=== PATIENT | male | born 2005 | race African-American/Black ===

== ENCOUNTER 2023-07-25 19:50 | Emergency (ER) | payer SELFPAY ==
--- NOTE | ~2023-07-25 | US_ITS ---
EXAMINATION: US scrotum doppler DATE: 07/25/2023 21:04 INDICATION: Left testicular pain TECHNIQUE: Testicular sonogram utilizing grayscale and Doppler COMPARISON: None. FINDINGS: The right testis measures 4.3 x 2.2 x 2.8 cm. The left testis measures 4.2 x 2.2 x 3.0 cm. Symmetric normal grayscale appearance to both testes. There is normal vascular flow to both testes. The right e pididymis is normal with normal vascular flow. The left epididymis appears swollen with heterogeneous decreased echodensity and with asymmetric increased vascular flow on color Doppler suggestive of pro statitis. 4 mm very hypoechoic likely left epididymal cyst.. There is no varicocele or hydrocele. IMPRESSION: 1. Some edematous-appearing left epididymis with increased vascular flow on color Doppler consistent with epididymitis. Reviewed, dictated and finalized at location A. IMPRESSION: 1. Some edematous-appearing left epididymis with increased vascular flow on co yajaira Doppler consistent with epididymitis.
[2023-07-25 19:57] VITALS: BP 139/100; PULSE 79; RESP 15; TEMP 36.6; O2SAT 100
--- NOTE | 2023-07-25 20:37 | ED.GENADULT ---
HPI - General Adult General Chief complaint: Unspecified Stated complaint: L testical swollen/painful Time Seen by Provider: 07/25/23 20:05 Source: patient Mode of arrival: ambulatory Limitations: no limitations History of Present Illness HPI narrative: This is a 18-year-old male who presents to the ED with chief complaint of left testicular swelling and pain for the past 2 days. Patient reports that he has concern for possible STD. No known exposures. Denies dysuria, hematuria, penile discharge or penile pain. Denies any lesions to the area. Denies any right-sided pain or swelling. Denies fevers, chills, nausea, vomiting, abdominal pain. Review of Systems Review of Systems: All systems as dictated in HPI Exam Narrative: GENERAL: Well-appearing, well-nourished, and in no acute distress. HEAD: Normocephalic, atraumatic. EYES: PERRLA and EOMI. ENT: Nares clear, no rhinorrhea or epistaxis. Mucous membranes moist. Oropharynx without tonsillar hypertrophy exudate or other lesions. NECK: Supple. No adenopathy or masses. CHEST: No respiratory distress. Clear to auscultation. No wheezes rales or rhonchi HEART: Regular rate and rhythm. No murmur heard. Normal peripheral pulses. ABDOMEN: Soft, nontender, nondistended, normal active bowel sounds. MSK: Normal range of motion. No edema. SKIN: Warm, dry, no rash. NEURO: Alert and oriented x3. No focal deficits. PSYCH: Normal mood and affect. : Testicular exam performed with RN leguillon debeader present: Mild left testicular swelling and tenderness. No skin changes. No penile swelling or discharge. No skin lesions noted Course Vital Signs Vital signs: Vital Signs Temperature 97.9 F 07/25/23 19:57 Pulse Rate 79 07/25/23 19:57 Respiratory Rate 15 07/25/23 19:57 Blood Pressure 139/100 H 07/25/23 19:57 Pulse Oximetry 100 07/25/23 19:57 Temperature 97.9 F 07/25/23 19:57 Pulse Rate 79 07/25/23 19:57 Respiratory Rate 15 07/25/23 19:57 Blood Pressure 139/100 H 07/25/23 19:57 Pulse Oximetry 100 07/25/23 19:57 Medical Decision Making [facility] Narrative Medical decision making narrative: This is a 18-year-old male who presents to the ED with chief complaint of left testicular pain and swelling for the past couple of days. Vitals are normal. Exam remarkable for the above. No skin lesions to the uro genital area. Ultrasound remarkable for signs of epididymitis but no torsion. Lab work positive for chlamydia. Patient was given Rocephin IM here. First dose of doxycycline given. Rx for doxycycline given for home. Symptoms and presentation consistent with chlamydia causing this epididymitis. Pt will be discharged in stable condition. Return precautions given and supportive measures discussed. Pt is understanding and agreeable with plan for discharge and follow-up with PCP. Vital Signs Vital Signs: Vital Signs Temperature 97.9 F 07/25/23 19:57 Pulse Rate 79 07/25/23 19:57 Respiratory Rate 15 07/25/23 19:57 Blood Pressure 139/100 H 07/25/23 19:57 Pulse Oximetry 100 07/25/23 19:57 Temperature 97.9 F 07/25/23 19:57 Pulse Rate 79 07/25/23 19:57 Respiratory Rate 15 07/25/23 19:57 Blood Pressure 139/100 H 07/25/23 19:57 Pulse Oximetry 100 07/25/23 19:57 Lab Data Labs: Lab Results 07/25/23 Range/Units 21:04 Urine Color Yellow (Yellow) Urine Appearance Clear (Clear) Urine pH 6.0 (5.0-9.0) Ur Specific [place] 1.014 (1.001-1.035) Urine Protein Negative (Negative) mg/dL Urine Glucose (UA) Negative (Negative) mg/dL Urine Ketones Negative (Negative) mg/dL Ur Blood (Man) Negative (Negative) Urine Nitrate Negative (Negative) Urine Bilirubin Negative (Negative) Urine Urobilinogen 0.2 (<2.0) mg/dL Leukocyte Esterase Rfl Negative (Negative) BETSEY/UL C. trachomatis (PCR) Pending N. gonorrhoeae (PCR) Pending T. vaginalis (PCR) Not detected (NOT DETECTE)
[2023-07-25 22:15] LABS: Appearance Urine Clear (Clear); Bilirubin Urine Negative (Negative); Blood Urine Negative (Negative); Color Urine Yellow (Yellow); Glucose Urine UA Negative (Negative); Ketones Urine Negative (Negative); Leukocyte Esterase Ur Negative LEU/UL (Negative); Nitrate Urine Negative (Negative); Protein Urine Negative (Negative); Specific Grav Ur 1.014 (1.001-1.035); Urobilinogen Urine 0.2 mg/dL (<2.0)
[2023-07-25 22:27] LABS: Add Urine Microscopic? NO
--- NOTE | 2023-07-25 23:13 | PC.NURSE ---
report given to ISAAC Zhang. all questions answered.
[2023-07-25 23:56] LABS: Trichomonas Vag PCR NOT DETECTED (NOT DETECTE)
[2023-07-26] MEDS: DOXYCYCLINE HYCLATE 100 MG TABLET PO (00:25)
[2023-07-26] MEDS: cefTRIAXone 1 GM VIAL 0.5 GM IM (00:26)
[2023-07-26 01:00] LABS: Neisseria gonorrhoeae PCR NOT DETECTED (NOT DETECTE)
[2023-07-26 01:05] LABS: Chlamydia trachomatis DETECTED (NOT DETECTE)
== END 2023-07-26 00:35 | disposition home or self-care (01) ==
PROVIDERS: Emergency Provider Physician Assistant
DX: N45.1 Epididymitis (principal)
CPT/HCPCS: 76870; 81003; 87491; 87591; 87661; 93976; 96372; 99284; A9270; J0696

== ENCOUNTER 2023-08-05 08:46 | Emergency (ER) | payer SELFPAY ==
[2023-08-05 08:57] VITALS: BP 149/82; PULSE 68; RESP 16; TEMP 36.7; O2SAT 98
[2023-08-05 11:10] VITALS: BP 113/91; PULSE 62; RESP 16; TEMP 36.8; O2SAT 100
[2023-08-05 11:23] LABS: Chlamydia trachomatis NOT DETECTED (NOT DETECTE); Neisseria gonorrhoeae PCR NOT DETECTED (NOT DETECTE)
--- NOTE | 2023-08-05 11:34 | ED_ITS ---
HPI - Male Genitourinary General Chief complaint: Urogenital-Male Stated complaint: STD TESTING Time Seen by Provider: 08/05/23 08:55 Source: patient Mode of arrival: ambulatory Limitations: no limitations History of Present Illness HPI Narrative: 18-year-old here for STI check. Patient states that he was diagnosed with chlamydia finished a course of antibiotics. He presently denies any he penile pain or discharge. Review of Systems Review of Systems: All systems reviewed & are unremarkable except as noted in HPI and below Constitutional: Constitutional: Reports no additional constitutional complaints Eyes: Eyes: Reports no additional eye complaints ENT: Reports system reviewed and no additional complaints, except as documented Cardiovascular: Cardiovascular: Reports no additional cardiovascular complaints Respiratory: Respiratory: Reports no additional respiratory complaints Gastrointestinal: Gastrointestinal: Reports no additional gastrointestinal complaints Genitourinary: Genitourinary: Reports as per HPI Musculoskeletal: Musculoskeletal: Reports no additional musculoskeletal complaints Exam Narrative: GENERAL: Well-appearing, well-nourished, and in no acute distress. HEAD: Normocephalic, atraumatic. EYES: PERRLA and EOMI. ENT: Nares clear, no rhinorrhea or epistaxis. Mucous membranes moist. NECK: Supple. CHEST: Clear to auscultation. No respiratory distress. HEART: Regular rate and rhythm. No murmur heard. Normal peripheral pulses. ABDOMEN: Soft, nontender, nondistended, normal active bowel sounds. EXTREMITIES: Normal range of motion. No edema. SKIN: Warm, dry, no rash. NEURO: No focal deficits. Alert and oriented x3. PSYCH: Normal mood and affect. Course Course Emergency Course: Informed patient about his lab work advised him safe sex, follow-up with his primary doctor as needed Vital Signs Vital signs: Vital Signs Temperature 36.7 C 08/05/23 08:57 Pulse Rate 68 08/05/23 08:57 Respiratory Rate 16 08/05/23 08:57 Blood Pressure 149/82 H 08/05/23 08:57 Pulse Oximetry 98 08/05/23 08:57 Temperature 36.8 C 08/05/23 11:10 Pulse Rate 62 08/05/23 11:10 Respiratory Rate 16 08/05/23 11:10 Blood Pressure 113/91 H 08/05/23 11:10 Pulse Oximetry 100 08/05/23 11:10 MDM - Male Genitourinary Lab Data Labs: Lab Results 08/05/23 Range/Units 09:46 C. trachomatis (PCR) Not detected (NOT DETECTE) N. gonorrhoeae (PCR) Not detected (NOT DETECTE) Discharge Plan Discharge Clinical Impression: Well adult exam Patient Disposition: Home, Self-Care Condition: Stable Instructions: Antibiotic Form, Safe Sex Practices (ED) Prescriptions: No Action doxycycline hyclate 100 mg capsule 100 mg PO BID 7 Days Qty: 14 0RF Follow-up/Referrals: Conrado Soares MD [Physician] - PHYSICIAN,HVAC SALES ENGINEER [Primary Care Provider] - Time of Disposition: 11:37
[2023-08-05 11:51] VITALS: BP 137/62; PULSE 72; RESP 18; TEMP 36.4; O2SAT 100
== END 2023-08-05 11:53 | disposition home or self-care (01) ==
PROVIDERS: Emergency Provider Family Medicine
DX: Z03.89 Encounter for observation for other suspected diseases and conditions ruled out (principal)
CPT/HCPCS: 87491; 87591; 99283

== ENCOUNTER 2023-10-17 11:04 | Emergency (ER) | payer BC, SELFPAY ==
--- NOTE | ~2023-10-17 | US_ITS ---
EXAMINATION: US scrotum doppler DATE: 10/17/2023 12:15 INDICATION: Left testicular pain. TECHNIQUE: Grayscale and Doppler ultrasound images of the testes were obtained. COMPARISON: Ultrasound 07/25/2023 FINDINGS: The right testis measures 4.2 x 1.8 x 3.0 cm. The left testis measures 4.3 x 2.0 x 2.5 cm. There is a scrotolith on the left. There is normal vascular flow to both testes. The right epididymis is normal with normal vascular flow. The left epididymis is normal with normal vascular flow. There is no varicocele or hydrocele. IMPRESSION: 1. No etiology for the patient's symptoms. Reviewed, dictated and finalized at location A.
--- NOTE | 2023-10-17 11:22 | ED.GENADULT ---
HPI - General Adult General Chief complaint: Urogenital-Male Stated complaint: STD check Time Seen by Provider: 10/17/23 11:19 Source: patient Mode of arrival: ambulatory Limitations: no limitations History of Present Illness HPI narrative: This is a 18-year-old male who presents to the ED for left testicular pain. States that he has noticed a lump over the past couple of weeks. States he had negative STD screening last week. He has no specific concern or symptoms for STDs today. He is just concerned over the lump. Denies fevers, chills, nausea, vomiting or over lying skin changes. Review of Systems Review of Systems: All systems as dictated in HPI Exam Narrative: GENERAL: Well-appearing, well-nourished, and in no acute distress. HEAD: Normocephalic, atraumatic. EYES: PERRLA and EOMI. ENT: Nares clear, no rhinorrhea or epistaxis. Mucous membranes moist. Oropharynx without tonsillar hypertrophy exudate or other lesions. NECK: Supple. No adenopathy or masses. CHEST: No respiratory distress. Clear to auscultation. No wheezes rales or rhonchi HEART: Regular rate and rhythm. No murmur heard. Normal peripheral pulses. ABDOMEN: Soft, nontender, nondistended, normal active bowel sounds. MSK: Normal range of motion. No edema. SKIN: Warm, dry, no rash. NEURO: Alert and oriented x4. No focal deficits. PSYCH: Normal mood and affect. : Normal penis Normal testes and scrotum. No swelling. No lesions and no discharge. scrotal exam appears to have normal anatomy Course Vital Signs Vital signs: Vital Signs Temperature 97.9 F 10/17/23 11:32 Pulse Rate 68 10/17/23 11:32 Respiratory Rate 18 10/17/23 11:32 Blood Pressure 126/61 10/17/23 11:32 Pulse Oximetry 98 10/17/23 11:32 Temperature 98.7 F 10/17/23 13:04 Pulse Rate 72 10/17/23 13:04 Respiratory Rate 18 10/17/23 13:04 Blood Pressure 130/65 10/17/23 13:04 Pulse Oximetry 98 10/17/23 13:04 Medical Decision Making [facility] Narrative Medical decision making narrative: This is a 18-year-old male who presents to the ED for concern over possible lump to his left testicle. Vitals are normal. Exam is benign overall. Appears to have normal testicular anatomy on my exam. Ultrasound was ordered and shows no acute findings. There is no mass or hernia. STD screening was run and is negative. Pt will be discharged in stable condition. Return precautions given and supportive measures discussed. Pt is understanding and agreeable with plan for discharge and follow-up with PCP. Vital Signs Vital Signs: Vital Signs Temperature 97.9 F 10/17/23 11:32 Pulse Rate 68 10/17/23 11:32 Respiratory Rate 18 10/17/23 11:32 Blood Pressure 126/61 10/17/23 11:32 Pulse Oximetry 98 10/17/23 11:32 Temperature 98.7 F 10/17/23 13:04 Pulse Rate 72 10/17/23 13:04 Respiratory Rate 18 10/17/23 13:04 Blood Pressure 130/65 10/17/23 13:04 Pulse Oximetry 98 10/17/23 13:04 Lab Data Labs: Lab Results 10/17/23 Range/Units 11:27 Urine Color Yellow (Yellow) Urine Appearance Clear (Clear) Urine pH 5.5 (5.0-9.0) Ur Specific [place] 1.013 (1.001-1.035) Urine Protein Negative (Negative) mg/dL Urine Glucose (UA) Negative (Negative) mg/dL Urine Ketones Negative (Negative) mg/dL Ur Blood (Man) Negative (Negative) Urine Nitrate Negative (Negative) Urine Bilirubin Negative (Negative) Urine Urobilinogen 0.2 (<2.0) mg/dL Leukocyte Esterase Rfl Negative (Negative) BETSEY/UL C. trachomatis (PCR) Not detected (NOT DETECTE) N. gonorrhoeae (PCR) Not detected (NOT DETECTE) T. vaginalis (PCR) Not detected (NOT DETECTE) Discharge Plan Discharge Clinical Impression: Encounter for medical screening examination Patient Disposition: Home, Self-Care Condition: Stable Instructions: Antibiotic Form Additional Instructions: your exam and imagin
[2023-10-17 11:32] VITALS: BP 126/61; PULSE 68; RESP 18; TEMP 36.6; O2SAT 98
[2023-10-17 11:39] LABS: Add Urine Microscopic? NO; Appearance Urine Clear (Clear); Bilirubin Urine Negative (Negative); Blood Urine Negative (Negative); Color Urine Yellow (Yellow); Glucose Urine UA Negative (Negative); Ketones Urine Negative (Negative); Leukocyte Esterase Ur Negative LEU/UL (Negative); Nitrate Urine Negative (Negative); Protein Urine Negative (Negative); Specific Grav Ur 1.013 (1.001-1.035); Urobilinogen Urine 0.2 mg/dL (<2.0); pH Urine 5.5 (5.0-9.0)
[2023-10-17 12:45] LABS: Trichomonas Vag PCR NOT DETECTED (NOT DETECTE)
[2023-10-17 13:04] VITALS: BP 130/65; PULSE 72; RESP 18; TEMP 37.1; O2SAT 98
[2023-10-17 13:10] LABS: Chlamydia trachomatis NOT DETECTED (NOT DETECTE); Neisseria gonorrhoeae PCR NOT DETECTED (NOT DETECTE)
== END 2023-10-17 13:07 | disposition home or self-care (01) ==
PROVIDERS: Emergency Provider Physician Assistant
DX: N50.812 Left testicular pain (principal); Z01.89 Encounter for other specified special examinations
CPT/HCPCS: 76870; 81003; 87491; 87591; 87661; 93976; 99284

== ENCOUNTER 2024-03-03 02:03 | Emergency (ER) | payer BC, SELFPAY ==
--- NOTE | ~2024-03-03 | XR_ITS ---
Left Knee Technique: AP, lateral, and oblique views were obtained. Clinical History: Pain Findings: No fracture or dislocation is seen. Osseous alignment is anatomic. Joint spaces are preserv ed without degenerative or erosive change. Soft tissues are unremarkable. No joint effusion is seen. Impression: Unremarkable left knee radiographs. Reviewed, dictated and finalized at [facility]. [employer] Impression: Unremarkable left knee radiographs.
[2024-03-03 02:14] VITALS: BP 143/76; PULSE 75; RESP 16; TEMP 36.6; O2SAT 95
--- NOTE | 2024-03-03 02:49 | ED.GENADULT ---
HPI - General Adult General Chief complaint: Extremity Injury, Lower Stated complaint: Left leg injury after fall Time Seen by Provider: 03/03/24 02:41 History of Present Illness HPI narrative: Patient is a 19-year-old gentleman presents emergency department chief complaint of left knee pain. Patient reports he has had a prior injury from a basketball injury and reports that he was walking and slipped on dog urine the patient reports that he had a twisting sensation in his knee and reports since then whenever he attempts to walk on the knee it hurts. The patient reports he has been using crutches without improvement and decided to come the emergency department. Related Data Allergies Allergy/AdvReac Type Severity Reaction Status Date / Time No Known Allergies Allergy Verified 03/03/24 02:04 Review of Systems Review of Systems: A 10 system review of systems was completed on the patient and is negative except for what is stated in the HPI. Nursing and ancillary documentation was reviewed. Exam Narrative: GENERAL: Well-appearing, well-nourished, and in no acute distress. HEAD: Normocephalic, atraumatic. EYES: PERRLA and EOMI. ENT: Nares clear, no rhinorrhea or epistaxis. Mucous membranes moist. NECK: Supple. CHEST: Clear to auscultation. No respiratory distress. HEART: Regular rate and rhythm. No murmur heard. Normal peripheral pulses. ABDOMEN: Soft, nontender, nondistended, normal active bowel sounds. EXTREMITIES: Normal range of motion tenderness to palpation of the left knee. No edema. SKIN: Warm, dry, no rash. NEURO: No focal deficits. Alert and oriented x3. PSYCH: Normal mood and affect. Course Vital Signs Vital signs: Vital Signs Temperature 36.6 C 03/03/24 02:14 Pulse Rate 75 03/03/24 02:14 Respiratory Rate 16 03/03/24 02:14 Blood Pressure 143/76 H 03/03/24 02:14 Pulse Oximetry 95 03/03/24 02:14 Oxygen Delivery Room Air 03/03/24 02:14 Temperature 36.6 C 03/03/24 02:14 Pulse Rate 75 03/03/24 02:14 Respiratory Rate 16 03/03/24 02:14 Blood Pressure 143/76 H 03/03/24 02:14 Pulse Oximetry 95 03/03/24 02:14 Oxygen Delivery Room Air 03/03/24 02:14 Medical Decision Making [facility] Narrative Medical decision making narrative: Differential diagnosis includes fracture, internal derangement of the knee Plain film x-ray showed no evidence of fracture The patient was placed in knee immobilizer and referred to Orthopedics Vital Signs Vital Signs: Vital Signs Temperature 36.6 C 03/03/24 02:14 Pulse Rate 75 03/03/24 02:14 Respiratory Rate 16 03/03/24 02:14 Blood Pressure 143/76 H 03/03/24 02:14 Pulse Oximetry 95 03/03/24 02:14 Oxygen Delivery Room Air 03/03/24 02:14 Temperature 36.6 C 03/03/24 02:14 Pulse Rate 75 03/03/24 02:14 Respiratory Rate 16 03/03/24 02:14 Blood Pressure 143/76 H 03/03/24 02:14 Pulse Oximetry 95 03/03/24 02:14 Oxygen Delivery Room Air 03/03/24 02:14 Discharge Plan Discharge Clinical Impression: Acute internal derangement of knee Patient Disposition: Home, Self-Care Condition: Stable Instructions: Antibiotic Form, Knee Sprain (ED), Knee Pain (ED), Knee Immobilizer (ED) Patient Language: Hungarian Prescriptions: New diclofenac potassium 50 mg tablet 50 mg PO TID PRN (Reason: pain) Qty: 30 0RF No Action doxycycline hyclate 100 mg capsule 100 mg PO BID 7 Days Qty: 14 0RF Follow-up/Referrals: Hill Her MD [Physician] - Rajesh Kelly MD [Physician] - UNKNOWN,DOCTOR [Primary Care Provider] - Time of Disposition: 02:52
[2024-03-03 03:05] VITALS: BP 120/55; PULSE 73; RESP 19; O2SAT 98
[2024-03-03 03:14] VITALS: BP 120/55; PULSE 66; RESP 17; O2SAT 97
--- OUTSIDE RECORDS SUMMARY | 2024-03-10 03:40 | XMS_ITS | Clinical Summary ---
Author Organization [facility] Address [address] [place] [address] Care Team Providers Care Logistics Program Manager Name Role Phone Ruthann Le Fabiano GAS OR PETROLEUM OPERATOR-DIRECTOR COLLEGE Primary Care Provider + Source Comments [facility],non-owned Affiliates and Associated Physician Practices is amultiple site organization consisting of ambulatory clinics and hospital sitesin [place], [place], [place] and [place]. This disclosure is being madepursuant to the Care Everywhere program and may not contain all information available regarding this patient. Last updated 17.[facility] Allergies No known active allergies Medications * Be aware that medications may not be up to date on this document. Alwaysverify current medications with the patient. Medication Sig Dispensed Refills Start Date End Date Status albuterol HFA (PROVENTIL;VENTOLI N;PROAIR) 108 (90 BASE) MCG/ACT inhaler Inhale 2 Puffs by mouth every 4 hours as needed for Shortness of Breath, Wheezing or Cough 1 Inhaler 0 08/14/2014 Active dexmethylphenidate ER 24hr (FOCALIN XR) 15 MG capsule 01/05/2015 Active ondansetron (ZOFRAN) 4 MG tablet Take 4 mg by mouth every 6 hours as needed for Nausea/Vomiting Active dicyclomine (BENTYL) 10 MG capsule Take 10 mg by mouth as needed Active acetaminophen (TYLENOL) 325 MG tablet Take 2 Tabs by mouth every 4 hours as needed Maximum allowable Acetaminophen amount = 4 Grams (4000 mg) / 24 hours. 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 ADHD (attention deficit hyperactivity disorder) 06/13/2013 Resolved Problems Problem Noted Date Diagnosed Date Resolved Date Diarrhea 04/12/2017 11/08/2017 Social History Tobacco Use Types Packs/Day Years Used Date Smoking Tobacco: Never Smokeless Tobacco: Never Alcohol Use Standard Drinks/Week Comments No 0 (1 standard drink = 0.6 oz pur e alcohol) Sex and Gender Information Value Date Recorded Sex Assigned at Not on file Gender Identity Not on file Sexual Orientation Not on file Last Filed Vital Signs Vital Sign Reading Time Taken Comments Blood Pressure 100/60 08/30/2017 10:28 PM CDT pe r pcp Pulse 84 06/17/2017 4:00 PM CDT Temperature 36.2 ??C (97.2 ??F) 06/17/2017 4:00 PM CD T Respiratory Rate 16 06/17/2017 4:00 PM CDT Oxygen Saturation 98% 03/12/2017 10:[address] per pcp Inhaled Oxygen Concentration - - Weight 69.5 kg (153 lb 4.8 oz) 08/30/2017 10:28 PM CDT per pcp Height 170.2 cm (5' 7 ) 08/30/2017 10:28 PM CDT per pcp Body Mass Index 24.01 08/30/2017 10:28 PM CDT Plan of Treatment Health Maintenance Due Date Last Done Comments HIV SCREENING 2018 HPV VACCINE (1 - Male 3-dose series) 2018 HEPATITIS C SCREENING 01/03/2021 DTAP/TDAP/TD VACCINES (1 - Tdap) 2022 HEPATITIS B VACCINE (1 of 3 - 19+ 3-dose series) 2022 DEPRESSION SCREENING 03/05/2023 COVID-19 VACCINE (1 - 2023-2 5 season) 2023 INFLUENZA VACCINE (#1) 2023 ZOSTER VACCINE (1 of 2) 2053 HIB VACCINE Aged Out No longer eligi ble based on patient's age to complete this topic MENINGOCOCCAL VACCINE Aged Out No elida elsy eligible based on patient's age to complete this topic PNEUMOCOCCAL VACCINE Aged Out No long er eligible based on patient's age to complete this topic Medical Devices Implanted Type Area Hand Assembler For Puller Over Device Identifier Shelf Expiration Date Model / Serial / Lot Scrw Daniel 4.5mm X 48mm Implanted:Qty: 1 on 03/11/2015 by Ruben Jorge MD at [facility] Right: [employer] 48 / / Scrw Daniel 4.5mm X 28mm Implanted:Qty: 1 on 03/11/2015 by Ruben Jorge MD at [facility] Right: [employer] 28 / / Nail R 10mm X 36cm Implanted:Qty: 1 on 03/11/2015 by Ruben Jorge MD at [facility] Right: [employer] 4 / / Explanted Type Area Hand Assembler For Puller Over Device Identifier Shelf Expiration Date Model / Serial / Lot Wire Gde Thrd Tip 3.2mm Explanted:Qty: 2 on 03/11/2015 by Ruben Jorge MD at [facility] Right: [employer] 1 / / Pin Tin Half Sh 5mm X 35mm Implanted:Qty: 1 Explanted:Qty: 1 on 03/11/2015 by Ruben Jorge MD at [facility] Right: [employer]ur [employer] [id number] / / Pin Tin Half Sh 5mm X 30mm Implanted:Qty: 1 Explanted:Qty: 1 on 03/11/2015 by Ruben Jorge MD at [facility] Right: Femur [employer] [id number] / / Advance Directives * Full Code (Latest Code Status on File) Date Activated Date Inactivated Comments 10/26/2016 5:40 PM 10/27/2016 11:51 AM * Full Code Date Activated Date Inactivated Comments 03/11/2015 3:50 PM 03/13/2015 11:44 AM Care Teams Logistics Program Manager Relationship Specialty Start Date End Date Ruthann Le APRN-CHAMP [address] [place] [id number] PCP - General Nurse Practitioner 08/14/14
--- OUTSIDE RECORDS SUMMARY | 2024-03-10 03:41 | XMS_ITS | Encounter Summary ---
Author Organization [facility] Address [address] [place] [address] Care Team Providers Care Tire Fabricator Name Role Phone Cody Merlos MD Primary Care Provider [phone] Reason for Visit * Reason Comments Drainage Eye pt has been sick sin ce [place]- cough and congestion. This morning at 0530 pt started with green drainage to eyes and nose. Pt with lungs clear, aeration good. No drainage noted at this time. Pt with hacky cough noted in triage. Sore Throat pt also c/o sore thr oat since this morning. No hx of fever. Encounter Details Date Type Department Care Team (Late st Contact Info) Description 03/13/2011 7:03 AM ASSISTANT AUTO CENTER MANAGER - 03/13/2011 8:39 AM ASSISTANT AUTO CENTER MANAGER Emergency ER at [address] [address] Damaso Cruz MD [address] [place] [phone] Cough; URI (upper respiratory infection) Discharge Disposition: Home or Self Care Social History Tobacco Use Types Packs/Day Years Used Date Smoking Tobacco: Never Assessed Sex and Gender Information Value Date Recorded Sex Assigned at Not on file Gender Identity Not on file Sexual Orientation Not on file documented as of this encounter Last Filed Vital Signs Vital Sign Reading Time Taken Comments Blood Pressure 117/82 03/13/2011 7:05 AM ASSISTANT AUTO CENTER MANAGER Pulse 98 03/13/2011 7:55 AM ASSISTANT AUTO CENTER MANAGER Temperature 36.9 ??C (98.5 ??F) 03/13/2011 7:05 AM CS T Respiratory Rate 20 03/13/2011 7:55 AM ASSISTANT AUTO CENTER MANAGER Oxygen Saturation 98% 03/13/2011 7:07 AM ASSISTANT AUTO CENTER MANAGER room air Inhaled Oxygen Concentration - - Weight 36.1 kg (79 lb 9.4 oz) 03/13/2011 7:05 AM ASSISTANT AUTO CENTER MANAGER Height - - Body Mass Index - - documented in this encounter Discharge Instructions * Discharge Instructions* Spencer Huynh MD - 03/13/2011 8:01 AM ASSISTANT AUTO CENTER MANAGER 1. Avoid tobacco exposure---as this is an irritant and can make your coughing worse. Cough A cough helps the body clear mucus or other material from the respiratory tract. It is also a sign of an illness or medical problem. The most common causes for a cough is: ?? Respiratory infections. ?? Mucus dripping back from the nose (post-nasal drip). ?? Allergies. ?? Asthma. ?? Smoke or fumes. ?? Exercise. ?? Acid backing up from the stomach into the esophagus (acid reflux). ?? Habit. ?? Reaction to medications. HOME CARE ?? Take medicine as directed by your doctor. ?? Stay away from anything that causes coughing at school, work or home. ?? Stay away from cigarette smoke. ?? Use a humidifier to moisten the air in your room. GET HELP RIGHT AWAY IF: ?? You have trouble breathing. ?? You have a fever. ?? You have severe chest pain. ?? You start to wheeze (high pitch whistling song when breathing out or in). ?? Your cough has not improved after 3 weeks. ?? You have new problems. ?? You throw up from coughing. ?? Your cough wakes you. MAKE SURE YOU: ?? Understand these instructions. ?? Will watch your condition. ?? Will get help right away if you are not doing well or get worse. Document Released: 08/07/2008 Document Re-Released: 02/01/2009 ExitCare?? Patient Information ??2010 [employer]. Upper Respiratory Infection (URI), Child Your child has an upper respiratory infection (URI). An upper respiratory tract infection or cold is a viral infection of the air passages leading to the lungs. A cold can be spread to others, especially during the first 3 or 4 days. It can not be cured by medications that kill germs (antibiotics) or other medicines. A cold usually clears up in a few days. However, some children may be sick for se veral days or have a cough lasting several weeks. HOME CARE INSTRUCTIONS ?? Use saline nose drops frequently to keep the nose open from secretions. It works better than suctioning with the bulb syringe, which can cause minor bruising inside the child???s nose. Occasionally you may have to use bulb suctioning, but it is strongly believed that saline rinsing of the nostrils is more effective in keeping the nose open. This is especially important for the who needsan open nose to be able to suck with a closed mouth. ?? Only give your child [id number] or prescription medicines for pain, discomfort, or fever as directed by their caregiver. Do not give aspirin to children under 18 years of age because of aspirin's association with Barbara's Syndrome. ?? Use a cool mist humidifier if available to increase air moisture. This will make it easier for your child to breathe. Do not use hot steam. ?? Give your child plenty of clear liquids. If your child is an infant, continue to give normal formula or breast milk feedings. ?? Have your child rest as much as possible. ?? Keep your child home from day care or school until the fever is gone. SEEK MEDICAL CARE IF: ?? Your child develops an oral temperature above 102?? F (38.9?? C), or if the fever lasts more than 2 days. ?? Mucous coming from your child's nose turns yellow or green. ?? The eyes are red and matted with a yellow discharge. ?? Your child's skin under the nose becomes crusted or scabbed over. ?? Your child complains of an earache or sore throat, develops a rash, or is repeatedly pulling on his or her ear. SEEK IMMEDIATE MEDICAL CARE IF: ?? Your child has signs of water loss such as: l Unusually sleepiness l Dry mouth l Very thirsty l Little or no urination l Wrinkled skin l Dizziness l No tears l A sunken soft spot on the top of the head ?? Your child has trouble breathing or the skin or nails turn bluish. ?? Your child's skin or nails look sharp or blue. ?? Your child looks and acts sicker. ?? Your child has chest pain. Document Released: 11/29/2005 Document Re-Released: 08/07/2008 ExitCare?? Patient Information ??2009 [employer]. STANT AUTO CENTER MANAGER * Discharge Instructions* Document, Scanned - 03/14/2011 9:39 AM ASSISTANT AUTO CENTER MANAGER STANT AUTO CENTER MANAGER documented in this encounter Medications at Time of Discharge Medication Sig Dispensed Refills Start Date End Date acetaminophen (TYLENOL) 325 MG tablet Take 1 Tab by mouth every 4 hours as needed for Fever or Pain. Maximum allowable Acetaminophen amount = 4 Grams (4000 mg) / 24 hours. 30 Tab 1 03/13/2011 10/21/2011 albuterol HFA (PROVENTIL;VENTOLIN; PROAIR) 108 (90 BASE) MCG/ACT inhaler Inhale 2 Puffs by mouth every 4 hours as needed for Wheezing or Cough (use with MDI as instructed.). 1 Inhaler 3 03/13/2011 08/14/2014 amoxicillin (AMOXIL) 250 MG/5ML SUSR suspension Take 10 mL by mouth 2 times daily for 10 days. 1 Bottle 0 03/17/2011 03/27/2011 Dexmethylphenidate HCl (FOCALIN PO) Take by mouth. Takes once daily, unsure of dose 03/10/2015 documented as of this encounter ED Notes * Damaso Cruz MD - 03/13/2011 7:26 AM CST Images from the original note were not included. EMERGENCY DEPARTMENT 03/13/2011 Dear Provider Unknown We had the pleasure of caring for your patient, Liam Bal in our emergency department on 03/13/2011. A note from the provider(s) who cared for your patient is attached. Should you wish to access any laboratory results, please call . Should you wish to access any radiology results, please call , option 3. In addition, you can access patient information 24 hours a day, from any computer, through PAN[employer], the online version of our electronic medical record. If you would like to use this service, please call Virgie Armendariz, Connectivity Coordinator, at . We appreciate the opportunity to care for your patients. If you would like additional information, please call the emergency department directly at . Sincerely, Damaso Cruz MD Division of Emergency Medicine [place], [place] [facility] [place] DESIGN[facility] EMERGENCY DEPARTMENT 03/13/2011 7:26 AM Liam Bal [id number] [facility] History Chief Complaint Patient presents with ??? Drainage Eye pt has been sick since [place]- cough and congestion. This morning at 0530 pt started with green drainage to eyes and nose. Pt with lungs clear, aeration good. No drainage noted at this time. Pt with hacky cough noted in triage. ??? Sore Throat pt also c/o sore throat since this morning. No hx of fever. HPI Comments: 6 yo male with URI'sx and cough was seen last week at [facility] and told to start honey for cough Here for evaluation. No fever ?st in triage PMH +asthma PE wn wd in no distress ears- +nasal congestion lungs clear RRR Abd soft fsc -neg Home on suportive care, tylenol for fever F/u PMD .I have personally seen and examined this patient. I have fully participated in the care of this patient. I have reviewed all pertinent clinical information, including history, physical exam and plan. I have reviewed the nurses notes. I have reviewed available labs and radiographic studies. URI Viral syndrone Past Medical History Diagnosis Date ??? ADHD (attention deficit hyperactivity disorder) No past surgical history on file. History Social History ??? Marital Status: Single Spouse Name: N/A Number of Children: N/A ??? Years of Education: N/A Occupational History ??? Not on file. Social History Main Topics ??? Smoking status: Not on file ??? Smokeless tobacco: Not on file ??? Alcohol Use: Not on file ??? Drug Use: Not on file ??? Sexually Active: Not on file Other Topics Concern ??? Not on file Social History Narrative ??? No narrative on file Medications Current Outpatient Prescriptions Medication Sig Dispense Refill ??? Dexmethylphenidate HCl (FOCALIN PO) Take by mouth. Takes once daily, unsure of dose Review of Systems Review of Systems BP 117/82 Pulse 102 Temp 98.5 ??F Resp 22 Wt 36.1 kg (79 lb 9.4 oz) SpO2 98% Physical Exam Physical Exam Procedures Procedures EKG Interpretation Lab/SPO2 Interpretation Progress Notes ED Course Medical Decision Making I have reviewed the: Nursing Notes and Vitals. fsc -neg, +URI'sx no signs of serious illness Home on suportive care, tylenol for fever F/u PMD Clinical Impression Viral syndrone URI STANT AUTO CENTER MANAGER * Spencer Huynh MD - 03/13/2011 7:21 AM CST Provider contact with the patient: 03/13/2011 7:21 AM Liam Bal [id number] [facility] EM[facility]GENCY [facility]PT History Chief Complaint Patient presents with ??? Drainage Eye pt has been sick since [place]- cough and congestion. This morning at 0530 pt started with green drainage to eyes and nose. Pt with lungs clear, aeration good. No drainage noted at this time. Pt with hacky cough noted in triage. ??? Sore Throat pt also c/o sore throat since this morning. No hx of fever. HPI Comments: 6 year old male with history of asthma presents with mother for c/o 2.5 week persistent, now worsening cough. Non-productive, hacking cough begin around [place] and has worsen over last evening. Also has hadrhinorrhea, watery eyes. No fever or decrease oral intake. She gave him albuterol treatment yesterday evening without improvement in symptoms. However, motherdoes not feel child knows how to correctly use inhaler. Over last two weeks he has not used albuterol inhaler often. He was seen at [facility] about 6 days ago for the same symptoms and discharged home with instructions to use honey, however, mother did not give. No sick contacts. +Exposure to smoke--visits maternal grandmother who is a chain smoker . PMHX: Asthma--albuterol prn. No controller. ADHD No surgeries Past Medical History Diagnosis Date ??? ADHD (attention deficit hyperactivity disorder) No past surgical history on file. History Social History ??? Marital Status: Single Spouse Name: N/A Number of Children: N/A ??? Years of Education: N/A Occupational History ??? Not on file. Social History Main Topics ??? Smoking status: Not on file ??? Smokeless tobacco: Not on file ??? Alcohol Use: Not on file ??? Drug Use: Not on file ??? Sexually Active: Not on file Other Topics Concern ??? Not on file Social History Narrative ??? No narrative on file Medications Current Outpatient Prescriptions Medication Sig Dispense Refill ??? acetaminophen (TYLENOL) 325 MG tablet Take 1 Tab by mouth every 4 hours as needed for Fever or Pain. Maximum allowable Acetaminophen amount = 4 Grams (4000 mg) / 24 hours. 30 Tab 1 ??? albuterol HFA (PROVENTIL;VENTOLIN;PROAIR) 108 (90 BASE) MCG/ACT inhaler Inhale 2 Puffs by mouthevery 4 hours as needed for Wheezing or Cough (use with MDI as instructed.). 1 Inhaler 3 ??? Dexmethylphenidate HCl (FOCALIN PO) Take by mouth. Takes once daily, unsure of dose Review of Systems Review of Systems BP 117/82 Pulse 102 Temp 98.5 ??F Resp 22 Wt 36.1 kg (79 lb 9.4 oz) SpO2 98% Physical Exam Physical Exam Nursing note and vitals reviewed. Constitutional: He appears well-developed and well-nourished. Frequent coughing. HENT: Head: Atraumatic. Nose: Nasal discharge present. Mouth/Throat: Mucous membranes are moist. No tonsillar exudate. Oropharynx is clear. Pharynx is normal. TM slightly red, but no otitis Eyes: Conjunctivae and EOM are normal. Pupils are equal, round, and reactive to light. Right eye exhibits no discharge. Left eye exhibits no discharge. Eyes watery Neck: Normal range of motion. Neck supple. Adenopathy (small cervical LAD) present. No rigidity. Cardiovascular: Normal rate, regular rhythm, S1 normal and S2 normal. Pulses are palpable. No murmur heard. Pulmonary/Chest: Breath sounds normal. No respiratory distress. Air movement is not decreased. He has no wheezes. He exhibits no retraction. Hacking non-productive cough Abdominal: Soft. Bowel sounds are normal. He exhibits no distension. There is no hepatosplenomegaly. No tenderness. He has no guarding. Musculoskeletal: Normal range of motion. Neurological: He is alert. He exhibits normal muscle tone. Skin: Skin is warm. Capillary refill takes less than 3 seconds. No rash noted. He is not diaphoretic. Procedures Procedures EKG Interpretation Lab/SPO2 Interpretation Progress Notes Negative rapid strep. No drainage from eyes. MDI teaching with 4 puffs albuterol. No need for steroid as no wheezing. ED Course Medical Decision Making Clinical Impression Encounter Diagnoses Name Primary? Cough ??? URI (upper respiratory infection) Albuterol inhaler w/ MDI. Tylenol prn fever Keep well hydrated. May also try honey to help soothe throat. Return to emergency department for signs of respiratory distress. STANT AUTO CENTER MANAGER documented in this encounter Miscellaneous Notes * Miscellaneous Scans - Document, Scanned - 03/30/2011 6:52 AM CST STANT AUTO CENTER MANAGER * Miscellaneous Scans - Document, Scanned - 03/29/2011 8:20 AM CST STANT AUTO CENTER MANAGER documented in this encounter Plan of Treatment Scheduled Orders Name Type Priority Associated Diagnoses Order Schedule PATIENT EDUCATION RESPIRATORY THERAPY Respiratory Care STAT ONCE for 1 Occurrences starting 03/13/2011 until 03/13/2011 documented as of this encounter Procedures Procedure Name Priority Date/Time Associated Diagnosis Comments STREP A SCREEN DIRECT STAT 03/13/2011 7:15 AM ASSISTANT AUTO CENTER MANAGER CULTURE STREP GROUP A STAT 03/13/2011 7:15 AM ASSISTANT AUTO CENTER MANAGER documented in this encounter Results * CULTURE STREP GROUP A (03/13/2011 7:15 AM ASSISTANT AUTO CENTER MANAGER) Result [facility] Comment: Final Growth of BETA HEMOLYTIC STREP GP A ??Susceptibility testing of ? penicillin, and other ? beta-lactam antibiotics, ??and vancomycin is not ? necessary for ? beta-hemolytic streptococci ? Group A ??(S.pyogenes) and Group B ? (S.agalactiae) because ? resistant strains have ??not been recognized. ??If patient is penicillin ? allergic, contact the ? microbiology ??laboratory for susceptibility ? testing. ENTIRE THROAT (SURFACE REGION OF NECK) / Unknown 03/13/2011 7:15 AM ASSISTANT AUTO CENTER MANAGER 03/13/2011 7:34 AM ASSISTANT AUTO CENTER MANAGER Narrative Resulting Agency Comment Performed By [facility];[address] [place] [address];[place] [address] Abhishek Juárez MD LAB - MICROBIOLOGY O FUENTES Performing Organization Address [facility] de Phone Number [facility] [address] [place] [address] * STREP A SCREEN DIRECT (03/13/2011 7:15 AM ASSISTANT AUTO CENTER MANAGER) Strep A Rapid Negative Neg Grp A Beta Strep [facility] Miscellaneous samples (specimen) ENTIRE THROAT (SURFACE REGION OF NECK) / Unknown 03/13/2011 7:15 AM ASSISTANT AUTO CENTER MANAGER 03/13/2011 7:20 AM ASSISTANT AUTO CENTER MANAGER Abhishek Juárez MD LAB - MICROBIOLOGY O iTracsJONNIE Performing Organization Address [facility] Co de Phone Number [facility] [address] [place] [address] documented in this encounter Visit Diagnoses Diagnosis Cough URI (upper respiratory infection) Acute upper respiratory infections of unspecified site documented in this encounter Administered Medications Inactive Administered Medications - up to 3 most recent administrations Medication Order MAR Action Action Date Dose Rate Site albuterol HFA (PROVENTIL;VENTOLIN;PROAIR) 108 (90 BASE) MCG/ACT inhaler 4 Puff 4 puff (0.111 Puff/kg), Inhalation, ONCE, 1 dose, On Sun03/13/11 at 0800, With MDI teaching. Shake well before using. WASTE DISPOSAL INSTRUCTION: Send to Pharmacy for Disposal. $ Given 03/13/2011 7:55 AM ASSISTANT AUTO CENTER MANAGER 4 puffs ibuprofen (ADVIL; MOTRIN) suspension 360 mg 360 mg (9.97 mg/kg), Oral, ONCE, 1 dose, On Sun03/13/11 at 0800, Shake well before using $ Given 03/13/2011 7:15 AM ASSISTANT AUTO CENTER MANAGER 360 mg ibuprofen (ADVIL; MOTRIN) suspension ADS Med 1 dose, Starting on Sun03/13/11 at 0718, Until Sun03/13/11 at 0715, JACQUELYN WILKINSON: cabinet override documented in this encounter Active and Recently Administered Medications Times are shown in ASSISTANT AUTO CENTER MANAGER. Scheduled Medication Order 03/11/2011 03/12/2011 03/13/2011 albuterol HFA (PROVENTIL;VENTOLIN;PROAIR) 108 (90 BASE) MCG/ACT inhaler 4 Puff (COMPLETED) 4 puff (0.111 Puff/kg), Inhalation, ONCE, 1 dose, On Sun03/13/11 at 0800, With MDI teaching. Shake well before using. WASTE DISPOSAL INSTRUCTION: Send to Pharmacy for Disposal. 0755 ($ Given - Prov ider: Rafa Nino RCP) ibuprofen (ADVIL; MOTRIN) suspension 360 mg (COMPLETED) 360 mg (9.97 mg/kg), Oral, ONCE, 1 dose, On Sun03/13/11 at 0800, Shake well before using 0715 ($ Given - Prov ider: Jacquelyn Wilkinson RN) documented in this encounter Care Teams Tire Fabricator Relationship Specialty Start Date End Date Cody Merlos MD NOT SEEING PATIENTS PCP - General 03/13/11 03/13/11 documented as of this encounter
--- OUTSIDE RECORDS SUMMARY | 2024-03-10 03:41 | XMS_ITS | Encounter Summary ---
Author Organization [facility] Address [address] [place] [address] Care Team Providers Care Photographic Technician Name Role Phone Ruthann Le DOOR CAPTAIN-AUTO LOCATOR Primary Care Provider + Reason for Visit * Auth/Cert Specialty Diagnoses / Procedures Referred By Zohra aguila Referred To Contact Diagnoses Acute calculous cholecystitis Acute calculous cholecystitis Procedures LAPAROSCOPIC CHOLECYSTECTOMY Referral ID Status Reason Start Date Expiration Date Visits Re quested Visits Authorized [id number] 1 1 Encounter Details Date Type Department Care Team (Late st Contact Info) Description 10/26/2016 1:50 PM CDT - 10/26/2016 3:40 PM CDT Surgery [facility] - Periop [address] [place] [address]. [place] [address] Rosana Castro MD [address] [place] [address] [place] [address] LAPAROSCOPIC CHOLECYSTECTOMY Surgery Details Date/Time Status Location OR Service Patient Class Case Class Case Type Trauma Case? 10/26/2016 1:50 PM Posted MAIN OR 08 General Surgery Day Care Over Night Elective > 5 days Panel 1 Procedure LRB Anes Op Region Wound Class Comments LAPAROSCOPIC CHOLECYSTECTOMY N/A General Abdomen C lean Surgeon Surgeon Role Service Panel Rosana Castro MD Primary General 1 Magen Ceja MD Fellow General 1 Sara Weir DO Resident - Assisting General 1 Special Needs LDM documented in this encounter Social History Tobacco Use Types Packs/Day Years [...] Sign Reading Time Taken Comments Blood Pressure 112/66 10/27/2016 8:05 AM CDT Pulse 64 10/27/2016 8:05 AM CDT Temperature 35.8 ??C (96.4 ??F) 10/27/2016 8:05 AM CD T Respiratory Rate 18 10/27/2016 8:05 AM CDT Oxygen Saturation 98% 10/26/2016 8:30 PM CDT Inhaled Oxygen Concentration - - Weight 69.2 kg (152 lb 8.9 oz) 10/27/19 17 12:52 PM CDT Height 168.9 cm (5' 6.5 ) 10/26/2016 12 :52 PM CDT Body Mass Index 24.26 10/26/2016 12:52 PM CDT Body Mass Index Percentile 91.83% 10/26 12:52 PM CDT Growth Chart: [facility] [place] (Boys, 2-2 0 Years) documented in this encounter Functional Status Functional Status Response Date of Assess ment Is person deaf or have serious hearing difficult y? No 10/27/2016 Is person blind or have serious difficulty seein g? Yes-glasses 10/27/2016 Does person have serious dif ficulty walking/climbing stairs? No 10/27/2016 Does person have difficulty dressing/bathing? No 10/27/2016 Does person have difficulty doing errands alone? No 10/27/2016 Cognitive Status Response Date of Assessm ent Does person have difficulty concentrating/remembering/making decisions? No 10/27/2016 documented as of this encounter Discharge Summaries * Kaci Mobley MD - 10/27/2016 10:44 AM CDT Images from the original note were not included. Attending Physician: Rosana Castro MD Office 10/27/2016 12:20 PM Pediatric Surgery Discharge Summary This is a clinical resume for patient Liam Bal for attending Rosana Castro, * Admission Date: 10/26/2016 Discharge Date: 10/27/2016 Hospitalization duration: Hospital Day: 1 HPI: Liam Bal is a 11 y.o. male with intermittent RUQ pain found to be associated with ingestion of greasy foods. Workup revealed gallstones. Patient was last seen in Dr. Castro's clinic on 10/02/2016. Plan was made at that time for surgical intervention. Patient returns today for surgery. He has been NPO since midnight. He is ready for surgery today. Past Medical History: Diagnosis Date ??? ADHD (attention deficit hyperactivity disorder) 11/22/2009 ??? Asthma 05/21/2012 ??? 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 Gallstones 10/02/2016 intermittent RUQ pain that has recently worsened in severity. His last two episodes have been preceded by fatty foods and CT from [facility] was positive for gallstones ??? Head injury 11/22/2009 ??? Left tibial torsion 06/13/2013 ??? 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 Cholecystectomy, Laparoscopic N/A 10/26/2016 N/A; LAPAROSCOPIC CHOLECYSTECTOMY ??? NEGATIVE SURGICAL HISTORY 01/01/2015 ??? Osteotomy Right 03/11/2015 Right; RIGHT FEMORAL DEROTATIONAL OSTEOTOMY AND INTRAMEDULLARY NAIL No family history on file. Clinical course: improved Procedures: Laparoscopic cholecystectomy Clinical Course: The patient presented to [facility] with the above H&P. The patient was taken to the operating room for the above procedure. For full details please see the dictated operative report. The patient tolerated the procedure well. Post operatively they were taken to the PACU and once criteria were met was transferred to floor. Diet was advanced to Regular and was well tolerated. By the day of discharge, the patient was eating, drinking, taking oral medications, walking and urinating spontaneously. The patient was examined by the attending physician and deemed appropriate for discharge. Follow up in [address] Castro. Pertinent labs: There are no new lab results to review at this time. Consultations: None No orders to display Discharge Physical Exam: Relevent findings include: General: healthy, alert and no distress Neuro: alert, oriented, normal speech, no focal findings or movement disorder noted Eyes: no conjunctival injection, crusting or discharge Ears: canals clear, tympanic membranes normal, hearing intact to voice Nose: no significant discharge Lungs: breath sounds symmetrical without rales or wheezes Heart: regular rate and rhythm, normal S1 and S2, no murmurs Abdomen: soft, non-distended, no hepatosplenomegaly or masses and appropriately tender to palpation Skin: no rashes Extremities: No clubbing, cyanosis or edema Liam Bal Home Medication Instructions KELVIN:[id number] Printed on:10/27/16 1220 Medication Information acetaminophen (TYLENOL) 325 MG tablet Take 2 Tabs by mouth every 4 hours as needed Maximum allowable Acetaminophen amount = 4 Grams (4000mg) / 24 hours. albuterol HFA (PROVENTIL;VENTOLIN;PROAIR) 108 (90 BASE) MCG/ACT inhaler Inhale 2 Puffs by mouth every 4 hours as needed for Shortness of Breath, Wheezing or Cough dexmethylphenidate ER 24hr (FOCALIN XR) 15 MG capsule dicyclomine (BENTYL) 10 MG capsule Take 10 mg by mouth as needed ondansetron (ZOFRAN) 4 MG tablet Take 4 mg by mouth every 6 hours as needed for Nausea/Vomiting oxyCODONE, immediate release, (ROXICODONE) 5 MG tablet Take 1 Tab by mouth every 4 hours as needed Discharge Diagnosis(es): Symptomatic cholelithiasis Follow up in [address] Castro during the [facility] clinic. Call [phone] for appointment time. Return to ER or call [phone] and page pediatric surgery resident if develop severe pain, nausea, vomiting, or fever > 101.0 F. Kaci Mobely MD CC: Ruthann Le, MITCH-AUTO LOCATOR Associated attestation - Arcenio Major MD - 10/27/2016 4:16 PM CDT I reviewed this patient chart, seen and examined this patient and agree with the provider note. documented in this encounter Medications at Time of Discharge Medication Sig Dispensed Refills Start Date End Date acetaminophen (TYLENOL) 325 MG tablet Take 2 Tabs by mouth every 4 hours as needed Maximum allowable Acetaminophen amount = 4 Grams (4000 mg) / 24 hours. 10/27/2016 albuterol HFA (PROVENTIL;VENTOLIN;P ROAIR) 108 (90 BASE) MCG/ACT inhaler Inhale 2 Puffs by mouth every 4 hours as needed for Shortness of Breath, Wheezing or Cough 1 Inhaler 0 08/14/2014 dexmethylphenidate ER 24hr (FOCALIN XR) 15 MG capsule 01/05/2015 dicyclomine (BENTYL) 10 MG capsule Take 10 mg by mouth as needed ondansetron (ZOFRAN) 4 MG tablet Take 4 mg by mouth every 6 hours as needed for Nausea/Vomiting oxyCODONE, immediate release, (ROXICODONE) 5 MG tablet Take 1 Tab by mouth every 4 hours as needed 12 Tab 10/27/2016 documented as of this encounter Progress Notes * Neetu Caraballo RN - 10/27/2016 4:22 AM CDT Problem: Pain/Discomfort Liam is s/p LAPAROSCOPIC CHOLECYSTECTOMY Goal: Patient exhibits reduced pain/discomfort as evidenced by pain scores Liam will have pain scores at or below his functional goal at discharge Outcome: Ongoing Liam's pain has been controlled with the scheduled Toradol and has not required any PRN medications overnight. Problem: Incision Care Liam is s/p LAPAROSCOPIC CHOLECYSTECTOMY Goal: Incision remains intact with edges well approximated Liam???s incision will remain clean, dry and intact. Outcome: Ongoing Liam's incisions remain clean, dry and intact with dressings in place with minimal drainage noted. * Delma Sorto MD - 10/27/2016 12:15 AM CDT Pediatric Surgery Post op check POD 0 for laparoscopic cholecystectomy Subjective: Patient returns from the OR after undergoing laparoscopic cholecystectomy for symptomatic cholelithiasis. He remains afebrile, hemodynamically stable since returning from the OR. He has tolerated some PO intake of CLD with mild nausea but without emesis. He has voided spontaneously and has been able to get up to walk to the bathroom without much issue. Pain is well controlled. Objective: Patient Vitals for the past 6 hrs: Temp Pulse Resp BP BP Method 10/26/16 2355 97.6 ??F 76 16 103/56 Automatic 10/26/16 2030 96.8 ??F 73 16 100/55 Automatic 10/26/162014 16 103/62 - 10/26/161944 - (!) 11 97/54 - 10/26/16 193 - (!) 9 106/57 - 10/26/161914 - (!) 11 112/63 - 10/26/161829 - 14 103/63 - Urine output post op: ~1.6cc/kg/hr Physical Exam: General appearance: alert, cooperative, no distress Lungs: breath sounds normal and symmetric, non-labored breathing Abdomen: soft, non-distended, appropriately tender Wound: incision: dressed with gauze and tegaderm, dressings are clean, dry, and intact Extremities: no clubbing, cyanosis or edema Assessment/Plan: POD 0 for laparoscopic cholecystectomy -HD stable, afebrile -adequate UOP post op -pain controlled -dressings intact -overall recovering well, continue post op care Delma Sorto MD 10/27/2016 12:15 AM * Oralia Hinds, RN - 10/26/2016 6:45 PM CDT Problem: Pain/Discomfort Liam is s/p LAPAROSCOPIC CHOLECYSTECTOMY Goal: Patient exhibits reduced pain/discomfort as evidenced by pain scores Liam will have pain scores at or below his functional goal at discharge Outcome: Ongoing Liam rates his pain upon onset and verbalizes understanding of numeric pain rating scale and PRN pain meds available. Problem: Incision Care Liam is s/p LAPAROSCOPIC CHOLECYSTECTOMY Goal: Incision is free of infection. Liam???s incision will remain free from infection this admission Outcome: Ongoing Emmett incision remains free of signs of infection (redness, swelling, afebrile). * Noris Restrepo PharmD - 10/26/2016 5:43 PM CDT Dear Physician, In accordance with the Automatic Therapeutic Substitution Policy approved by the [facility] and [employer] and Medical Executive Committees, Your Order for: Albuterol MDI 90 mcg/spray 2 puffs every 4 hours PRN has been changed to albuterol 2.5 mg nebs every 4 hours PRN. If you have any questions please call the pharmacy. Thank you Noris Restrepo PharmD documented in this encounter H&P Notes * Rosana Castro MD - 10/26/2016 2:11 PM CDT Preoperative History and Physical 10/26/2016 Planned Procedure: laparoscopic, possible open, cholecystectomy, possible intraoperative cholangiogram Indications: symptomatic cholelithiasis HPI: Liam Bal is a 11 y.o. male with intermittent RUQ pain found to be associated with ingestion of greasy foods. Workup revealed gallstones. Patient was last seen in Dr. Castro's clinic on 10/02/2016. Plan was made at that time for surgical intervention. Patient returns today for surgery. He has been NPO since midnight. He is ready for surgery today. Pt prefers pills ROS: Const: no fevers or chills Eyes: no recent visual changes Ears: No recent hearing changes or ear pain Nose: no recent rhinorrhea or epistaxis Mouth: no sores CV: no chest pain or palpitations Resp: no shortness of breath, wheezing, or recent cough GI: intermittent RUQ pain, no recent nausea, vomiting, or diarrhea : no voiding complaints MS: No new myalgias/arthralgias Skin: no rashes Heme: no history of bleeding irregularities Lymph: denies cervical, axillary, or inguinal lymphadenopathy PMH: Past Medical History: Diagnosis Date ??? ADHD (attention deficit hyperactivity disorder) 11/22/2009 ??? Asthma 05/21/2012 ??? 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 Gallstones 10/02/2016 intermittent RUQ pain that has recently worsened in severity. His last two episodes have been preceded by fatty foods and CT from [facility] was positive for gallstones ??? Head injury 11/22/2009 ??? Left tibial torsion 06/13/2013 ??? Payson-Schlatter's disease of right knee 01/01/2015 PSH: Past Surgical History: Procedure Laterality Date ??? NEGATIVE SURGICAL HISTORY 01/01/2015 ??? Osteotomy Right 03/11/2015 Right; RIGHT FEMORAL DEROTATIONAL OSTEOTOMY AND INTRAMEDULLARY NAIL SH: Social History Social History ??? Marital status: Single Spouse name: N/A ??? Number of children: N/A ??? Years of education: N/A Occupational History ??? Not on file. Social History Main Topics ??? Smoking status: Never Smoker ??? Smokeless tobacco: Never Used ??? Alcohol use No ??? Drug use: No ??? Sexual activity: Not on file Other Topics Concern ??? Not on file Social History Narrative Lives with mother. No pets at home. Smoke exposure. Hard wood deborah. Unfinished basement. No known mold. Likes to play outside. FH: No family history on file. Allergy: No Known Allergies Medications: No current facility-administered medications on file prior to encounter. Current Outpatient Prescriptions on File Prior to Encounter Medication Sig Dispense Refill ??? ondansetron (ZOFRAN) 4 MG tablet Take 4 mg by mouth every 6 hours as needed for Nausea/Vomiting ??? dicyclomine (BENTYL) 10 MG capsule Take 10 mg by mouth as needed ??? dexmethylphenidate ER 24hr (FOCALIN XR) 15 MG capsule ??? albuterol HFA (PROVENTIL;VENTOLIN;PROAIR) 108 (90 BASE) MCG/ACT inhaler Inhale 2 Puffs by mouthevery 4 hours as needed for Shortness of Breath, Wheezing or Cough 1 Inhaler 0 Exam: BP 106/94 Pulse 68 Temp 97.2 ??F Resp 16 Wt 69.2 kg (152 lb 8.9 oz) SpO2 98% BMI 24.26 kg/m2 FiO2: GEN: no acute distress, alert and oriented x 3 HEENT: normocephalic/atraumatic, no ocular discharge, non-erythematous posterior pharynx Neck: Supple, no thyromegally Resp: unlabored on room air CV: regular rate and rhythm Abd: Soft, non-tender, non-distended, + bowel sounds in all quadrants : deferred Ext: no cyanosis, clubbing, or edema Psych: appropriate mood and affect Labs: No new labs Imaging: No new imaging Assessment: Liam Bal is a 11 y.o. male with symptomatic cholelithiasis here for surgical intervention Plan: 1) Admit to pre-op holding 2) Proceed with laparoscopic possible open cholecystectomy, possible intraoperative cholangiogram 3) Risks and benefits of procedure, complications and expected course discussed with patient. Consent in chart. 4) Consent for photographs and audiovisual recordings obtained. Sara Weir DO [facility] General Surgery Senior Resident [facility] [phone] 10/26/20162:11 PM I reviewed the chart of this child, have seen and examined this patient and agree with above note as amended by me. No significant interval changes have occurred since the initial outpatient office consult. The nature of surgery, risks, and expected post-operative course were reviewed. All questions were answered and appropriate understanding was demonstrated. Consent was signed. Rosana Castro MD 10/26/2016 2:50 PM documented in this encounter OR Notes * Operative - Rosana Castro MD - 10/26/2016 4:35 PM CDT PEDIATRIC SURGERY OPERATIVE REPORT Date of Procedure: 10/26/2016 Patient name: Liam Bal Preoperative diagnosis: symptomatic Cholelithiasis Postoperative diagnosis: same Procedure performed: Laparoscopic cholecystectomy Surgeon: Rosana Castro MD Demolition Worker: Magen Michaud MD and Sara Weir DO Anesthesia: General endotracheal anesthesia with local Indications: This is a 11 y.o. male with a history of right upp quadrant pain and CT scan documentation of cholelithiasis. There was no evidence of biliary dilatation. Therefore, we will proceed witha laparoscopic cholecystectomy. We have discussed the potential benefits versus risks of the operation and the parents wish to proceed. Findings: Contracted gallbladder with cholelithiasis Procedure: The patient was brought to the operating room and underwent general anesthesia. The abdomen was prepped and draped in the standard fashion. IV antibiotics were given. We made a 12 mm incision below the umbilicus and extended this down to the fascia. The fascia was opened and the trocar placed with open Hall technique. A 5 mm trocar was placed in the epigastrium,and one more 5 mm trocar and one stab incision was made to the right lateral sites under direct visualization. Marcaine was infiltrated into the wounds. The gallbladder was located and grasped at thefundus and retracted up toward the patient's shoulder. The infundibulum was grasped and retracted laterally. A window was made between the cystic artery and the cystic duct, clearly delineating the two structures. These were clipped with a 5 mm clip foreign banknote teller and divided. The peritoneum was incised wi th hook cautery, and the gallbladder was taken from the liver bed, ensuring hemostatis. The gallbladder was directed toward the umbilical trocar in an Endocatch bag and under direct visualization, the trocar removed and the gallbladder removed. The trocar was replaced, the liver bed was examined and the trocars removed under direct visualization. The insufflation was then terminated. The 12 mm wounds were closed using 0 Vicryl and the 5 mm port and stab incision sites were closed with 5-0 vicryl sutures. The wounds were dressed steristrips, gauze, and tegaderm. The patient tolerated the procedure well, was extubated and taken to the recovery room in satisfactory condition. Dr Castro was present for the entirety of the case. Complications: none EBL: 5 mL Specimens: gallbladder Sara Weir DO [facility] General Surgery Senior Resident [facility] [phone] 10/26/20164:35 PM I was present for the entire procedure and agree with the operative note as amended by me. Rosana Castro MD 10/30/2016 1:51 PM * Brief Op Note - Rosana Castro MD - 10/26/2016 4:33 PM CDT Brief Op Note Procedure: LAPAROSCOPIC CHOLECYSTECTOMY Patient Name: Liam Bal Date of Service: 10/26/2016 Pre-Op Diagnosis: symptomatic cholelithiasis Post-Op Diagnosis: same Surgeon(s) and Role: * Rosana Castro MD - Primary * Magen Ceja MD - Fellow * Sara Weir DO - Resident - Assisting Anesthesia Type: general Complications: none Findings: large gallstones EBL: blood loss of 5 ml Urine Output : 0 mL IV Fluid Intake: 600 mL crystalloid Drains: none Specimen(s): Order Name Source Comment Collection Info Order Time GROSS + MICRO EXAM (STL) Gallbladder Collected By: Rosana Castro MD 10/26/2016 3:20 PM Sara Weir DO [facility] General Surgery Senior Resident [facility] [phone] 10/26/20164:34 PM Rosana Castro MD 10/27/2016 5:27 PM documented in this encounter Plan of Treatment Not on file documented as of this encounter Procedures Procedure Name Priority Date/Time Associated Diagnosis Comments PATHOLOGY TISSUE EXAM (STL) STAT 10/26/2016 3:06 PM CDT Acute calculous cholecystitis LAPAROSCOPIC CHOLECYSTECTOMY 10/26/2016 2:19 PM CDT Acute calculous cholecystitis Special Needs LDM documented in this encounter Results * GROSS + MICRO EXAM (STL) (10/26/2016 3:06 PM CDT) Case Report Surgical Pathology Report ? Case: [id number] ? Authorizing Provider: ??Rosana Castro MD Collected: ? 10/26/2016 03:06 PM ? Ordering Location: ? [facility] ? Received: ?10/27/2016 07:05 AM ? Pathologist: ? Mary Ibarra MD ? Specimen: ?Gallbladder ? 10/30/2016 7:14 PM T [facility] Final Diagnosis GALLBLADDER, LAPAROSCOPIC CHOLECYSTECTOMY: - CHRONIC CHOLECYSTITIS. - CHOLELITHIASIS 10/30/2016 7:14 PM [facility] Clinical History The patient is a 11-year-old boy with intermittent right upper quadrant pain and clinical diagnosis of symptomatic cholelithiasis. 10/30/2016 7:14 PM T [facility] Gross Description Submitted fixed in formalin in one container for gross and microscopic examination, labeled with the patient's name, Liam Bal, and gallbladder is a 7.8 cm long with a circumference of 3.4 cm intact gallbladder with stapled cystic duct. The serosal surface is purple-buck and glistening. The hepatic surface is roughened. The gallbladder liberates red viscous contents. There are three hard, yellow-green, ovoid choleliths measuring 1 cm, 1.4 cm, and 3.0 cm in greatest dimension. The wall is 0.4 cm. thick. The mucosal surface is velvety pink. The cystic duct and containers sales representative sections of the gallbladder are submitted in cassette A1. (KONSTANTIN/ns) 10/30/2016 7:14 PM [facility] Microscopic Description 1 H&E. Sections of the gallbladder show gallbladder wall with mild chronic inflammatory infiltrate and with Rokitansky-Aschoff sinuses. The luminal surface has amorphous eosinophilic material. (CV/NK/eva) 10/30/2016 7:14 PM T [facility] Disclaimer The performance characteristics of all immunohistochemical and indirect immunofluorescence stains (if any) cited in this report were determined by the Histopathology Laboratory of [facility]. Some of these tests were developed by our own laboratory and have not been cleared or approved by the US Food and Drug Administration (FDA). The FDA does not require this test to go through premarket FDA review. These tests are used for clinical purposes. They should not be regarded as investigational or for research. This laboratory is certified under the Clinical Laboratory Improvement Amendments (CLIA) as qualified to perform high complexity clinical laboratory testing. This case has been personally reviewed and interpreted by the attending (teaching) pathologist. 10/30/2016 7:14 PM [facility] Embedded Images 10/30/2016 7:14 PM [facility] Pathology/Cytolo gy ENTIRE GALLBLADDER / Unknown 10/26/2016 3:06 PM CDT 10/27/2016 7:05 AM CDT Rosana Castro MD LAB - PATHOLOGY/C YTOLOGY ORDERABLES Performing Organization Address City/State/RUST Co de Phone Number [facility] [address] [place] [address] documented in this encounter Visit Diagnoses Diagnosis Acute calculous cholecystitis Calculus of gallbladder with acute cholecystitis, without mention of obstruction Calculus of gallbladder without cholecystitis without obstruction Calculus of gallbladder without mention of cholecystitis or obstruction Encounter for surgical aftercare following surgery of digestive system Aftercare following surgery of the teeth, oral cavity and digestive system, NEC Biliary colic Calculus of gallbladder without mention of cholecystitis or obstruction Acute calculous cholecystitis Calculus of gallbladder with acute cholecystitis, without mention of obstruction documented in this encounter Administered Medications Inactive Administered Medications - up to 3 most recent administrations Medication Order MAR Action Action Date Dose Rate Site 0.9% nacl irrigation solution PRN, Starting on Sun10/26/16 at 1445, Until Sun10/26/16 at 1647, Intra-op $ Given 10/26/2016 2:45 PM CDT 1,000 mL Operative Site albuterol (PROVENTIL;VENTOLIN) (5 MG/ML) 0.5% nebulizer solution 2.5 mg 2.5 mg, Inhalation, EVERY 4 HOURS PRN, Shortness of Breath, Wheezing, Starting on Sun10/26/16 at 1744, Until Sun10/27/16 at 1146, Dilute prior to administration via nebulization. bupivacaine PF (MARCAINE PF) 0.25 % injection PRN, Starting on Sun10/26/16 at 1625, Until Sun10/26/16 at 1647, Intra-op $ Given 10/26/2016 4:25 PM CDT 10 mL Operative Site dextrose 5% and 0.45% NaCl with KCl 20 mEq infusion at 110 mL/hr, Intravenous, CONTINUOUS, Starting on Sun10/26/16 at 1745, Until Sun10/27/16 at 0643, Post-op $ New Bag/Syringe 10/27/2016 3:49 AM CDT 110 mL/hr Current Rate 10/26/2016 7:10 PM CDT 110 mL/hr $ New Bag/Syringe 10/26/2016 5:54 PM CDT 110 mL /hr HYDROmorphone (DILAUDID) injection 0.2 mg 0.2 mg, Intravenous, POST-OP MULTIPLE, Starting on Sun10/26/16 at 1639, Until Sun10/26/16 at 1737, High Risk. High Alert Medication. May repeat dose every 5 min. Max dose: 0.8mg Do not exceed 0.15 mg/kg/hr, PACU $ Given 10/26/2016 5:01 PM CDT 0.2 mg isolyte-S pH 7.4 infusion 100 mL/hr, Intravenous, POST-OP CONTINUOUS, Starting on Sun10/26/16 at 1645, Until Sun10/26/16 at 1737, PACU Current Rate 10/26/2016 4:54 PM CDT 100 mL/hr 100 mL/hr ketorolac (TORADOL) injection 30 mg 30 mg, Intravenous, EVERY 6 HOURS, 12 doses, First dose on Britany 10/26/16 at 2030, Last dose on 10/29/16 at 1430, Post-op $ Given 10/27/2016 8:14 AM CDT 30 mg $ Given 10/27/2016 2:42 AM CDT 30 mg $ Given 10/26/2016 8:51 PM CDT 30 mg documented in this encounter Active and Recently Administered Medications Times are shown in CDT. Scheduled Medication Order 10/25/2016 10/26/2016 10/27/2016 HYDROmorphone (DILAUDID) injection 0.2 mg (CANCELED) 0.2 mg, Intravenous, POST-OP MULTIPLE, Starting on Britany 10/26/16 at 1639, Until Sun10/26/16 at 1737, High Risk. High Alert Medication. May repeat dose every 5 min. Max dose: 0.8mg Do not exceed 0.15 mg/kg/hr, PACU 1701 ($ Given - Provider: Cristy Callahan RN) ketorolac (TORADOL) injection 30 mg 30 mg, Intravenous, EVERY 6 HOURS, 12 doses, First dose on Britany 10/26/16 at 2030, Last dose on Sun10/29/16 at 1430, Post-op 2051 ($ Given - Provider: Shannon Velazquez RN) 0242 ($ Given - Provider: Neetu Caraballo, ISAAC)0814 ($ Given - Provider: Oralia Hinds, ISAAC) Continuous Medication Order 10/25/2016 10/26/2016 10/27/2016 dextrose 5% and 0.45% NaCl with KCl 20 mEq infusion (CANCELED) at 110 mL/hr, Intravenous, CONTINUOUS, Starting on Britany 10/26/16 at 1745, Until Sun10/27/16 at 0643, Post-op 1754 ($ New Bag/Syringe - Provider: Oralia Hinds RN)1910 (Current Rate - Provider: Shannon Velazquez RN) 0349 ($ New Bag/Syringe - Provider: Neetu Caraballo, RN)0721 (Stopped - Provider: Neetu Caraballo, RN) isolyte-S pH 7.4 infusion (CANCELED) 100 mL/hr, Intravenous, POST-OP CONTINUOUS, Starting on Britany 10/26/16 at 1645, Until Britany 10/26/16 at 1737, PACU 1654 (Current Rate - Provider: Cristy Callahan RN) PRN Medication Order 10/25/2016 10/26/2016 10/27/2016 0.9% nacl irrigation solution (CANCELED) PRN, Starting on Britany 10/26/16 at 1445, Until Britany 10/26/16 at 1647, Intra-op 1445 ($ Given - Provider: Magen Ceja MD - Comment: available on field, used PRN) acetaminophen (TYLENOL) tablet 650 mg 650 mg, Oral, EVERY 4 HOURS PRN, Mild Pain, Starting on Britany 10/26/16 at 1740, Until Sun10/27/16 at 1146, Post-op albuterol (PROVENTIL;VENTOLIN) (5 MG/ML) 0.5% nebulizer solution 2.5 mg 2.5 mg, Inhalation, EVERY 4 HOURS PRN, Shortness of Breath, Wheezing, Starting on Britany 10/26/16 at 1744, Until Sun10/27/16 at 1146, Dilute prior to administration via nebulization. bupivacaine PF (MARCAINE PF) 0.25 % injection (CANCELED) PRN, Starting on Britany 10/26/16 at 1625, Until Britany 10/26/16 at 1647, Intra-op 1625 ($ Given - Provider: Sara Weir DO) ondansetron (ZOFRAN) injection 4 mg 4 mg, Intravenous, EVERY 6 HOURS PRN, Nausea/Vomiting, Starting on Britany 10/26/16 at 1740, Until Sun10/27/16 at 1146, Post-op oxyCODONE (immediate release) (ROXICODONE) tablet 5 mg 5 mg, Oral, EVERY 4 HOURS PRN, Moderate Pain, Severe Pain, Starting on Britany 10/26/16 at 1740, Until Sun10/27/16 at 1146, Post-op documented in this encounter Care Teams Photographic Technician Relationship Specialty Start Date End Date Ruthann Le, DOOR CAPTAIN-AUTO LOCATOR [address] [place] [address] PCP - General Nurse Practitioner 08/14/14 documented as of this encounter
--- OUTSIDE RECORDS SUMMARY | 2024-03-10 03:41 | XMS_ITS | Encounter Summary ---
Author Organization [facility] Address [address] [place] [address] Care Team Providers Care Principal Account Clerk Name Role Phone Ruthann Le Fabiano [employer]-ELECTRICAL WORKER Primary Care Provider + Reason for Visit * Reason Onset Date Comments Surgery Scheduling 10/04/2016 Called and sp reinaldo w/ mom and surgery date set for 10/26/2016 w/ Dr. Castro for laparoscopic cholecsytectomy (CPT 09672). Insurance Issue/question 10/04/2016 Prior a uthorization request faxed to [facility] and request approved - valid 10/26/16 thru 01/24/17 - auth # [id number]. Encounter Details Date Type Department Care Team (Late st Contact Info) Description 10/04/2016 Telephone [facility] - Surgery [address] [place] [address] Rosana Castro MD [address] [facility] DE[facility] [place] [address] Surgery Scheduling (Called and spoke w/ mom and surgery date set for 10/26/2016 w/ Dr. Castro for laparoscopic cholecsytectomy (CPT 89289).); Insurance Issue/question (Prior authorization request faxed to [facility] and request approved - valid 10/26/16 thru 01/24/17 - auth # [id number].) Social History Tobacco Use Types Packs/Day Years Used Date Smoking Tobacco: Never Alcohol Use Standard Drinks/Week Comments No 0 (1 standard drink = 0.6 oz pur e alcohol) Sex and Gender Information Value Date Recorded Sex Assigned at Not on file Gender Identity Not on file Sexual Orientation Not on file documented as of this encounter Functional Status Functional Status Response Date of Assess ment Is person deaf or have serious hearing difficult y? No 03/11/2015 Is person blind or have serious difficulty seein g? No 03/11/2015 Does person have serious dif ficulty walking/climbing stairs? No 03/11/2015 Does person have difficulty dressing/bathing? No 03/11/2015 Does person have difficulty doing errands alone? No 03/11/2015 Cognitive Status Response Date of Assessm ent Does person have difficulty concentrating/remembering/making decisions? No 03/11/2015 documented as of this encounter Miscellaneous Notes * Telephone Encounter - Maral Solitario - 10/04/2016 7:30 AM CDT Called and spoke w/ mom and surgery date set for 10/26/2016 w/ Dr. Castro for laparoscopic cholecsytectomy (CPT 29273). Prior authorization request faxed to [facility] and request approved - valid 10/26/16 thru 01/24/17 - auth # [id number]. Surgery confirmation # [id number] Emilee Solitario documented in this encounter Plan of Treatment Not on file documented as of this encounter Visit Diagnoses Not on filedocumented in this encounter Care Teams Principal Account Clerk Relationship Specialty Start Date End Date Ruthann Le APRN-ELECTRICAL WORKER [address] [place] [address] PCP - General Nurse Practitioner 08/14/14 documented as of this encounter
--- OUTSIDE RECORDS SUMMARY | 2024-03-10 03:41 | XMS_ITS | Encounter Summary ---
Author Organization [facility] Address [address] [place] [address] Care Team Providers Care Glass Bender Name Role Phone Ruthann Le VENEREAL DISEASE INVESTIGATOR-COILED TUBING SUPERVISOR Primary Care Provider + Reason for Visit * Reason Comments Respiratory Distress difficulty sleeping at night for last few nights d/t increased wob. mom reports no issues during the day. tried last night to use saline nasal drops, no relief. hx asthma. uses neb at home prn, hasnt had to use in over a year. ls cta. good aeration. spo2 100% on ra. Encounter Details Date Type Department Care Team (Late st Contact Info) Description 08/14/2014 10:08 AM CDT - 08/14/2014 11:24 AM CDT Emergency ER at [address] [address] Allergic rhinitis, unspecified allergic rhinitis type; History of asthma Discharge Disposition: Home or Self Care Social [...] Sign Reading Time Taken Comments Blood Pressure 122/60 08/14/2014 10:10 AM CDT Pulse 80 08/14/2014 10:10 AM CDT Temperature 35.9 ??C (96.6 ??F) 08/14/2014 10:10 AM C DT Respiratory Rate 24 08/14/2014 10:10 AM CDT Oxygen Saturation 100% 08/14/2014 10:10 AM CDT Inhaled Oxygen Concentration - - Weight 64.2 kg (141 lb 8.6 oz) 08/14/2014 10:10 AM CDT Height - - Body Mass Index - - documented in this encounter Discharge Instructions * Discharge Instructions* Treasure French APRN-COILED TUBING SUPERVISOR - 08/14/2014 11:14 AM CDT Images from the original note were not included. Asthma in Children GENERAL INFORMATION: What is asthma in children? Asthma is a disease of the lungs that makes breathing difficult for your child. Chronic inflammation and intense reactions to triggers make the lung airways become smaller. Allergies, lung infections as a baby, or a family history of asthma can increase your child's riskof asthma. If your child's asthma is not managed, his symptoms may become chronic or life-threatening. What are the signs and symptoms of asthma in children? ?? Coughing ?? Wheezing ?? Shortness of breath ?? Chest tightness What may trigger an asthma attack? ?? Sinus infection, a cold, or the flu ?? Exercise ?? Intense crying, laughing, or yelling ?? Cold air, or a change in weather temperature ?? Indoor air pollutants that come from deborah, furniture, or paint ?? Tobacco smoke ?? Pets, dust mites, cockroaches, mold, or pollen How is asthma diagnosed in children? Your healthcare provider may ask if your child has a family history of asthma, or if he has known triggers. Tell him if your child has any health conditions or takes medicine. Tell him about your child's symptoms. For example, your child may wake up often at night. He may not be able to do his normal activities because of shortness of breath. Your child may need to be tested for other allergies that could trigger his asthma attacks. He may also need the following tests: ?? Lung function tests measure airflow in your child's lungs and show how well he can breathe. ?? A chest x-ray checks for other lung problems. How is asthma in children treated? ?? Medicines decrease inflammation, open airways, and make breathing easier. Your child may need medicine that works quickly during an attack, or that works over time to prevent attacks. Asthma medicine may be inhaled, taken as a pill, or injected. Make sure your child knows how to use an inhaler. Follow up with your child's healthcare provider to make sure your child continues to use the inhalercorrectly. ?? Allergy testing may reveal allergies that trigger an asthma attack. Your child may need allergy shots or medicine to control allergies that make his asthma worse. How do I manage my child's asthma? ?? Follow the Asthma Action Plan (AAP) that your child received from his healthcare provider. The AAP explains which medicines your child needs and when to change doses if necessary. It also explainshow you and your child can monitor symptoms and use a peak flow meter. The meter measures how well air moves in and out of your child's lungs. ?? Give the AAP to your child's care providers. The AAP gives directions for what to do in case of an asthma attack. ?? Identify and avoid known triggers. Keep your home free of pets, dust mites, and mold. ?? Explain the dangers of smoking to your child. Tobacco smoke increases your child's risk for asthma attacks. Keep him away from secondhand smoke. ?? Manage your child's other health conditions , such as allergies, obesity, and acid reflux. ?? Ask about vaccines. Your child may need a yearly flu shot. The flu can make your child's asthma worse. When should I contact my child's healthcare provider? ?? Your child runs out of medicine before his next scheduled refill. ?? Your child needs more medicine than usual to control his symptoms. ?? Your child struggles to do his usual activities because of his symptoms. ?? Your child's symptoms get worse, or he wakes up at night more often than usual. ?? You have questions or concerns about your child's condition or care. When should I seek immediate care or call 911? ?? Your child's peak flow numbers are lower than he was told they should be (in his AAP Red Zone). ?? Your child has trouble talking or walking because of shortness of breath. ?? Your child's shortness of breath is so severe that he cannot sleep or do his usual activities. ?? Your child's shortness of breath is the same or worse even after he takes medicine. ?? Your child's lips or nails are blue or sharp. ?? The skin of your child's neck and ribcage pull in with each breath. CARE AGREEMENT: You have the right to help plan your child's care. Learn about your child's health condition and how it may be treated. Discuss treatment options with your child's caregivers to decide what care you want for your child. The above information is an optometric aide only. It is not intended as medicaladvice for individual conditions or treatments. Talk to your doctor, nurse or pharmacist before following any medical regimen to see if it is safe and effective for you. ?? 2015 [employer]. Information is for End User's use only and may not be sold, redistributed or otherwise used for commercial purposes. All illustrations and images included in CareNotes?? are the copyrighted property of [employer]. or [employer]. Allergies GENERAL INFORMATION: What are allergies? Allergies are an immune system reaction to a substance called an allergen. Yourimmune system sees the allergen as harmful and attacks it. What causes allergies? You may have allergies at certain times of the year or all year. The following are common allergies: ?? Seasonal airborne allergies happen during certain times of the year. This is also called hay fever. Tree, weed, or grass pollen are examples of allergens that you breathe in. ?? Environmental airborne allergy triggers you may breathe in year-round include dust, mold, and pet hair. ?? Contact allergies include latex, found in items such as condoms and medical gloves. Latex allergies can be very serious. ?? Insect sting allergies may be caused by bees, hornets, fire ants, or other insects that sting orbite you. Insect allergies can be very serious. What increases my risk for allergies? Allergic reactions can happen at any time, even if you have not had allergies before. You may develop an allergy after you have been exposed to an allergen more than once. Allergies are most common in children and elderly people, but anyone can have an allergicreaction. Your risk is also increased if you have a family history of allergies or a medical conditi on such as asthma. What are the signs and symptoms of allergies? ?? Mild symptoms include sneezing and a runny, itchy, or stuffy nose. You may also have swollen, watery, or itchy eyes, or skin itching. You may have swelling or pain where an insect bit or stung you. ?? Anaphylaxis symptoms include trouble breathing or swallowing, a rash or hives, or severe swelling. You may also have a cough, wheezing, or feel lightheaded or dizzy. Anaphylaxis is a sudden, life-threatening reaction that needs immediate treatment. How are allergies diagnosed? Your healthcare provider will ask about your signs and symptoms. He will ask what allergens you have been exposed to and if you have ever had other allergic reactions. Hemay look in your nose, ears, or throat. You may also have the following tests: ?? Blood tests are used to check for signs of a reaction to allergens. ?? Nasal tests are used to see how your nasal passages react to allergens. A sample of your nasal fluid may also be tested. ?? Skin tests can help your healthcare provider find what you are allergic to. He will place a small amount of allergen on your arm or back and then prick your skin with a needle. He will watch how your skin reacts to the allergen. How are allergies treated? ?? Antihistamines help decrease itching, sneezing, and swelling. You may take them as a pill or usedrops in your nose or eyes. ?? Decongestants help your nose feel less stuffy. ?? Steroids decrease swelling and redness. ?? Topical treatments help decrease itching or swelling. You also may be given nasal sprays or eyedrops. ?? Epinephrine is medicine used to treat severe allergic reactions such as anaphylaxis. ?? Desensitization gets your body used to allergens you cannot avoid. Your healthcare provider willgive you a shot that contains a small amount of an allergen. He will treat any allergic reaction you have. He will give you more of the allergen a little at a time until your body gets used to it. Your reaction to the allergen may be less serious after this treatment. Your healthcare provider will tell you how long to get the shots. What steps do I need to take for signs or symptoms of anaphylaxis? ?? Immediately give 1 shot of epinephrine only into the outer thigh muscle. ?? Leave the shot in place as directed. Your healthcare provider may recommend you leave it in place for up to 10 seconds before you remove it. This helps make sure all of the epinephrine is delivered. ?? Call 911 and go to the emergency department, even if the shot improved symptoms. Do not drive yourself. Bring the used epinephrine shot with you. What safety precautions do I need to take if I am at risk for anaphylaxis? ?? Keep 2 shots of epinephrine with you at all times. You may need a second shot, because epinephrine only works for about 20 minutes and symptoms may return. Your healthcare provider can show you and family members how to give the shot. Check the expiration date every month and replace it before it expires. ?? Create an action plan. Your healthcare provider can help you create a written plan that explainsthe allergy and an emergency plan to treat a reaction. The plan explains when to give a second epinephrine shot if symptoms return or do not improve after the first. Give copies of the action plan and emergency instructions to family members, work and school staff, and daycare providers. Show them how to give a shot of epinephrine. ?? Carry medical alert identification. Wear medical alert jewelry or carry a card that explains theallergy. Ask your healthcare provider where to get these items. ?? Inform all healthcare providers of the allergy. This includes dentists, nurses, doctors, and surgeons. How can I manage allergies? ?? Use nasal rinses as directed. Rinse with a saline solution daily to help clear your nose of allergens. ?? Do not smoke. Allergy symptoms may decrease if you are not around smoke. If you smoke, it is never too late to quit. Ask your healthcare provider for information about how to stop if you need helpquitting. How can I prevent an allergic reaction? ?? Do not go outside when pollen counts are high if you have seasonal allergies. Your symptoms may be better if you go outside only in the morning or evening. Use your air conditioner, and change airfilters often. ?? Avoid dust, fur, and mold. Dust and vacuum your home often. You may want to wear a mask when youvacuum. Keep pets in certain rooms, and bathe them often. Use a dehumidifier (machine that decreases moisture) to help prevent mold. ?? Do not use products that contain latex if you have a latex allergy. Use nonlatex gloves if you work in healthcare or in food preparation. Always tell healthcare providers about a latex allergy. ?? Avoid areas that attract insects if you have an insect bite or sting allergy. Areas include trash cans, gardens, and picnics. Do not wear bright clothing or strong scents when you will be outside. Call 911 for signs or symptoms of anaphylaxis, such as trouble breathing, swelling in your mouth orthroat, or wheezing. You may also have itching, a rash, hives, or feel like you are going to faint. When should I seek immediate care? ?? You have tingling in your hands or feet. ?? Your skin is red or flushed. When should I contact my healthcare provider? ?? You have questions or concerns about your condition or care. CARE AGREEMENT: You have the right to help plan your care. Learn about your health condition and how it may be treated. Discuss treatment options with your caregivers to decide what care you want to receive. You always have the right to refuse treatment. The above information is an optometric aide only. It is not intended as medical advice for individual conditions or treatments. Talk to your doctor, nurse or pharmacist before following any medical regimen to see if it is safe and effective for you. ?? 2015 [employer]. Information is for End User's use only and may not be sold, redistributed or otherwise used for commercial purposes. All illustrations and images included in CareNotes?? are the copyrighted property of [employer] or [employer]. Allergic Rhinitis GENERAL INFORMATION: What is allergic rhinitis? Allergic rhinitis (hay fever) is swelling of the inside of your nose. The swelling is a reaction to allergens in the air. An allergen can be anything that causes an allergic reaction. Allergies to weeds, grass, trees, or mold often cause seasonal allergic rhinitis. This only happens during certain seasons of the year. Some people have allergic rhinitis almost all year. This is usually caused by allergies to indoor dust mites (tiny bugs that live in house dust) or cockroaches. It may be caused by pet dander (tiny skin flakes) or mold. What are the signs and symptoms of allergic rhinitis? ?? Sneezing and runny, itchy, or stuffy nose ?? Itchy eyes, ears, and throat ?? Red, watery eyes, or dark circles under your eyes ?? Coughing, wheezing, or loud breathing ?? Low energy and tiredness ?? Facial pain and headaches ?? Decreased sense of taste or smell, or a feeling that your ears are plugged How is allergic rhinitis diagnosed? Your healthcare provider will ask about your signs and symptomsand when they began. He will ask if you have symptoms all year or only during certain seasons. He may ask if you know what makes your symptoms worse. He will look at your eyes and inside your nose and ears. Tell him if you have pets. Tell him if you have any other medical conditions or diseases. Tell him if anyone in your family has allergic rhinitis, atopic dermatitis, asthma, or food allergies.You may need the following tests: ?? Blood tests: Your blood may be tested to check for antibodies that are caused by exposure to allergens. The blood may be taken from your hand, arm, or the bend in your elbow. ?? Skin prick tests: Your healthcare provider will lightly prick or scratch your skin with tiny amounts of a possible allergen. He watches to see how your skin reacts. If a bump appears within a few minutes, you are likely allergic to the allergen. ?? Nasal swab: Fluid from your nose may be tested for infection. ?? Rhinoscopy: Your healthcare provider will use a thin tube to look inside your nose. This may be done to check for another cause of your symptoms, such as a mass or object. How is allergic rhinitis treated? The goals of treatment are to relieve your symptoms and help you feel better. Mild or seasonal symptoms may be treated differently than severe or year-round symptoms. You may need one or more of the following: ?? Medicines: ?? Antihistamines: These medicines help reduce itching, sneezing, and a runny nose. Some antihistamines can make you sleepy. Ask your healthcare provider which one is best for you. ?? Decongestants: These medicines help clear your stuffy nose. Do not use them for more than 3 daysin a row, because they can make your symptoms worse. ?? Nasal steroids: This is a mist you spray in your nose. It is used to decrease swelling. ?? Mast cell stabilizers: These are medicines you spray in your nose to help decrease swelling in your nose. ?? Leukotriene antagonists: These medicines help decrease swelling and the amount of mucus in your nose. They are taken as pills and require a prescription. ?? Immunotherapy: This treatment may be given if your symptoms are very bad or other medicines do not work. Immunotherapy is given as a series of injections (shots), as a pill you swallow, or as medicine that goes under your tongue. At first, the therapy contains tiny amounts of the allergen. Your healthcare provider will slowly increase the amount of allergen. This may help your body learn to accept the allergen and stop reacting to it. You may need immunotherapy for weeks or longer. What are the risks of allergic rhinitis? Allergic rhinitis can cause ear infections and sinusitis. It may increase your risk for asthma. Medicines used to treat allergies may keep you awake or make you nervous. They may also make it hard to think clearly or make you sleepy. If you are very sleepy, do not drive. Medicines may cause bloody noses, headaches, or dry mouth. If you receive immunotherapy, you could have a rash or hives. Your chest could feel tight, and you could cough or wheeze. Thereis a small chance you could have a life- threatening allergic reaction. Without treatment, you may not be able to sleep well because of your symptoms. You may be tired and lack energy. This can affect work and other daily activities. Your child may be so tired that he does poorly in school. How can I manage allergic rhinitis? Use a sinus rinse device to rinse your nasal passages with saline (salt water) solution. This will help thin the mucus in your nose and rinse away pollen and dirt.It will also help reduce swelling so you can breathe normally. Ask your healthcare provider how often to rinse your sinuses. Do the following to help reduce the amount of allergens around you: ?? Reduce dust mites: Wash sheets and towels in hot water every week. If your child has allergic rhinitis, try to limit the number of stuffed animals and soft toys your child has. Wash your child's toys in hot water regularly. Cover your pillows and mattresses with allergen-free covers. Use a vacuum harness cleaner with an air filter. If possible, get rid of carpet and curtains. These collect dust and dust mites. Call an pr intern if you think you have cockroaches in your home. ?? Reduce pollen: Keep windows and doors closed in your house and car. Stay inside when the pollen count is high. Run your air conditioner on recycle, and change air filters often. Shower and wash your hair before bed every night to rinse away pollen. Avoid raking leaves or mowing your lawn. ?? Reduce pet dander: If possible, do not keep cats, dogs, birds, or other pets. If you do keep pets in your home, keep them out of bedrooms and carpeted rooms, and bathe them often. ?? Reduce mold: Do not spend time in basements. Choose artificial plants instead of live plants. Keep your home's humidity at 35% to 40%. Do not have ponds or standing water in your home or yard. ?? Avoid anything that worsens your symptoms: Many other things may trigger allergic rhinitis or make it worse. These include paint, tobacco smoke, perfume, and hairspray. Keep a diary of your symptoms to help you learn what makes them worse. When should I contact my healthcare provider? Contact your healthcare provider if: ?? You have a fever. ?? You have a headache that is severe or will not go away. ?? Your symptoms get worse, even after treatment. ?? You have yellow, green, brown, or bloody mucus coming from your nose. ?? Your nose is bleeding or you have pain inside your nose. ?? You have questions or concerns about your treatment or condition. When should I seek immediate care? Seek care immediately or call 911 if: ?? You cough up blood. ?? You have chest pain or shortness of breath. CARE AGREEMENT: You have the right to help plan your care. Learn about your health condition and how it may be treated. Discuss treatment options with your caregivers to decide what care you want to receive. You always have the right to refuse treatment. The above information is an optometric aide only. It is not intended as medical advice for individual conditions or treatments. Talk to your doctor, nurse or pharmacist before following any medical regimen to see if it is safe and effective for you. ?? 2015 [employer]. Information is for End User's use only and may not be sold, redistributed or otherwise used for commercial purposes. All illustrations and images included in CareNotes?? are the copyrighted property of [employer]. or [employer]. documented in this encounter Medications at Time of Discharge Medication Sig Dispensed Refills Start Date End Date albuterol HFA (PROVENTIL;VENTOLIN;ME OAIR) 108 (90 BASE) MCG/ACT inhaler Inhale 2 Puffs by mouth every 4 hours as needed for Shortness of Breath, Wheezing or Cough 1 Inhaler 0 08/14/2014 cetirizine (ZYRTEC) 5 MG/5ML syrup Take 5 mL by mouth once daily 150 mL 0 08/14/2014 03/10/2015 Dexmethylphenidate HCl (FOCALIN PO) Take by mouth. Takes once daily, unsure of dose 03/10/2015 fluticasone propionate (FLONASE) 50 MCG/ACT nasal spray [place] 2 Sprays into each nostril once daily 1 Bottle 0 08/14/2014 03/10/2015 documented as of this encounter ED Notes * Chana Patel RN - 08/14/2014 11:23 AM CDT Pt in NAD, active and alert upon discharge. Mother verbalized understanding regarding discharge, follow up and prescription instructions. * Treasure French APRN-CNP - 08/14/2014 10:52 AM CDT EMERGENCY DEPARTMENT 08/14/2014 Dear Doctor, We had the pleasure of caring for your patient, Liam Bal in our emergency department on 08/14/2014. A note from the provider(s) who cared for your patient is attached. Should you wish to access any laboratory results, please call . Should you wish to access any radiology results, please call , option 3. In addition, you can access patient information 24 hours a day, from any computer, through [employer], the online version of our electronic medical record. If you would like to use this service, please call Virgie Armendariz, Connectivity Coordinator, at . We appreciate the opportunity to care for your patients. If you would like additional information, please call the emergency department directly at . Sincerely, Treasure French APRN-COILED TUBING SUPERVISOR Division of Emergency Medicine [facility], [place] [facility] [place] Provider contact with the patient: 08/14/2014 10:52 Liam Melissa Bal [id number] [facility] EMERGENCY DEPARTMENT History Chief Complaint Patient presents with ??? Respiratory Distress difficulty sleeping at night for last few nights d/t increased wob. mom reports no issues during the day. tried last night to use saline nasal drops, no relief. hx asthma. uses neb at home prn, hasnthad to use in over a year. ls cta. good aeration. spo2 100% on ra. HPI Comments: 9 year old with hx of asthma. Complains of difficulty breathing through nose with sleep. Denies fever. Denies cough/chest pain or discomfort. + sneezing and nasal congestion this AM. Patient reports sometimes has difficulty breathing when running outside at baseline. Denies wheezing. Past Medical History Diagnosis Date ??? ADHD (attention deficit hyperactivity disorder) ??? Asthma Past Surgical History Procedure Laterality Date ??? Negative surgical history History Social History ??? Marital Status: Single Spouse Name: N/A Number of Children: N/A ??? Years of Education: N/A Occupational History ??? Not on file. Social History Main Topics ??? Smoking status: Never Smoker ??? Smokeless tobacco: Not on file ??? Alcohol Use: No ??? Drug Use: No ??? Sexual Activity: Not on file Other Topics Concern ??? Not on file Social History Narrative Lives with mother. No pets at home. Smoke exposure. Hard wood deborah. Unfinished basement. No known mold. Likes to play outside. Medications Current Outpatient Prescriptions Medication Sig Dispense Refill ??? albuterol HFA (PROVENTIL;VENTOLIN;PROAIR) 108 (90 BASE) MCG/ACT inhaler Inhale 2 Puffs by mouthevery 4 hours as needed for Shortness of Breath, Wheezing or Cough 1 Inhaler 0 ??? fluticasone propionate (FLONASE) 50 MCG/ACT nasal spray [place] 2 Sprays into each nostril once daily 1 Bottle 0 ??? cetirizine (ZYRTEC) 5 MG/5ML syrup Take 5 mL by mouth once daily 150 mL 0 ??? Dexmethylphenidate HCl (FOCALIN PO) Take by mouth. Takes once daily, unsure of dose Review of Systems Review of Systems Constitutional: Negative for fever, activity change and appetite change. HENT: Positive for congestion. Negative for ear discharge, ear pain, rhinorrhea, sneezing, sore throat and trouble swallowing. Eyes: Negative. Respiratory: Positive for shortness of breath. Negative for cough, chest tightness and wheezing. Cardiovascular: Negative. Gastrointestinal: Negative. Endocrine: Negative. Genitourinary: Negative. Musculoskeletal: Negative. Skin: Negative. Allergic/Immunologic: Negative. Neurological: Negative. Psychiatric/Behavioral: Negative. BP 122/60 mmHg Pulse 80 Temp(Src) 96.6 ??F Resp 24 Wt 64.2 kg (141 lb 8.6 oz) SpO2 100% Physical Exam Physical Exam Constitutional: He appears well-developed and well-nourished. He is active. No distress. HENT: Head: Atraumatic. Right Ear: Tympanic membrane normal. Left Ear: Tympanic membrane normal. Nose: No nasal discharge. Mouth/Throat: Mucous membranes are moist. No tonsillar exudate. Pharynx is normal. Bilateral turbinate swelling Eyes: Conjunctivae and EOM are normal. Pupils are equal, round, and reactive to light. Right eye exhibits no discharge. Left eye exhibits no discharge. Neck: Normal range of motion. Neck supple. Cardiovascular: Normal rate, regular rhythm, S1 normal and S2 normal. Pulses are palpable. Pulmonary/Chest: Effort normal and breath sounds normal. There is normal air entry. Abdominal: Soft. Bowel sounds are normal. Musculoskeletal: Normal range of motion. Neurological: He is alert. Skin: Skin is warm and dry. Capillary refill takes less than 3 seconds. No rash noted. He is not diaphoretic. No cyanosis. Vitals reviewed. Procedures Procedures ECG Interpretation ECG Interpretation Lab/SPO2 Interpretation Progress Notes ED Course Orders Placed This Encounter ??? PATIENT EDUCATION RESPIRATORY THERAPY Standing Status: Standing Number of Occurrences: 1 Standing Expiration Date: Order Specific Question: Specify type of education Answer: please provide spacer ??? albuterol HFA (PROVENTIL;VENTOLIN;PROAIR) 108 (90 BASE) MCG/ACT inhaler Sig: Inhale 2 Puffs by mouth every 4 hours as needed for Shortness of Breath, Wheezing or Cough Dispense: 1 Inhaler Refill: 0 ??? fluticasone propionate (FLONASE) 50 MCG/ACT nasal spray Sig: [place] 2 Sprays into each nostril once daily Dispense: 1 Bottle Refill: 0 ??? cetirizine (ZYRTEC) 5 MG/5ML syrup Sig: Take 5 mL by mouth once daily Dispense: 150 mL Refill: 0 Medical Decision Making Allergic rhinitis with hx of asthma. Out of albuterol inhaler at home. Breathing comfortably in NADin ER Albuterol 2 puffs with spacer every 4-6 hours as needed for shortness of breath, wheezing, cough flonase nasal spray Zyrtec daily Follow up with filter plant supervisor in 2-3 weeks to discuss symptoms and ongoing need for allergy medications Return to ER for breathing difficulties, shortness of breath not relieved by albuterol, fever, change in appetite or activity, worsening symptoms Clinical Impression Final diagnoses: Allergic rhinitis, unspecified allergic rhinitis type History of asthma documented in this encounter Plan of Treatment Scheduled Orders Name Type Priority Associated Diagnoses Order Schedule PATIENT EDUCATION RESPIRATORY THERAPY Respiratory Care Routine ONCE for 1 Occurrences starting 08/14/2014 until 08/14/2014 documented as of this encounter Visit Diagnoses Diagnosis Allergic rhinitis, unspecified allergic rhinitis type History of asthma Personal history of other diseases of respiratory system documented in this encounter Care Teams Glass Bender Relationship Specialty Start Date End Date Ruthann Le APRN-CNP [address] [place] [address] PCP - General Nurse Practitioner 08/14/14 documented as of this encounter
--- OUTSIDE RECORDS SUMMARY | 2024-03-10 03:41 | XMS_ITS | Encounter Summary ---
Author Organization [facility] Address [address] [place] [address] Care Team Providers Care Financial Investment Manager Name Role Phone Ruthann Le Fabiano PROFILER HAND-INDUSTRIAL ENGINEERING TECHNOLOGIST Primary Care Provider + Unknown, Provider Primary Care Provider UnavailCody Chun MD Primary Care Provider Pcp, Dejah Primary Care Provider UnavailYonas Michael MD Primary Care Provider Unavailab le Encounter Details Date Type Department Care Team (Late st Contact Info) Description 04/23/[address] [facility] - Laboratory [address] [place] [address] Provider, MD Rom Social History Tobacco Use Types Packs/Day Years Used Date Smoking Tobacco: Never Assessed Sex and Gender Information Value Date Recorded Sex Assigned at Not on file Gender Identity Not on file Sexual Orientation Not on file documented as of this encounter Plan of Treatment Not on file documented as of this encounter Procedures Procedure Name Priority Date/Time Associated Diagnosis Comments GROSS EXAM PATHOLOGY GINA 04/23/2008 10:48 AM INSULATION BOARD CALENDER OPERATOR documented in this encounter Results * GROSS EXAM PATHOLOGY (04/23/2008 10:48 AM INSULATION BOARD CALENDER OPERATOR) Result CASE NUMBER [id number] [facility] PATH REPORT Comment: ORDERING PHYSICIAN ??ABRAHAM FELIX SPECIMEN TYPE ?Foreskin CLINICAL HISTORY ? The patient is a 3-year-old ??boy with phimosis who underwent circumcision. GROSS DESCRIPTION ? The specimen labeled with the patient's name, Liam Bal, and foreskin is received fresh for gross examination only and consists of two, roughly rectangular portions of wrinkled dark brown skin and subcutaneous tissue measuring 1.5 x 3.0 x 0.3 cm. ??No sections are taken. ??(SG/nab) GROSS DIAGNOSIS ? DIAGNOSIS ?? FORESKIN. This case has been personally reviewed and interpreted by the attending (teaching) pathologist. Rn Med Surg ? MIGUEL MENDEZ RESIDENT IN PATHOLOG Yehuda Ulloa PATHOLOGIST ?Ashlie Narayanan M.D. ELECTRONICALLY MIMI ASHLIE NARAYANAN MISCELLANEOUS SAMPLES / Unknown 04/23/2008 10:48 AM INSULATION BOARD CALENDER OPERATOR 04/23/2008 12:39 PM INSULATION BOARD CALENDER OPERATOR Historical Provider LAB - PATHOLOGY/C YTOLOGY ORDERABLES Performing Organization Address [facility]/State/ZIP Co de Phone Number [facility] PATH REPORT documented in this encounter Visit Diagnoses Not on filedocumented in this encounter Care Teams Financial Investment Manager Relationship Specialty Start Date End Date Ruthann Le, PROFILER HAND-INDUSTRIAL ENGINEERING TECHNOLOGIST [address] [place] [address] PCP - General 05/14/09 11/21/09 Unknown, Provider PCP - General 11/22/09 03/12/11 Cody Merlos MD NOT SEEING PATIENTS PCP - General 03/13/11 03/13/11 PcpDejah PCP - General 10/20/11 05/20/12 Yonas Troy MD PCP - General Pediatrics 05/21/12 08/13/14 documented as of this encounter
--- OUTSIDE RECORDS SUMMARY | 2024-03-10 03:41 | XMS_ITS | Encounter Summary ---
Author Organization [facility] Address [address] [facility] [place] [address] Care Team Providers Care Shovel Oiler Name Role Phone Ruthann Le FINANCIAL SALES ADVISOR-TRAY WORKER Primary Care Provider + Encounter Details Date Type Department Care Team (Latest Contact Info) Description 04/09/2015 9:45 AM POLE TESTER - 04/09/2015 10:04 AM [facility] Hospital Encounter [facility] Pediatrics - Radiology [address] [place] [address] Ruben Jorge MD [address] [place] [address] [address] [place] [address] Discharge Disposition: Home or Self Care Social [...] No 03/11/2015 documented as of this encounter Medications at Time of Discharge Medication Sig Dispensed Refills Start Date End Date albuterol HFA (PROVENTIL;VENTOLIN;VA OAIR) 108 (90 BASE) MCG/ACT inhaler Inhale 2 Puffs by mouth every 4 hours as needed for Shortness of Breath, Wheezing or Cough 1 Inhaler 0 08/14/2014 dexmethylphenidate ER 24hr (FOCALIN XR) 15 MG capsule 01/05/2015 diazepam (VALIUM) 1 MG/ML oral solution Take 5 mL by mouth 3 times daily as needed for Anxiety 210 mL 0 03/13/2015 10/02/2016 hydrocodone-acetaminop hen (NORCO) 5-325 MG tablet 1-2 Tabs q 4-6 Hours As Needed for pain 60 Tab 0 03/13/2015 10/02/2016 documented as of this encounter Plan of Treatment Not on file documented as of this encounter Procedures Procedure Name Priority Date/Time Associated Diagnosis Comments XR FEMUR RIGHT 2VW Routine 04/09/2015 9: 57 AM POLE TESTER Femoral anteversion (HCC) documented in this encounter Results * XR FEMUR 2 VW RIGHT (04/09/2015 9:57 AM POLE TESTER) Anatomical Region Laterality Modality Lower Extremity Radiographic Shirin ging 04/09/2015 10:0 3 AM POLE TESTER Impressions 04/09/2015 10:04 AM POLE TESTER Healing internally stabilized mid femoral diaphyseal osteotomy. 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 The proximal and distal interlocking screws are also unchanged in position. Callus and periosteal reaction is seen along the margins of the mid femoral diaphyseal osteotomy consistent with healing. The osteotomies in near anatomic alignment. 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 The proximal and distal interlocking screws are also unchanged in position. Callus and periosteal reaction is seen along the margins of the mid femoral diaphyseal osteotomy consistent with healing. The osteotomies in near anatomic alignment. IMPRESSION Healing internally stabilized mid femoral diaphyseal osteotomy. 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
--- OUTSIDE RECORDS SUMMARY | 2024-03-10 03:41 | XMS_ITS | Encounter Summary ---
Author Organization [facility] Address [address] [place] [address] Care Team Providers Care Eyeglass Assembler Name Role Phone Ruthann Le RESEARCH CHIEF ENGINEER-OPERATORS TEACHER Primary Care Provider + Reason for Visit * Reason Comments Pain Abdominal gall stones Encounter Details Date Type Department Care Team (Late st Contact Info) Description 10/02/2016 9:10 AM CDT - 10/02/2016 11:59 PM CDT Hospital Encounter [facility] Pediatrics - Surgery [address] [place] [address] Rosana Castro MD [address] [place] [address] [place] [address] Discharge Disposition: Home or Self Care Social [...] Sign Reading Time Taken Comments Blood Pressure - - Pulse - - Temperature - - Respiratory Rate - - Oxygen Saturation - - Inhaled Oxygen Concentration - - Weight 69 kg (152 lb 1.9 oz) 10/02/2016 9:21 AM CDT Height 165.4 cm (5' 5.12 ) 10/02/2016 9:21 AM CD T Body Mass Index 25.22 10/02/2016 9:21 AM CDT Body Mass Index Percentile 94.07% 10/02/2016 9:2 1 AM CDT Growth Chart: [facility] (Boys, 2-2 0 Years) documented in this [...] No 03/11/2015 documented as of this encounter Discharge Instructions * Patient Instructions* Adele Heredia RN - 10/02/2016 10:01 AM CDT Images from the original note were not included. PEDIATRIC SURGERY INSTRUCTIONS Department of Pediatric Surgery [address] [place] [id number] office [phone] fax [phone] Rosnaa Mckenna MSN RN PCNS-BC Viola Nicole MSN RN PCNS-BC Stephen Silvestre MSN RN CPNP Ashlyn Desai -Platform Stapler Abigail Navarro-[place] Emilee Solitario-[place] ?? The pediatric surgery secretaries will call within 3 days of being seen to schedule your child'ssurgery date. If your child is being seen by Dr. Arcenio Major or Dr. Rosana Castro please contact Emilee at [phone] if you have questions or concerns. If your child is being seen by Dr. Jerzy Khan or Dr. Lloyd Brumfield please contact Abigail at [phone] if you have questionsor concerns. Pre-Operative Instructions for Liam Bal on Arrival Time: Eating/Drinking Instructions: Normal meals on until midnight. After midnight NO - FOOD/MILK OR DAIRY PRODUCTS/ORANGE JUICE/GUM/CANDY/ or TOOTHPASTE. No ibuprofen or aspirin prior to surgery. Tylenol is ok as well as any other prescribed medicationsif taken before . No vitamins/iron on day of surgery, please. Those patients havingear, nose or throat surgery NO Ibuprofen beginning 5 days before surgery and NO Aspirin products within 2 weeks of surgery. (check active ingredients on all medications.) May ONLY have WATER/APPLE JUICE/WHITE GRAPE JUICE/SPRITE OR 7-UP/PEDIALYTE from midnight until . Infants under 1 year old will have other instructions. NOTHING AT ALL AFTER! Have child take SHOWER or BATH/WASH HAIR/DRESS IN SOMETHING CLEAN AND COMFORTABLE/LOOSE FITTING/ and EASY TO GET IN AND OUT OF! Remove EARRINGS and ALL JEWELRY/FINGERNAIL CHINESE/METAL HAIR CLIPS/BODY PIERCINGS/CONTACT LENSES before coming to the hospital. Girls who have started their menstrual cycle will need to provide a urine sample at the hospital onthe day of surgery. Bring ?? Comfort item (blanket/stuffed animal/etc.) and/or something to do before surgery starts. Nothingvaluable that can't be carried. ?? Sunglasses if you are having eye surgery. ?? Inhaler(s) if prescribed by child's doctor. Arrive on Time ?? TIME: ?? A Parent/Legal Guardian/Nude Model must accompany patient and obtain VISITOR PASS at the Information Desk. ?? Proceed to 2nd floor SURGERY REGISTRATION - must have parent/guardian PHOTO ID and patient INSURANCE CARD. ?? Only 2 adults may be with the child before and after surgery. No one under the age of 18 is allowed in the pre/post op areas. If you have not heard from anyone regarding time to arrive for surgery by 3 days before surgery - please call Vilma at [phone] or Rivka at [phone]. Sunday - Sunday 8:30am-7pm. If you need toarrange for medical transportation to and/or from the hospital please call the number on the back of your medical card 1 week before surgery. For arrival time at [facility], contact Vilma/Rivka at the above numbers. Please check out our video [facility] on [email or web address] or scan QR code. Thank you! 03/18/13 documented in this encounter Medications at Time of Discharge Medication Sig Dispensed Refills Start Date End Date albuterol HFA (PROVENTIL;VENTOLIN;PRO AIR) 108 (90 BASE) MCG/ACT inhaler Inhale 2 [...] every 6 hours as needed for Nausea/Vomiting documented as of this encounter H&P Notes * Rosana Castro MD - 10/02/2016 9:39 AM CDT Images from the original note were not included. Pediatric Medical Student Admission Note Admit Date: 10/02/2016 9:10 AM Chief Complaint Evaluation for Gallstones History of Present Illness Liam is a 11 y/o male that presents c/o of intermittent, sharp RUQ pain over the past 6 months. Pt reports that the pain lasts around 2 hours and generally went away on its own until 4 days ago, during which time the pt went the ED at [facility] for sharp pain rated 8/[address] at that time showed gallstones present. Pt's pain was controlled at that time with pain medications and anti-emetic medication. Pt notes that the last two episodes were preceded by potato chips and the most recent time a meal of spaghetti. Per mother, pt eats fruits and vegetables regularly. Pt denies any jaundice, constipation, diarrhea, changes in bowel consistency, fever, chills. Medical History Medical History: Past Medical History: Diagnosis Date ??? ADHD (attention deficit hyperactivity disorder) ??? Asthma ??? 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 [place]-Schlatter's disease of right knee 01/01/2015 Surgical History: Past Surgical History: Procedure Laterality Date ??? NEGATIVE SURGICAL HISTORY ??? Osteotomy Right 03/11/2015 Right; RIGHT FEMORAL DEROTATIONAL OSTEOTOMY AND INTRAMEDULLARY NAIL Immunizations Immunization status: stated as current, but no records available. Allergies No Known Allergies Review of Systems Review of Systems - General ROS: negative for - chills or fever Psychological ROS: negative Respiratory ROS: no cough, shortness of breath, or wheezing Cardiovascular ROS: negative Gastrointestinal ROS: intermittent RUQ abdominal pain with nausea, vomit x1; Denies change in bowelhabits, or black or bloody stools Genito-Urinary ROS: no dysuria, trouble voiding, or hematuria Musculoskeletal ROS: negative Neurological ROS: negative Dermatological ROS: negative Physical ExamWt 69 kg (152 lb 1.9 oz) General: well appearing, non-toxic, alert Head: normocephalic, atraumatic Eyes: sclera and conjunctiva clear, EOMI and PERRL, lids normal Neck: supple, non-tender, with full ROM, and no lymphadenopathy Cardiovascular: regular rate and rhythm, normal S1 and S2, no murmurs Chest: breath sounds symmetrical without rales or wheezes Abdomen: soft, non-distended and no hepatosplenomegaly or masses. Mild tenderness to deep palpationin RLQ Musculoskeletal: No clubbing, cyanosis or edema Neuro: alert, oriented, normal speech, no focal findings or movement disorder noted, motor and sensory grossly normal bilaterally Assessment & Plan Liam is a 11 y/o that presents with intermittent RUQ pain that has recently worsened in severity.His last two episodes have been preceded by fatty [facility]. Pt reports that he generally has one stool a day and pain does not appear to be related to constipation. Symptomatic Cholelithiasis is most likely considering the consiste ncy in location of pain and intermittent nature not relieved by passage of stool. Plan is for elective cholecystectomy as at this time the pt is asymptomatic and no other signs of active infection present. Will schedule for surgery. Bart Mejia Medical Student I reviewed the chart of this child, have seen and examined this patient and agree with above note as amended by me. Liam Bal is a 11 y.o. male with a 6 month history of intermittent right upper quadrant pain which has recently be related to eating greasy food. He was recently evaluated at an outlying Emergency Department where a CT scan of the abdomen was performed demonstrating cholelithiasis without acute inflammation. There is no history of jaundice. We will therefore plan for laparoscopic cholecystectomy for symptomatic cholelithiasis. The nature of surgery and the expected post-operative coursewere discussed with Liam and his mother. Additionally, risks, benefits and alternatives to surgery were discussed. Risks discussed included pain, bleeding, infection, damage to surrounding structures, including the common bile duct and altered bowel function. All questions were answered and appropriate understanding was demonstrated. A date for surgery will be scheduled at the family's earliestconvenience. Exam: Gen: No acute distress, appears well Head: Head: normocephalic, atraumatic Eyes: sclera and conjunctiva clear, EOMI Neck: supple, no masses Cardiovascular: regular rate and rhythm Chest: breath sounds symmetrical without rales or wheezes Abdomen: soft, non-distended and no hepatosplenomegaly or masses. Negative Curry's sign Musculoskeletal: No clubbing, cyanosis or edema Skin: No rashes Rosana Castro MD 10/04/2016 4:30 PM documented in this encounter Plan of Treatment Not on file documented as of this encounter Visit Diagnoses Diagnosis Calculus of gallbladder without cholecystitis without obstruction Calculus of gallbladder without mention of cholecystitis or obstruction documented in this encounter Care Teams Eyeglass Assembler Relationship Specialty Start Date End Date Ruthann Le, RESEARCH CHIEF ENGINEER-OPERATORS TEACHER [address] [place] [address] PCP - General Nurse Practitioner 08/14/14 documented as of this encounter
--- OUTSIDE RECORDS SUMMARY | 2024-03-10 03:41 | XMS_ITS | Encounter Summary ---
Author Organization [facility] Address [address] [place] [address] Care Team Providers Care Decorating Equipment Setter Name Role Phone Ruthann Le SUBCONTRACT ADMINISTRATOR-DOOR CAPTAIN Primary Care Provider + Reason for Visit * Reason Comments Follow-up pre-op Encounter Details Date Type Department Care Team (Latest Contact Info) Description 03/08/2015 2:15 PM MICROELECTRONICS ASSEMBLER - 03/08/2015 3:21 PM [facility] Hospital Encounter [facility] Pediatrics - Orthopedics [address] [place] [id number] Ruben Jorge MD [address] [place] [address] [address] [facility] [place] [address] Discharge Disposition: Home or Self [...] - Inhaled Oxygen Concentration - - Weight 65.2 kg (143 lb 11.8 oz) 03/08/2015 2:58 PM MICROELECTRONICS ASSEMBLER Height 152 cm (4' 11.84 ) 03/08/2015 2:58 PM MICROELECTRONICS ASSEMBLER Body Mass Index 28.22 03/08/2015 2:58 PM MICROELECTRONICS ASSEMBLER Body Mass Index Percentile 97.66% 03/08/2015 2:5 8 PM MICROELECTRONICS ASSEMBLER Growth Chart: [facility] (Boys, 2-2 0 Years) documented in this encounter Discharge Instructions * Patient Instructions* Do Salinas MD - 03/08/2015 3:55 PM MICROELECTRONICS ASSEMBLER ORTHOPAEDIC CLINIC DISCHARGE INSTRUCTIONS SHEET DIAGNOSIS: 1. Femoral anteversion Follow Up: Will schedule surgery. If you have a question for the orthopaedic nurse, call [phone], ext. [phone]. X-Rays next visit: Yes - right Femur, Knee Medications prescribed: none Physicians orders: ?? Further diagnostic studies discussed and ordered: none ?? Therapy services - None School Excuse: Excused from School on 03/08/2015 Activity Restrictions: none . To make an appointment, please call . To schedule the surgery discussed with the doctor during your child's office visit, call Pam at , ext. 1. If you have a question for the orthopaedic nurse, Yasmani Natarajan, call [phone], ext. [phone]. If you have a question for Dr. Jorge, you may leave a voicemail for him at or through Sm[employer]Shade. You can Like him on Moncai at [email or web address]. After visit summary completed by Do Salinas MD. OELECTRONICS ASSEMBLER documented in this encounter Medications at Time of Discharge Medication Sig Dispensed Refills Start Date End Date albuterol HFA (PROVENTIL;VENTOLIN;DC OAIR) 108 (90 BASE) MCG/ACT inhaler Inhale 2 Puffs by mouth every 4 hours as needed for Shortness of Breath, Wheezing or Cough 1 Inhaler 0 08/14/2014 dexmethylphenidate ER 24hr (FOCALIN XR) 15 MG capsule 01/05/2015 cetirizine (ZYRTEC) 5 MG/5ML syrup Take 5 mL by mouth once daily 150 mL 0 08/14/2014 03/10/2015 Dexmethylphenidate HCl (FOCALIN PO) Take by mouth. Takes once daily, unsure of dose 03/10/2015 diazepam (VALIUM) 1 MG/ML oral solution Take 5 mL by mouth 3 times daily as needed for Anxiety 210 mL 0 03/13/2015 10/02/2016 docusate sodium (COLACE) 100 MG capsule Take 1 Cap by mouth once daily 14 Cap 0 03/13/2015 04/09/2015 fluticasone propionate (FLONASE) 50 MCG/ACT nasal spray [place] 2 Sprays into each nostril once daily 1 Bottle 0 08/14/2014 03/10/2015 hydrocodone-acetaminop hen (NORCO) 5-325 MG tablet 1-2 Tabs q 4-6 Hours As Needed for pain 60 Tab 0 03/13/2015 10/02/2016 senna (SENOKOT) 8.6 MG tablet Take 1 Tab by mouth once daily 14 Tab 0 03/13/2015 04/09/2015 documented as of this encounter Progress Notes * Ruben Jorge MD - 03/08/2015 4:35 PM CST PEDIATRIC ORTHOPAEDIC CLINIC NOTE NAME: Liam Bal DATE OF SERVICE: 03/08/2015 DATE: 2005 PCP: Ruthann Le NP Chief Complaint Patient presents with ??? Follow-up pre-op SUBJECTIVE: Liam presents for a Follow-Up Evaluation. Liam Bal is a 10 y.o. male who presents with complaint of right foot and right knee pain. This began several years ago. Liam trips and complains of knee pain several times a week, worse with activity and better with rest. Denies night pain, reports pain with activity Pain: stable, zyin-[id number] joint symptoms intermittently, reasonably well controlled by PRN meds Neurological complaints: no Vascular complaints: none Associated symptoms: none Previous workup: XR knee, upright MEDICATIONS: Current outpatient prescriptions: dexmethylphenidate ER 24hr (FOCALIN XR) 15 MG capsule, , Disp: , Rfl: ; albuterol HFA (PROVENTIL;VENTOLIN;PROAIR) 108 (90 BASE) MCG/ACT inhaler, Inhale 2 Puffs by mouth every 4 hours as needed for Shortness of Breath, Wheezing or Cough, Disp: 1 Inhaler, Rfl: 0; fluticasone propionate (FLONASE) 50 MCG/ACT nasal spray, [place] 2 Sprays into each nostril once daily, Disp: 1 Bottle, Rfl: 0 cetirizine (ZYRTEC) 5 MG/5ML syrup, Take 5 mL by mouth once daily, Disp: 150 mL, Rfl: 0; Dexmethylphenidate HCl (FOCALIN PO), Take by mouth. Takes once daily, unsure of dose , Disp: , Rfl: ALLERGIES: Review of patient's allergies indicates no known allergies. IMMUNIZATIONS: stated as current, but no records available REVIEW OF SYSTEMS: History obtained from mother and grandmother and the patient. A 10 point ROS wasobtained and all others were negative except what is listed in the HPI. PHYSICAL EXAMINATION:Wt 143 lb 11.8 oz (56942 g) BMI 28.22 kg/m2 General appearance: He has good head control, Orientation: alert, cooperative, no distress, Mood&affect: both mood and affect are normal Spine: exam not performed Extremities: Bilateral upper extremity Skin - No rashes or abnormal dyspigmentation Inspection - No swelling, erythema, deformity, atrophy or hypertrophy noted Tenderness - absent Joint effusion - absent Range of motion - full range of motion Stability - stable Right lower extremity Skin - No rashes or abnormal dyspigmentation Inspection - No swelling, erythema, deformity, atrophy or hypertrophy noted Tenderness - minimal at knee Joint effusion - absent Range of motion - Hip with 80 IR, 20 degrees ER. Normal at knee, ankle Stability - stable at knee and hip Left lower extremity Skin - No rashes or abnormal dyspigmentation Inspection - No swelling, erythema, deformity, atrophy or hypertrophy noted Tenderness - absent Joint effusion - absent Range of motion - Hip with 80 IR, 20 degrees ER. Normal at knee, ankle Stability - stable at knee and hip Neuro: Strength - normal throughout upper and lower extremities Sensation - normal all four extremities Tone - normal throughout axial and appendicular musculature Reflexes - normal Gait: walks with right foot eversion RADIOLOGY: taken and reviewed Right Femur - patient with no acute osseous injury, previous upright films of bilateral standing better demonstrate bilateral femoral anteversion ASSESSMENT: 1. Femoral anteversion PLAN: 1. Questions solicited and answered. 2. Patient/family voiced understanding to info/instructions given. 3. Plan to proceed with operative invention with right femoral derotational osteotomy over a nail. Patient family discussed options for treatment and expressed understanding of procedure and desire to proceed with operative intervention. 4. Medications Prescribed: none 5. Activity Restrictions: none 6. Weightbearing status: No Restrictions 7. Follow up: for surgery 03/11/2014. Patient seen and examined with Dr. Jorge. Radiology reviewed and plan discussed with attending and patient family. ATTENDING ATTESTATION STATEMENT I have personally seen and evaluated Liam with the resident. I confirm the wilson elements of the history to include: Chief Complaint Patient presents with ??? Follow-up pre-op I have discussed the results of the physical exam and all studies with Liam and his family. I confirm the wilson elements of the physical exam to include increase internal rotation of the right hip. Ihave reviewed all radiographic studies with the resident and confirm the assessment. I developed the above assessment and discussed it with Liam's family. The encounter diagnosis was Femoral anteversion. I confirm the wilson elements of the plan of care to include: Surgical options discussed femoralosteotomy.. Liam will follow-up after surgery. OELECTRONICS ASSEMBLER documented in this encounter Plan of Treatment Not on file documented as of this encounter Results * XR FEMUR 2 VW RIGHT (03/08/2015 3:32 PM MICROELECTRONICS ASSEMBLER) Anatomical Region Laterality Modality Lower Extremity Radiographic Shirin ging 03/08/2015 3:34 PM MICROELECTRONICS ASSEMBLER Impressions 03/08/2015 3:35 PM MICROELECTRONICS ASSEMBLER Somewhat limited examination of the right femur. No gross abnormality is seen. Narrative 03/08/2015 3:35 PM MICROELECTRONICS ASSEMBLER 2 views of the right femur performed March 08, 2015. History: None given. Frontal and lateral views of the right femur were obtained and are compared to standing radiographs of both lower extremities performed January 01, 2015. The lateral femoral condyle is not included on the frontal view. There is no evidence of fracture or subluxation. There is no evidence of knee effusion. Grossly the femoral head appears intact. Procedure Note Mae Greer MD - 03/08/2015 2 views of the right femur performed March 08, 2015. History: None given. Frontal and lateral views of the right femur were obtained and are compared to standing radiographs of both lower extremities performed January 01, 2015. The lateral femoral condyle is not included on the frontal view. There is no evidence of fracture or subluxation. There is no evidence of knee effusion. Grossly the femoral head appears intact. IMPRESSION Somewhat limited examination of the right femur. No gross abnormality is seen. 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
--- OUTSIDE RECORDS SUMMARY | 2024-03-10 03:41 | XMS_ITS | Encounter Summary ---
Author Organization [facility] Address [address] [place] [address] Care Team Providers Care Beader Name Role Phone Pcp, Dejah Primary Care Provider Unavailabl e Reason for Visit * Reason Comments Eye Problem Mother states yester day pt had what appeared to be a sty--today R eye is red and draining. Pt c/o itching to eye. Encounter Details Date Type Department Care Team (Late st Contact Info) Description 10/21/2011 1:19 PM CDT - 10/21/2011 2:13 PM CDT Emergency ER at [address] [address] Maria Dolores Pacheco, [address] [address] MAGISTRATE-BUILDING RIGGER [address] [address] Conjunctivitis unspecified; Attention deficit disorder with hyperactivity; Encounter for long-term (current) use of other medications Discharge Disposition: Home or Self Care Social History Tobacco Use Types Packs/Day Years Used Date Smoking Tobacco: Never Assessed Sex and Gender Information Value Date Recorded Sex Assigned at Not on file Gender Identity Not on file Sexual Orientation Not on file documented as of this encounter Last Filed Vital Signs Vital Sign Reading Time Taken Comments Blood Pressure 90/62 10/21/2011 1:24 PM CDT Pulse 76 10/21/2011 1:24 PM CDT Temperature 36 ??C (96.8 ??F) 10/21/2011 1:24 PM CDT Respiratory Rate 18 10/21/2011 1:24 PM CDT Oxygen Saturation - - Inhaled Oxygen Concentration - - Weight 41.9 kg (92 lb 6 oz) 10/21/2011 1:24 PM C DT Height - - Body Mass Index - - documented in this encounter Discharge Instructions * Discharge Instructions* Maria Dolores Perez NP - 10/21/2011 2:03 PM CDT Use 1 drop in each eye 3 times per day for 1 week. Follow up with primary care doctor for worseningsymptoms or worried. Use good hand washing before and after placing drops in eyes. Conjunctivitis You have conjunctivitis. This is commonly called pink eye . Conjunctivitis can be caused by bacterial or viral infection, allergies, or injuries. There is usually redness of the lining of the eye, itching, discomfort, and sometimes discharge. There may be deposits of matter along the eyelids. A viral infection usually causes a watery discharge, while a bacterial infection causes a yellowish, thick discharge. [place] eye is very contagious and spreads by direct contact. You may be given antibiotic eye drops as part of your treatment. Before using your eye medicine, remove all drainage from the eye by washing gently with warm water and cotton balls. Continue to use the medication until you have awakened 2 mornings in a row without a discharge from the eye. Do not rub your eye. This increases the irritation and helps spread infection. Use separate towels from other household members. Wash your hands with soap and water before and after touching your eyes. Use cold compresses to reduce pain and sunglasses to relieve irritation from light. Do not wear contact lenses or wear eye make-up until the infection is gone. SEEK MEDICAL CARE IF: ?? Your symptoms are not better after 3 days of treatment. ?? You have increased pain or trouble seeing. ?? The outer eyelids become very red or swollen. Document Released: 03/29/2005 Document Re-Released: 05/18/2009 ExitCare?? Patient Information ??2009 [employer]. * Discharge Instructions* Document, Scanned - 10/25/2011 7:04 PM CDT documented in this encounter Medications at Time of Discharge Medication Sig Dispensed Refills Start Date End Date albuterol HFA (PROVENTIL;VENTOLIN;PRO AIR) 108 (90 BASE) MCG/ACT inhaler Inhale 2 Puffs by mouth every 4 hours as needed for Wheezing or Cough (use with MDI as instructed.). 1 Inhaler 3 03/13/2011 08/14/2014 Dexmethylphenidate HCl (FOCALIN PO) Take by mouth. Takes once daily, unsure of dose 03/10/2015 moxifloxacin 0.5% (VIGAMOX) 0.5 % ophthalmic solution Instill 1 Drop into both eyes 3 times daily for 7 days. 3 mL 0 10/21/2011 10/28/2011 documented as of this encounter ED Notes * Silke Friedman RN - 10/21/2011 2:12 PM CDT NAd noted at time of discharge. * Maria Dolores Perez NP - 10/21/2011 1:41 PM CDT Images from the original note were not included. EMERGENCY DEPARTMENT 10/21/[address] Cody Merlos We had the pleasure of caring for your patient, Liam Bal in our emergency department on 10/21/2011. A note from the provider(s) who cared for your patient is attached. Should you wish to access any laboratory results, please call . Should you wish to access any radiology results, please call , option 3. In addition, you can access patient information 24 hours a day, from any computer, through [employer]Locker, the online version of our electronic medical record. If you would like to use this service, please call Virgie Kala, Connectivity Coordinator, at . We appreciate the opportunity to care for your patients. If you would like additional information, please call the emergency department directly at . Sincerely, Maria Dolores Perez NP Division of Emergency Medicine [facility], [place] [facility] [place] DES[facility] EMERGENCY DEPARTMENT Provider contact with the patient: 10/21/2011 13:41 Liam Bal [id number] [facility] EMERGENCY DEPT History Chief Complaint Patient presents with ??? Eye Problem Mother states yesterday pt had what appeared to be a sty--today R eye is red and draining. Pt c/o itching to eye. HPI Comments: Previously healthy 6 y/o M presents to the ER with right eye redness, yellow/green d/c from eye, and eye discomfort x 2 days. Mother denies fever, recent illnesses, significant PMH, or any other acute concerns. No known sick contacts. Past Medical History Diagnosis Date ??? ADHD [...] Outpatient Prescriptions Medication Sig Dispense Refill ??? moxifloxacin 0.5% (VIGAMOX) 0.5 % ophthalmic solution Instill 1 Drop into both eyes 3 times daily for 7 days. 3 mL 0 ??? albuterol HFA (PROVENTIL;VENTOLIN;PROAIR) 108 (90 BASE) MCG/ACT inhaler Inhale 2 Puffs by mouthevery 4 hours as needed for Wheezing or Cough (use with MDI as instructed.). 1 Inhaler 3 ??? Dexmethylphenidate HCl (FOCALIN PO) Take by mouth. Takes once daily, unsure of dose Review of Systems Review of Systems Constitutional: Negative. Negative for fever. HENT: Negative. Eyes: Positive for pain, discharge and redness. Respiratory: Negative. Cardiovascular: Negative. Gastrointestinal: Negative. Genitourinary: Negative. Musculoskeletal: Negative. Skin: Negative. Neurological: Negative. Hematological: Negative. Psychiatric/Behavioral: Negative. All relevant systems reviewed. BP 90/62 Pulse 76 Temp 96.8 ??F Resp 18 Wt 41.9 kg (92 lb 6 oz) Physical Exam Physical Exam Nursing note and vitals reviewed. Constitutional: He appears well-developed and well-nourished. He is active. HENT: Right Ear: Tympanic membrane normal. Left Ear: Tympanic membrane normal. Nose: No nasal discharge. Mouth/Throat: Mucous membranes are moist. Oropharynx is clear. Eyes: Pupils are equal, round, and reactive to light. Right eye exhibits discharge (yellow). Left eye exhibits no discharge. Right conjunctivae is erythematous with mild discomfort on palpation. Left is normal Neck: Normal range of motion. Neck supple. Cardiovascular: Normal rate and regular rhythm. Pulses are palpable. Pulmonary/Chest: Effort normal and breath sounds normal. There is normal air entry. No respiratory distress. Air movement is not decreased. He exhibits no retraction. Abdominal: Soft. Bowel sounds are normal. He exhibits no distension. There is no tenderness. There is no guarding. Musculoskeletal: Normal range of motion. Neurological: He is alert. Skin: Skin is warm and dry. Capillary refill takes less than 3 seconds. No rash noted. Procedures Procedures Lab/SPO2 Interpretation Progress Notes ED Course Patient d/c alert, active, and in no acute distress. Medical Decision Making I have reviewed the: Nursing Notes and Vitals. I have discussed the case with Family/Caregiver. Use 1 drop in each eye 3 times per day for 1 week. Follow up with primary care doctor for worseningsymptoms or worried. Use good hand washing before and after placing drops in eyes. Clinical Impression Encounter Diagnosis Name Primary? Conjunctivitis unspecified documented in this encounter Miscellaneous Notes * Miscellaneous Scans - Document, Scanned - 10/26/2011 7:51 AM CDT documented in this encounter Plan of Treatment Not on file documented as of this encounter Visit Diagnoses Diagnosis Conjunctivitis unspecified Conjunctivitis, unspecified Attention deficit disorder with hyperactivity(314.01) Attention deficit disorder with hyperactivity Encounter for long-term (current) use of other medications documented in this encounter Care Teams Beader Relationship Specialty Start Date End Date Dejah Epps PCP - General 10/20/11 05/20/12 documented as of this encounter
--- OUTSIDE RECORDS SUMMARY | 2024-03-10 03:41 | XMS_ITS | Encounter Summary ---
Author Organization [facility] Address [address] [place] [address] Care Team Providers Care Bdr Name Role Phone Ruthann Le COLD HEADER OPERATOR-METAL WINDOW SCREEN ASSEMBLER Primary Care Provider + Reason for Visit * Reason Onset Date Comments Question 03/01/2015 Encounter Details Date Type Department Care Team (Late st Contact Info) Description 03/01/2015 Telephone [facility] Pediatrics - Orthopedics [facility] [place] [address] Ruben Jorge MD [address] [place] [address] [address] [place] [address] Question Social History Tobacco Use Types Packs/Day Years Used Date Smoking Tobacco: Never Alcohol Use Standard Drinks/Week Comments No 0 (1 standard drink = 0.6 oz pur e alcohol) Sex and Gender Information Value Date Recorded Sex Assigned at Not on file Gender Identity Not on file Sexual Orientation Not on file documented as of this encounter Miscellaneous Notes * Telephone Encounter - Ruben Jorge MD - 03/01/2015 5:15 PM CST Call Liam's mother in regards to Liam's upcoming surgery. The risks and benefits were discussedand expected outcomes. The mother would like to come in for a preoperative appointment to better understand the surgery. We discussed 03/08/15 as a good date for a preoperative appointment. EY RESEARCH MANAGER documented in this encounter Plan of Treatment Not on file documented as of this encounter Visit Diagnoses Not on filedocumented in this encounter Care Teams Bdr Relationship Specialty Start Date End Date Ruthann Le, COLD HEADER OPERATOR-METAL WINDOW SCREEN ASSEMBLER [address] [place] [address] PCP - General Nurse Practitioner 08/14/14 documented as of this encounter
--- OUTSIDE RECORDS SUMMARY | 2024-03-10 03:41 | XMS_ITS | Encounter Summary ---
Author Organization [facility] Address [address] [facility] [place] [address] Care Team Providers Care Hat Block Maker Name Role Phone Ruthann Le PUBLIC RELATIONS PROFESSIONAL-SPLUNK CONSULTANT Primary Care Provider + Reason for Visit * Auth/Cert Specialty Diagnoses / Procedures Referred By Zohra aguila Referred To Contact Diagnoses Acute calculous cholecystitis Acute calculous cholecystitis Procedures LAPAROSCOPIC CHOLECYSTECTOMY Referral ID Status Reason Start Date Expiration Date Visits Re quested Visits Authorized [id number] 1 1 Encounter Details Date Type Department Care Team (Late st Contact Info) Description 10/26/2016 12:43 PM CDT - 10/27/2016 10:44 AM CDT Hospital Encounter [facility] [address] [place] [address] Rosana Castro MD [address] [place] [address] DEPT [place] [address] Surgery General Discharge Disposition: Home or Self Care Social [...] AM CD T Respiratory Rate 18 10/27/2016 8:0 5 AM CDT Oxygen Saturation 98% 10/26/2016 8:30 PM CDT Inhaled Oxygen Concentration - - Weight 69.2 kg (152 lb 8.9 oz) 10/27/19 17 12:52 PM CDT Height 168.9 cm (5' 6.5 ) 10/26/2016 12 :52 PM CDT Body Mass Index 24.26 10/26/2016 12:52 PM CDT Body Mass Index Percentile 91.83% 10/26 12:52 PM CDT Growth Chart: [facility] (Boys, 2-2 0 Years) documented in this [...] Hospitalization duration: Hospital Day: 1 HPI: Liam J McDannel is a 11 y.o. male with intermittent [...] preceded by fatty foods and CT from [facility] was positive for gallstones ??? Head injury 11/22/2009 ??? Left tibial torsion 06/13/2013 ??? [place]-Schlatter's disease of right knee 01/01/2015 Past Surgical History: Procedure Laterality Date ??? Cholecystectomy, Laparoscopic N/A 10/26/2016 N/A; LAPAROSCOPIC CHOLECYSTECTOMY ??? NEGATIVE SURGICAL HISTORY 01/01/2015 ??? Osteotomy Right 03/11/2015 Right; RIGHT FEMORAL DEROTATIONAL OSTEOTOMY AND INTRAMEDULLARY NAIL No family history on file. Clinical course: improved Procedures: Laparoscopic cholecystectomy Clinical Course: The patient presented to [facility] with the above H&P. The patient [...] rashes Extremities: No clubbing, cyanosis or edema Laim Bal Home Medication Instructions KELVIN:[id number] Printed on:10/27/16 1220 Medication Information acetaminophen (TYLENOL) [...] Dr. Castro during the [facility] clinic. Call [phone] for appointment time. Return to ER or call [phone] and page pediatric surgery resident if develop severe pain, nausea, vomiting, or fever > 101.0 F. Kaci Mobley MD CC: Ruthann Le APRN-CHAMP Associated attestation - Arcenio Major MD - [...] his functional goal at discharge Outcome: Ongoing Monicas pain has been controlled with the scheduled Toradol and has not required any PRN medications overnight. Problem: Incision Care Laim is s/p LAPAROSCOPIC CHOLECYSTECTOMY Goal: Incision remains intact with edges well approximated Liam???s incision will remain clean, dry and intact. Outcome: Ongoing Monicas incisions remain clean, dry and intact with [...] 2355 97.6 ??F 76 16 103/56 Automatic 10/26/162029 96.8 ??F 73 16 100/55 Automatic 10/26/162014 16 103/62 - 10/26/161944 - (!) 11 97/54 - 10/26/16 193 - (!) 9 106/57 - 10/26/16 191 - (!) 11 112/63 - 10/26/161829 - [...] Sorto MD 10/27/2016 12:15 AM * Oralia Hinds RN - 10/26/2016 6:45 PM CDT Problem: [...] free from infection this admission Outcome: Ongoing Liam's incision remains free of signs of infection (redness, swelling, afebrile). * Noris Restrepo PharmD - 10/26/2016 5:43 PM CDT Dear Physician, In accordance with the Automatic Therapeutic Substitution Policy approved by the [facility] and [employer] and Medical [employer] Committees, [...] preceded by fatty foods and CT from [facility] was positive for gallstones ??? Head injury 11/22/2009 ??? Left tibial torsion 06/13/2013 ??? [place]-Schlatter's disease of right knee 01/01/2015 PSH: Past [...] and audiovisual recordings obtained. Sara Weir DO [facility] General Surgery Senior Res[facility] [phone] 10/26/20162:11 PM I reviewed the chart of [...] performed: Laparoscopic cholecystectomy Surgeon: Rosana Castro MD Manager Of Creative Services: Magen Michaud MD and Sara Weir DO [...] were clipped with a 5 mm clip coater brake linings and divided. The peritoneum was incised wi [...] 5 mL Specimens: gallbladder Sara Weir DO [facility] General Surgery Senior [facility] [phone] 10/26/20164:35 PM I was present for the [...] MD 10/26/2016 3:20 PM Sara Weir DO [facility] General Surgery Senior Res[facility] [phone] 10/26/20164:34 PM Rosana Castro MD 10/27/2016 5:27 [...] Case Report Surgical Pathology Report ? Case: [id number] ? Authorizing Provider: ??Rosana Castro MD Collected: ? 10/26/2016 03:06 PM ? Ordering Location: ? [facility] ? Received: ?10/27/2016 07:05 AM ? Pathologist: ? Mary Ibarra MD ? Specimen: ?Gallbladder ? 10/30/2016 7:14 PM [facility] Final Diagnosis GALLBLADDER, LAPAROSCOPIC CHOLECYSTECTOMY: - CHRONIC CHOLECYSTITIS. - CHOLELITHIASIS 10/30/2016 7:14 PM [facility] Clinical History The patient is a 11-year-old boy with intermittent right upper quadrant pain and clinical diagnosis of symptomatic cholelithiasis. 10/30/2016 7:14 PM [facility] Gross Description Submitted fixed in formalin [...] is velvety pink. The cystic duct and food service representative sections of the gallbladder are submitted in cassette A1. (KONSTANTIN/julia) 10/30/2016 7:14 PM [facility] Microscopic Description 1 H&E. Sections of the gallbladder show gallbladder wall with mild chronic inflammatory infiltrate and with Rokitansky-Aschoff sinuses. The luminal surface has amorphous eosinophilic material. (CV/NK/eva) 10/30/2016 7:14 PM [facility] Disclaimer The performance characteristics of all immunohistochemical and indirect immunofluorescence stains (if any) cited in this report were determined by the Histopathology Laboratory of [facility]. Some of these tests were developed by [...] the attending (teaching) pathologist. 10/30/2016 7:14 PM CDT [facility] Embedded Images 10/30/2016 7:14 PM CDT [facility] Pathology/Cytolo gy ENTIRE GALLBLADDER / Unknown 10/26/2016 3:06 PM CDT 10/27/2016 7:05 AM CDT Roasna Castro MD LAB - PATHOLOGY/C YTOLOGY ORDERABLES Performing Organization Address City/State/[facility] Co de Phone Number [facility] [address] [place] [address] documented in this encounter Visit Diagnoses Diagnosis [...] cholecystitis or obstruction documented in this encounter Administered Medications Inactive Administered Medications - up to 3 most recent administrations Medication Order MAR Action Action Date Dose Rate Site albuterol (PROVENTIL;VENTOLIN) (5 MG/ML) 0.5% nebulizer solution 2.5 mg 2.5 mg, Inhalation, EVERY 4 HOURS PRN, Shortness of Breath, Wheezing, Starting on Britany 10/26/16 at 1744, Until Sun10/27/16 at 1146, Dilute prior to administration via nebulization. dextrose 5% and 0.45% NaCl with KCl [...] Starting on Britany 10/26/16 at 1639, Until Britany 10/26/16 at 1737, High Risk. High Alert Medication. May repeat dose every 5 min. Max dose: 0.8mg Do not exceed 0.15 mg/kg/hr, PACU $ Given 10/26/2016 5:01 PM CDT 0.2 mg isolyte-S pH 7.4 infusion 100 mL/hr, Intravenous, POST-OP CONTINUOUS, Starting on Britany 10/26/16 at 1645, Until Britany 10/26/16 at 1737, PACU Current Rate 10/26/2016 4:54 PM CDT 100 mL/hr 100 mL/hr ketorolac (TORADOL) injection 30 mg 30 mg, Intravenous, EVERY 6 HOURS, 12 doses, First dose on Britany 10/26/16 at 2030, Last dose on Sun10/29/16 at 1430, Post-op $ Given 10/27/2016 8:14 [...] Starting on Britany 10/26/16 at 1639, Until Britany 10/26/16 at 1737, High Risk. High Alert Medication. May repeat dose every 5 min. Max dose: 0.8mg Do not exceed 0.15 mg/kg/hr, PACU 1701 ($ Given - Provider: Cristy Callahan RN) ketorolac (TORADOL) injection 30 mg 30 mg, Intravenous, EVERY 6 HOURS, 12 doses, First dose on Britany 8/24/17 at 2030, Last dose on Sun10/29/16 at 1430, Post-op 2051 ($ Given - Provider: Shannon Velazquez RN) 0242 ($ Given - Provider: Neetu Caraballo, RN)0814 ($ Given - Provider: Oralia Hinds, RN) Continuous Medication Order 10/25/2016 10/26/2016 10/27/2016 dextrose 5% and 0.45% NaCl with KCl 20 mEq infusion (CANCELED) at 110 mL/hr, Intravenous, CONTINUOUS, Starting on Britany 10/26/16 at 1745, Until Sun10/27/16 at 0643, Post-op 1754 ($ New Bag/Syringe - Provider: Oralia Hinds, RN)1910 (Current Rate - Provider: Shannon Velazquez [...] Post-op documented in this encounter Care Teams Hat Block Maker Relationship Specialty Start Date End Date Ruthann Le, PUBLIC RELATIONS PROFESSIONAL-SPLUNK CONSULTANT [address] [place] [address] PCP - General Nurse Practitioner 08/14/14 documented as of this encounter
--- OUTSIDE RECORDS SUMMARY | 2024-03-10 03:41 | XMS_ITS | Encounter Summary ---
Author Organization [facility] Address [address] [facility] [place] [address] Care Team Providers Care Mottler Operator Name Role Phone Ruthann Le FAMILY SUPPORT WORKER-COUNSELOR MARRIAGE [employer] FAMILY Primary Care Provider + Reason for Visit * Reason Comments Surgical Follow-up right femoral derota tional osteotomy with intramedullary device Encounter Details Date Type Department Care Team (Latest Contact Info) Description 04/09/2015 10:05 AM INFRASTRUCTURE PROJECT MANAGER - 04/09/2015 11:59 PM [facility] Hospital Encounter [facility] - Orthopedics [address] [place] [id number] Ruben Jorge MD [address] [place] [address] [address] [place] [phone] Discharge Disposition: Home or Self [...] - Inhaled Oxygen Concentration - - Weight 65.8 kg (145 lb 1 oz) 04/09/2015 10:55 AM INFRASTRUCTURE PROJECT MANAGER Height 156 cm (5' 1.42 ) 04/09/2015 10:55 AM INFRASTRUCTURE PROJECT MANAGER Body Mass Index 27.04 04/09/2015 10:55 AM INFRASTRUCTURE PROJECT MANAGER Body Mass Index Percentile 96.86% 04/09/2015 10: 55 AM INFRASTRUCTURE PROJECT MANAGER Growth Chart: [facility] (Boys, 2-2 0 Years) documented in this [...] this encounter Discharge Instructions * Patient Instructions* Ruben Jorge MD - 04/09/2015 11:13 AM INFRASTRUCTURE PROJECT MANAGER ORTHOPAEDIC CLINIC DISCHARGE INSTRUCTIONS SHEET DIAGNOSIS: 1. Right femoral anteversion 2. status post right femoral derotational osteotomy Follow Up: Please make a return appointment for 1 month(s) with or ROSALES. If you cannot keep an appointment, please call and notify . If you have a question for the orthopaedic nurse, call [phone], ext. [phone]. X-Rays next visit: Yes - Femur Medications prescribed: OTC analgesics Physicians orders: ?? Further diagnostic studies discussed and ordered: none ?? Therapy services - None School Excuse: Excused from School on 04/09/2015 Activity Restrictions: no PE, no team sports and no collision sports . To make an appointment, please call . To schedule the surgery discussed with the doctor during your child's office visit, call Pam at , ext. 1. If you have a question for the orthopaedic nurse, Yasmani Natarajan, call , ext. 5. If you have a question for Dr. Jorge, you may leave a voicemail for him at or through [employer]. You can Like him on [employer] at [email or web address]. After visit summary completed by Ruben Jorge MD. ASTRUCTURE PROJECT MANAGER documented in this encounter Medications at Time of Discharge Medication Sig Dispensed Refills Start Date End Date albuterol HFA (PROVENTIL;VENTOLIN;CT OAIR) 108 (90 BASE) MCG/ACT inhaler Inhale [...] 03/13/2015 10/02/2016 documented as of this encounter Progress Notes * Ruben Jorge MD - 04/09/2015 11:10 AM [facility]ST PEDIATRIC ORTHOPAEDIC CLINIC NOTE NAME: Liam Bla DATE OF SERVICE: 04/09/2015 DATE: 2005 PCP: Ruthann Le NP Chief Complaint Patient presents with ??? Surgical Follow-up right femoral derotational osteotomy with intramedullary device DOS: 03/11/2015 PROCEDURE: Right Femoral derotational osteotomy over a nail DATE OF OPERATION:?? PCP: Ruthann Le NP SUBJECTIVE: Liam Bal is a 10 y.o. 3 m.o. male who presents 1 month(s) status post right femoral derotation osteotomy. He has had no problems with eating, bowel movements, voiding, or their wound. He is doing well without problems. He is weight bearing without problems. He has no other complaints. MEDICATIONS: Current outpatient prescriptions: dexmethylphenidate ER 24hr (FOCALIN XR) 15 MG capsule, , Disp: , Rfl: ; diazepam (VALIUM) 1 MG/ML oral solution, Take 5 mL by mouth 3 times daily as needed for Anxiety, Disp: 210 mL, Rfl: 0; hydrocodone-acetaminophen (NORCO) 5-325 MG tablet, 1-2 Tabs q4-6 Hours As Needed for pain, Disp: 60 Tab, Rfl: 0 albuterol HFA (PROVENTIL;VENTOLIN;PROAIR) 108 (90 BASE) MCG/ACT inhaler, Inhale 2 Puffs by mouth every 4 hours as needed for Shortness of Breath, Wheezing or Cough, Disp: 1 Inhaler, Rfl: 0 ALLERGIES: Review of patient's allergies indicates no known allergies. REVIEW OF SYSTEMS: History obtained from mother and the patient. A 10 point ROS was obtained and all others were negative except what is listed in the HPI. PHYSICAL EXAMINATION:Wt 65.8 kg (145 lb 1 oz) BMI 27.04 kg/m2 General appearance: He has good head control. Orientation: alert, cooperative, no distress. Mood&affect: both mood and affect are normal Spine: not examined. Extremities: The non-op left lower extremity was examined and demonstrated normal skin, normal range of motion and alignment of all joint, normal motor, sensory and vascular examination, and was without pain. It was used for comparison when examining the operative right lower extremity. The examination was performed with dressing removed Incision: healing well, no significant drainage, no dehiscence and no significant erythema. Swelling: minimal Tenderness: none, located thigh. Deformity: No, located thigh ROM: normal Strength: limited by pain Gait: antalgic Neurological Exam: normal Vascular Exam: normal RADIOLOGY: taken and reviewed. Right Femur - implant in good position. Healing seen around osteotomy site. ASSESSMENT: 1. Right femoral anteversion 2. status post right femoral derotational osteotomy PLAN: 1. Questions solicited and answered. 2. Patient voiced understanding to info/instructions given. 3. Begin local wound cares. Wound care discussed. 4. Dressing: as needed 5. Medications Prescribed: none 6. Activity Restrictions: no PE, no team sports and no collision sports 7. Weightbearing status: No Restrictions 8. Follow up: in 4 week(s). X-rays - Yes Right Femur. With the Physician's Science And Operations Officer - Yes ASTRUCTURE PROJECT MANAGER documented in this encounter Plan of Treatment Not on file documented as of this encounter Results * XR FEMUR 2 VW RIGHT (04/09/2015 9:57 AM INFRASTRUCTURE PROJECT MANAGER) Anatomical Region Laterality Modality Lower Extremity Radiographic Shirin ging 04/09/2015 10:0 3 AM INFRASTRUCTURE PROJECT MANAGER Impressions 04/09/2015 10:04 AM INFRASTRUCTURE PROJECT MANAGER Healing internally stabilized mid femoral diaphyseal osteotomy. 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
--- OUTSIDE RECORDS SUMMARY | 2024-03-10 03:41 | XMS_ITS | Encounter Summary ---
Author Organization [facility] Address [address] [place] [address] Care Team Providers Care Gastroenterology Teacher Name Role Phone Ruthann Le [employer] Primary Care Provider + Reason for Visit * Auth/Cert Specialty Diagnoses / Procedures Referred By Zohra aguila Referred To Contact Diagnoses Acute calculous cholecystitis Acute calculous cholecystitis Procedures LAPAROSCOPIC CHOLECYSTECTOMY Referral ID Status Reason Start Date Expiration Date Visits Re quested Visits Authorized [id number] 1 1 Encounter Details Date Type Department Care Team (Late st Contact Info) Description 10/26/2016 2:29 PM CDT Anesthesia Event [facility] - Periop [address] [place] [address]. [place] [address] Erasmo Bhakta MD [address] [place] [address] Tong Tripp MD [address] [place] [address] Anesthesia Record Procedure Summary Procedure Name Responsible Anesthesiologist Anesthesia Start Time Anesthesia Stop Time LAPAROSCOPIC CHOLECYSTECTOMY (Abdomen) Erasmo Bhakta MD 10/26/16 1429 10/26/16 1647 Events Date Time Event Comment 10/26/2016 1319 1429 An Start 1429 An Start Data 1433 PT Reassessment 1433 An Induction 1437 An Intubation 1454 Time Out Anesthesia part icipated in timeout at the time documented in the record by nursing 1456 Incision 1631 An Emergence 1636 Extubation 1638 an stop data 1638 Electnc Sig 1647 An Stop Meds Name Total dexamethasone 4 mg/mL injection 4 mg ondansetron 4 mg/2mL injection 4 mg fentaNYL 100 mcg/2mL injection 100 mcg rocuronium 50 mg/5mL injection 50 mg propofol 200mg/20mL injection 150 mg HYDROmorphone 2 mg/mL injection 0.4 mg sugammadex 200 mg/2mL injection 138 mg ceFAZolin 1 g injection 2 g isolyte-S pH 7.4 infusion 650 mL * Agents Name Insp. N2O Exp. Sevoflurane Insp. Sevoflurane * Blood No blood administrations on file. Lines, Drains, and Airways Type Details Placement Removal Peripheral IV Date: 10/26/16; Time : 1335; Orientation: Right; Placed By: ISAAC Bailey; Tolerance: Well 10/26/16 1335 by Cristy Bailey RN 10/27/16 1030 by Oralia Hinds RN ETT Date: 10/26/16; Time : 1437; Vent: easy mask; Induction: Standard IV; Blade Type: Joan; Blade Size: 3; Laryngoscopy View: Grade 1 (full cords); Tube: Endotracheal Tube-Hi/Lo; Placement: Oral; Tube Type: Cuffed-inflated; Tube Size(mm): 6.5 MM; Depth of Insertion: 19 CM; Measured From: lips; Attempts: 1; Cuff Infated: Air; Cuff Pressure(cm H2O): 20 cm H2O; Cuff Vol(mL): 3 mL; Verified By: Direct visualization, Bilateral breath sounds, Chest Auscultation, CO2 Monitor 10/26/16 1437 by Tong Tripp MD 10/26/16 1636 by Tong Tripp MD Procedural Site (Incision) 10/26/16; 1455; Abdomen (umbilicus); Laparoscopic; 10/27/16; 1646 10/26/16 1455 by Tracey Velazquez RN 10/27/16 1646 by Generic, Auto Release Procedural Site (Incision) 10/26/16; 1505; Upper; Abdomen; Laparoscopic; 10/27/16; 1646 10/26/16 1505 by Tracey Velazquez RN 10/27/16 1646 by Generic, Auto Release Procedural Site (Incision) 10/26/16; 1505; Right, Upper; Abdomen; Laparoscopic; 10/27/16; 1646 10/26/16 1505 by Tracey Velazquez RN 10/27/16 1646 by Generic, Auto Release Procedural Site (Incision) 10/26/16; 1510; Right, Lateral; Abdomen; Laparoscopic; 10/27/16; 1646 10/26/16 1510 by Tracey Velazquez RN 10/27/16 1646 by Generic, Auto Release documented in this encounter Social History Tobacco [...] No 03/11/2015 documented as of this encounter Progress Notes * Angélica Rey MD - 10/26/2016 5:19 PM CDT ANESTHESIA POSTPROCEDURE EVALUATION Liam Bal is a 11 y.o. male Temp: 97.2 ??F Pulse: 79 Resp: 18 BP: 118/61 SpO2: 99 % Pain Rating Score #1: 5 Anesthesia Type: general Mental status: sufficiently recovered from acute administration of anesthesia to participate in theevaluation and neurologic status has returned to preoperative level. Level of consciousness: awake General appearance: well-appearing Respiratory function: natural airway. Cardiac: stable Pain: comfortable/acceptable PONV: None Postop hydration: adequate. Patient may be released from anesthesia care. Perioperative Complications: No value filed. ASA/AQI Tracking Events: No value filed. documented in this encounter Consult Notes * Erasmo Bhakta MD - 10/26/2016 1:18 PM CDT ANESTHESIA PREOPERATIVE EVALUATION NOTE Procedure: LAPAROSCOPIC CHOLECYSTECTOMY (N/A Abdomen) Vitals: Patient Vitals for the past 24 hrs (Last 5 readings): Temp Height Weight 10/26/16 1252 97.2 ??F 1.689 m (5' 6.5 ) 69.2 kg (152 lb 8.9 oz) ANESTHESIA PRE-EVALUATION NOTE Physical Exam: Orientation: Orientation X3 Airway/Mallampati Score: I Mouth Opening Distance: 3 fingerwidths Neck ROM: full TM Distance: > 3 FB Teeth: normal Heart: regular rate rhythm Lungs: normal Abdomen Exam: normal ANESTHESIA PLAN SECTION ASA Score: 2 NPO Status: No solids since midnight and No liquids within 2 hours Anesthesia Plan: general ETT Planned Induction: intravenous Planned Postop Destination: PACU Intended Admin of Opioids: Yes Anesthetic plan was discussed with: family and mother The patient's procedural Anesthetic Plan with discussed with the resident. BMI, Height, Weight Tobacco History Estimated body mass index is 24.26 kg/(m^2) as calculated from the following: Height as of this encounter: 1.689 m (5' 6.5 ). Weight as of this encounter: 69.2 kg (152 lb 8.9 oz). History Smoking Status ??? Never Smoker Smokeless Tobacco ??? Never Used Alcohol History Drug History History Alcohol Use No History Drug Use No Outpatient Medications: Inpatient Medications: No current outpatient prescriptions on file. @ANCMEDINPATIENT@ Allergies: No Known Allergies Problem List: Patient Active Problem List Diagnosis Date Noted ??? 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 ADHD (attention deficit hyperactivity disorder) 06/13/2013 Medical History: Past Medical History: Diagnosis Date ??? ADHD (attention deficit hyperactivity disorder) 11/22/2009 ??? Asthma 05/21/2012 ??? 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 Gallstones 10/02/2016 intermittent RUQ pain that has recently worsened in severity. His last two episodes have been preceded by fatty foods and CT from [facility] was positive for gallstones ??? Head injury 11/22/2009 ??? Left tibial torsion 06/13/2013 ??? 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 NEGATIVE SURGICAL HISTORY 01/01/2015 ??? Osteotomy Right 03/11/2015 Right; RIGHT FEMORAL DEROTATIONAL OSTEOTOMY AND INTRAMEDULLARY NAIL Lab Tests: None None None None documented in this encounter Miscellaneous Notes * Anesthesia Transfer of Care - Tong Tripp MD - 10/26/2016 4:48 PM CDT ANESTHESIA TRANSFER OF CARE NOTE Today's Date: 10/26/2016 Date of : 2005 Patient: Liam Bal Pre-op Diagnosis: Acute calculous cholecystitis [K80.00] Allergies: No Known Allergies Procedure(s): LAPAROSCOPIC CHOLECYSTECTOMY Postop Diagnosis: same as pre-operative diagnosis Postop Pain: Adequate Analgesia Post Assessment: no apparent anesthetic complications, no evidence of recall and patient tolerated procedure well Level of Consciousness: alert and awake Transport Airway: supplemental O2 and spontaneous respirations Transport Monitoring: continuous pulse oximetry Complications: None Handoff Given? Yes Checklist or Protocol - The iwlson handoff elements that must be included in the transfer of care checklist include: 1. Identification of patient. 2. Identification of responsible practitioner (PACU nurse or advanced practitioner). 3. Discussion of pertinent medical history. 4. Discussion of the surgical/procedure course (procedure, reason for surgery, procedure performed). 5. Intraoperative anesthetic management and issue/concerns. 6. Expectations/Plans for the early post-procedure period. 7. Opportunity for questions and acknowledgement of understanding of report from the receiving PACUteam. Anesthesiologist: Tong Tripp MD documented in this encounter Plan of Treatment Not on file documented as of this encounter Visit Diagnoses Not on filedocumented in this encounter Administered Medications Inactive Administered Medications - up to 3 most recent administrations Medication Order MAR Action Action Date Dose Rate Site ceFAZolin (ANCEF) injection PRN, Starting on Britany 10/26/16 at 1450, Until Britany 10/26/16 at 1648, Anesthesia Intra-op $ Given 10/26/2016 2:50 PM CDT 2 g dexamethasone (DECADRON) injection PRN, Nausea/Vomiting, Starting on Britany 10/26/16 at 1440, Until Britany 10/26/16 at 1647, Anesthesia Intra-op $ Given 10/26/2016 2:40 PM CDT 4 mg fentaNYL (PF) (SUBLIMAZE) injection PRN, Starting on Britany 10/26/16 at 1433, Until Britany 10/26/16 at 1647, Anesthesia Intra-op $ Given 10/26/2016 2:33 PM CDT 100 mcg HYDROmorphone (DILAUDID) injection PRN, Starting on Britany 10/26/16 at 1523, Until Britany 10/26/16 at 1647, Anesthesia Intra-op $ Given 10/26/2016 3:23 PM CDT 0.4 mg isolyte-S pH 7.4 infusion CONTINUOUS PRN, Starting on Britany 10/26/16 at 1429, Until Britany 10/26/16 at 1647, Anesthesia Intra-op $ New Bag/Syringe 10/26/2016 3:25 PM CDT $ New Bag/Syringe 10/26/2016 2:29 PM CDT Ondansetron HCl (ZOFRAN) injection PRN, Nausea/Vomiting, Starting on Britany 10/26/16 at 1613, Until Britany 10/26/16 at 1647, Anesthesia Intra-op $ Given 10/26/2016 4:13 PM CDT 4 mg propofol (DIPRIVAN) injection PRN, Starting on Britany 10/26/16 at 1434, Until Britany 10/26/16 at 1647, Anesthesia Intra-op $ Given 10/26/2016 2:34 PM CDT 150 mg rocuronium (ZEMURON) injection PRN, Starting on Britany 10/26/16 at 1434, Until Britany 10/26/16 at 1647, Anesthesia Intra-op $ Given 10/26/2016 2:34 PM CDT 50 mg sugammadex (BRIDION) injection PRN, Starting on Britany 10/26/16 at 1624, Until Britany 10/26/16 at 1647, Anesthesia Intra-op $ Given 10/26/2016 4:24 PM CDT 138 mg documented in this encounter Care Teams Gastroenterology Teacher Relationship Specialty Start Date End Date Ruthann Le, [employer]ER [address] [place] [id number] PCP - General Nurse Practitioner 08/14/14 documented as of this encounter
--- OUTSIDE RECORDS SUMMARY | 2024-03-10 03:41 | XMS_ITS | Encounter Summary ---
Author Organization [facility] Address [address] [place] [address] Care Team Providers Care Wood Lather Name Role Phone Unknown, Provider Primary Care Provider Unavaila ble Reason for Visit * Reason Comments Injury Head pt here for head inj ury from yesterday, small tv fell off closet shelf and hit pt on r side of face. no loc, no emesis, mom put ice on and gave tylenol. today called and referred to ed. Encounter Details Date Type Department Care Team (Late st Contact Info) Description 11/22/2009 11:03 AM CDT - 11/22/2009 2:09 PM CDT Emergency ER at [address] [address] Nely Carmona MD [address] [place] [id number] Head Injury, Unspecified Discharge Disposition: Home or Self Care Social History Tobacco Use Types Packs/Day Years Used Date Smoking Tobacco: Never Assessed Sex and Gender Information Value Date Recorded Sex Assigned at Not on file Gender Identity Not on file Sexual Orientation Not on file documented as of this encounter Last Filed Vital Signs Vital Sign Reading Time Taken Comments Blood Pressure 99/48 11/22/2009 11:16 AM CDT Pulse 72 11/22/2009 1:56 PM CDT Temperature 36 ??C (96.8 ??F) 11/22/2009 1:56 PM CDT Respiratory Rate 18 11/22/2009 1:56 PM CDT Oxygen Saturation - - Inhaled Oxygen Concentration - - Weight 27.4 kg (60 lb 6.5 oz) 11/22/2009 11:31 A M CDT Height - - Body Mass Index - - documented in this encounter Discharge Instructions * Discharge Instructions* Sara Newman MD - 11/22/2009 2:02 PM CDT Head Injuries, Child Your or child has received a head injury. It does not appear serious at this time. Drowsiness, headache and vomiting are common following head injury. It should be easy to awaken your child orinfant from a sleep. Sometimes it is necessary to keep your infant or child in the emergency department for a while for observation. Sometimes admission to the hospital may be needed. DEPENDING ON THE AGE OF THE CHILD, THESE MINOR problems MAY BE seen AFTER a head injury: ?? Memory difficulties ?? Dizziness ?? Headaches ?? Double vision ?? Hearing difficulties ?? Depression ?? Tiredness ?? Weakness ?? Difficulty with concentration If you notice any of these symptoms (problems) you should not be alarmed. A bruise on the brain (concussion) requires a few days to heal. This is the same as a bruise elsewhere on the body. Usually, these problems disappear without medical care. If symptoms continue for more than one day, tell yourcaregiver. See your caregiver sooner if symptoms are becoming worse rather than better. HOME CARE INSTRUCTIONS ?? During the next 24 hours you must observe your child for the above warning signs. ?? The child should be awakened to check on their condition periodically. Note any of the above signs or symptoms. ?? If problems are getting worse, you should call or return immediately to the facility where you were just seen. In case of emergency or unconsciousness, dial 911. Although it is unlikely that serious side effects will occur, you should be aware of signs and symptoms which may necessitate that you bring your child back to this location. Side effects may occur up to 7 - 10 days following the injury. It is important for you to carefully monitor your child???s condition and contact your caregiver or seek immediate medical attention if there is a change in condition. Return to athletics ?? Your child may exhibit late signs of a concussion. If you child has any of the symptoms below they should not return to playing contact sports until one week after the symptoms have resolved. Yourchild should be reevaluated by your caregiver prior to return to playing contact sports. ?? A child/adolescent who returns to contact sports too early is at risk for reinjuring their head before the brain is completely healed. This is called Second Impact Syndrome. A second head injury may be minor but can cause a concussion and worsen the symptoms listed below. This has been associated with sudden . l Persistent headache l Dizziness / vertigo l Poor attention and concentration l Feeling fuzzy l Memory problems l Nausea or vomiting l Fatigue or tire easily l Irritability l Intolerant of bright lights and / or loud noises l Anxiety and / or depression l Disturbed sleep seek immediate medical attention if: ?? There is confusion or drowsiness. Children frequently become drowsy following trauma (damage caused by an accident) or injury. ?? You can not awaken the your or child. ?? There is nausea (feeling sick to their stomach) or continued, forceful vomiting. ?? You notice dizziness or unsteadiness which is getting worse. ?? Your child has convulsions or unconsciousness. ?? Your child has severe, continued headaches not relieved by Tylenol??. Do not give your child aspirin as this lessens blood clotting abilities and is associated with risks for Barbara's syndrome. Giveother pain medications only as directed. ?? Your child can not use arms or legs normally or is unable to walk. ?? There are changes in pupil sizes. The pupils are the black spots in the center of the colored part of the eye. ?? There is clear or bloody discharge from nose or ears. ?? There is a loss of vision. See your caregiver about concerns or problems. If x-rays or other testing was done, make sure you know how you are to get those results. It is your responsibility to call back for results when your caregiver suggests. Do not assume everything is fine if your caregiver has not been able to reach you. Document Released: 02/19/2006 Document Re-Released: 04/02/2007 ExitCare?? Patient Information ??2008 [employer] * Discharge Instructions* Document, Scanned - 11/23/2009 2:41 PM CDT documented in this encounter Medications at Time of Discharge Medication Sig Dispensed Refills Start Date End Date Dexmethylphenidate HCl (FOCALIN PO) Take by mouth. Takes once daily, unsure of dose 03/10/2015 documented as of this encounter ED Notes * Sara Newman MD - 11/22/2009 1:45 PM CDT 11/22/2009 1:45 PM Liam Bal [id number] History Chief Complaint Patient presents with ??? Injury Head pt here for head injury from yesterday, small tv fell off closet shelf and hit pt on r side of face. no loc, no emesis, mom put ice on and gave tylenol. today called and referred to ed. HPI Comments: Liam Bal is a previously healthy 4 y.o. male who presents after a small tv fell off of a shelf onto his head yesterday. Unwitnessed. Mom and patient deny LOC. No vomiting, no mental status change. Patient c/o pain in the occipital region and next to his right eye where the tvhit him. Denies visual changes or pain with eye movement. Able to eat breakfast without difficulty this AM. Past Medical History Diagnosis Date ??? ADHD (Attention Deficit Hyperactivity Disorder) No past surgical history on file. Medications Current outpatient prescriptions Medication Sig Dispense Refill ??? Dexmethylphenidate HCl (FOCALIN PO) Take by mouth. Takes once daily, unsure of dose Review of Systems Constitutional: Negative for fever and appetite change. HENT: Negative for congestion and rhinorrhea. Eyes: Negative for visual disturbance. Respiratory: Negative for cough. Gastrointestinal: Negative for vomiting and diarrhea. Genitourinary: Negative for difficulty urinating. Skin: Negative for rash. Neurological: Negative for dizziness and syncope. Psychiatric/Behavioral: Negative for confusion. BP 99/48 Pulse 76 Temp 98.6 ??F Resp 24 Wt 27.4 kg (60 lb 6.5 oz) Physical Exam Nursing note and vitals reviewed. Constitutional: Vital signs are normal. He appears well-developed and well- nourished. He is active and cooperative. HENT: Head: Normocephalic. No cranial deformity or skull depression. Swelling and tenderness present. Right Ear: External ear, pinna and canal normal. Left Ear: External ear, pinna and canal normal. Nose: Nose normal. Mouth/Throat: Mucous membranes are moist. Oropharynx is clear. Soft tissue swelling and tenderness to palpation of upper occipital region. Bruising, tenderness, and soft tissue swelling lateral to right eye. Small healing laceration lateral to right eye. BMTs in place and patent bilaterally. No drainage noted. Eyes: Conjunctivae, extraocular motions and lids are normal. Visual tracking is normal. Pupils are equal, round, and reactive to light. Neck: Normal range of motion. Neck supple. Cardiovascular: Normal rate, regular rhythm, S1 normal and S2 normal. No murmur heard. Pulmonary/Chest: Effort normal and breath sounds normal. There is normal air entry. Abdominal: Soft. Bowel sounds are normal. There is no organomegaly. No tenderness. Musculoskeletal: Normal range of motion. Neurological: He is alert. He has normal strength. No cranial nerve deficit or sensory deficit. He displays a negative Romberg sign. Reflex Scores: Patellar reflexes are 2+ on the right side and 2+ on the left side. Achilles reflexes are 2+ on the right side and 2+ on the left side. Skin: Skin is warm and dry. No rash noted. Psychiatric: He has a normal mood and affect. His speech is normal and behavior is normal. Thought content normal. Cognition and memory are normal. Procedures Procedures EKG Interpretation Lab/SPO2 Interpretation Medical Decision Making Progress Notes ED Plan/Course Patient appears well in ED. No focal neurologic deficits. Will discharge home. Instructed mom to return if patient develops mental status change, vomiting or other concerning symptoms. Clinical Impression Head injury Sara Newman MD 11/22/2009 2:30 PM * Nely Carmona MD - 11/22/2009 1:21 PM CDT 11/22/2009 1:21 PM Liam Bal [id number] History Chief Complaint Patient presents with ??? Injury Head pt here for head injury from yesterday, small tv fell off closet shelf and hit pt on r side of face. no loc, no emesis, mom put ice on and gave tylenol. today called and referred to ed. HPI yesterday had a medium size TV fall from an upper shelf in a closet where pt was trying to get a toy. Mom in next room, heard the fall, went in right away, no known LOC, no vomiting, was not confused. Pt says it hit back of head and near right eye. Mom planned to see PCP today, but they referred her to the ED. Pt ate breakfast this morning with no problem. Past Medical History Diagnosis Date ??? ADHD (Attention Deficit Hyperactivity Disorder) No past surgical history on file. History Social History ??? Marital Status: Single Spouse Name: N/A Number of Children: N/A ??? Years of Education: N/A Occupational History ??? Not on file. Social History Main Topics ??? Tobacco Use: Not on file ??? Alcohol Use: Not on file ??? Drug Use: Not on file ??? Sexually Active: Not on file Other Topics Concern ??? Not on file Social History Narrative ??? No narrative on file Medications Current outpatient prescriptions Medication Sig Dispense Refill ??? Dexmethylphenidate HCl (FOCALIN PO) Take by mouth. Takes once daily, unsure of dose Review of Systems Constitutional: Negative for fever, activity change and appetite change. Gastrointestinal: Negative for vomiting and diarrhea. Skin: Positive for wound. Neurological: Negative for syncope and weakness. All relevant systems reviewed with pertinent positives and negatives noted in Resident/Fellow HPI/ROS, as well as Attending HPI and ROS. BP 99/48 Pulse 76 Temp 98.6 ??F Resp 24 Wt 27.4 kg (60 lb 6.5 oz) Physical Exam WNWD child, alert, and active, NCAT except small bruising and superficial abrasion lateral to right eye, no bony TTP, orbital rims smooth, PERRL, EOMI, neck supple, grossly nonfocal, well appearing. Procedures Procedures EKG Interpretation Lab/SPO2 Interpretation Medical Decision Making I have discussed the case with Family/Caregiver. I have personally seen and examined this patient. I have fully participated in the care of this patient. I have reviewed all pertinent clinical information available to me during this encounter, including history, physical exam and plan. I have reviewed available labs and radiographic studies. I reviewd the nurses notes I reviewed the vital signs Progress Notes ED Plan/Course Clinical Impression No diagnosis found. Head injury with minor bruise and abrasion, nonfocal exam. D/w mom, do not feel imaging is warranted, agreeable with plan after discussion * Janna Brown RN - 11/22/2009 11:55 AM CDT Pt sitting up coloring with mother at side, awaiting to be seen by the physician. * Bela Adams RN - 11/22/2009 11:36 AM CDT Alert and perrl in triage, ambulatory and coloring, mom with pt documented in this encounter Miscellaneous Notes * Miscellaneous Scans - Document, Scanned - 01/05/2010 6:02 PM CDT * Miscellaneous Scans - Document, Scanned - 12/31/2009 8:38 PM CDT documented in this encounter Plan of Treatment Not on file documented as of this encounter Visit Diagnoses Diagnosis Head injury, unspecified documented in this encounter Care Teams Wood Lather Relationship Specialty Start Date End Date Unknown, Provider PCP - General 11/22/09 03/12/11 documented as of this encounter
--- OUTSIDE RECORDS SUMMARY | 2024-03-10 03:41 | XMS_ITS | Encounter Summary ---
Author Organization [facility] Address [address] [facility] [place] [address] Care Team Providers Care Heavy Media Operator Name Role Phone Ruthann Le APRN-ADVISORY APPLICATION DEVELOPER Primary Care Provider + Encounter Details Date Type Department Care Team (Late st Contact Info) Description 05/14/2009 1:44 PM ENGRAVER [employer] - 05/14/2009 11:06 PM [facility] Hospital Encounter ER at [address] [address] [address] Bill [address] [place] [id number] Zoe Littlejohn APRN-CNP [address] [place] [phone] Discharge Disposition: Home or Self Care Social [...] on filedocumented in this encounter Care Teams Heavy Media Operator Relationship Specialty Start Date End Date Ruthann Le, SURVEILLANCE SENSOR OFFICER-ADVISORY APPLICATION DEVELOPER [facility] [place] [address] PCP - General 05/14/09 11/21/09 documented as of this encounter
--- OUTSIDE RECORDS SUMMARY | 2024-03-10 03:41 | XMS_ITS | Encounter Summary ---
Author Organization [facility] Address [address] [facility] [place] [address] Care Team Providers Care Butcher Head Name Role Phone Yonas Troy MD Primary Care Provider Unavailab le Reason for Visit * Reason Comments Cough Pt with 3-4 day hx c ough that has worsened over the past few days. Worse at noc. Hx asthma, no wheezing, has not used albuterol inhaler. LSCTA bilat. Occasional harsh dry cough noted. Denies c/o fever at home. Encounter Details Date Type Department Care Team (Late st Contact Info) Description 05/21/2012 2:55 PM CDT - 05/21/2012 4:05 PM CDT Emergency ER at [address] [address] Veto Petersen MD [facility] [address] [place] [address] [place] [address] Cough; Asthma exacerbation (HCC) Discharge Disposition: Home or Self Care Social [...] Sign Reading Time Taken Comments Blood Pressure 108/60 05/21/2012 2:49 PM CDT Pulse 92 05/21/2012 3:37 PM CDT Temperature 37.6 ??C (99.6 ??F) 05/21/2012 2:49 PM CD T Respiratory Rate 22 05/21/2012 3:37 PM CDT Oxygen Saturation 99% 05/21/2012 3:48 PM CDT Inhaled Oxygen Concentration - - Weight 45.3 kg (99 lb 13.9 oz) 05/21/2012 2:49 P M CDT Height - - Body Mass Index - - documented in this encounter Discharge Instructions * Discharge Instructions* Delvin Aggarwal MD - 05/21/2012 3:32 PM CDT Please give Liam 2 puffs of albuterol, every 4-6 hours while awake, for the next 2-3 days. Asthma Attack Prevention HOW CAN ASTHMA BE PREVENTED? Currently, there is no way to prevent asthma from starting. However, you can take steps to control the disease and prevent its symptoms after you have been diagnosed. Learn about your asthma and how to control it. Take an active role to control your asthma by working with your caregiver to create and follow an asthma action plan. An asthma action plan guides you in taking your medicines properly,avoiding factors that make your asthma worse, tracking your level of asthma control, responding to worsening asthma, and seeking emergency care when needed. To track your asthma, keep records of yoursymptoms, check your peak flow number using a peak flow meter (handheld device that shows how well air moves out of your lungs), and get regular asthma checkups. Other ways to prevent asthma attacks include: ?? Use medicines as your caregiver directs. ?? Identify and avoid things that make your asthma worse (as much as you can). ?? Keep track of your asthma symptoms and level of control. ?? Get regular checkups for your asthma. ?? With your caregiver, write a detailed plan for taking medicines and managing an asthma attack. Then be sure to follow your action plan. Asthma is an ongoing condition that needs regular monitoringand treatment. ?? Identify and avoid asthma triggers. A number of outdoor allergens and irritants (pollen, mold, cold air, air pollution) can trigger asthma attacks. Find out what causes or makes your asthma worse,and take steps to avoid those triggers (see below). ?? Monitor your breathing. Learn to recognize warning signs of an attack, such as slight coughing, wheezing or shortness of breath. However, your lung function may already decrease before you notice any signs or symptoms, so regularly measure and record your peak airflow with a home peak flow meter. ?? Identify and treat attacks early. If you act quickly, you're less likely to have a severe attack. You will also need less medicine to control your symptoms. When your peak flow measurements decrease and alert you to an upcoming attack, take your medicine as instructed, and immediately stop any activity that may have triggered the attack. If your symptoms do not improve, get medical help. ?? Pay attention to increasing quick-relief inhaler use. If you find yourself relying on your quick-relief inhaler (such as albuterol), your asthma is not under control. See your caregiver about adjusting your treatment. IDENTIFY AND CONTROL FACTORS THAT MAKE YOUR ASTHMA WORSE A number of common things can set off or make your asthma symptoms worse (asthma triggers). Keep track of your asthma symptoms for several weeks, detailing all the environmental and emotional factorsthat are linked with your asthma. When you have an asthma attack, go back to your asthma diary to see which factor, or combination of factors, might have contributed to it. Once you know what these factors are, you can take steps to control many of them. Allergies: If you have allergies and asthma, it is important to take asthma prevention steps at home. Asthma attacks (worsening of asthma symptoms) can be triggered by allergies, which can cause temporary increased inflammation of your airways. Minimizing contact with the substance to which you areallergic will help prevent an asthma attack. Animal Dander: ?? Some people are allergic to the flakes of skin or dried saliva from animals with fur or feathers. Keep these pets out of your home. ?? If you can't keep a pet outdoors, keep the pet out of your bedroom and other sleeping areas at all times, and keep the door closed. ?? Remove carpets and furniture covered with cloth from your home. If that is not possible, keep the pet away from fabric-covered furniture and carpets. Dust Mites: ?? Many people with asthma are allergic to dust mites. Dust mites are tiny bugs that are found in every home, in mattresses, pillows, carpets, fabric-covered furniture, bedcovers, clothes, stuffed toys, fabric, and other fabric-covered items. ?? Cover your mattress in a special dust-proof cover. ?? Cover your pillow in a special dust-proof cover, or wash the pillow each week in hot water. Water must be hotter than 130?? F to kill dust mites. Cold or warm water used with detergent and bleach can also be effective. ?? Wash the sheets and blankets on your bed each week in hot water. ?? Try not to sleep or lie on cloth-covered cushions. ?? Call ahead when traveling and ask for a smoke-free hotel room. Bring your own bedding and pillows, in case the hotel only supplies feather pillows and down comforters, which may contain dust mitesand cause asthma symptoms. ?? Remove carpets from your bedroom and those laid on concrete, if you can. ?? Keep stuffed toys out of the bed, or wash the toys weekly in hot water or cooler water with detergent and bleach. Cockroaches: ?? Many people with asthma are allergic to the droppings and remains of cockroaches. ?? Keep food and garbage in closed containers. Never leave food out. ?? Use poison baits, traps, powders, gels, or paste (for example, boric acid). ?? If a spray is used to kill cockroaches, stay out of the room until the odor goes away. Indoor Mold: ?? Fix leaky faucets, pipes, or other sources of water that have mold around them. ?? Clean moldy surfaces with a dumper mold cleaner that has bleach in it. Pollen and Outdoor Mold: ?? When pollen or mold spore counts are high, try to keep your windows closed. ?? Stay indoors with windows closed from late morning to afternoon, if you can. Pollen and some mold spore counts are highest at that time. ?? Ask your caregiver whether you need to take or increase anti-inflammatory medicine before your allergy season starts. Irritants: ?? Tobacco smoke is an irritant. If you smoke, ask your caregiver how you can quit. Ask family members to quit smoking, too. Do not allow smoking in your home or car. ?? If possible, do not use a wood-burning stove, kerosene heater, or fireplace. Minimize exposure to all sources of smoke, including incense, candles, fires, and fireworks. ?? Try to stay away from strong odors and sprays, such as perfume, talcum powder, hair spray, and paints. ?? Decrease humidity in your home and use an indoor air cleaning device. Reduce indoor humidity to below 60 percent. Dehumidifiers or central air conditioners can do this. ?? Try to have someone else vacuum for you once or twice a week, if you can. Stay out of rooms while they are being vacuumed and for a short while afterward. ?? If you vacuum, use a dust mask from a [employer] store, a double-layered or microfilter vacuum dumper mold cleaner bag, or a vacuum dumper mold cleaner with a HEPA filter. ?? Sulfites in foods and beverages can be irritants. Do not drink beer or wine, or eat dried fruit,processed potatoes, or shrimp if they cause asthma symptoms. ?? Cold air can trigger an asthma attack. Cover your nose and mouth with a scarf on cold or windy days. ?? Several health conditions can make asthma more difficult to manage, including runny nose, sinus infections, reflux disease, psychological stress, and sleep apnea. Your caregiver will treat these conditions, as well. ?? Avoid close contact with people who have a cold or the flu, since your asthma symptoms may get worse if you catch the infection from them. Wash your hands thoroughly after touching items that may have been handled by people with a respiratory infection. ?? Get a flu shot every year to protect against the flu virus, which often makes asthma worse for days or weeks. Also get a pneumonia shot once every five to 10 years. Drugs: ?? Aspirin and other painkillers can cause asthma attacks. 10% to 20% of people with asthma have sensitivity to aspirin or a group of painkillers called non- steroidal anti-inflammatory drugs (NSAIDS), such as ibuprofen and naproxen. These drugs are used to treat pain and reduce fevers. Asthma attacks caused by any of these medicines can be severe and even fatal. These drugs must be avoided in people who have known aspirin sensitive asthma. Products with acetaminophen are considered safe for people who have asthma. It is important that people with aspirin sensitivity read labels of all qsmg-fab-bctovbb drugs used to treat pain, colds, coughs, and fever. ?? Beta blockers and NICHOLAS inhibitors are other drugs which you should discuss with your caregiver, in relation to your asthma. ALLERGY SKIN TESTING Ask your asthma caregiver about allergy skin testing or blood testing (RAST test) to identify the allergens to which you are sensitive. If you are found to have allergies, allergy shots (immunotherapy) for asthma may help prevent future allergies and asthma. With allergy shots, small doses of allergens (substances to which you are allergic) are injected under your skin on a regular schedule. Overa period of time, your body may become used to the allergen and less responsive with asthma symptoms. You can also take measures to minimize your exposure to those allergens. EXERCISE If you have exercise-induced asthma, or are planning vigorous exercise, or exercise in cold, humid,or dry environments, prevent exercise-induced asthma by following your caregiver's advice regardingasthma treatment before exercising. Document Released: 02/07/2010 Document Revised: 11/01/2011 Document Reviewed: 02/07/2010 ExitCare?? Patient Information ??2011 [employer]. * Discharge Instructions* Document, Scanned - 06/10/2012 2:03 PM CDT documented in this encounter Medications at Time of Discharge Medication Sig Dispensed Refills Start Date End Date albuterol HFA (PROVENTIL;VENTOLIN;IL OAIR) 108 (90 BASE) MCG/ACT inhaler Inhale 2 Puffs by mouth every 4 hours as needed for Wheezing or Cough (use with MDI as instructed.). 1 Inhaler 3 03/13/2011 08/14/2014 albuterol HFA (PROVENTIL;VENTOLIN;IL OAIR) 108 (90 BASE) MCG/ACT inhaler Inhale 2 Puffs by mouth every 6 hours as needed for Shortness of Breath or Wheezing. 2 Inhaler 0 05/21/2012 08/14/2014 Dexmethylphenidate HCl (FOCALIN PO) Take by mouth. Takes once daily, unsure of dose 03/10/2015 documented as of this encounter Progress Notes * Gerda Ruiz RCP - 05/21/2012 6:02 PM CDT MDI instruct done with Aerochamber. Teaching completed with mom who was able to correctly perform repeat demonstration as well as verbalize proper use and care. Mom states she has fully understood instructions given to her & feels completely comfortable administering this at home. RN notified of completion of instruct & prompted to call this RT if pt/family has any further questions upon discharge to home. documented in this encounter ED Notes * Veto Petersen MD - 05/21/2012 3:25 PM CDT Provider contact with the patient: 05/21/2012 15:25 Liam Bal [id number] [facility] EMERGENCY DEPT History Chief Complaint Patient presents with ??? Cough Pt with 3-4 day hx cough that has worsened over the past few days. Worse at noc. Hx asthma, no wheezing, has not used albuterol inhaler. LSCTA bilat. Occasional harsh dry cough noted. Denies c/o fever at home. HPI Comments: Liam Bal is a 7 y.o. male with two day cough. Mild rhinorrhea. No fever. PMhx asthma/. Review of Systems Review of Systems Respiratory: Positive for cough. Cardiovascular: Negative. Gastrointestinal: Negative. BP 108/60 Pulse 80 Temp 99.6 ??F Resp 20 Wt 45.3 kg (99 lb 13.9 oz) SpO2 98% Physical Exam Physical Exam HENT: Right Ear: Tympanic membrane normal. Left Ear: Tympanic membrane normal. Nose: No nasal discharge. Neck: Normal range of motion. No rigidity or adenopathy. Cardiovascular: Regular rhythm. Pulmonary/Chest: Effort normal. No respiratory distress. He has no wheezes. Abdominal: Soft. Bowel sounds are normal. Neurological: He is alert. Skin: Skin is warm. Capillary refill takes less than 3 seconds. No rash noted. Procedures Procedures Progress Notes ED Course Medical Decision Making Clinical Impression Final diagnoses: None Liam Bal is a 7 y.o. male with cough. Though no wheezes on examination my impression is that reactive airway disease is contributing to her cough. We taught spacer use with albuterol inhalerto use PRN. * Delvin Aggarwal MD - 05/21/2012 3:12 PM CDT Images from the original note were not included. EMERGENCY DEPARTMENT 05/21/2012 Dear Doctor, We had the pleasure of caring for your patient, Liam Bal in our emergency department on 05/21/2012. A note from the provider(s) who cared for your patient is attached. Should you wish to access any laboratory results, please call . Should you wish to access any radiology results, please call , option 3. In addition, you can access patient information 24 hours a day, from any computer, through avocarrot, the online version of our electronic medical record. If you would like to use this service, please call Virgie Armendariz, Connectivity Coordinator, at . We appreciate the opportunity to care for your patients. If you would like additional information, please call the emergency department directly at . Sincerely, Delvin Aggarwal MD Division of Emergency Medicine [facility], [place] [facility] [place] DESIGN[facility] EMERGENCY DEPARTMENT Provider contact with the patient: 05/21/2012 15:12 Liam Bal [id number] [facility] EMERGENCY DEPT History Chief Complaint Patient presents with ??? Cough Pt with 3-4 day hx cough that has worsened over the past few days. Worse at noc. Hx asthma, no wheezing, has not used albuterol inhaler. LSCTA bilat. Occasional harsh dry cough noted. Denies c/o fever at home. HPI Comments: Non-productive cough, worse at night, for the past 2 days. Has had rhinorrhea and nasal congestion for the past few days as well. Otherwise no changes in activity or appetite, and no other symptoms. Has PMHx asthma. Uses inhaler every 5-6 months. Triggers include URI. Mother has not tried giving inhaler for current episode. Does not have a spacer. Lots of sick contacts at school with URI symptoms. IUTD. Past Medical History Diagnosis Date ??? ADHD (attention deficit hyperactivity disorder) ??? Asthma Past Surgical History Procedure Date ??? Negative surgical history History Social History ??? Marital Status: Single Spouse Name: N/A Number of Children: N/A ??? Years of Education: N/A Occupational History ??? Not on file. Social History Main Topics ??? Smoking status: Never Smoker ??? Smokeless tobacco: Not on file ??? Alcohol Use: No ??? Drug Use: No ??? Sexually Active: Not on file Other Topics Concern ??? Not on file Social History Narrative Lives with mother. No pets at home. Smoke exposure. Hard wood deborah. Unfinished basement. No known mold. Likes to play outside. Medications Current Outpatient Prescriptions Medication Sig Dispense Refill ??? albuterol HFA (PROVENTIL;VENTOLIN;PROAIR) 108 (90 BASE) MCG/ACT inhaler Inhale 2 Puffs by mouthevery 6 hours as needed for Shortness of Breath or Wheezing. 2 Inhaler 0 ??? albuterol HFA (PROVENTIL;VENTOLIN;PROAIR) 108 (90 BASE) MCG/ACT inhaler Inhale 2 Puffs by mouthevery 4 hours as needed for Wheezing or Cough (use with MDI as instructed.). 1 Inhaler 3 ??? Dexmethylphenidate HCl (FOCALIN PO) Take by mouth. Takes once daily, unsure of dose Review of Systems Review of Systems Constitutional: Negative for fever, activity change and appetite change. HENT: Positive for congestion and rhinorrhea. Negative for sore throat. Eyes: Negative for redness. Respiratory: Positive for cough. Cardiovascular: Negative for chest pain. Gastrointestinal: Negative for vomiting, diarrhea, constipation and blood in stool. Genitourinary: Negative for hematuria and decreased urine volume. Skin: Positive for color change and pallor. Negative for rash. Neurological: Negative for dizziness and seizures. Psychiatric/Behavioral: Negative for confusion. BP 108/60 Pulse 80 Temp 99.6 ??F Resp 20 Wt 45.3 kg (99 lb 13.9 oz) SpO2 98% Physical Exam Physical Exam Constitutional: He appears well-developed and well-nourished. He is active. No distress. HENT: Right Ear: Tympanic membrane normal. Left Ear: Tympanic membrane normal. Nose: Nasal discharge (Clear) present. Mouth/Throat: Mucous membranes are moist. Pharynx is normal. Eyes: Pupils are equal, round, and reactive to light. Right eye exhibits no discharge. Left eye exhibits no discharge. Neck: Normal range of motion. Neck supple. No rigidity or adenopathy. Cardiovascular: Normal rate, regular rhythm, S1 normal and S2 normal. Pulses are palpable. No murmur heard. Pulmonary/Chest: Effort normal and breath sounds normal. There is normal air entry. No stridor. No respiratory distress. Air movement is not decreased. He has no wheezes. He has no rhonchi. He has anne-marie. He exhibits no retraction. Coughing with deep breaths Abdominal: Soft. Bowel sounds are normal. He exhibits no distension and no mass. There is no tenderness. There is no rebound and no guarding. Musculoskeletal: Normal range of motion. He exhibits no edema and no tenderness. Neurological: He is alert. Skin: Skin is warm and dry. Capillary refill takes less than 3 seconds. No rash noted. He is not diaphoretic. No cyanosis. Procedures Procedures Lab Interpretation Oxygen Saturation Interpretation The oxygen saturation level is: 98%. The patient was on Room Air for the saturation measurement. Measurement frequency: Spot Check. Oxygen saturation interpretation is Normal. Intervention(s) used: None. Progress Notes ED Course Will have Respiratory do MDI teaching with spacer, and patient will receive 2 puffs of albuterol. Medical Decision Making I have reviewed the: Previous Chart and Vitals. Clinical Impression Final diagnoses: Cough Asthma exacerbation Likely reactive airway component to current cough. Counseled mother to give albuterol every 4-6 hours for the next few days and to follow-up with PCP by the end of the week. documented in this encounter Miscellaneous Notes * Miscellaneous Scans - Document, Scanned - 06/07/2012 9:00 AM CDT documented in this encounter Plan of Treatment Scheduled Orders Name Type Priority Associated Diagnoses Order Schedule PATIENT EDUCATION RESPIRATORY THERAPY Respiratory Care STAT ONCE for 1 Occurrences starting 05/21/2012 until 05/21/2012 documented as of this encounter Visit Diagnoses Diagnosis Cough Asthma exacerbation (HCC) Unspecified asthma, with exacerbation documented in this encounter Administered Medications Inactive Administered Medications - up to 3 most recent administrations Medication Order MAR Action Action Date Dose Rate Site albuterol HFA (PROVENTIL;VENTOLIN;PROAIR) 108 (90 BASE) MCG/ACT inhaler 2 Puff 2 puff (0.0442 Puff/kg), Inhalation, ONCE, 1 dose, On e 05/21/12 at 1545, Shake well before using. WASTE DISPOSAL INSTRUCTION: Send to Pharmacy for Disposal. $ Given 05/21/2012 3:37 PM CDT 2 puffs ibuprofen (MOTRIN) tablet 400 mg 400 mg (8.83 mg/kg), Oral, ONCE, 1 dose, On Sun05/21/12 at 1515, Maximum allowable amount = 3200 mg / 24 hours. $ Given 05/21/2012 2:53 PM CDT 400 mg documented in this encounter Active and Recently Administered Medications Times are shown in CDT. Scheduled Medication Order 05/19/2012 05/20/2012 05/21/2012 albuterol HFA (PROVENTIL;VENTOLIN;PROAIR) 108 (90 BASE) MCG/ACT inhaler 2 Puff (COMPLETED) 2 puff (0.0442 Puff/kg), Inhalation, ONCE, 1 dose, On Sun05/21/12 at 1545, Shake well before using. WASTE DISPOSAL INSTRUCTION: Send to Pharmacy for Disposal. 1537 ($ Given - Prov ider: Gerda Ruiz RCP) ibuprofen (MOTRIN) tablet 400 mg (COMPLETED) 400 mg (8.83 mg/kg), Oral, ONCE, 1 dose, On Sun05/21/12 at 1515, Maximum allowable amount = 3200 mg / 24 hours. 1453 ($ Given - Prov ider: Chantelle Cohen RN) documented in this encounter Care Teams Butcher Head Relationship Specialty Start Date End Date Yonas Troy MD PCP - General Pediatrics 05/21/12 08/13/14 documented as of this encounter
--- OUTSIDE RECORDS SUMMARY | 2024-03-10 03:41 | XMS_ITS | Encounter Summary ---
Author Organization [facility] Address [address] [address] Care Team Providers Care Customer Engagement Analyst Name Role Phone Ruthann Le MORTGAGE LOAN COORDINATOR-ACCOUNT INSTALLER Primary Care Provider + Reason for Visit * Auth/Cert - Closed Specialty Diagnoses / Procedures Referred By Zohra t Referred To Contact Diagnoses Femoral anteversion (HCC) Femoral anteversion Procedures OSTEOTOMY FEMUR SHAFT WITH FIXATION Referral ID Status Reason Start Date Expiration Date Visits Re quested Visits Authorized [id number] Closed 1 1 Encounter Details Date Type Department Care Team (Late st Contact Info) Description 03/11/2015 10:00 AM DYNAMITE PACKING MACHINE FEEDER - 03/11/2015 1:30 PM DYNAMITE PACKING MACHINE FEEDER Surgery [facility] - [address] [address] Ruben Jorge MD [address] [place] [address] [address] [facility] [place] [phone] RIGHT FEMORAL DEROTATIONAL OSTEOTOMY AND INTRAMEDULLARY NAIL Surgery Details Date/Time Status Location OR Service Patient Class Case Class Case Type Trauma Case? 03/11/2015 10:00 AM Posted [facility] MAIN OR Orthopedics Professor Of Forest Planning Admit Surgical Elective > 5 days Panel 1 Procedure LRB Anes Op Region Wound Class Comments RIGHT FEMORAL DEROTATIONAL O STEOTOMY AND INTRAMEDULLARY NAIL Right General Leg Clean Surgeon Surgeon Role Service Panel Ruben Jorge MD Primary Orthopedics 1 Lee Castellano MD Resident - Assisting Orthopedics 1 Special Needs C-ARM, ALY TABLE documented in this encounter Social History Tobacco [...] Sign Reading Time Taken Comments Blood Pressure 121/49 03/13/2015 8:55 AM DYNAMITE PACKING MACHINE FEEDER Pulse 86 03/13/2015 8:55 AM DYNAMITE PACKING MACHINE FEEDER Temperature 36.1 ??C (97 ??F) 03/13/2015 8:55 AM DYNAMITE PACKING MACHINE FEEDER Respiratory Rate 20 03/13/2015 8:55 AM DYNAMITE PACKING MACHINE FEEDER Oxygen Saturation 99% 03/12/2015 8:45 AM DYNAMITE PACKING MACHINE FEEDER Inhaled Oxygen Concentration - - Weight 64.7 kg (142 lb 10.2 oz) 03/11/2015 9:00 AM DYNAMITE PACKING MACHINE FEEDER Height 152.6 cm (5' 0.08 ) 03/11/2015 9:00 AM CS T Body Mass Index 27.78 03/11/2015 9:00 AM DYNAMITE PACKING MACHINE FEEDER Body Mass Index Percentile 97.39% 03/11/2015 9:0 0 AM DYNAMITE PACKING MACHINE FEEDER Growth Chart: [facility] (Boys, 2-2 0 Years) documented in this [...] 03/11/2015 documented as of this encounter Discharge Summaries * Cameron Maxwell DO - 03/13/2015 8:31 AM CST PEDIATRIC ORTHOPAEDIC DISCHARGE SUMMARY NAME: Liam Bal DATE: 2005 ADMIT DATE: 03/11/2015 DISCHARGE DATE: 03/13/2015 ADMITTING PHYSICIAN: Ruben Jorge MD ATTENDING PHYSICIAN: Ruben Jorge MD PCP: Ruthann Le NP Admission Diagnosis: Principal Problem: Femoral anteversion Discharge Diagnoses: Principal Problem: Femoral anteversion Past Medical History: Past Medical History Diagnosis Date ??? ADHD (attention deficit hyperactivity disorder) ??? Asthma ??? Elizabeth-Schlatter's disease of right knee 01/01/2015 ??? Femoral anteversion 01/01/2015 Diagnostic Studies: Intra-operative fluoroscopy of the right femur demonstrates femoral diaphyseal osteotomy as well as intramedullary nail with proximal and distal screw placement Procedures: Right Femur derotational osteotomy with intramedullary nail placement. Consults: Pain Management Service Hospital Course: Liam was admitted on 03/11/2015 for The patient underwent the above mentioned procedure, which was without complication. Please see the details in the operative report for more information. Post-operatively, the patient was monitored in the PACU and transferred to the floor in stable condition. There were no acute events his first post-operative night. On POD #1 he was seen by Pain management service for management of CNB. He continued to progress well without any issues. On the afternoon of POD #1 he was seen by PT and passed gait training with a walker. His CNB Was then discontinued and transitioned to oral pain medication only. His 2nd post-operative night was eventful.On the morning of POD #2 Liam was tolerating a PO diet, achieving adequate pain control, ambulating well with the use of a walker the patient was discharged home in good condition. Condition at discharge: good Disposition: Home Discharge Medications: Discharge Medication List START taking these medications Instructions Authorizing Provider diazepam 1 MG/ML oral solution Commonly known as: VALIUM Take 5 mL by mouth 3 times daily as needed for Anxiety Hans Cameron docusate sodium 100 MG capsule Commonly known as: COLACE Take 1 Cap by mouth once daily Hans, Cameron hydrocodone-acetaminophen 5-325 MG tablet Commonly known as: NORCO 1-2 Tabs q 4-6 Hours As Needed for pain Hans, Cameron sennosides 8.6 MG tablet Commonly known as: SENOKOT Take 1 Tab by mouth once daily Hans Cameron CONTINUE taking these medications Instructions Authorizing Provider albuterol HFA 108 (90 BASE) MCG/ACT inhaler Commonly known as: PROVENTIL;VENTOLIN;PROAIR Inhale 2 Puffs by mouth every 4 hours as needed for Shortness of Breath, Wheezing or Cough Treasure French dexmethylphenidate ER 24hr 15 MG capsule Commonly known as: FOCALIN XR Patient Instructions: Discharge Procedure Orders Follow up with provider Order Specific Question Answer Comments Follow Up Instructions: Follow up with Dr. Jorge in 2 weeks. Call for appointment Why you were hospitalized Order Specific Question Answer Comments Your discharge diagnosis is Femoral anteversion [[id number]] Follow up with Primary Care Provider (PCP) Our records show your Primary Care Provider (PCP) is Ruthann Le NP. Order Specific Question Answer Comments Follow Up Instructions: Follow up as scheduled No special diet needed Resume normal home diet as tolerated. Activity as tolerated Rest today, and increase activity level tomorrow as tolerated. Remove dressing Liam may remove his surgery dressing 3 days from today. You may replace with dry gauze and tape. Shower with incision uncovered -- Liam may shower with his incision uncovered 3 days from today. No soaking or tub baths until cleared by Dr. Jorge Apply ice Apply ice to the incision site for 20 minutes , as needed several times daily. Weight bearing as tolerated Liam should slowly increase the amount of weight put on the right leg as tolerated. Use assistive devices Your child should use a walker and a wheelchair as needed. Continue instructions per physical therapy Follow up with provider Order Specific Question Answer Comments Follow Up Instructions: Follow up in 2 weeks. Call for appointment if not already scheduled. MITE PACKING MACHINE FEEDER documented in this encounter Discharge Instructions * Discharge Instructions* Claudia Holland RN - 03/13/2015 8:32 AM DYNAMITE PACKING MACHINE FEEDER If your child has any worsening of his or her condition, please call your primary care doctor (or their exchange if after hours) or return to the ED if your primary care doctor cannot be reached. MITE PACKING MACHINE FEEDER documented in this encounter Medications at Time of Discharge Medication Sig Dispensed Refills Start Date End Date albuterol HFA (PROVENTIL;VENTOLIN;IA OAIR) 108 (90 BASE) MCG/ACT inhaler Inhale [...] once daily 14 Cap 0 03/13/2015 04/09/2015 hydrocodone-acetaminop hen (NORCO) 5-325 MG tablet 1-2 Tabs q 4-6 Hours As Needed for pain 60 Tab 0 03/13/2015 10/02/2016 senna (SENOKOT) 8.6 MG tablet Take 1 Tab by mouth once daily 14 Tab 0 03/13/2015 04/09/2015 documented as of this encounter Progress Notes * Stefani Carias RN - 03/13/2015 11:17 AM CST 0930 Ready for discharge, eating well, voiding well, pain controlled. Instructions, wound care , meds, and follow up reviewed, prescriptions reviewed . Escorted to car ,assissted in , no problems. MITE PACKING MACHINE FEEDER * Cameron Maxwell DO - 03/13/2015 7:40 AM CST [facility] Orthopedic Surgery Progress Note Name: Liam Bal 10 y.o., male : 2005 Admit Date: 03/11/2015 8:56 AM March 13, 2015 Subjective Complaints: No complaints today Pain: Controlled with medication Activity: Activity as tolerated- WBAT RLE Data BP 112/55 mmHg Pulse 88 Temp(Src) 100 ??F Resp 16 Wt 64.7 kg (142 lb 10.2 oz) BMI 27.78 kg/m2Temp (24hrs), Av ??F, Min:96 ??F, Max:100.8 ??F Labs Recent Labs Component Name 03/11/15 0944 WBC 4.7 HGB 12.5 HCT 35.9 PLTCOUNT 269 Physical Exam General appearance: No apparent distress. Left lower extremity: TA, GSC, EHL, FHL grossly intact. SILT throughout. Distal pulses palpable brisk capillary refill Right lower extremity: DSGs C/D/I- TA/GSC/EHL/FHL grossly intact. SILT throughout. Distal pulses palpable brisk capillary refill Assessment/Plan Principal Problem: Femoral anteversion Post op day #2 status post Procedure(s) (LRB): RIGHT FEMORAL DEROTATIONAL OSTEOTOMY AND INTRAMEDULLARY NAIL (Right) 1. right lower extremity: WBAT 2. Pain Control- acetaminophen/roxicodone 3. PT- passes crutch training 4. Plan for DC home today. Follow up in office in 2 weeks 5. MITE PACKING MACHINE FEEDER * Yasmani Natarajan, RN - 03/12/2015 4:14 PM CST Rental wheelchair and wheeled walker ordered from [facility] Patient [phone], for delivery to hospital on 03/13/15. Failed to rent DME from [facility], [facility], and [employer], as they are not contracted with [employer] MITE PACKING MACHINE FEEDER * Berenice Perez, PT - 03/12/2015 2:27 PM CST Checked back with nurse and mom this afternoon. Liam tolerated up to chair and did well with walker. After nerve block wore off, he started having some pain issues. Ok from physical therapy standpoint as far as training with transfers and walker. No further physical therapy needed. Berenice Perez PNoriTNori [phone] MITE PACKING MACHINE FEEDER * Radha Medina APRN-CHAMP - 03/12/2015 11:42 AM CST Liam Bal 10 y.o. male : 2005 PAIN MANAGEMENT FOLLOWUP Department of Anesthesia Liam Bal is a 10 y.o. male with right femoral anteversion, ADHD and asthma. He is s/p right derotational osteotomy per Dr Jorge 03/11/2015. A?? right femoral continuous peripheral nerve block was place while in OR by anesthesia for post op pain management. POD 1 Pain service VITAL SIGNS Temp: 35.6 ??C Pulse: 84 Resp: 16 Weight: 64.7 kg (142 lb 10.2 oz) Height: 152.6 cm (5' 0.08 ) SpO2: 99 % Agent: Ropivacaine 0.2 % Dosing: Continuous: 7 ml/hr HAND SHAPER: Bolus: 1 ml Lockout: 30 min Hourly Limit: 9 ml HAND SHAPER Usage: 4 attempt; 4 deliveries; in past 4 hours [id number] Total used from bag since infusion initiation 163 ml Pain Scale: Pain Rating Score #1: 0, Pain Scale/Observation: Behaviors Nausea: No Pruritis: No Parasthesia: No Catheter Site: clean, dry and intact @ 1100- After breakfast Liam had Oxycodone 5 mg po and then got up to wheel chair with PT. Alert cooperative. didn't hurt that bad Pain score 1/10 at this time. Pain is right hip with movement CNB catheter and dressing removed, catheter tip intact, insertion site without any redness, tenderness or drainage. Bandaid applied. Tolerated well Assessment: @ 1100 Acute right leg pain related to right derotational osteotomy per Dr Jorge 03/11/2015. Good pain control Plan: Continue scheduled Tylenol and Oxycodone for 24 hrs; then q 4 hrs prn As pain is controlled Acute Inpatient Pain service will sign off at this time. Thank you for the consult MITE PACKING MACHINE FEEDER * Do Salinas MD - 03/12/2015 8:25 AM CST [facility] Orthopedic Surgery Progress Note Name: Liam Bal 10 y.o., male : 2005 Admit Date: 03/11/2015 8:56 AM March 12, 2015 Subjective Complaints: No complaints today Pain: Controlled with medication and CNB Activity: Activity as tolerated, WBAT RLE Data BP 120/53 mmHg Pulse 68 Temp(Src) 97.8 ??F Resp 16 Wt 64.7 kg (142 lb 10.2 oz) BMI 27.78 kg/m2Temp (24hrs), Av.6 ??F, Min:96.8 ??F, Max:98.1 ??F Labs Recent Labs Component Name 03/11/15 0944 WBC 4.7 HGB 12.5 HCT 35.9 PLTCOUNT 269 Cultures None Physical Exam General appearance: No apparent distress. Left lower extremity: 5/5 EHL/FHL/GS/AT, Sensation intact to light touch distally, 2+DP, Brisk capillary refill (<2 sec). Right lower extremity: Intact EHL/FHL/GS/AT, Sensation intact to light touch distally confounded byCNB in place at time of exam, 2+DP, Brisk capillary refill (<2 sec). Dressing is intact. Assessment/Plan Principal Problem: Femoral anteversion Post op day #1 status post Procedure(s) (LRB): RIGHT FEMORAL DEROTATIONAL OSTEOTOMY AND INTRAMEDULLARY NAIL (Right) 1. right lower extremity: WBAT 2. Pain Control- pain management to discontinue CNB today. Plan to transition to PO pain control today. 3. PT for crutch training 4. Continue to follow, planning for discharge with patient progression today. MITE PACKING MACHINE FEEDER * Radha Medina APRN-CHAMP - 03/11/2015 4:16 PM CST 1400-Pain service aware of consult. Chart reviewed, child seen and examined in PACU., orders placedinto JEFFREY Wheeler is a 10 yr old male with right femoral anteversion, ADHD and asthma. He is s/p right derotational osteotomy per Dr Jorge today. A right femoral continuous peripheral nerve block was place while in OR by anesthesia for post op pain management. Right femoral CNB catheter in place; Ropivacaine 0.2 % infusing at basal rate 7 ml/hr ; Demand 1 ml: LO 30 minutes; One hr limit 9 ml/hr started inPACU. CNB dressing D/I Child is arousable, cooperative. Resp even and non-labored on room air. Lungs clear to auscultation. Heart RRR. PIV infusing right hand. Right leg 2x2 dressings D/I . Toes mobile, pedal pulse strong. Pain score 2-3/10 on numeric scale. Mom aware of pain services. Full consultto follow. MITE PACKING MACHINE FEEDER * Lety Madrid RPH - 03/11/2015 4:04 PM CST Dear Physician, In accordance with the Automatic Therapeutic Substitution Policy approved by the [facility] and [employer] and Medical Executive Committees, Your Order for: Albuterol MDI 90 mcg/spray 2 puffs every 4 hours PRN has been changed to albuterol 2.5 mg nebs every 4 hours PRN. If you have any questions please call the pharmacy. Thank you Lety Madrid RPH MITE PACKING MACHINE FEEDER * Lee Castellano MD - 03/11/2015 2:23 PM CST Pediatric Orthopaedic Surgery Post-operative check Surgery Date: 03/11/2015 Diagnosis: 1. Femoral anteversion Procedure(s) (LRB): RIGHT FEMORAL DEROTATIONAL OSTEOTOMY AND INTRAMEDULLARY NAIL (Right) Subjective Pain is well controlled. No nausea/vomiting Postoperative vitals: Patient Vitals for the past 6 hrs: Temp Pulse Resp BP 03/11/15 0913 - 88 (!) 18 121/63 mmHg 03/11/15 0900 97.9 ??F - - - Physical Exam General appearance: No apparent distress. Cooperative Right lower extremity: intact EHL/FHL/GS/AT, Sensation intact to light touch distally, 2+DP, Brisk capillary refill (<2 sec). Dressing is intact - proximal 2 dressings with serosanguinous drainage, otherwise dressings are clean and dry. Femoral catheter in place fpr block. Assessment/Plan Status post: right femur derotational osteotomy and IMN right femur 1. right lower extremity: WBAT 2. Pain Control - pain management consulted. Will be managing pain 3. Drains? No 4. Admit to med/surg floor Lee Castellano MD 03/11/2015 1:10 PM MITE PACKING MACHINE FEEDER documented in this encounter H&P Notes * Lee Castellano MD - 03/11/2015 9:28 AM CST Orthopaedic Surgery H&P Liam Bal 2005 [id number] Ruthann Le NP Date of service: 03/11/2015 Subjective: Liam Bal is a 10 y.o. 2 m.o. male who presents for evaluation of his right femoral anteversion . he is accompanied by his mother. He is here today for right femoral derotational osteotomy with intramedullary nail IMMUNIZATIONS: Immunization status:stated as up to date Past Medical History Diagnosis Date ??? ADHD (attention deficit hyperactivity disorder) ??? Asthma ??? Elizabeth-Schlatter's disease of right knee 01/01/2015 ??? Femoral anteversion 01/01/2015 Past Surgical History Procedure Laterality Date ??? Negative surgical history No current facility-administered medications for this encounter. Allergies as of 02/08/2015 ??? (No Known Allergies) No family history on file. History Substance Use Topics ??? Smoking status: Never Smoker ??? Smokeless tobacco: Not on file ??? Alcohol Use: No Patient lives with he mother only. he is in [place]. Review of Systems: History obtained from the patient and his mother. A 12 point ROS was obtained and was negative except for that listed above. Physical Exam: Temp(Src) 97.9 ??F Wt 64.7 kg (142 lb 10.2 oz) BMI 27.78 kg/m2 General appearance: alert, cooperative, no distress; Lungs: breath sounds normal and symmetric; no rales or wheezes Heart: regular rate Abdomen: soft NTND Right lower extremity: hip ER to 20, IR to 80. Intact EHL/FHL/GS/AT, Sensation intact to light touch distally, , Brisk capillary refill (<2 sec). Radiology: Xray right femur obtained 03/08/15 demonstrates no acute bony abnormalities Labs: No results found for this or any previous visit (from the past 12 hour(s)). Assessment: Liam Bal is a 10 y.o. 2 m.o. male with right femoral anteversion Plan: 1. Plan for OR today for right femoral derotational osteotomy with intramedullary nail 2. Informed consent obtained 3. Site marked 4. NPO for OR MITE PACKING MACHINE FEEDER documented in this encounter Consult Notes * Berenice Perez, PT - 03/12/2015 12:42 PM CST PT GAIT TRAINING NOTE Name: Liam Bal Pertinent Information: 10 year old seen for eval/gait training per ortho. Hx of right femoral derotational osteotomt with nail. TREATMENT Treatment: Gait training with wheeled walker and WBAT on right. ASSESSMENT Uninvolved extremities: Strength WNL;Mobility WNL Involved extremity cast/dressing: Other (comment) (none) Involved extremity strength: Can wiggle toes Pain Pain Rating Score #: 6 GOALS Goals: Independent use of walker on level ground. (w/c for long distances) PLAN Fitted with:: Walker Weight bearing:: Weight as tolerated (on right) RESPONSE Level of independence: Standby on level Education: (mom participated in training) Pass/Fail Gait Training: Pass Will check with nurse regarding d/c plan. Contacted ortho nurse for equipment. Berenice Perez, PT 03/12/2015 12:43 PM [id number] MITE PACKING MACHINE FEEDER * Radha Medina, MITCH-ACCOUNT INSTALLER - 03/12/2015 7:35 AM CSTAssociated Order(s): IP CONSULT TO PAIN MANAGEMENT Initial Consult Note Date of Consult: 03/12/2015 Reason for Consultation: Pain management with continuous peripheral nerve block Liam Bal 2005 [id number] Liam Bal is a 10 y.o. male with right femoral anteversion, ADHD and asthma. He is s/p right derotational osteotomy per Dr Jorge 03/11/2015. A?? right femoral continuous peripheral nerve block was place while in OR by anesthesia for post op pain management. Mom reports that he slept intermittently through out the night. Liam has pain in the right hip are, the rest of his leg feels fine because it is numb . He does not want to move or get up to chair or bathroom .'Because it will probably hurt' Last documented staff pain score: @ 0400 Pain Rating Score #1: 0 Behaviors/Assumed Pain Present : Asleep Pain Location : Leg Pain Orientation: Right Pain Orientation: Right Relieved By: Ice Functional Goal #: 3 Pain Intervention(s): Continuous Analgesic Infusion Sedation Level: SA-Sleeping, easy to arouse Additional pain sites?: No No Known Allergies Past Medical History Diagnosis Date ??? ADHD (attention deficit hyperactivity disorder) ??? Asthma ??? Elizabeth-Schlatter's disease of right knee 01/01/2015 ??? Femoral anteversion 01/01/2015 Family medical history non-contributory Past Surgical History Procedure Laterality Date ??? Orthopedic surgery right leg 03/11 History Social History ??? Marital Status: Single [...] on file Social History Narrative Lives with mother and 2 siblings. No pets at home. Smoke exposure. Hard wood [place]. Unfinished basement. No known mold. Likes to play outside. Current Facility-Administered Medications Medication Dose Route Frequency Provider Last Rate Last Dose ??? ropivacaine (NAROPIN) 2 MG/ML peripheral nerve block Perineural Continuous Radha Medina APRN-CNP 7 mL/hr at 03/11/15 1345 ??? acetaminophen (TYLENOL) tablet 650 mg 10 mg/kg Oral q6h Radha Medina APRN-ACCOUNT INSTALLER 650 mg at 03/12/15 0239 ??? oxyCODONE (immediate release) (ROXICODONE) tablet 5 mg 5 mg Oral q4h PRN Radha Medina MORTGAGE LOAN COORDINATOR-ACCOUNT INSTALLER 5 mg at 03/11/152306 ??? morphine injection 2 mg 2 mg Intravenous q4h PRN Lee Castellano MD ??? dexmethylphenidate ER 24hr (FOCALIN XR) capsule 15 mg 15 mg Oral QAM Lee Castellano MD ??? diazepam (VALIUM) oral solution 5 mg 5 mg Oral TID PRN Lee Castellano MD ??? menthol (N'ICE SUGAR FREE SORE THROAT) lozenge 1 Lozenge 1 Lozenge Oral PRN Lee Castellano MD ??? docusate sodium (COLACE) solution 50 mg 50 mg Oral BID Lee Castellano MD 50 mg at 03/11/152013 ??? sennosides (SENOKOT) solution 8.8 mg 5 mL Oral AT BEDTIME Lee Castellano MD 8.8 mg at 03/11/152013 ??? albuterol (PROVENTIL;VENTOLIN) (5 MG/ML) 0.5% nebulizer solution 2.5 mg 2.5 mg Inhalation q4h PRN Lee Castellano MD ROS General: Denies fever, eating and drinking well. Skin: Denies itching, Eyes: No tearing or discharge reported. ENT: Denies runny nose or ear pain. Denies any OSAS Pulmonary: Denies any cough, Positive asthma hx Cardiac: Denies chest pain, palpitations GI: Denies nausea, vomiting, diarrhea or abdominal pain. : Reports normal urine output without pain or discomfort. Ortho: Positive anteversion right leg; Positive s/p derotational ostoetomy Hematolgic: Denies anemia, cancer Endocrine: Denies Diabetes, Neurological: Denies Seizures, Positive ADHD EXAM BP 120/53 mmHg Pulse 68 Temp(Src) 36.6 ??C Resp 16 Wt 64.7 kg (142 lb 10.2 oz) BMI 27.78 kg/m2 VITAL SIGNS Temp: 36.6 ??C Pulse: 68 Resp: 16 BP: 120/53 mmHg Weight: 64.7 kg (142 lb 10.2 oz) Height: 152.6 cm (5' 0.08 ) SpO2: 99 % Labs: Recent Labs Component Name 03/11/15 0944 WBC 4.7 HGB 12.5 HCT 35.9 PLTCOUNT 269 No results for input(s): SODIUM, POTASSIUM, CO2, BUN, CREATININE, GLUCOSE in the last 31877 hours. Invalid input(s): CLORIDE Recent Labs Component Name 03/11/15 0944 PT 11.2 INR 1.1 PTT 27.9 Subjective: @ 0800 Mom reports that he slept intermittently through out the night. Liam has pain in the right hip area, the rest of his leg feels fine because it is numb . He does not want to move or get up to chairor bathroom , because it will probably hurt' Physical Exam:@ 0800 General appearance: alert, cooperative, no distress. Responds appropriatley Skin: no rashes Eyes: sclera and conjunctiva clear, lids normal Ears: hearing intact to voice Oropharynx: no mucous membrane abnormalities Lungs: breath sounds normal and symmetric; no rales or wheezes Heart: regular rhythm and rate Abdomen: soft, non-tender, with normal bowel sounds Extremities: Right femoral CNB catheter in place; Ropivacaine 0.2 % infusing without difficulty dressing D/I. Right hip dressing reinforced with scant amount of serous drainage. Right lower leg 2x2 dressings D/I Right toes warm, mobile, immediate cap refill. Moves ankle and knee easily, wince with movement at hip PIV right hand. Pain medications: CNB-right femoral--Ropivacaine 0.2 % basal rate 7 ml/hr Demand 1 ml LO 30 minutes One hr limit 9 ml/hr Total in 19 hrs 137.3 ml ( cont 129.3 + HAND SHAPER 8 ml) Attempts in 19 hrs: 8 Deliveries in 19 hrs : 8 Pain Adjuncts: Tylenol 650 mg po q 6 hrs--Ld 0230 Oxycodone 5 mg po q 4 hrs prn moderate pain --LD 2307 Morphine 3 mg I Vq 4 hrs prn severe pain --not used Valium 5 mg po q 8 hrs prn --not used Side effects: Denies any nausea, vomiting or itching Diet: Tolerating regular diet Pain score: @ 0800 Liam has pain in the right hip area, the rest of his leg feels fine because it is numb 0/10 when lying in bed. Rates hip pain with movement 5-6/10 described as sharp Assessment: Acute right hip and lower leg pain related to derotational osteotomy on 03/11/2015 Good pain control of lower leg with CNB Recommendations/ Plan: Reviewed with Dr Brian Pain attending Discussed use of consistent oral pain medication for right hip pain (oxycodone and tylenol scheduled ) PT to help with crutch training and up to chair Will plan for discontinuation CNB after PT today Reviewed plan with orthopedics Acute Inpatient Pain service will follow. 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 Implants: 10 mm x 38 mm nail Specimens: No specimen Antibiotics Given: Yes - Ancef Counts: Sponge counts were correct at the end of procedure. Needle counts were correct at the end of procedure. Tourniquet: No BRIEF HISTORY: Liam Bal is a 10 y.o. male who presents with right femoral anteversion. We discussed derotational osteotomy to correct alignment with intramedullary nail placement. The family was made awareof the risks and benefits and the patient was prepared for the procedure. PROCEDURE: Pre-procedure prep - Liam Bal was taken to the operating room and placed on the table in the supine position. Atime out was performed to confirm surgical site and procedure. Preoperative antibiotics where given. After adequate general anesthesia was achieved, the splint was removed. The patient was placed in the supine position on the operating room table. The right lower extremity was prepped with Chloraprep and draped in the usual sterile manner. A time out was performed with all members of the team andeveryone agreed. Approach - Fluoroscopy was used to verify our position for a trochanteric entry. The guide pin was placed under fluoroscopic guidance. Our position was verified on the anterior and lateral images. This skin wasthen incised and blunt dissection was taken down to the greater trochanter. Main procedure - Once dissection was done, the entry reamer was used. The guide wire was placed into the femur and down to the fracture site. The fracture was manually reduced and the guide wire was placed passed thefracture to just above the distal femoral growth plate. A length measurement was the obtained. The femur was then reamed sequentially from 8 mm to 11.5 mm. A 10 mm x 38 cm femoral nail was placed. We identified a segment where our osteotomy would be performed, which was just at midshaft of the femur on the right. A 3 cm incision was made over the Lateral aspect of the mid femur on the right with sharp dissection through the skin and blunt dissection down to the bone. The periosteum was elevated. A 2.9 mm drill was used to perform a dial osteotomy. The drill broke while performing the osteotomy, and subsequently the fragment of the drill was removed. A 4.5 mm drill was then used to complete the dial osteotomy. The osteotomy was done under fluoroscopy and completed with the use of a large osteotome. Using the proximal femoral jig, 1 screw was placed. After perfect [place] X-rays were obtained on lateral fluoroscopy, the drill was placed across the distal screw locking site, 1 screw was measured and then placed. Final fluoroscopic views noted the femoral alignment to be adequate and the nail in good position. Closure - The incisions were then irrigated and closed using 3-0 vicryl for deep and subcutaneous layers and 4-0 Monocryl for skin. Sterile dressings were applied. A femoral nerve block was performed by anesthesia. The patient was awakened from anesthesia, extubated and taken to the recovery room in a stable condition, having suffered no apparent untoward event. ATTENDING ATTESTATION STATEMENT I was present for the wilson portions of the procedure. DISPOSITION: Floor. After discharge, Liam will follow up in 2 weeks with X-ray. 1. Dressing:keep in place until clinic visit 2. Medications Prescribed: Lortab 3. Activity Restrictions: no gym or sports 4. Weightbearing status: WBAT right lower extremity. Implant Name Type Inv. Item Serial No. Special Librarian Lot No. LRB No. Used NAIL R 10MM X 38CM NAIL R 10MM X 38CM [employer] Right 1 SCRW [place] 4.5MM X 48MM SCRW [place] 4.5MM X 48MM [employer] Right 1 [employer] [place] 4.5MM X 28MM SCRW [place] 4.5MM X 28MM [employer] Right 1 MITE PACKING MACHINE FEEDER documented in this encounter Plan of Treatment Not on file documented as of this encounter Procedures Procedure Name Priority Date/Time Associated Diagnosis Comments XR FEMUR RIGHT 2VW Routine 03/11/2015 12 :53 PM DYNAMITE PACKING MACHINE FEEDER Femoral anteversion (HCC) OSTEOTOMY FEMORAL WITH FIXATION 03/11/2015 9:46 AM DYNAMITE P[employer]ING MACHINE FEEDER Femoral anteversion (HCC) Special Needs C-ARM, ALY TABLE URINE MICROSCOPIC ONLY REFLEX TO CULTURE Pre-Op 03/11/2015 9:45 AM DYNAMITE P[employer]ING MACHINE FEEDER Femoral anteversion (HCC) URINALYSIS REFLEX MICROSCOPIC REFLEX CULTURE Pre-Op 03/11/2015 9:45 AM DYNAM[employer] P[employer]ING MACHINE FEEDER Femoral anteversion (HCC) PT PTT PANEL Pre-Op 03/11/2015 9:44 AM DYNAM[employer] P[employer]ING MACHINE FEEDER Femoral anteversion (HCC) CBC W AUTO DIFFERENTIAL Pre-Op 03/11/2015 9:44 AM DYNAMITE P[employer]ING MACHINE FEEDER Femoral anteversion (HCC) TYPE + SCREEN PANEL Pre-Op 03/11/2015 9 :43 AM DYNAM[employer] P[employer]ING MACHINE FEEDER Femoral anteversion (HCC) documented in this encounter Results * XR FEMUR 2 VW RIGHT (03/11/2015 12:53 PM DYNAMITE PACKING MACHINE FEEDER) Anatomical Region Laterality Modality Lower Extremity Radio Fluoroscop y 03/11/2015 1:14 PM DYNAMITE PACKING MACHINE FEEDER Impressions 03/11/2015 1:27 PM DYNAMITE PACKING MACHINE FEEDER Fluoroscopic guidance for femoral diaphyseal osteotomy and internal fixation. The study was dictated by Deonte Kahn MD (physician vice president). Maryanne Yepez, have personally reviewed the images and I agree with this report. Narrative 03/11/2015 1:27 PM DYNAMITE PACKING MACHINE FEEDER EXAMINATION: Fluoroscopic guidance right femur 2 views Comparison: Radiograph from 03/08/15 History: 10-year-old male with right femoral anteversion status post derotational osteotomy and intramedullary nail placement Findings: 6 collimated intraoperative fluoroscopic spot images of the femur are submitted for interpretation. There are has been interval placement of an intramedullary lorna with one proximal screw in the greater trochanteric region and osteotomy in the femoral diaphysis. An interlocking screw is also seen distally. The instrumentation is intact. Subcutaneous gas and edema are present. Procedure Note Maryanne Morales MD - 03/11/2015 EXAMINATION: Fluoroscopic guidance right femur 2 views Comparison: Radiograph from 03/08/15 History: 10-year-old male with right femoral anteversion status post derotational osteotomy and intramedullary nail placement Findings: 6 collimated intraoperative fluoroscopic spot images of the femur are submitted for interpretation. There are has been interval placement of an intramedullary lorna with one proximal screw in the greater trochanteric region and osteotomy in the femoral diaphysis. An interlocking screw is also seen distally. The instrumentation is intact. Subcutaneous gas and edema are present. IMPRESSION Fluoroscopic guidance for femoral diaphyseal osteotomy and internal fixation. The study was dictated by Deonte Kahn MD (physician vice president). Maryanne Yepez, have personally reviewed the images and I agree with this report. Ruben Jorge MD DIAGNOSTIC IMAGING O RDERABLES * (ABNORMAL) URINALYSIS MICROSCOPIC ONLY W/REFLEX CULTURE (03/11/2015 9:45 AM DYNAMITE PACKING MACHINE FEEDER) RBC UA 0-2 0-2, 2-5 # /hpf 03/11/2015 10:34 AM [facility] WBC UA 0-2 0-2, 2-5 # /hpf 03/11/2015 10:34 AM [facility] Bacteria UA 1+(A) None Seen, Trace 03/11/2015 10:34 AM [facility] Epithelial Cell UA 0-2 0-2, 2-5 # /hpf 03/11/2015 10:34 AM [facility] Mucus UA 3+ 03/11/2015 10:34 AM [facility] Urine URINE SPECIMEN OBTAINED BY CLEAN CATCH PROCEDURE / Unknown 03/11/2015 9:45 AM [facility] 03/11/2015 10:03 AM [facility] Ruben Jorge MD LAB - URINALYSIS ORD ERABLES [facility] [place] [address] * (ABNORMAL) URINALYSIS ROUTINE W/REFLEX TO CULTURE (03/11/2015 9:45 AM [facility]) Color UA Yellow Straw, Yellow, Dark Yellow 03/11/2015 10:23 AM [facility] Clarity UA Clear 03/11/2015 10:23 AM [facility] Specific [place] UA >=1.030 1.005 - 1.030 03/11/2015 10:23 AM [facility] pH UA 6.0 5.0 - 8.0 pH 03/11/2015 10:23 AM [facility] Protein UA Negative Negative 03/11/2015 10:23 AM [facility] Blood UA Trace(A) Negative 03/11/2015 10:23 AM [facility] Leukocyte UA Negative Negative 03/11/2015 10:23 AM [facility] Nitrite UA Negative Negative 03/11/2015 10:23 AM [facility] Glucose UA Negative Negative 03/11/2015 10:23 AM [facility] Ketone UA Negative Negative 03/11/2015 10:23 AM [facility] Bilirubin UA Negative Negative 03/11/2015 10:23 AM [facility] Urobilinogen UA 0.2 0.1 - 1.0 EU/dL 03/11/2015 10:23 AM [facility] Urine Microscopy Urine microscopy to follow 03/11/2015 10:23 AM [facility] Reflex Status Culture not indicated 03/11/2015 10:23 AM [facility] Urine URINE SPECIMEN OBTAINED BY CLEAN CATCH PROCEDURE / Unknown 03/11/2015 9:45 AM [facility] 03/11/2015 10:03 AM DYNAM[employer] P[employer]ING MACHINE FEEDER Ruben Jorge MD LAB - URINALYSIS ORD ERABLES Performing Organization Address [facility]/ZIP Co de Phone Number [facility] [address] [place] [id number] * PT PTT PANEL (03/11/2015 9:44 AM [facility]) PT 11.2 9.5 - 11.6 sec 03/11/2015 10:34 AM [facility] INR 1.1 0.9 - 1.1 03/11/2015 10:34 AM [facility] PTT 27.9 21.0 - 32.0 sec 03/11/2015 10:34 AM [facility] Blood BLOOD SPECIMEN / Unknown 03/11/2015 9:44 AM [facility] 03/11/2015 10:03 AM DYNAM[employer] P[employer]ING MACHINE FEEDER Narrative [facility] - 03/11/2015 10:34 AM [facility] Conventional Warfarin Anticoagulant Therapy: INR Reference Range: ??2.0-3.0 Intensive Warfarin Anticoagulant Therapy: INR Reference Range: ? 2.5-3.5 Heparin Therapeutic Range for PTT: 44.4 - 78.3 seconds. Ruben Jorge MD LAB - COAGULATION OR DERABLES Performing Organization Address [facility]/ZIP Co de Phone Number [facility] [address] [place] [phone] * CBC W AUTO DIFFERENTIAL (03/11/2015 9:44 AM [facility]) WBC 4.7 4.5 - 14.5 x10^9/L 03/11/2015 10:10 AM [facility] WBC Corrected x10^9/L 03/11/2015 10:10 AM [facility] RBC 4.53 4.00 - 5.20 x10^12/L 03/11/2015 10:10 AM [facility] Hemoglobin 12.5 11.5 - 15.5 gm/dL 03/11/2015 10:10 AM [facility] Hematocrit 35.9 35.0 - 45.0 % 03/11/2015 10:10 AM [facility] MCV 79.2 77.0 - 95.0 fl 03/11/2015 10:10 AM [facility] MCH 27.6 25.0 - 33.0 pg 03/11/2015 10:10 AM [facility] MCHC 34.8 31.0 - 37.0 gm/dL 03/11/2015 10:10 AM [facility] Platelet Count 269 100 - 400 x10^9/L 03/11/2015 10:10 AM [facility] RDW-CV 13.9 11.5 - 14.0 % 03/11/2015 10:10 AM [facility] MPV 8.9 6.0 - 9.5 fl 03/11/2015 10:10 AM [facility] Neutrophils % 43.2 24.0 - 66.0 % 03/11/2015 10:10 AM [facility] Lymphocytes % 43.6 22.0 - 61.0 % 03/11/2015 10:10 AM [facility] Monocytes % 12.4 3.0 - 15.0 % 03/11/2015 10:10 AM [facility] Eosinophils % 0.4 0.0 - 10.0 % 03/11/2015 10:10 AM [facility] Basophils % 0.4 % 03/11/2015 10:10 AM [facility] Immature Granulocytes 0.0 % 03/11/2015 10:10 AM [facility] Neutrophil Absolute 2.01 x10^9/L 03/11/2015 10:10 AM [facility] Lymphocytes Absolute 2.03 x10^9/L 03/11/2015 10:10 AM [facility] Monocytes Absolute 0.58 x10^9/L 03/11/2015 10:10 AM [facility] Eosinophils Absolute 0.02 x10^9/L 03/11/2015 10:10 AM [facility] Basophils Absolute 0.02 x10^9/L 03/11/2015 10:10 AM [facility] Immature Granulocytes Absolute 0.00 x10^9/L 03/11/2015 10:10 AM [facility] Blood BLOOD SPECIMEN / Unknown 03/11/2015 9:44 AM DY[employer]ING MACHINE FEEDER 03/11/2015 10:03 AM DYNAMITE PACKING MACHINE FEEDER Narrative Authorizing Provider Result Yohannes Jorge MD LAB - HEMATOLOGY ORD ERABLES Performing Organization Address City/[facility] Co de Phone Number [facility] [address] [place] [address] * TYPE + SCREEN PANEL (03/11/2015 9:43 AM DYNAMITE PACKING MACHINE FEEDER) ABO O 03/11/2015 10:45 AM DYNAMITE PACKING MACHINE FEEDER [facility] Rh Type Positive 03/11/2015 10:45 AM DYNAMITE PACKING MACHINE FEEDER [facility] Antibody Screen Negative 03/11/2015 10:45 AM DYNAMITE PACKING MACHINE FEEDER [facility] Miscellaneous samples (specimen) BLOOD SPECIMEN / Unknown 03/11/2015 9:43 AM DYNAM[employer] PACKING MACHINE FEEDER 03/11/2015 10:03 AM DYNAMITE PACKING MACHINE FEEDER Narrative Authorizing Provider Result Yohannes Jorge MD LAB - BLOOD BANK ORD SaveUp Performing Organization Address [facility] Co de Phone Number [facility] [address] [place] [address] documented in this encounter Visit Diagnoses Diagnosis Femoral 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 Scheduled Medication Order 03/11/2015 03/12/2015 03/13/2015 acetaminophen (TYLENOL) tablet 650 mg (COMPLETED) 650 mg (rounded from 647 mg = 10 mg/kg ? 64.7 kg), Oral, EVERY 6 HOURS, 8 doses, First dose on Britany 03/11/15 at 1400, Last dose on 03/13/15 at 0800, For mild pain 1428 ($ Given - Provider: Jenn Suggs RN)2013 ($ Given - Provider: Serena Foote RN) 0239 ($ Given - Provider: Serena Foote RN)0843 ($ Given - Provider: Rochelle Lyle RN)1407 ($ Given - Provider: Rochelle Lyle RN)2015 ($ Given - Provider: Edwin Barnard, RN) 0207 ($ Given - Provider: Edwin Barnard, RN)0852 ($ Given - Provider: Stefani Carias, ISAAC) ceFAZolin pediatric IV 1,000 mg (COMPLETED) 1,000 mg, Intravenous, EVERY 8 HOURS, 2 doses, First dose on Britany 03/11/15 at 1900, Last dose on Sun03/12/15 at 0400, Up to 1 gm maximum dose., Post-op 2013 ($ Given - Provider: Serena Foote RN) 043 ($ Given - Provider: Serena Foote RN) dexmethylphenidate ER 24hr (FOCALIN XR) capsule 15 mg (CANCELED) 15 mg, Oral, EVERY MORNING, First dose on Sun03/12/15 at 0830, Until Discontinued, Do not crush/chew, contents of capsule maybe gently sprinkled on one tablespoonful of cold applesauce and swallowed, Post-op 0842 ($ Given - Provider: Rochelle Lyle RN) 0854 ($ Given - Provider: Stefani Carias RN) docusate sodium (COLACE) capsule 100 mg 100 mg, Oral, DAILY, First dose on Sun03/12/15 at 1130, Until Discontinued 1226 ($ Given - Provider: Rochelle Lyle RN) 0853 ($ Given - Provider: Stefani Carias RN) docusate sodium (COLACE) solution 50 mg (CANCELED) 50 mg, Oral, 2 TIMES DAILY, First dose on Sun03/11/15 at 2030, Until Discontinued, Post-op 2013 ($ Given - Provider: Serena Foote RN) 0830 (Not Administered - Provider: Rochelle Lyle RN - Reason: Discontinued by physician) morphine injection 2 mg (CANCELED) 2 mg, Intravenous, POST-OP MULTIPLE, Starting on Britany 03/11/15 at 1343, Until Sun03/11/15 at 1454, May repeat every 5 minutes for pain scales > 3 to a Max dose of 0.2 mg/Kg. High Risk, High Alert Medication: Must doucment double check on IV MAR Flowsheet., PACU 1407 ($ Given - Provider: Jenn Suggs, ISAAC) oxyCODONE (immediate release) (ROXICODONE) tablet 5 mg (CANCELED) 5 mg, Oral, EVERY 4 HOURS, First dose (after last modification) on Sun03/12/15 at 1230, Until Discontinued, For moderate pain. 1226 ($ Given - Provider: Rocehlle Lyle RN)1604 ($ Given - Provider: Rochelle Lyle RN)2015 ($ Given - Provider: Edwin Barnard RN)2359 ($ Given - Provider: Edwin Barnard RN) 0402 ($ Given - Provider: Edwin Barnard RN)0853 ($ Given - Provider: Stefani Carias RN) senna (SENOKOT) tablet 8.6 mg 8.6 mg, Oral, DAILY, First dose on Sun03/12/15 at 1100, Until Discontinued 1226 ($ Given - Provider: Rochelle Lyle RN) 0853 ($ Given - Provider: Stefani Carias RN) sennosides (SENOKOT) solution 8.8 mg (CANCELED) 8.8 mg (5 mL), Oral, AT BEDTIME, First dose on Sun03/11/15 at 2030, Until Discontinued, May be mixed with milk to mask taste., Post-op 2013 ($ Given - Provider: Serena Foote, ISAAC) Continuous Medication Order 03/11/2015 03/12/2015 03/13/2015 isolyte-S pH 7.4 infusion (CANCELED) 105 mL/hr, Intravenous, POST-OP CONTINUOUS, Starting on Britany 03/11/15 at 1345, Until Britany 03/11/15 at 1454, Continue Fluids at current rates, until current bag is finished. Then Switch to fluids as ordered for floor., PACU 1340 (Current Rate - Provider: Jenn Suggs, ISAAC) 0245 (Stopped - Provider: Serena Foote, ISAAC) ropivacaine (NAROPIN) 2 MG/ML peripheral nerve block (CANCELED) Perineural, CONTINUOUS, Starting on Britany 03/11/15 at 1345, Until 03/12/15 at 1557, Continuous infusion setting rate: 7 ml/hr PCRA Bolus dose: 1 ml Bolus lockout: 30 minutes (suggested; every 60 minutes) On hour limit 9 ml/hr 1345 ($ New Bag/Syringe - Provider: Jenn Suggs, RN) PRN Medication Order 03/11/2015 03/12/2015 03/13/2015 0.9% nacl irrigation solution (CANCELED) PRN, Starting on Britany 03/11/15 at 1020, Until Britany 03/11/15 at 1350, Intra-op 1020 ($ Given - Provider: Ruben Jorge MD - Comment: given onto sterile field to use as needed) diazepam (VALIUM) oral solution 5 mg 5 mg, Oral, 3 TIMES DAILY PRN, Anxiety, Starting on Britany 03/11/15 at 1550, Until 03/13/15 at 1143, Post-op 2126 ($ Given - Provider: Edwin Barnard RN) morphine injection 2 mg (CANCELED) 2 mg, Intravenous, EVERY 4 HOURS PRN, Severe Pain, Starting on Britany 03/11/15 at 1550, Until 03/13/15 at 1143, For severe pain not controlled with scheduled oral analgesics., Post-op 190 ($ Given - Provider: Rochelle Lyle, RN) oxyCODONE (immediate release) (ROXICODONE) tablet 5 mg (CANCELED) 5 mg, Oral, EVERY 4 HOURS PRN, Moderate Pain, Starting on Britany 03/11/15 at 1255, Until 03/12/15 at 1023, For moderate pain. 1805 ($ Given - Provider: Alyssa Robbins, RN)2307 ($ Given - Provider: Serena Foote, ISAAC) 0843 ($ Given - Provider: Rochelle Lyle, RN) documented in this encounter Care Teams Customer Engagement Analyst Relationship Specialty Start Date End Date Ruthann Le APRN-ACCOUNT INSTALLER [address] [place] [id number] PCP - General Nurse Practitioner 08/14/14 documented as of this encounter
--- OUTSIDE RECORDS SUMMARY | 2024-03-10 03:41 | XMS_ITS | Encounter Summary ---
Author Organization [facility] Address [address] [facility] [place] [address] Care Team Providers Care House Principal Name Role Phone SharifvahidRuthann segura Fabiano OPTICAL INSTRUMENT SPECIALIST-BOBBIN SORTER Primary Care Provider + Reason for Visit * Auth/Cert - Closed Specialty Diagnoses / Procedures Referred By Zohra t Referred To Contact Diagnoses Femoral anteversion (HCC) Femoral anteversion Procedures OSTEOTOMY FEMUR SHAFT WITH FIXATION Referral ID Status Reason Start Date Expiration Date Visits Re quested Visits Authorized [id number] Closed 1 1 Encounter Details Date Type Department Care Team (Late st Contact Info) Description 03/11/2015 10:01 AM MILLER FIRST Anesthesia Event [facility] - Periop [address] [facility] [place] [address] Elida Valverde MD [address] [place] [address] Pam Fu APRN-INJECTION MOLDING TECHNICIAN [address] [facility] [place] [address] Anesthesia Record Procedure Summary Procedure Name Responsible Anesthesiologist Anesthesia Start Time Anesthesia Stop Time RIGHT FEMORAL DEROTATIONAL OSTEOTOMY AND INTRAMEDULLARY NAIL (Right: Leg) Elida Valverde MD 03/11/15 1001 03/11/15 1342 Events Date Time Event Comment 03/11/2015 0918 1001 An Start To OR monitors applied, Time Out performed. 1003 An Start Data 1004 PT Reassessment Patient and Vital Signs reassessed prior to induction. 1006 An Induction 1012 An Intubation 1332 Extubation 1334 an stop data 1336 Elect Sign The providers l isted as staff are the responsible providers for the case. 1341 Handoff Handoff include d discussion of Intraoperative anesthetic management, issues, concerns and expectations/plans for the early post-procedure period. There was an opportunity for questions and the receiving team acknowledged understanding of the handoff. 1342 An Stop Meds Name Total fentaNYL (SUBLIMAZE) 50 mcg/ml 200 mcg lidocaine (XYLOCAINE MPF) 2% injection 5 0 mg propofol (DIPRIVAN) 10 mg/mL 200 mg vecuronium (NORCURON) 10 mg injection 8 mg dexamethasone (DECADRON) 4 mg/mL injecti on 4 mg ondansetron (ZOFRAN) 2mg/mL injection 4 mg morphine 2 mg/ml PF injection 2 mg midazolam (VERSED) 1 mg/mL injection 2 m g ceFAZolin (ANCEF) 1 g injection 1,600 mg ropivacaine (NAROPIN) 2 mg/ml injection 12 mL isolyte-S pH 7.4 infusion 1,450 mL * Agents Name Insp. N2O Exp. Isoflurane Insp. Isoflurane * Blood No blood administrations on file. Lines, Drains, and Airways Type Details Placement Removal Peripheral IV Date: 03/11/15; Time : 0930; Orientation: Right; Placed By: ISAAC Muniz; Tolerance: Well 03/11/15 0930 by Elida Clayton RN 03/13/15 0000 by Stefani Carias RN ETT Date: 03/11/15; Time : 1012; Placed By: Major Fu CRNA; Vent: easy mask; Induction: Standard IV; Blade Type: Joan; Blade Size: 3; Laryngoscopy View: Grade 1 (full cords); Tube: Endotracheal Tube-Hi/Lo; Placement: Oral; Tube Type: Cuffed-inflated; Tube Size(mm): 6.5 MM; Depth of Insertion: 18 CM; Measured From: teeth; Cuff Infated: Air; Cuff Vol(mL): 2 mL; Verified By: Direct visualization, Bilateral breath sounds, Chest Auscultation, CO2 Monitor 03/11/15 1012 by Pam Fu APRN-INJECTION MOLDING TECHNICIAN 03/11/15 1332 by Pam Fu APRN-INJECTION MOLDING TECHNICIAN Urethral Catheter 03/11/15; 1020; Sarah Trinidad RN; 10 (3 ml in balloon); General Anesthesia; 03/11/15; 1246; Sarah Trinidad RN 03/11/15 1020 by Ludmila Beltre RN 03/11/15 1246 by Ludmila Beltre RN RETIRED Procedural Site 03/11/15; 1052; Right, Upper, Lateral; Hip; 03/13/15; 164203/11/15 1052 by Ludmila Beltre RN 03/13/15 1643 by Generic, Auto Release RETIRED Procedural Site 03/11/15; 1052; Right, Upper, Lateral; Thigh; 03/13/15; 164203/11/15 1052 by Ludmila Beltre RN 03/13/15 1643 by Generic, Auto Release RETIRED Procedural Site 03/11/15; 1052; Right, Lateral; Knee; 03/13/15; 164203/11/15 1052 by Ludmila Beltre RN 03/13/15 1643 by Generic, Auto Release RETIRED Procedural Site 03/11/15; 1052; Right, Anterior; Knee; 03/13/15; 164203/11/15 1052 by Ludmila Beltre RN 03/13/15 1643 by Generic, Auto Release RETIRED Procedural Site 03/11/15; 1052; Right, Lower, Lateral; Hip; 03/13/15; 164203/11/15 1052 by Ludmila Beltre RN 03/13/15 1643 by Generic, Auto Release RETIRED Procedural Site 03/11/15; 1052; Right, Mid, Lateral; Thigh; 03/13/15; 164203/11/15 1052 by Ludmila Beltre RN 03/13/15 1643 by Generic, Auto Release documented in this [...] as of this encounter Progress Notes * Elida Valverde MD - 03/11/2015 2:46 PM CST ANESTHESIA POSTPROCEDURE EVALUATION Liam Bal is a 10 y.o. male Temp: 36.7 ??C Pulse: 87 Resp: 13 BP: 119/62 mmHg SpO2: 100 % Pain Rating Score #1: 3 Anesthesia Type: general Mental status: neurologic status has returned to preoperative level. Level of consciousness: awake General appearance: well-appearing Respiratory function: natural airway. Cardiac: stable Pain: comfortable/acceptable PONV: None Postop hydration: adequate. Patient may be released from anesthesia care. Perioperative Complications: No value filed. ASA/AQI Tracking Events: No value filed. ER FIRST documented in this encounter Procedure Notes * Elida Valverde MD - 03/11/2015 2:13 PM CSTAssociated Order(s): PERIPHERAL BLOCK Peripheral Block Patient Location: OR Pre Procedure Indication: at surgeon's request, post-operative analgesia and at patient's request Preanesthetic Checklist: patient identified, IV checked, site marked, risks and benefits discussed,surgical consent verified, monitors and equipment checked, pre-op evaluation done, timeout performed, informed consent obtained and questions answered / anesthesia plan accepted Monitors: BP, Pulse Ox, EKG and ETCO2 Patient Condition: General Anesthetic Patient Position: supine Procedure Laterality: right Block Performed: femoral Catheter: threaded Catheter Length at Skin (cm): 7 Prep: Chloraprep Sterile Field: sterile field established and sterile gloves Needle Type: nerve stimulator, insulated and short-bevel Needle Gauge: 20 Needle Length: 100 mm Nerve Stimulator Rectus Femoris Loss of Stimulation at 0.4 mA Ultrasound guided Technique: in plane Visualization: poor visualization Block Agent: ropivacaine 0.2% 12 mL Epinephrine in Block Agent: none Injection was made incrementally with constant monitoring and aspirations every 5 mL's. Events blood not aspirated no injection resistance no other events Block Start Time: 03/11/2015 12:49 PM Block End Time: 03/11/2015 1:25 PM Block Performed by: Fernie Valverde MD Block with ultrasound and stimulation, poor visualization. Stimulation to 0.4 ma with catheter. Position felt to be adequate based on stimulation threshold. ER FIRST documented in this encounter Consult Notes * Elida Valverde MD - 03/11/2015 9:16 AM CST Pre-anesthesia Evaluation Procedure(s): RIGHT FEMORAL DEROTATIONAL OSTEOTOMY OVER A NAIL (Right Hip) Vital Signs: Temp: 36.6 ??C (03/11 0900) BMI: Estimated body mass index is 27.78 kg/(m^2) as calculated from the following: Height as of this encounter: 1.526 m (5' 0.08 ). Weight as of this encounter: 64.7 kg (142 lb 10.2 oz). History: Past Medical History Diagnosis Date ??? ADHD (attention deficit hyperactivity disorder) ??? Asthma ??? [place]-Schlatter's disease of right knee 01/01/2015 ??? Femoral anteversion 01/01/2015 Past Surgical History Procedure Laterality Date ??? Negative surgical history reports that he has never smoked. He does not have any smokeless tobacco history on file. He reports that he does not drink alcohol or use illicit drugs. Allergies: has No Known Allergies. Medications: Home Medications for Outpatients: No current outpatient prescriptions on file. Home Medications for Inpatients: Prescriptions prior to admission Medication Sig Dispense Refill ??? dexmethylphenidate ER 24hr (FOCALIN XR) 15 MG capsule ??? albuterol HFA (PROVENTIL;VENTOLIN;PROAIR) 108 (90 BASE) MCG/ACT inhaler Inhale 2 Puffs by mouthevery 4 hours as needed for Shortness of Breath, Wheezing or Cough 1 Inhaler 0 Inpatient Medications: No current facility-administered medications for this encounter. Physical Exam: NPO status: no solids since midnight, no liquids within 2 hours Oriented to person, place and time Airway: II Neck ROM: full Dental exam findings: normal/ok Pulmonary exam: breath sounds CTA Heart sounds: S1 S2 Spinal Alignment: no deformity noted Plan for Anesthesia: ASA Score: 2. Anesthesia plan: general / ETT Peripheral nerve block type: femoral and sciatic (Discussed Possible Femoral and/or Sciatic Block) block at surgeon's request for postop analgesia Planned method of induction: intravenous Planned postop destination: PACU Planned administration of opiods for postop analgesia Anesthesia plan, risks and benefits discussed with mother Anesthesia consent: obtained Plan accepted yes Discussed anesthesia plan with: INJECTION MOLDING TECHNICIAN. ER FIRST documented in this encounter Plan of Treatment Not on file documented as of this encounter Procedures Procedure Name Priority Date/Time Associated Diagnosis Comments PERIPHERAL BLOCK Routine 03/11/2015 2:46 PM MILLER FIRST documented in this encounter Results * PERIPHERAL BLOCK (03/11/2015 2:46 PM MILLER FIRST) Narrative Elida Valverde MD - 03/11/2015 2:46 PM MILLER FIRST Elida Valverde MD ? 03/11/2015 ??2:46 PM Peripheral Block Patient Location: ??OR Pre Procedure Indication: ??at surgeon's request, post-operative analgesia and at patient's request Preanesthetic Checklist: ??patient identified, IV checked, site marked, risks and benefits discussed, surgical consent verified, monitors and equipment checked, pre-op evaluation done, timeout performed, informed consent obtained and questions answered / anesthesia plan accepted Monitors: ??BP, Pulse Ox, EKG and ETCO2 Patient Condition: ??General Anesthetic Patient Position: ??supine Procedure Laterality: ??right Block Performed: ??femoral Catheter: ??threaded Catheter Length at Skin (cm): ??7 Prep: ??Chloraprep Sterile Field: ??sterile field established and sterile gloves Needle Type: ??nerve stimulator, insulated and short-bevel Needle Gauge: ??20 Needle Length: ??100 mm Nerve Stimulator Rectus Femoris ? Loss of Stimulation at 0.4 mA Ultrasound guided Technique: ??in plane Visualization: ??poor visualization Block Agent: ??ropivacaine 0.2% 12 mL Epinephrine in Block Agent: ??none Injection was made incrementally with constant monitoring and aspirations every 5 mL's. Events blood not aspirated no injection resistance no other events Block Start Time: ??03/11/2015 12:49 PM Block End Time: ??03/11/2015 1:25 PM Block Performed by: ??Fernie Valverde MD Block with ultrasound and stimulation, poor visualization. Stimulation to 0.4 ma with catheter. ??Position felt to be adequate based on stimulation threshold. Elida Valverde MD GENERAL ANESTHESIA ORDERABLES documented in this encounter Visit Diagnoses Not on filedocumented in this encounter Administered Medications Inactive Administered Medications - up to 3 most recent administrations Medication Order MAR Action Action Date Dose Rate Site ceFAZolin (ANCEF) injection PRN, Starting on Britany 03/11/15 at 1036, Until Britany 03/11/15 at 1342, Anesthesia Intra-op $ Given 03/11/2015 10:36 AM MILLER FIRST 1,600 mg dexamethasone (DECADRON) injection PRN, Nausea/Vomiting, Starting on Britany 03/11/15 at 1024, Until Britany 03/11/15 at 1342, Anesthesia Intra-op $ Given 03/11/2015 10:24 AM MILLER FIRST 4 mg fentaNYL (SUBLIMAZE) injection PRN, Starting on Britany 03/11/15 at 1006, Until Britany 03/11/15 at 1342, Anesthesia Intra-op $ Given 03/11/2015 11:32 AM MILLER FIRST 50 mcg $ Given 03/11/2015 10:47 AM MILLER FIRST 50 mcg $ Given 03/11/2015 10:06 AM MILLER FIRST 100 mcg isolyte-S pH 7.4 infusion CONTINUOUS PRN, Starting on Britany 03/11/15 at 1005, Until Britany 03/11/15 at 1342, Anesthesia Intra-op $ New Bag/Syringe 03/11/2015 11:15 AM MILLER FIRST $ New Bag/Syringe 03/11/2015 10:35 AM MILLER FIRST $ New Bag/Syringe 03/11/2015 10:05 AM MILLER FIRST lidocaine (XYLOCAINE MPF) 2 % injection PRN, Starting on Britany 03/11/15 at 1006, Until Britany 03/11/15 at 1342, Anesthesia Intra-op $ Given 03/11/2015 10:06 AM MILLER FIRST 50 mg midazolam (VERSED) injection PRN, Starting on Britany 03/11/15 at 1001, Until Britany 03/11/15 at 1342, Anesthesia Intra-op $ Given 03/11/2015 10:01 AM MILLER FIRST 2 m g morphine injection PRN, Starting on Britany 03/11/15 at 1210, Until Britany 03/11/15 at 1342, Anesthesia Intra-op $ Given 03/11/2015 12:10 PM MILLER FIRST 2 m g ondansetron (ZOFRAN) injection PRN, Nausea/Vomiting, Starting on Britany 03/11/15 at 1227, Until Britany 03/11/15 at 1342, Anesthesia Intra-op $ Given 03/11/2015 12:27 PM MILLER FIRST 4 mg propofol (DIPRIVAN) 10 mg/ml injection PRN, Sedation, Starting on Britany 03/11/15 at 1007, Until Britany 03/11/15 at 1342, Anesthesia Intra-op $ Given 03/11/2015 10:07 AM MILLER FIRST 200 mg ropivacaine (NAROPIN) 2 MG/ML (0.2%) injection PRN, Starting on Britany 03/11/15 at 1317, Until Britany 03/11/15 at 1612, Anesthesia Intra-op $ Given 03/11/2015 1:23 PM MILLER FIRST 10 m L $ Given 03/11/2015 1:17 PM MILLER FIRST 2 mL vecuronium (NORCURON) injection PRN, Starting on Britany 03/11/15 at 1009, Until Britany 03/11/15 at 1342, Anesthesia Intra-op $ Given 03/11/2015 10:42 AM MILLER FIRST 3 m g $ Given 03/11/2015 10:09 AM MILLER FIRST 5 mg documented in this encounter Care Teams House Principal Relationship Specialty Start Date End Date Ruthann Le, OPTICAL INSTRUMENT SPECIALIST-BOBBIN SORTER [address] [place] [address] PCP - General Nurse Practitioner 08/14/14 documented as of this encounter
--- OUTSIDE RECORDS SUMMARY | 2024-03-10 03:41 | XMS_ITS | Referral Summary ---
Author Organization [facility] Address [address] [place] [address] Care Team Providers Care Heat And Vent Aircraft Mechanic Name Role Phone SharifvahidRuthann segura Fabiano HOOP EXPANDER-GRADES 1 6 TUTOR Primary Care Provider + Source Comments [facility],non-owned Affiliates and Associated Physician Practices is amultiple site organization consisting of ambulatory clinics and hospital sitesin [place], [place], [place] and [place]. This disclosure is being madepursuant to the Care Everywhere program and may not contain all information available regarding this patient. Last updated 17.[facility] Allergies No known active allergies Medications * [...] 10/11/2017 Weight loss 04/12/2017 Biliary colic 10/27/2016 [place]-Schlatter's disease 01/01/2015 Femoral anteversion 01/01/2015 ADHD (attention [...] CDT Oxygen Saturation 98% 03/12/2017 10:58 AM TALENT ACQUISITION MANAGER per pcp Inhaled Oxygen Concentration - - Weight 69.5 kg (153 lb 4.8 oz) 08/30/2017 10:28 PM CDT per pcp Height 170.2 cm (5' 7 ) 08/30/2017 10:28 PM CDT per pcp Body Mass Index 24.01 08/30/2017 10:28 PM CDT Functional Status Functional Status Response Date of Assess ment Is person deaf or have serious hearing difficult y? No 10/27/2016 Is person blind or have serious difficulty seein g? Yes-glasses 10/27/2016 Does person have serious dif ficulty walking/climbing stairs? No 10/27/2016 Does person have difficulty dressing/bathing? No 10/27/2016 Does person have difficulty doing errands alone? No 10/27/2016 Cognitive Status Response Date of Assess ent Does person have difficulty concentrating/remembering/making decisions? No 10/27/2016 Plan of Treatment Not on file Medical Devices Implanted Type Area Biotechnologist Device Identifier Shelf Expiration Date Model / Serial / Lot Scrw Daniel 4.5mm X 48mm Implanted:Qty: 1 on 03/11/2015 by Ruben Jorge MD at [facility] Right: Femur [employer] 48 / / Scrw Daniel 4.5mm X 28mm Implanted:Qty: 1 on 03/11/2015 by Ruben Jorge MD at [facility] Right: Femur [employer] 28 / / Nail R 10mm X 36cm Implanted:Qty: 1 on 03/11/2015 by Ruben Jorge MD at [facility] Right: Femur [employer] 4 / / Explanted Type Area Biotechnologist Device Identifier Shelf Expiration Date Model / Serial / Lot Wire Gde Thrd Tip 3.2mm Explanted:Qty: 2 on 03/11/2015 by Ruben Jorge MD at [facility] Right: Femur [employer] 1 / / Pin Tin Half Sh 5mm X 35mm Implanted:Qty: 1 Explanted:Qty: 1 on 03/11/2015 by Ruben Jorge MD at [facility] Right: Femur [employer] [id number] / / Pin Tin Half Sh 5mm X 30mm Implanted:Qty: 1 Explanted:Qty: 1 on 03/11/2015 by Ruben Jorge MD at [facility] Right: Femur [employer] [id number] / / Advance Directives * Full Code (Latest Code Status on File) Date Activated Date Inactivated Comments 10/26/2016 5:40 PM 10/27/2016 11:51 AM * Full Code Date Activated Date Inactivated Comments 03/11/2015 3:50 PM 03/13/2015 11:44 AM Care Teams Heat And Vent Aircraft Mechanic Relationship Specialty Start Date End Date Ruthann Le, HOOP EXPANDER-GRADES [address] [place] [id number] PCP - General Nurse Practitioner 08/14/14
--- OUTSIDE RECORDS SUMMARY | 2024-03-10 03:41 | XMS_ITS | Encounter Summary ---
Author Organization [facility] Address [address] [facility] [place] [address] Care Team Providers Care Operational Intelligence Officer Name Role Phone Ruthann Le HARDWOOD FLOOR INSTALLATION HELPER-DOUBLE END PRODUCTION GRINDER Primary Care Provider + Encounter Details Date Type Department Care Team (Latest Contact Info) Description 01/01/2015 11:28 AM CDT - 01/01/2015 11:59 PM CDT Hospital Encounter [facility] Pediatrics - Radiology [address] [place] [address] Ruben Jorge MD [address] [place] [address] Discharge Disposition: Home or Self [...] on file documented as of this encounter Medications at Time of Discharge Medication Sig Dispensed Refills Start Date End Date albuterol HFA (PROVENTIL;VENTOLIN;ID OAIR) 108 (90 BASE) MCG/ACT inhaler Inhale [...] fluticasone propionate (FLONASE) 50 MCG/ACT nasal spray [place] 2 Sprays into each nostril once daily 1 Bottle 0 08/14/2014 03/10/2015 documented as of this encounter Plan of Treatment Not on file documented as of this encounter Procedures Procedure Name Priority Date/Time Associated Diagnosis Comments XR KNEE RIGHT 2VW OR LESS Routine 01/01/2015 11:39 AM CDT Elizabeth-Schlatter's disease, right XR LOWER EXTREMITY STANDING Routine 01/01/2015 11:39 AM CDT Elizabeth-Schlatter's disease, right documented in this encounter Results * XR KNEE 1 OR 2 VW RIGHT (01/01/2015 11:39 AM CDT) Anatomical Region Laterality Modality Lower Extremity Radiographic Shirin ging 01/01/2015 11:5 8 AM CDT Impressions 01/01/2015 11:59 AM CDT Probable [place]-Schlatter disease. Clinical correlation is needed for confirmation. Narrative 01/01/2015 11:59 AM CDT Single lateral view of the right knee performed January 01, 2015. History: Right knee pain. A lateral view of the right knee was obtained and is compared to standing frontal films of both lower extremities performed on same date. There is subtle fragmentation of the tibial tubercle with overlying soft tissue swelling. This suggests the presence of [place]-Schlatter disease. No other osseous, articular, or soft tissue abnormality is seen. Procedure Note aMe Greer MD - 01/01/2015 Single lateral view of the right knee performed January 01, 2015. History: Right knee pain. A lateral view of the right knee was obtained and is compared to standing frontal films of both lower extremities performed on same date. There is subtle fragmentation of the tibial tubercle with overlying soft tissue swelling. This suggests the presence of [place]-Schlatter disease. No other osseous, articular, or soft tissue abnormality is seen. IMPRESSION Probable Assaria-Schlatter disease. Clinical correlation is needed for confirmation. L[facility] O RDERABLES * XR LOWER EXTREM BILAT STANDING (01/01/2015 11:39 AM CDT) Anatomical Region Laterality Modality Radiographic Shirin ging 01/01/2015 11:5 6 AM CDT Impressions 01/01/2015 11:57 AM CDT Slight pelvic tilt. Narrative 01/01/2015 11:57 AM CDT Single frontal view both lower extremities standing performed January 01, 2015. History: Right leg pain. Standing frontal views of both lower extremity is were obtained. The right iliac crest is minimally higher than the left. No other osseous or articular abnormalities are appreciated. Procedure Note Mae Greer MD - 01/01/2015 Single frontal view both lower extremities standing performed January 01, 2015. History: Right leg pain. Standing frontal views of both lower extremity is were obtained. The right iliac crest is minimally higher than the left. No other osseous or articular abnormalities are appreciated. IMPRESSION Slight pelvic tilt. Lydia [facility] O RDERABLES documented in this encounter Visit Diagnoses Diagnosis Pelvis tilted- Primary Acquired deformity of pelvis Right knee pain Pain in joint, lower leg documented in this encounter Care Teams Operational Intelligence Officer Relationship Specialty Start Date End Date Ruthann Le, HARDWOOD FLOOR INSTALLATION HELPER-DOUBLE END PRODUCTION GRINDER [address] [place] [address] PCP - General Nurse Practitioner 08/14/14 documented as of this encounter
--- OUTSIDE RECORDS SUMMARY | 2024-03-10 03:41 | XMS_ITS | Encounter Summary ---
Author Organization [facility] Address [address] [facility] [place] [address] Care Team Providers Care Diversified Crops Farmer Name Role Phone Ruthann Le Primary Care Provider + Encounter Details Date Type Department Care Team (Late st Contact Info) Description 06/11/2009 9:27 PM CDT - 06/11/2009 11:30 PM CDT Emergency ER at [address] [address] Discharge Disposition: Psychiatric Hospital or Unit Social History Tobacco Use Types Packs/Day Years Used Date Smoking Tobacco: Never Assessed Sex and Gender Information Value Date Recorded Sex Assigned at Not on file Gender Identity Not on file Sexual Orientation Not on file documented as of this encounter Plan of Treatment Not on file documented as of this encounter Visit Diagnoses Not on filedocumented in this encounter Care Teams Diversified Crops Farmer Relationship Specialty Start Date End Date Ruthann Le APRN-CNP [address] [place] [address] PCP - General 05/14/09 11/21/09 documented as of this encounter
--- OUTSIDE RECORDS SUMMARY | 2024-03-10 03:41 | XMS_ITS | Patient Health Summary ---
Author Organization [facility] Address [address] [place] [address] Care Team Providers Care Food Assembler Kitchen Name Role Phone Ruthann Le Fabiano OIL LEASE BUYER-COMMUNICATIONS PROGRAMMER Primary Care Provider + Note from [facility],non-owned Affiliates and Associated Physician Practices is amultiple site organization consisting of ambulatory clinics and hospital sitesin [place], [place], [place] and [place]. This disclosure is being madepursuant to the Care Everywhere program and may not contain all information available regarding this patient. Last updated 17.[facility] Allergies No known active allergies Medications * Be aware that medications may not be up to date on this document. Alwaysverify current medications with the patient. * albuterol HFA (PROVENTIL;VENTOLIN;PROAIR) 108 (90 BASE) MCG/ACT inhaler (Started 08/14/2014) Inhale 2 Puffs by mouth every 4 hours as needed for Shortness of Breath, Wheezing or Cough * dexmethylphenidate ER 24hr (FOCALIN XR) 15 MG capsule(Started 01/05/2015) * ondansetron (ZOFRAN) 4 MG tablet Take 4 mg by mouth every 6 hours as needed for Nausea/Vomiting * dicyclomine (BENTYL) 10 MG capsule Take 10 mg by mouth as needed * acetaminophen (TYLENOL) 325 MG tablet(Started 10/27/2016) Take 2 Tabs by mouth every 4 hours as needed Maximum allowable Acetaminophen amount = 4 Grams (4000mg) / 24 hours. * oxyCODONE, immediate release, (ROXICODONE) 5 MG tablet(Started 10/27/2016) Take 1 Tab by mouth every 4 hours as needed Active Problems Problem Noted Date Diagnosed Date [...] CDT Oxygen Saturation 98% 03/12/2017 10:58 AM ACCESSIONER per pcp Inhaled Oxygen Concentration - - Weight 69.5 kg (153 lb 4.8 oz) 08/30/2017 10:28 PM CDT per pcp Height 170.2 cm (5' 7 ) 08/30/2017 10:28 PM CDT per pcp Body Mass Index 24.01 08/30/2017 10:28 PM CDT Medical Devices Implanted Type Area Timing Adjuster Device Identifier Shelf Expiration Date Model / Serial / Lot Scrw Daniel 4.5mm X 48mm Implanted:Qty: 1 on 03/11/2015 by Ruben Jorge MD at [facility] Right: [employer] 48 / / Scrw Daniel 4.5mm X 28mm Implanted:Qty: 1 on 03/11/2015 by Rbuen Jorge MD at [facility] Right: [employer] 28 / / Nail R 10mm X 36cm Implanted:Qty: 1 on 03/11/2015 by Ruben Jorge MD at [facility] Right: [employer] 4 / / Explanted Type Area Timing Adjuster Device Identifier Shelf Expiration Date Model / Serial / Lot Wire Gde Thrd Tip 3.2mm Explanted:Qty: 2 on 03/11/2015 by Ruben Jorge MD at [facility] Right: [employer] 1 / / Pin Tin Half Sh 5mm X 35mm Implanted:Qty: 1 Explanted:Qty: 1 on 03/11/2015 by Ruben Jorge MD at [facility] Right: Femur [employer] [id number] / / Pin Tin Half Sh 5mm X 30mm Implanted:Qty: 1 Explanted:Qty: 1 on 03/11/2015 by Ruben Jorge MD at [facility] Right: Femur [employer] [id number] / / Procedures * C DIFFICILE GDH AG + TOXIN A+B(Performed 06/17/2017) * CULTURE STOOL+ E COLI SHIGA-LIKE TOXIN(Performed 06/17/2017) * PATHOLOGY TISSUE EXAM (STL)(Performed 10/26/2016) Performed for Acute calculous cholecystitis * LAPAROSCOPIC CHOLECYSTECTOMY(Performed 10/26/2016) Performed for Acute calculous cholecystitis * XR FEMUR RIGHT 2VW(Performed 04/09/2015) Performed for Femoral anteversion (HCC) * PERIPHERAL BLOCK(Performed 03/11/2015) * XR FEMUR RIGHT 2VW(Performed 03/11/2015) Performed for Femoral anteversion (HCC) * OSTEOTOMY FEMORAL WITH FIXATION(Performed 03/11/2015) Performed for Femoral anteversion (HCC) * URINE MICROSCOPIC ONLY REFLEX TO CULTURE(Performed 03/11/2015) Performed for Femoral anteversion (HCC) * URINALYSIS REFLEX MICROSCOPIC REFLEX CULTURE(Performed 03/11/2015) Performed for Femoral anteversion (HCC) * PT PTT PANEL(Performed 03/11/2015) Performed for Femoral anteversion (HCC) * CBC W AUTO DIFFERENTIAL(Performed 03/11/2015) Performed for Femoral anteversion (HCC) * TYPE + SCREEN PANEL(Performed 03/11/2015) Performed for Femoral anteversion (HCC) * XR FEMUR RIGHT 2VW(Performed 03/08/2015) Performed for Femoral anteversion (HCC) * XR KNEE RIGHT 2VW OR LESS(Performed 01/01/2015) Performed for Elizabeth-Schlatter's disease, right * XR LOWER EXTREMITY STANDING(Performed 01/01/2015) Performed for Brady-Schlatter's disease, right * XR SCOLIOSIS 1VW(Performed 06/13/2013) Performed for Back pain * CULTURE STREP GROUP A(Performed 03/13/2011) * STREP A SCREEN DIRECT(Performed 03/13/2011) * GROSS EXAM PATHOLOGY(Performed 04/23/2008) Results * CULTURE STOOL+ E COLI SHIGA-LIKE TOXIN (06/17/2017 5:34 PM CDT) Culture No growth Salmonella, Shigella, Campylobacter, Escherichia coli 0157:h7 or Yersinia CAMMIE 06/19/2017 5:57 AM CDT [facility] Culture Negative Escherichia coli Shiga-like toxin (NM) CAMMIE 06/19/2017 5:57 AM CDT [facility] Stool STOOL SPECIMEN / Unknown Collection / Unknown 06/17/2017 5:34 PM CDT 06/17/2017 5:42 PM CDT Hans Stubbs MD LAB - MICROBIOLOGY O RDERABLES [facility]CRO[facility] [address] [place], [place] [address], [facility] [phone] * CLOSTRIDIUM DIFFICILE GDH AG + TOXIN A+B (06/17/2017 5:34 PM CDT) GDH Antigen Negative Negative, Invalid 06/18/2017 6:23 AM CDT [facility]CRO[facility] C difficile Toxin A + B Negative Negative, Invalid 06/18/2017 6:23 AM CDT [facility] Interpretation C difficile Negative for toxigenic C. difficile Negative for toxigenic C. difficile 06/18/2017 6:23 AM CDT [facility] Stool STOOL SPECIMEN / Unknown Collection / Unknown 06/17/2017 5:34 PM CDT 06/17/2017 5:42 PM CDT Hans Stubbs MD LAB - MICROBIOLOGY O RDERABLES [facility] [address] [place] [address], [facility] [phone] * GROSS + MICRO EXAM (STL) (10/26/2016 3:06 PM CDT) Case Report Surgical Pathology Report ? Case: [id number] ? Authorizing Provider: ??Rosana Castro MD Collected: ? 10/26/2016 03:06 PM ? Ordering Location: ? [facility] ? Received: ?10/27/2016 07:05 AM ? Pathologist: ? Mary Ibarra MD ? Specimen: ?Gallbladder ? 10/30/2016 7:14 PM [facility] Final Diagnosis GALLBLADDER, LAPAROSCOPIC CHOLECYSTECTOMY: - CHRONIC CHOLECYSTITIS. - CHOLELITHIASIS 10/30/2016 7:14 PM [facility] Clinical History The patient is a 11-year-old boy with intermittent right upper quadrant pain and clinical diagnosis of symptomatic cholelithiasis. 10/30/2016 7:14 PM [facility] Gross Description Submitted fixed in [...] is velvety pink. The cystic duct and healthcare sales representative sections of the gallbladder are submitted in cassette A1. (KONSTANTIN/ns) 10/30/2016 7:14 PM [facility] Microscopic Description 1 H&E. Sections of the gallbladder show gallbladder wall with mild chronic inflammatory infiltrate and with Rokitansky-Aschoff sinuses. The luminal surface has amorphous eosinophilic material. (CHAPINCITO/NK/eva) 10/30/2016 7:14 PM [facility] Disclaimer The performance characteristics of all immunohistochemical and indirect immunofluorescence stains (if any) cited in this report were determined by the Histopathology Laboratory of [facility]. Some of these tests were developed [...] the attending (teaching) pathologist. 10/30/2016 7:14 PM [facility] Embedded Images 10/30/2016 7:14 PM CDT [facility] Pathology/Cytolo gy ENTIRE GALLBLADDER / Unknown 10/26/2016 3:06 PM CDT 10/27/2016 7:05 AM CDT Rosana Castro MD LAB - PATHOLOGY/C YTOLOGY ORDERABLES [facility] [address] [place] [address] * XR FEMUR 2 VW RIGHT (04/09/2015 9:57 AM ACCESSIONER) Only the most recent of3 resultswithin the time period is included. Anatomical Region Laterality Modality Lower Extremity Radiographic Shirin ging 04/09/2015 10:0 3 AM ACCESSIONER Impressions 04/09/2015 10:04 AM ACCESSIONER Healing internally stabilized mid femoral diaphyseal osteotomy. Narrative 04/09/2015 10:04 AM ACCESSIONER Exam: Right femur, 2 views History: 10-year-old [...] osteotomy. Lydia [facility] DIAGNOST[facility] IMAGING O RDERABLES * PERIPHERAL BLOCK (03/11/2015 2:46 PM ACCESSIONER) Narrative Elida Valverde MD - 03/11/2015 2:46 PM Elida Sofia MD ? 03/11/2015 ??2:46 PM Peripheral Block [...] Time: ??03/11/2015 1:25 PM Block Performed by: ??eFrnie Valverde MD Block with ultrasound and stimulation, poor visualization. Stimulation to 0.4 ma with catheter. ??Position felt to be adequate based on stimulation threshold. Elida Valverde MD GENERAL ANESTHESIA ORDERABLES * (ABNORMAL) URINALYSIS MICROSCOPIC ONLY W/REFLEX CULTURE (03/11/2015 9:45 AM ACCESSIONER) RBC UA 0-2 0-2, 2-5 # /hpf 03/11/2015 10:34 AM [facility] WBC UA 0-2 0-2, 2-5 # /hpf 03/11/2015 10:34 AM [facility] Bacteria UA 1+(A) None Seen, Trace 03/11/2015 10:34 AM [facility] Epithelial Cell UA 0-2 0-2, 2-5 # /hpf 03/11/2015 10:34 AM [facility] Mucus UA 3+ 03/11/2015 10:34 AM [facility] Urine URINE SPECIMEN OBTAINED BY CLEAN CATCH PROCEDURE / Unknown 03/11/2015 9:45 AM [facility] 03/11/2015 10:03 AM [facility] Ruben Jorge MD LAB - URINALYSIS ORD ERABLES Performing Organization Address City/State/[facility] Co de Phone Number [facility] [address] [place] [address] * (ABNORMAL) URINALYSIS ROUTINE W/REFLEX TO CULTURE (03/11/2015 9:45 AM [facility]) Color UA Yellow Straw, Yellow, Dark Yellow 03/11/2015 10:23 AM [facility] Clarity UA Clear 03/11/2015 10:23 AM [facility] Specific [place] UA >=1.030 1.005 - 1.030 03/11/2015 10:23 AM [facility] pH UA 6.0 5.0 - 8.0 pH 03/11/2015 10:23 AM [facility] Protein UA Negative Negative 03/11/2015 10:23 AM [facility] Blood UA Trace(A) Negative 03/11/2015 10:23 AM [facility] Leukocyte UA Negative Negative 03/11/2015 10:23 AM [facility] Nitrite UA Negative Negative 03/11/2015 10:23 AM [facility] Glucose UA Negative Negative 03/11/2015 10:23 AM [facility] Ketone UA Negative Negative 03/11/2015 10:23 AM [facility] Bilirubin UA Negative Negative 03/11/2015 10:23 AM [facility] Urobilinogen UA 0.2 0.1 - 1.0 EU/dL 03/11/2015 10:23 AM [facility] Urine Microscopy Urine microscopy to follow 03/11/2015 10:23 AM [facility] Reflex Status Culture not indicated 03/11/2015 10:23 AM [facility] Urine URINE SPECIMEN OBTAINED BY CLEAN CATCH PROCEDURE / Unknown 03/11/2015 9:45 AM [facility] 03/11/2015 10:03 AM [facility] Ruben Jorge MD LAB - URINALYSIS ORD ERABLES Performing Organization Address [facility] Co de Phone Number [facility] [address] [place] [phone] * PT PTT PANEL (03/11/2015 9:44 AM [facility]) PT 11.2 9.5 - 11.6 sec 03/11/2015 10:34 AM [facility] INR 1.1 0.9 - 1.1 03/11/2015 10:34 AM [facility] PTT 27.9 21.0 - 32.0 sec 03/11/2015 10:34 AM [facility] Blood BLOOD SPECIMEN / Unknown 03/11/2015 9:44 AM [facility] 03/11/2015 10:03 AM [facility] Narrative [facility] - 03/11/2015 10:34 AM [facility] Conventional Warfarin Anticoagulant Therapy: INR Reference Range: ??2.0-3.0 Intensive Warfarin Anticoagulant Therapy: INR Reference Range: ? 2.5-3.5 Heparin Therapeutic Range for PTT: 44.4 - 78.3 seconds. Ruben Jorge MD LAB - COAGULATION OR DERABLES Performing Organization Address [facility] Co de Phone Number [facility] [address] [place] [phone] * CBC W AUTO DIFFERENTIAL (03/11/2015 9:44 AM [facility]) WBC 4.7 4.5 - 14.5 x10^9/L 03/11/2015 10:10 AM [facility] WBC Corrected x10^9/L 03/11/2015 10:10 AM [facility] RBC 4.53 4.00 - 5.20 x10^12/L 03/11/2015 10:10 AM [facility] Hemoglobin 12.5 11.5 - 15.5 gm/dL 03/11/2015 10:10 AM [facility] Hematocrit 35.9 35.0 - 45.0 % 03/11/2015 10:10 AM [facility] MCV 79.2 77.0 - 95.0 fl 03/11/2015 10:10 AM [facility] MCH 27.6 25.0 - 33.0 pg 03/11/2015 10:10 AM [facility] MCHC 34.8 31.0 - 37.0 gm/dL 03/11/2015 10:10 AM [facility] Platelet Count 269 100 - 400 x10^9/L 03/11/2015 10:10 AM [facility] RDW-CV 13.9 11.5 - 14.0 % 03/11/2015 10:10 AM [facility] MPV 8.9 6.0 - 9.5 fl 03/11/2015 10:10 AM [facility] Neutrophils % 43.2 24.0 - 66.0 % 03/11/2015 10:10 AM [facility] Lymphocytes % 43.6 22.0 - 61.0 % 03/11/2015 10:10 AM [facility] Monocytes % 12.4 3.0 - 15.0 % 03/11/2015 10:10 AM [facility] Eosinophils % 0.4 0.0 - 10.0 % 03/11/2015 10:10 AM [facility] Basophils % 0.4 % 03/11/2015 10:10 AM [facility] Immature Granulocytes 0.0 % 03/11/2015 10:10 AM [facility] Neutrophil Absolute 2.01 x10^9/L 03/11/2015 10:10 AM [facility] Lymphocytes Absolute 2.03 x10^9/L 03/11/2015 10:10 AM [facility] Monocytes Absolute 0.58 x10^9/L 03/11/2015 10:10 AM [facility] Eosinophils Absolute 0.02 x10^9/L 03/11/2015 10:10 AM [facility] Basophils Absolute 0.02 x10^9/L 03/11/2015 10:10 AM [facility] Immature Granulocytes Absolute 0.00 x10^9/L 03/11/2015 10:10 AM [facility] Blood BLOOD SPECIMEN / Unknown 03/11/2015 9:44 AM ACCESSIONER 03/11/2015 10:03 AM [facility] Narrative Authorizing Provider Result Yohannes Jorge MD LAB - HEMATOLOGY ORD ERABLES [facility] [address] [place] [address] * TYPE + SCREEN PANEL (03/11/2015 9:43 AM ACCESSIONER) ABO O 03/11/2015 10:45 AM ACCESSIONER [facility] Rh Type Positive 03/11/2015 10:45 AM ACCESSIONER [facility] Antibody Screen Negative 03/11/2015 10:45 AM ACCESSIONER [facility] Miscellaneous samples (specimen) BLOOD SPECIMEN / Unknown 03/11/2015 9:43 AM ACCESSIONER 03/11/2015 10:03 AM ACCESSIONER Ruben Jorge MD LAB - BLOOD BANK ORD ERABLES Performing Organization Address City/[facility] Co de Phone Number [facility] [address] [place] [address] * XR LOWER EXTREM BILAT STANDING (01/01/2015 [...] tilt. 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 Clinical correlation is needed for confirmation. [...] tissue swelling. This suggests the presence of Elizabeth-Schlatter disease. No other osseous, articular, or soft tissue abnormality is seen. Procedure Note Mae Greer MD - 01/01/2015 Single lateral view of the right knee performed January 01, 2015. History: Right knee pain. A lateral view of the right knee was obtained and is compared to standing frontal films of both lower extremities performed on same date. There is subtle fragmentation of the tibial tubercle with overlying soft tissue swelling. This suggests the presence of Elizabeth-Schlatter disease. No other osseous, articular, or soft tissue abnormality is seen. 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 Clinical correlation is needed for confirmation. Lydia [facility] O RDERABLES * XR SCOLIOSIS ERECT (06/13/2013 11:30 AM CDT) Anatomical Region Laterality Modality Spine Radiographic Sihrin ging 06/13/2013 2:30 PM CDT Impressions 06/13/2013 3:44 PM CDT Left T7-L2 scoliosis of 9 degrees. D: Reny Watts M.D. ( Abhi), MPH. I, Anibal Sandoval, have personally reviewed the images and I agree with this report. Narrative 06/13/2013 3:44 PM CDT Examination: Scoliosis series, erect, 2 views. Date: 06/13/2013 at 11:18 AM. History: Backache. Comparison: No prior examinations are available for comparison. Findings: A left curvature from T7-L2 is 9 degrees.. There is straightening of normal cervical lordosis. The normal lumbar lordosis is preserved. No pelvic tilt is present. No congenital vertebral body anomalies are present. Minimal amount of stool is present in the colon and rectum. Procedure Note Anibal Sandoval MD - 06/13/2013 Examination: Scoliosis series, erect, 2 views. Date: 06/13/2013 at 11:18 AM. History: Backache. Comparison: No prior examinations are available for comparison. Findings: A left curvature from T7-L2 is 9 degrees.. There is straightening of normal cervical lordosis. The normal lumbar lordosis is preserved. No pelvic tilt is present. No congenital vertebral body anomalies are present. Minimal amount of stool is present in the colon and rectum. IMPRESSION Left T7-L2 scoliosis of 9 degrees. D: Reny Watts M.D. ( Abhi), MPH. I, Anibal Sandoval, have personally reviewed the images and I agree with this report. Lydia [facility] O RDERABLES * STREP A SCREEN DIRECT (03/13/2011 7:15 AM ACCESSIONER) Strep A Rapid Negative Neg Grp A Beta Strep [facility] Miscellaneous samples (specimen) ENTIRE THROAT (SURFACE REGION OF NECK) / Unknown 03/13/2011 7:15 AM ACCESSIONER 03/13/2011 7:20 AM ACCESSIONER Abhishek Juárez MD LAB - MICROBIOLOGY O RDERABLES Performing Organization Address City/State/[facility] Co de Phone Number [facility] [address] [place] [address] * CULTURE STREP GROUP A (03/13/2011 7:15 AM ACCESSIONER) Result [facility] Comment: Final Growth of BETA HEMOLYTIC [...] OF NECK) / Unknown 03/13/2011 7:15 AM ACCESSIONER 03/13/2011 7:34 AM ACCESSIONER Narrative Resulting Agency Comment Performed By [facility];[address];[place] [address] Abhishek Juárez MD LAB - MICROBIOLOGY O RDERABLES Performing Organization Address [facility] Co de Phone Number [facility] [address] [place] [address] * GROSS EXAM PATHOLOGY (04/23/2008 10:48 AM ACCESSIONER) Result CASE NUMBER [id number] [facility] PATH REPORT Comment: ORDERING PHYSICIAN [...] and interpreted by the attending (teaching) pathologist. Stained Glass Glazier ? MIGUEL MENDEZ RESIDENT IN PATHOLOG Erica Ulloa. PATHOLOGIST ?Ashlie Narayanan M.D. ELECTRONICALLY MIMI ASHLIE NARAYANAN MISCELLANEOUS SAMPLES / Unknown 04/23/2008 10:48 AM ACCESSIONER 04/23/2008 12:39 PM ACCESSIONER Historical Provider LAB - PATHOLOGY/C YTOLOGY ORDERABLES [facility] PATH REPORT Care Teams Food Assembler Kitchen Relationship Specialty Start Date End Date Ruthann Le, OIL LEASE BUYER-COMMUNICATIONS PROGRAMMER [facility] [place] [address] PCP - General Nurse Practitioner 08/14/14
--- OUTSIDE RECORDS SUMMARY | 2024-03-10 03:41 | XMS_ITS | Encounter Summary ---
Author Organization [facility] Address [address] [place] [address] Care Team Providers Care Project Facilitator Name Role Phone Ruthann Le TELEVISION OPERATOR-PEDIATRIC NURSE PRACTITIONER Primary Care Provider + Reason for Visit * Reason Comments Gait problem left foot turns in/h aving pain during activity Encounter Details Date Type Department Care Team (Latest Contact Info) Description 01/01/2015 10:25 AM CDT - 01/01/2015 11:27 AM T Hospital Encounter [facility] - Orthopedics [address] [place] [id number] Ruben Jorge MD [address] [facility] [address] [place] [address] [facility] [place] [id number] Discharge Disposition: Home or [...] - Inhaled Oxygen Concentration - - Weight 63.9 kg (140 lb 14 oz) 11:05 AM CDT Height 152.4 cm (5') 01/01/2015 11:05 AM CDT Body Mass Index 27.51 01/01/2015 11:05 AM CDT Body Mass Index Percentile 97.36% 01/01 11:05 AM CDT Growth Chart: [facility] (Boys, 2-2 0 Years) documented in this encounter Discharge Instructions * Patient Instructions* Lydia Gee PA - 01/01/2015 11:59 AM CDT ORTHOPAEDIC CLINIC DISCHARGE INSTRUCTIONS SHEET DIAGNOSIS: 1. High Ridge-Schlatter's disease, right 2. Femoral anteversion Follow Up: Please make a return appointment for 1 year(s) with . If you cannot keep an appointment, please call and notify . If you have a question for the orthopaedic nurse, call [phone], ext. [phone]. X-Rays next visit: No Medications prescribed: OTC analgesics Physicians orders: ?? Further diagnostic studies discussed and ordered: none ?? Therapy services - None ?? OTC patellar tendon strap School Excuse: Excused from School on 01/01/2015 Activity Restrictions: none . To make an appointment, please call . To schedule the surgery discussed with the doctor during your child's office visit, call Pam at , ext. [phone]. If you have a question for the orthopaedic nurse, Yasmani Natarajan, call , ext. [phone]. If you have a question for Dr. Jorge, you may leave a voicemail for him at or through [employer]. You can Like him on [employer] at [email or web address]. After visit summary completed by ROSALES Humphreys. Here is some information regarding your child's diagnosis: *INTOEING Intoeing means that the feet turn inward instead of pointing straight ahead during walking or running. This is commonly found among children at various ages and for different reasons. Intoeing almostalways corrects without treatment as the child grows older. Causes The cause of intoeing depends on where the change in alignment is centered. There are three common conditions causing intoeing: curved foot (metatarsus adductus), twisted mendez (tibia torsion), and twisted thigh bone (increased femoral anteversion). Each of these conditions may run in families. Theyalso can simply occur on their own or in association with other orthopaedic problems. Prevention isnot usually possible because they occur from developmental or genetic problems that can't be controlled for. Metatarsus Adductus This is present when the child's feet bend inward from the middle part of the foot to the toes. Some cases may be mild and flexible, but others may be more obvious and rigid. In severe cases, metatarsus adductus may resemble a clubfoot deformity. Tibial Torsion This can occur if the child's lower leg (tibia) twists out of normal alignment. This can occur before , as the legs rotate to fit in the confined space of the womb. After , the legs should gradually rotate to align properly. Tibial torsion is present if the lower leg remains turned in. When the child begins walking, the feet turn inward because the tibia in the lower leg, just above thefoot, points the foot inward. As the tibia grows taller, it usually untwists. Femoral Torsion Femoral torsion occurs when the child's thigh (femur) turns inward. It is often most obvious at about 5 or 6 years of age. The upper end of the thighbone, near the hip, has an increased twist, which allows the hip to turn inward more than it turns outward. This causes both the knees and the feet topoint inward during walking. Children with this condition often sit in the W position, with their knees bent and their feet flared out behind them. Symptoms Occasionally, severe intoeing may cause young children to stumble or trip as they catch their toes on other heel. Intoeing usually does not cause pain, nor does facilities operations technician to arthritis. Treatment Intoeing will correct itself in a vast majority of children younger than 8 years of age without theuse of casts, braces, surgery, or any special treatment. A child whose intoeing is associated with pain, swelling or a limp should be evaluated by an orthopaedist. Metatarsus Adductus Metatarsus adductus improves by itself most of the time, usually over the first 4 to 6 months of life. Casts or special shoes used to treat a foot with a severe deformity or a foot that is very rigidhas a high rate of success in babies aged 6 to 9 months. Surgical correction is seldom required. Tibial Torsion Tibial torsion almost always improves without treatment, and usually middle school english teacher age. Splints, special shoes, and exercise programs do not help. Surgery to re-set the bone may be done in a child who is at least 8 to10 years old and has a severe twist that causes significant walking problems. Increased Femoral Anteversion This is expected to spontaneously correct in almost all children as they grow older. Studies have found that special shoes, braces, and exercises do not help. Surgery is usually not considered unlessthe child is older than 9 or 10 years and has a severe deformity that causes tripping and an unsightly gait. *This information is provided by [employer] (www.aaos.org). documented in this encounter Medications at Time of Discharge Medication Sig Dispensed Refills Start Date End Date albuterol HFA (PROVENTIL;VENTOLIN;RI OAIR) 108 (90 BASE) MCG/ACT inhaler Inhale [...] fluticasone propionate (FLONASE) 50 MCG/ACT nasal spray [place] 2 Sprays into each nostril once daily 1 Bottle 0 08/14/2014 03/10/2015 documented as of this encounter Progress Notes * Lydia Gee PA - 01/01/2015 11:23 AM CDT PEDIATRIC ORTHOPAEDIC SURGERY Office Visit NAME: Liam Bal DATE OF SERVICE: 01/01/2015 DATE: 2005 PCP: Ruthann Le NP Chief Complaint Patient presents with ??? Gait problem left foot turns in/having pain during activity SUBJECTIVE: Liam presents for a Follow-Up Evaluation. He was seen 1.5 years ago for low back pain, which has resolved. Liam Bal is a 9 y.o. male who presents with complaint of tripping over his right foot and right knee pain. These have been present for years. He denies any history of an injury to his knee. He complains of knee pain 2-3 times per week. Pain is worse with activities and improves with rest. He denies pain at night but does state his pain sometimes limits his activities. Pain: ongoing pain in right knee which is stable and controlled by PRN meds Neurological complaints: no Vascular complaints: none Associated symptoms: none Previous workup: none REVIEW OF SYSTEMS: History obtained from mother. A 12 point ROS was obtained and was negative except for that listed above. PHYSICAL EXAMINATION:Wt 140 lb 14 oz (63035 g) BMI 27.51 kg/m2 General appearance: He has good head control. Orientation: alert, cooperative, no distress. Mood&affect: both mood and affect are normal Extremities: Lower extremity exam Right lower extremity Skin - No rashes or abnormal dyspigmentation Inspection - Swelling: none, Warmth: no warmth, Deformity: knee - normal, ankle - normal Tenderness - Present at the tibial tubercle Joint effusion - knee: no effusion, ankle: no effusion Range of motion - Hip: 80 ?? IR, 20 ?? ER, full flexion/extension; knee: normal; ankle: normal Stability - Knee: stable to testing; ankle:stable to testing Vascular - pulses present Neuro - Motor: normal, Sensory/Reflex: normal Left lower extremity Skin - No rashes or abnormal dyspigmentation Inspection - Swelling: none, Warmth: no warmth, Deformity: knee - normal, ankle - normal Tenderness - absent Joint effusion - knee: no effusion, ankle: no effusion Range of motion - Hip: 60 ?? IR, 45 ?? ER, full flexion/extension; knee: normal; ankle: normal Stability - Knee: stable to testing; ankle:stable to testing Vascular - pulses present Neuro - Motor: normal, Sensory/Reflex: normal Limb lengths: negative Gait: Circumducted and right foot internal progression angle RADIOLOGY: taken and reviewed Standing alignment X-rays - no obvious osseous abnormalities; Lateral x-rays of the right knee showfindings consistent with elizabeth-schlatter disease. ASSESSMENT: 9 y.o. 11 m.o. male with : 1. Elizabeth-Schlatter's disease, right 2. Femoral anteversion PLAN: 1. Questions solicited and answered. Patient/family voiced understanding to info/instructions given. 2. I discussed the following treatment options: Surgical options discussed femoral derotational osteotomy with IM nailing - will try to wait until he is a little older. 3. OTC patellar tendon strap with activities. 4. Medications Prescribed: Over the counter medications: Ibuprofen and Acetaminophen as needed for knee pain 5. Activity Restrictions: none 6. Weightbearing status: No Restrictions 7. Follow up:in 1 year(s) without x-rays. documented in this encounter Plan of Treatment Not on file documented as of this encounter Procedures Procedure Name Priority Date/Time Associated Diagnosis Comments XR LOWER EXTREMITY STANDING Routine 01/01/2015 11:39 AM CDT High Ridge-Schlatter's disease, right XR KNEE RIGHT 2VW OR LESS Routine 01/01/2015 11:39 AM CDT High Ridge-Schlatter's disease, right documented in this encounter Results * XR KNEE 1 OR 2 VW RIGHT (01/01/2015 11:39 AM CDT) Anatomical Region Laterality Modality Lower Extremity Radiographic Shirin ging 01/01/2015 11:5 8 AM CDT Impressions 01/01/2015 11:59 AM CDT Probable Elizabeth-Schlatter disease. Clinical correlation is needed [...] tissue swelling. This suggests the presence of High Ridge-Schlatter disease. No other osseous, articular, or soft [...] documented in this encounter Visit Diagnoses Diagnosis High Ridge-Schlatter's disease, right- Primary Femoral anteversion (HCC) Other congenital deformity of hip (joint) Pelvis tilted- Primary Acquired deformity of pelvis Right knee pain Pain in joint, lower leg documented in this encounter Care Teams Project Facilitator Relationship Specialty Start Date End Date Ruthann Le, TELEVISION OPERATOR-PEDIATRIC NURSE PRACTITIONER [address] [id number] PCP - General Nurse Practitioner 08/14/14 documented as of this encounter
--- OUTSIDE RECORDS SUMMARY | 2024-03-10 03:41 | XMS_ITS | Encounter Summary ---
Author Organization [facility] Address [address] [place] [address] Care Team Providers Care Airfreight Loading Supervisor Name Role Phone Ruthann Le VOICE INSTRUCTOR-MACHINE OPERATOR FARMWORKER Primary Care Provider + Reason for Visit * Auth/Cert - Closed Specialty Diagnoses / Procedures Referred By Zohra t Referred To Contact Diagnoses Femoral anteversion (HCC) Femoral anteversion Procedures OSTEOTOMY FEMUR SHAFT WITH FIXATION Referral ID Status Reason Start Date Expiration Date Visits Re quested Visits Authorized [id number] Closed 1 1 Encounter Details Date Type Department Care Team (Latest Contact Info) Description 03/11/2015 8:56 AM TRENCH DIGGING MACHINE OPERATOR - 03/13/2015 9:43 AM [facility] Hospital Encounter CG 4 N HEM/ONC [address] [place] [address] Ruben Jorge MD [address] [place] [address] [address] [place] [id number] Surgery General Discharge Disposition: Home or Self [...] Comments Blood Pressure 121/49 03/13/2015 8:55 AM TRENCH DIGGING MACHINE OPERATOR Pulse 86 03/13/2015 8:55 AM TRENCH DIGGING MACHINE OPERATOR Temperature 36.1 ??C (97 ??F) 03/13/2015 8:55 AM TRENCH DIGGING MACHINE OPERATOR Respiratory Rate 20 03/13/2015 8:55 AM TRENCH DIGGING MACHINE OPERATOR Oxygen Saturation 99% 03/12/2015 8:45 AM TRENCH DIGGING MACHINE OPERATOR Inhaled Oxygen Concentration - - Weight 64.7 kg (142 lb 10.2 oz) 03/11/2015 9:00 AM TRENCH DIGGING MACHINE OPERATOR Height 152.6 cm (5' 0.08 ) 03/11/2015 9:00 AM CS T Body Mass Index 27.78 03/11/2015 9:00 AM TRENCH DIGGING MACHINE OPERATOR Body Mass Index Percentile 97.39% 03/11/2015 9:0 0 AM TRENCH DIGGING MACHINE OPERATOR Growth Chart: [facility]– [...] (attention deficit hyperactivity disorder) ??? Asthma ??? Ferguson-Schlatter's disease of right knee 01/01/2015 ??? Femoral [...] medication only. His 2nd post-operative night was eventful. On the morning of POD #2 Liam was [...] Take 1 Cap by mouth once daily Hans Cameron hydrocodone-acetaminophen 5-325 MG tablet Commonly known as: NORCO 1-2 Tabs q 4-6 Hours As Needed for pain Hans, Cameron sennosides 8.6 MG tablet Commonly known as: SENOKOT Take 1 Tab by mouth once daily Cameron Maxwell CONTINUE taking these medications Instructions Authorizing Provider [...] Comments Your discharge diagnosis is Femoral anteversion [[id number]] Follow up with Primary Care Provider (PCP) [...] Call for appointment if not already scheduled. CH DIGGING MACHINE OPERATOR documented in this encounter Discharge Instructions * Discharge Instructions* Claudia Holland RN - 03/13/2015 8:32 AM TRENCH DIGGING MACHINE OPERATOR If your child has any worsening of his or her condition, please call your primary care doctor (or their exchange if after hours) or return to the ED if your primary care doctor cannot be reached. CH DIGGING MACHINE OPERATOR documented in this encounter Medications at Time of Discharge Medication Sig Dispensed Refills Start Date End Date albuterol HFA (PROVENTIL;VENTOLIN;WA OAIR) 108 (90 BASE) MCG/ACT inhaler Inhale [...] to car ,[place] in , no problems. CH DIGGING MACHINE OPERATOR * Cameron Maxwell DO - 03/13/2015 7:40 AM CST [facility] Orthopedic Surgery Progress Note Name: [...] up in office in 2 weeks 5. CH DIGGING MACHINE OPERATOR * Yasmani Natarajan, RN - 03/12/2015 4:14 PM CST Rental wheelchair and wheeled walker ordered from [facility] Patient [phone], for delivery to hospital on 03/13/15. Failed to rent DME from [employer], and [employer], as they are not contracted with [employer]. CH DIGGING MACHINE OPERATOR * Berenice Perez, PT - 03/12/2015 2:27 PM CST Checked back with nurse and mom this afternoon. Liam tolerated up to chair and did well with walker. After nerve block wore off, he started having some pain issues. Ok from physical therapy standpoint as far as training with transfers and walker. No further physical therapy needed. Berenice Perez P.T. [phone] CH DIGGING MACHINE OPERATOR * Radha Medina APRN-MACHINE OPERATOR FARMWORKER - 03/12/2015 11:42 AM CST Liam Bal [...] Ropivacaine 0.2 % Dosing: Continuous: 7 ml/hr LIQUOR BRIDGE OPERATOR HELPER: Bolus: 1 ml Lockout: 30 min Hourly Limit: 9 ml LIQUOR BRIDGE OPERATOR HELPER Usage: 4 attempt; 4 deliveries; in past 4 hours [id number] Total used from bag since infusion initiation [...] this time. Thank you for the consult CH DIGGING MACHINE OPERATOR * Do Salinas MD - 03/12/2015 8:25 AM CST [facility] Orthopedic Surgery Progress Note Name: [...] planning for discharge with patient progression today. CH DIGGING MACHINE OPERATOR * Radha Medina APRN-CNP - 03/11/2015 4:16 PM CST 1400-Pain service [...] aware of pain services. Full consultto follow. CH DIGGING MACHINE OPERATOR * Lety Madrid Scarlett - 03/11/2015 4:04 PM CST Dear Physician, In accordance with the Automatic Therapeutic Substitution Policy approved by the [facility] and [employer] and Medical Executive Committees, Your Order for: Albuterol MDI 90 mcg/spray 2 puffs every 4 hours PRN has been changed to albuterol 2.5 mg nebs every 4 hours PRN. If you have any questions please call the pharmacy. Thank you Lety Madrid RPH CH DIGGING MACHINE OPERATOR * Lee Castellano MD - 03/11/2015 2:23 [...] floor Lee Castellano MD 03/11/2015 1:10 PM CH DIGGING MACHINE OPERATOR documented in this encounter H&P Notes * Lee Castellano MD - 03/11/2015 9:28 AM CST Orthopaedic Surgery H&P Liam Bal 2005 [id number] Ruthann Le NP Date of service: 03/11/2015 [...] (attention deficit hyperactivity disorder) ??? Asthma ??? Ferguson-Schlatter's disease of right knee 01/01/2015 ??? Femoral [...] 3. Site marked 4. NPO for OR CH DIGGING MACHINE OPERATOR documented in this encounter Consult Notes * [...] Berenice Perez, PT 03/12/2015 12:43 PM [id number] CH DIGGING MACHINE OPERATOR * Radha Medina, VOICE INSTRUCTOR-MACHINE OPERATOR FARMWORKER - 03/12/2015 7:35 AM CSTAssociated Order(s): IP CONSULT TO PAIN MANAGEMENT Initial Consult Note Date of Consult: 03/12/2015 Reason for Consultation: Pain management with continuous peripheral nerve block Liam Bal 2005 [id number] Liam Bal is a 10 y.o. male [...] (attention deficit hyperactivity disorder) ??? Asthma ??? Ferguson-Schlatter's disease of right knee 01/01/2015 ??? Femoral [...] peripheral nerve block Perineural Continuous Radha Medina APRN-MACHINE OPERATOR FARMWORKER 7 mL/hr at 03/11/15 1345 ??? acetaminophen (TYLENOL) tablet 650 mg 10 mg/kg Oral q6h Radha Medina APRN-MACHINE OPERATOR FARMWORKER 650 mg at 03/12/15 0239 ??? oxyCODONE (immediate release) (ROXICODONE) tablet 5 mg 5 mg Oral q4h PRN Radha Medina VOICE INSTRUCTOR-MACHINE OPERATOR FARMWORKER 5 mg at 03/11/15 2307 ??? morphine injection 2 mg 2 mg [...] CO2, BUN, CREATININE, GLUCOSE in the last 02673 hours. Invalid input(s): CLORIDE Recent Labs Component [...] hrs 137.3 ml ( cont 129.3 + LIQUOR BRIDGE OPERATOR HELPER 8 ml) Attempts in 19 hrs: 8 [...] Pain service will follow. 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 After perfect [facility] X-rays were obtained on lateral fluoroscopy, the [...] Implant Name Type Inv. Item Serial No. [employer] Therapist Lot No. LRB No. Used NAIL R 10MM X 38CM NAIL R 10MM X 38CM [employer] Right 1 SCRW [place]TON 4.5MM X 48MM SCRW [place]TON 4.5MM X 48MM [employer] Right 1 SCRW [place] 4.5MM X 28MM SCRW [place]TON 4.5MM X 28MM [employer] Right 1 CH DIGGING MACHINE OPERATOR documented in this encounter Plan of Treatment Not on file documented as of this encounter Procedures Procedure Name Priority Date/Time Associated Diagnosis Comments XR FEMUR RIGHT 2VW Routine 03/11/2015 12 :53 PM TRENCH DIGGING MACHINE OPERATOR Femoral anteversion (HCC) OSTEOTOMY FEMORAL WITH FIXATION 03/11/2015 9:46 AM TRENCH DIGGING MACHINE OPERATOR Femoral anteversion (HCC) Special Needs C-ARM, ALY TABLE URINE MICROSCOPIC ONLY REFLEX TO CULTURE Pre-Op 03/11/2015 9:45 AM TRENCH DIGGING MACHINE OPERATOR Femoral anteversion (HCC) URINALYSIS REFLEX MICROSCOPIC REFLEX CULTURE Pre-Op 03/11/2015 9:45 AM TRENCH DIGGING MACHINE OPERATOR Femoral anteversion (HCC) PT PTT PANEL Pre-Op 03/11/2015 9:44 AM TRENCH DIGGING MACHINE OPERATOR Femoral anteversion (HCC) CBC W AUTO DIFFERENTIAL Pre-Op 03/11/2015 9:44 AM TRENCH DIGGING MACHINE OPERATOR Femoral anteversion (HCC) TYPE + SCREEN PANEL Pre-Op 03/11/2015 9 :43 AM TRENCH DIGGING MACHINE OPERATOR Femoral anteversion (HCC) documented in this encounter Results * XR FEMUR 2 VW RIGHT (03/11/2015 12:53 PM TRENCH DIGGING MACHINE OPERATOR) Anatomical Region Laterality Modality Lower Extremity Radio Fluoroscop y 03/11/2015 1:14 PM TRENCH DIGGING MACHINE OPERATOR Impressions 03/11/2015 1:27 PM TRENCH DIGGING MACHINE OPERATOR Fluoroscopic guidance for femoral diaphyseal osteotomy and internal fixation. The study was dictated by Deonte Kahn MD (radiology supervisor). I, Maryanne Morales, have personally reviewed the images and I agree with this report. Narrative 03/11/2015 1:27 PM TRENCH DIGGING MACHINE OPERATOR EXAMINATION: Fluoroscopic guidance right femur 2 views [...] fixation. The study was dictated by Deonte Khan MD (radiology supervisor). I, Maryanne Morales, have personally reviewed the images and I agree with this report. Ruben Jorge MD DIAGNOSTIC IMAGING O RDERABLES * (ABNORMAL) URINALYSIS MICROSCOPIC ONLY W/REFLEX CULTURE (03/11/2015 9:45 AM TRENCH DIGGING MACHINE OPERATOR) RBC UA 0-2 0-2, 2-5 # /hpf 03/11/2015 10:34 AM [facility] WBC UA 0-2 0-2, 2-5 # /hpf 03/11/2015 10:34 AM [facility] Bacteria UA 1+(A) None Seen, Trace 03/11/2015 10:34 AM [facility] Epithelial Cell UA 0-2 0-2, 2-5 # /hpf 03/11/2015 10:34 AM [facility] Mucus UA 3+ 03/11/2015 10:34 AM [facility] Urine URINE SPECIMEN OBTAINED BY CLEAN CATCH PROCEDURE / Unknown 03/11/2015 9:45 AM TRENCH DIGGING MACHINE OPERATOR 03/11/2015 10:03 AM [facility] Ruben Jorge MD LAB - URINALYSIS ORD ERABLES [facility] [address] [place] [address] * (ABNORMAL) URINALYSIS ROUTINE W/REFLEX TO CULTURE (03/11/2015 9:45 AM [facility]) Color UA Yellow Straw, Yellow, Dark Yellow 03/11/2015 10:23 AM [facility] Clarity UA Clear 03/11/2015 10:23 AM [facility] Specific [place] UA >=1.030 1.005 - 1.030 03/11/2015 10:23 AM [facility] pH UA 6.0 5.0 - 8.0 pH 03/11/2015 10:23 AM [facility] Protein UA Negative Negative 03/11/2015 10:23 AM [facility] Blood UA Trace(A) Negative 03/11/2015 10:23 AM [facility] Leukocyte UA Negative Negative 03/11/2015 10:23 AM [facility] Nitrite UA Negative Negative 03/11/2015 10:23 AM [facility] Glucose UA Negative Negative 03/11/2015 10:23 AM [facility] Ketone UA Negative Negative 03/11/2015 10:23 AM [facility] Bilirubin UA Negative Negative 03/11/2015 10:23 AM [facility] Urobilinogen UA 0.2 0.1 - 1.0 EU/dL 03/11/2015 10:23 AM [facility] Urine Microscopy Urine microscopy to follow 03/11/2015 10:23 AM [facility] Reflex Status Culture not indicated 03/11/2015 10:23 AM [facility] Urine URINE SPECIMEN OBTAINED BY CLEAN CATCH PROCEDURE / Unknown 03/11/2015 9:45 AM [facility] 03/11/2015 10:03 AM [facility] Ruben Jorge MD LAB - URINALYSIS ORD ERABLES [facility] [address] [place] [address] * PT PTT PANEL (03/11/2015 9:44 AM [facility]) PT 11.2 9.5 - 11.6 sec 03/11/2015 10:34 AM [facility] INR 1.1 0.9 - 1.1 03/11/2015 10:34 AM [facility] PTT 27.9 21.0 - 32.0 sec 03/11/2015 10:34 AM [facility] Blood BLOOD SPECIMEN / Unknown 03/11/2015 9:44 AM [facility] 03/11/2015 10:03 AM [facility] - 03/11/2015 10:34 AM [facility] Conventional Warfarin Anticoagulant Therapy: INR Reference Range: ??2.0-3.0 Intensive Warfarin Anticoagulant Therapy: INR Reference Range: ? 2.5-3.5 Heparin Therapeutic Range for PTT: 44.4 - 78.3 seconds. Ruben Jorge MD LAB - COAGULATION OR DERABLES Performing Organization Address City/State/[facility] de Phone Number [facility] [address] [place] [id number] * CBC W AUTO DIFFERENTIAL (03/11/2015 9:44 AM [facility]) Pathologist [facility] WBC 4.7 4.5 - 14.5 x10^9/L 03/11/2015 10:10 AM [facility] WBC Corrected x10^9/L 03/11/2015 10:10 AM [facility] RBC 4.53 4.00 - 5.20 x10^12/L 03/11/2015 10:10 AM [facility] Hemoglobin 12.5 11.5 - 15.5 gm/dL 03/11/2015 10:10 AM [facility] Hematocrit 35.9 35.0 - 45.0 % 03/11/2015 10:10 AM [facility] MCV 79.2 77.0 - 95.0 fl 03/11/2015 10:10 AM [facility] MCH 27.6 25.0 - 33.0 pg 03/11/2015 10:10 AM [facility] MCHC 34.8 31.0 - 37.0 gm/dL 03/11/2015 10:10 AM [facility] Platelet Count 269 100 - 400 x10^9/L 03/11/2015 10:10 AM [facility] RDW-CV 13.9 11.5 - 14.0 % 03/11/2015 10:10 AM [facility] MPV 8.9 6.0 - 9.5 fl 03/11/2015 10:10 AM [facility] Neutrophils % 43.2 24.0 - 66.0 % 03/11/2015 10:10 AM [facility] Lymphocytes % 43.6 22.0 - 61.0 % 03/11/2015 10:10 AM [facility] Monocytes % 12.4 3.0 - 15.0 % 03/11/2015 10:10 AM [facility] Eosinophils % 0.4 0.0 - 10.0 % 03/11/2015 10:10 AM [facility] Basophils % 0.4 % 03/11/2015 10:10 AM [facility] Immature Granulocytes 0.0 % 03/11/2015 10:10 AM [facility] Neutrophil Absolute 2.01 x10^9/L 03/11/2015 10:10 AM [facility] Lymphocytes Absolute 2.03 x10^9/L 03/11/2015 10:10 AM [facility] Monocytes Absolute 0.58 x10^9/L 03/11/2015 10:10 AM [facility] Eosinophils Absolute 0.02 x10^9/L 03/11/2015 10:10 AM [facility] Basophils Absolute 0.02 x10^9/L 03/11/2015 10:10 AM [facility] Immature Granulocytes Absolute 0.00 x10^9/L 03/11/2015 10:10 AM [facility] Blood BLOOD SPECIMEN / Unknown 03/11/2015 9:44 AM [facility] 03/11/2015 10:03 AM [facility] Ruben Jorge MD LAB - HEMATOLOGY ORD ERABLES [facility] [address] [place] [address] * TYPE + SCREEN PANEL (03/11/2015 9:43 AM [facility]) ABO O 03/11/2015 10:45 AM [facility] Rh Type Positive 03/11/2015 10:45 AM [facility] Antibody Screen Negative 03/11/2015 10:45 AM TRENCH DIGGING MACHINE OPERATOR [facility] Miscellaneous samples (specimen) BLOOD SPECIMEN / Unknown 03/11/2015 9:43 AM TRENCH DIGGING MACHINE OPERATOR 03/11/2015 10:03 AM TRENCH DIGGING MACHINE OPERATOR Narrative Authorizing Provider Result Yohannes Jorge MD LAB - BLOOD BANK ORD ERABLES Performing Organization Address City/State/[facility] Co de Phone Number [facility] [address] [place] [address] documented in this encounter Visit Diagnoses Diagnosis 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 64.7 kg), Oral, EVERY 6 HOURS, 8 doses, First dose on Sun03/11/15 at 1400, Last dose on Sun03/13/15 at 0800, For mild pain $ Given 03/13/2015 8:52 AM TRENCH DIGGING MACHINE OPERATOR 650 mg $ Given 03/13/2015 2:07 AM TRENCH DIGGING MACHINE OPERATOR 650 mg $ Given 03/12/2015 8:16 PM TRENCH DIGGING MACHINE OPERATOR 650 mg ceFAZolin pediatric IV 1,000 mg 1,000 mg, Intravenous, EVERY 8 HOURS, 2 doses, First dose on Britany 03/11/15 at 1900, Last dose on Sun03/12/15 at 0400, Up to 1 gm maximum dose., Post-op $ Given 03/12/2015 4:39 AM TRENCH DIGGING MACHINE OPERATOR 1,000 mg $ Given 03/11/2015 8:14 PM TRENCH DIGGING MACHINE OPERATOR 1,000 mg dexmethylphenidate ER 24hr (FOCALIN XR) capsule 15 mg 15 mg, Oral, EVERY MORNING, First dose on Sun03/12/15 at 0830, Until Discontinued, Do not crush/chew, contents of capsule maybe gently sprinkled on one tablespoonful of cold applesauce and swallowed, Post-op $ Given 03/13/2015 8:54 AM TRENCH DIGGING MACHINE OPERATOR 15 mg $ Given 03/12/2015 8:42 AM TRENCH DIGGING MACHINE OPERATOR 15 mg diazepam (VALIUM) oral solution 5 mg 5 mg, Oral, 3 TIMES DAILY PRN, Anxiety, Starting on Britany 03/11/15 at 1550, Until 03/13/15 at 1143, Post-op $ Given 03/12/2015 9:27 PM TRENCH DIGGING MACHINE OPERATOR 5 mg docusate sodium (COLACE) capsule 100 mg 100 mg, Oral, DAILY, First dose on Sun03/12/15 at 1130, Until Discontinued $ Given 03/13/2015 8:53 AM TRENCH DIGGING MACHINE OPERATOR 100 mg $ Given 03/12/2015 12:26 PM TRENCH DIGGING MACHINE OPERATOR 100 mg docusate sodium (COLACE) solution 50 mg 50 mg, Oral, 2 TIMES DAILY, First dose on Britany 03/11/15 at 2030, Until Discontinued, Post-op $ Given 03/11/2015 8:14 PM TRENCH DIGGING MACHINE OPERATOR 50 mg isolyte-S pH 7.4 infusion 105 mL/hr, Intravenous, POST-OP CONTINUOUS, Starting on Britany 03/11/15 at 1345, Until Britany 03/11/15 at 1454, Continue Fluids at current rates, until current bag is finished. Then Switch to fluids as ordered for floor., PACU Current Rate 03/11/2015 1:40 PM TRENCH DIGGING MACHINE OPERATOR 105 mL/hr 105 mL/hr morphine injection 2 mg 2 mg, Intravenous, POST-OP MULTIPLE, Starting on Britany 03/11/15 at 1343, Until Britnay 03/11/15 at 1454, May repeat every 5 minutes for pain scales > 3 to a Max dose of 0.2 mg/Kg. High Risk, High Alert Medication: Must doucment double check on IV MAR Flowsheet., PACU $ Given 03/11/2015 2:07 PM TRENCH DIGGING MACHINE OPERATOR 2 mg morphine injection 2 mg 2 mg, Intravenous, EVERY 4 HOURS PRN, Severe Pain, Starting on Britany 03/11/15 at 1550, Until 03/13/15 at 1143, For severe pain not controlled with scheduled oral analgesics., Post-op $ Given 03/12/2015 7:01 PM TRENCH DIGGING MACHINE OPERATOR 2 mg oxyCODONE (immediate release) (ROXICODONE) tablet 5 mg 5 mg, Oral, EVERY 4 HOURS PRN, Moderate Pain, Starting on Britany 03/11/15 at 1255, Until Sun03/12/15 at 1023, For moderate pain. $ Given 03/12/2015 8:43 AM TRENCH DIGGING MACHINE OPERATOR 5 mg $ Given 03/11/2015 11:07 PM TRENCH DIGGING MACHINE OPERATOR 5 mg $ Given 03/11/2015 6:05 PM TRENCH DIGGING MACHINE OPERATOR 5 mg oxyCODONE (immediate release) (ROXICODONE) tablet 5 mg 5 mg, Oral, EVERY 4 HOURS, First dose (after last modification) on Sun03/12/15 at 1230, Until Discontinued, For moderate pain. $ Given 03/13/2015 8:53 AM TRENCH DIGGING MACHINE OPERATOR 5 mg $ Given 03/13/2015 4:02 AM TRENCH DIGGING MACHINE OPERATOR 5 mg $ Given 03/12/2015 11:59 PM TRENCH DIGGING MACHINE OPERATOR 5 mg ropivacaine (NAROPIN) 2 MG/ML peripheral nerve block Perineural, CONTINUOUS, Starting on Britany 03/11/15 at 1345, Until Sun03/12/15 at 1557, Continuous infusion setting rate: 7 ml/hr PCRA Bolus dose: 1 ml Bolus lockout: 30 minutes (suggested; every 60 minutes) On hour limit 9 ml/hr $ New Bag/Syringe 03/11/2015 1:45 PM TRENCH DIGGING MACHINE OPERATOR 7 mL/hr senna (SENOKOT) tablet 8.6 mg 8.6 mg, Oral, DAILY, First dose on Sun03/12/15 at 1100, Until Discontinued $ Given 03/13/2015 8:53 AM TRENCH DIGGING MACHINE OPERATOR 8.6 mg $ Given 03/12/2015 12:26 PM TRENCH DIGGING MACHINE OPERATOR 8.6 mg sennosides (SENOKOT) solution 8.8 mg 8.8 mg (5 mL), Oral, AT BEDTIME, First dose on Britany 03/11/15 at 2030, Until Discontinued, May be mixed with milk to mask taste., Post-op $ Given 03/11/2015 8:14 PM TRENCH DIGGING MACHINE OPERATOR 8.8 mg documented in this encounter Active and Recently Administered Medications Times are shown in TRENCH DIGGING MACHINE OPERATOR. Scheduled Medication Order 03/11/2015 03/12/2015 03/13/2015 acetaminophen (TYLENOL) tablet 650 mg (COMPLETED) 650 mg (rounded from 647 mg = 10 mg/kg ? 64.7 kg), Oral, EVERY 6 HOURS, 8 doses, First dose on Britany 03/11/15 at 1400, Last dose on Sun03/13/15 at 0800, For mild pain 1428 ($ Given - Provider: Jenn Suggs RN)2013 ($ Given - Provider: Serena Foote RN) 0239 ($ Given - Provider: Serena A Qamar, RN)0843 ($ Given - Provider: Rochelle Lyle RN)1407 ($ Given - Provider: Rochelle Lyle RN)2015 ($ Given - Provider: Edwin Barnard, RN) 0207 ($ Given - Provider: Edwin Barnard RN)0852 ($ Given - Provider: Stefani Carias, ISAAC) ceFAZolin pediatric IV 1,000 mg (COMPLETED) 1,000 mg, Intravenous, EVERY 8 HOURS, 2 doses, First dose on Sun03/11/15 at 1900, Last dose on Sun03/12/15 at 0400, Up to 1 gm maximum dose., Post-op 2013 ($ Given - Provider: Serena Foote, ISAAC) 043 ($ Given - Provider: Serena Foote RN) dexmethylphenidate ER 24hr (FOCALIN XR) capsule 15 mg (CANCELED) 15 mg, Oral, EVERY MORNING, First dose on Sun03/12/15 at 0830, Until Discontinued, Do not crush/chew, contents of capsule maybe gently sprinkled on one tablespoonful of cold applesauce and swallowed, Post-op 0842 ($ Given - Provider: Rochelle Lyle RN) 0854 ($ Given - Provider: Stefani Carias, ISAAC) docusate sodium (COLACE) capsule 100 mg 100 mg, Oral, DAILY, First dose on Sun03/12/15 at 1130, Until Discontinued 1226 ($ Given - Provider: Rochelle Lyle RN) 0853 ($ Given - Provider: Stefani Carias, ISAAC) docusate sodium (COLACE) solution 50 mg (CANCELED) 50 mg, Oral, 2 TIMES DAILY, First dose on Sun03/11/15 at 2030, Until Discontinued, Post-op 2013 ($ Given - Provider: Serena Foote RN) 0830 (Not Administered - Provider: Rochelle Lyle RN - Reason: Discontinued by physician) morphine injection 2 mg (CANCELED) 2 mg, Intravenous, POST-OP MULTIPLE, Starting on Britany 03/11/15 at 1343, Until Britany 03/11/15 at 1454, May repeat every 5 minutes [...] moderate pain. 1226 ($ Given - Provider: Rochelle Lyle RN)1604 ($ Given - Provider: Rochelle Lyle RN)2015 ($ Given - Provider: Edwin Barnard RN)2359 ($ Given - Provider: Edwin Barnard RN) 0402 ($ Given - Provider: Edwin Barnard RN)0853 ($ Given - Provider: Stefani Carias, ISAAC) senna (SENOKOT) tablet 8.6 mg 8.6 mg, Oral, DAILY, First dose on Sun03/12/15 at 1100, Until Discontinued 1226 ($ Given - Provider: Rochelle Lyle RN) 0853 ($ Given - Provider: Stefani Carias, ISAAC) sennosides (SENOKOT) solution 8.8 mg (CANCELED) 8.8 [...] PACU 1340 (Current Rate - Provider: Jenn Suggs RN) 0245 (Stopped - Provider: Serena Foote, ISAAC) ropivacaine (NAROPIN) 2 MG/ML peripheral nerve block (CANCELED) Perineural, CONTINUOUS, Starting on Britany 03/11/15 at 1345, Until Sun03/12/15 at 1557, Continuous infusion setting rate: 7 [...] Post-op 2126 ($ Given - Provider: Edwin Barnard, RN) morphine injection 2 mg (CANCELED) 2 [...] 1805 ($ Given - Provider: Alyssa Robbins, ISACA)2307 ($ Given - Provider: Serena Foote, ISAAC) 0843 ($ Given - Provider: Rochelle Lyle, RN) documented in this encounter Care Teams Airfreight Loading Supervisor Relationship Specialty Start Date End Date Ruthann Le, VOICE INSTRUCTOR-MACHINE OPERATOR FARMWORKER [address] [place] [address] PCP - General Nurse Practitioner 08/14/14 documented as of this encounter
--- OUTSIDE RECORDS SUMMARY | 2024-03-10 03:41 | XMS_ITS | Encounter Summary ---
Author Organization [facility] Address [address] [place] [address] Care Team Providers Care Candy Butcher Name Role Phone Unavailable Primary Care Provider Unavailabl e Reason for Visit * Reason Onset Date Comments Hospital Follow-up 03/17/2011 + strep Encounter Details Date Type Department Care Team (Late st Contact Info) Description 03/17/2011 Telephone ER at [address] [address] Bela Forrest, RN Hospital Follow-up (+ strep) Social History Tobacco Use Types Packs/Day Years Used Date Smoking Tobacco: Never Assessed Sex and Gender Information Value Date Recorded Sex Assigned at Not on file Gender Identity Not on file Sexual Orientation Not on file documented as of this encounter Miscellaneous Notes * Telephone Encounter - Bela Forrest RN - 03/17/2011 11:02 AM CST Spoke to mom on phone. Discussed + strep culture. Prescription called in to [facility]/GravoisAmoxicillin 500 mg elixir bid x [address] David Maldonado. Mom voiced understanding of dischargeinstructions NTIFIC PUBLICATIONS EDITOR documented in this encounter Plan of Treatment Not on file documented as of this encounter Visit Diagnoses Not on filedocumented in this encounter
--- OUTSIDE RECORDS SUMMARY | 2024-03-10 03:41 | XMS_ITS | Encounter Summary ---
Author Organization [facility] Address [address] [facility] [place] [address] Care Team Providers Care Ambulatory Service Representative Name Role Phone Yonas Troy MD Primary Care Provider Unavailab le Reason for Visit * Reason Comments Lower Extremity Problem C/O L foot turne d in since Encounter Details Date Type Department Care Team (Latest Contact Info) Description 06/13/2013 10:25 AM CDT - 06/13/2013 11:23 AM T Hospital Encounter [facility] Pediatrics - Orthopedics [facility] [place] [address] Ruben Jorge MD [address] [place] [address] [address] [facility] [place] [address] Discharge Disposition: Home or Self [...] on file documented as of this encounter Discharge Instructions * Patient Instructions* Lydia Gee PA - 06/13/2013 12:15 PM CDT ORTHOPAEDIC CLINIC DISCHARGE INSTRUCTIONS SHEET DIAGNOSIS: 1. Back pain XR SCOLIOSIS ERECT, XR SCOLIOSIS ERECT, AMB REFERRAL TO PHYSICAL THERAPY 2. Femoral anteversion Follow Up: Please make a return appointment for 6 week(s) X-ray to be obtained on return none If you cannot keep an appointment, please call and notify Physicians orders: Physical therapy with home program Medications prescribed: ibuprofen (over the counter medication) may be used per instructions. Activity Restrictions: No restrictions School Excuse: 06/13/2013 Here is some information regarding your child's [...] usually does not cause pain, nor does side stitching machine operator to arthritis. Treatment Intoeing will correct itself [...] almost always improves without treatment, and usually school patrol age. Splints, special shoes, and exercise programs [...] gait. *This information is provided by [employer] (www.aaos.org). documented in this encounter Medications at Time of Discharge Medication Sig Dispensed Refills Start Date End Date albuterol HFA (PROVENTIL;VENTOLIN;AL OAIR) 108 (90 BASE) MCG/ACT inhaler Inhale 2 Puffs by mouth every 4 hours as needed for Wheezing or Cough (use with MDI as instructed.). 1 Inhaler 3 03/13/2011 08/14/2014 albuterol HFA (PROVENTIL;VENTOLIN;AL OAIR) 108 (90 BASE) MCG/ACT inhaler Inhale 2 Puffs by mouth every 6 hours as needed for Shortness of Breath or Wheezing. 2 Inhaler 0 05/21/2012 08/14/2014 Dexmethylphenidate HCl (FOCALIN PO) Take by mouth. Takes once daily, unsure of dose 03/10/2015 documented as of this encounter Progress Notes * Lydia Gee PA - 06/13/2013 11:08 AM CDT PEDIATRIC ORTHOPAEDIC CLINIC NOTE NAME: Liam Bal DATE OF SERVICE: 06/13/2013 DATE: 2005 PCP: Yonas Troy Chief Complaint Patient presents with ??? Lower Extremity Problem C/O L foot turned in since SUBJECTIVE: Liam Bal is a 8 y.o. male who presents with complaint of mid back pain. This began several months ago and was Gradual onset over days. Liam was seen by his PCP who referred him here for further evaluation. He has no prior back problems. Since the pain began the symptoms have been stable. Liam describes the pain as located at the thoracolumbar junction. Today the pain is absent. At the worst, the patient describes it as 7 on a scale of 1 - 10. The pain is aching in character. Liam does not have pain at night. Liam has not had similar pain before. His symptoms are aggravated by none and are alleviated by rest. He has been treating with nothing. He complains several times perweek after gym class and at the end of the school day. Mom also notes that his right foot turns in and it has done this since he was very young. It occasionally causes him to trip and fall. Neurological complaints: none Loss of bowel/urine control? no Radiation?: no Previous workup: none HISTORY: He was full term . There were not problems with the or delivery. IMMUNIZATIONS: Immunization status: stated as current, but no records available. PAST MEDICAL HISTORY: Past Medical History Diagnosis Date ??? ADHD (attention deficit hyperactivity disorder) ??? Asthma PAST SURGICAL HISTORY: Past Surgical History Procedure Date ??? Negative surgical history MEDICATIONS: Current outpatient prescriptions:Dexmethylphenidate HCl (FOCALIN PO), Take by mouth. Takes once daily, unsure of dose , Disp: , Rfl: ; albuterol HFA (PROVENTIL;VENTOLIN;PROAIR) 108 (90 BASE) MCG/ACT inhaler, Inhale 2 Puffs by mouth every 6 hours as needed for Shortness of Breath or Wheezing., Disp:2 Inhaler, Rfl: 0 albuterol HFA (PROVENTIL;VENTOLIN;PROAIR) 108 (90 BASE) MCG/ACT inhaler, Inhale 2 Puffs by mouth every 4 hours as needed for Wheezing or Cough (use with MDI as instructed.)., Disp: 1 Inhaler, Rfl: 3 ALLERGIES: No Known Allergies SOCIAL HISTORY: Liam lives with his mother only. Liam does attend school, elementary. History Substance Use Topics ??? Smoking status: Never Smoker ??? Smokeless tobacco: Not on file ??? Alcohol Use: No FAMILY HISTORY: Non contributory. REVIEW OF SYSTEMS: History obtained from mother. A 12 point ROS was obtained and was negative except for that listed above. PHYSICAL EXAMINATION: General appearance: alert, cooperative, no distress. He has good head control. No rashes or abnormal dyspigmentation Extremities: Upper extremity Inspection: No swelling, erythema, deformity, atrophy or hypertrophy noted, Tenderness: absent, Joint effusion: absent and Range of motion: Full in all extremities Lower Extremity exam Inspection: No swelling, erythema, deformity, atrophy or hypertrophy noted, Tenderness: absent, Joint effusion: absent and Range of motion: full range of motion of bilateral knees and ankles; left hip shows 70 degrees of internal rotation and 45 degrees of external rotation; right hip shows 70 degrees of internal rotation and 10 degrees of external rotation; there is mild residual tibial torsion bilaterally Back: Inspection: no skin abnormalities Head position: centered Shoulder Position: normal Chest wall abnormality: normal Waist asymmetry: No Body Position: balanced Thoracic spine: flexible, full range of motion without pain Lumbar spine: flexible, full range of motion; some pain with extension; tender to palpation at thoracolumbar junction [place] forward bending: no asymmetry Muscle tone and ROM exam: muscle tone normal without spasm Leg Length discrepancy: none Lower extremity RIGHT LEFT Strength: normal 5/5 strength in all tested muscle groups normal 5/5 strength in all tested muscle groups Sensation: normal normal Reflexes: 2+ and symmetric 2+ and symmetric Gait: Normal RADIOLOGY: taken and reviewed standing PA and lateral views - no obvious osseous abnormalities. ASSESSMENT: 1. Back pain. 2. Right femoral anteversion. 3. Left tibial torsion. PLAN: 1. Questions solicited and answered. 2. Patient voiced understanding to info/instructions given. 3. Referral to physical therapy with home program 4. Bracing: No 5. Medications Prescribed: Over the counter medication may be used per instructions. 6. Activity Restrictions: none 7. Follow up: in 6 week(s) ?? 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 C/O back pain, pcp believes pain is D/T posture andsent him here, no xrays or treatment have been done. documented in this encounter Miscellaneous Notes * Miscellaneous Scans - Document, Scanned - 06/17/2013 8:03 AM CDT documented in this encounter Plan of Treatment Not on file documented as of this encounter Procedures Procedure Name Priority Date/Time Associated Diagnosis Comments XR SCOLIOSIS 1VW Routine 06/13/2013 11:3 0 AM CDT Back pain documented in this encounter Results * XR SCOLIOSIS ERECT (06/13/2013 11:30 AM CDT) Anatomical Region Laterality Modality Spine Radiographic Shirin ging 06/13/2013 2:30 PM CDT Impressions 06/13/2013 [...] T7-L2 scoliosis of 9 degrees. D: Reny ( Sterling) Mac Blackman, MPH. I, Anibal Sandoval, have personally reviewed the images and I agree with this report. 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
--- OUTSIDE RECORDS SUMMARY | 2024-03-10 03:41 | XMS_ITS | Encounter Summary ---
Author Organization [facility] Address [address] [place] [address] Care Team Providers Care Billet Inspector Name Role Phone Ruthann Le APPLIED BEHAVIOR SPECIALIST-BURIAL NEEDS SALESPERSON Primary Care Provider + Reason for Visit * Reason Comments Surgical Follow-up Pt doing well-denied complaints. Encounter Details Date Type Department Care Team (Latest Contact Info) Description 11/22/2016 1:20 PM CDT - 11/22/2016 11:59 PM CDT Hospital Encounter [facility] Pediatrics - Surgery [address] [place] [id number] Arcenio Major MD [address] [place] [address] Discharge Disposition: Home or Self Care Social [...] - Inhaled Oxygen Concentration - - Weight 70.4 kg (155 lb 3.3 oz) 11/22/2016 1:28 P M CDT Height - - Body Mass Index - - documented in this encounter Functional Status Functional [...] No 10/27/2016 documented as of this encounter Medications at [...] as of this encounter Progress Notes * Kaci Mobley MD - 11/22/2016 3:24 PM CDT Images from the original note were not included. Pediatric General [place] [address] phone fax Arcenio Major MD [facility] of Pediatric Surgery DATE: 11/22/2016 Dear Ruthann Le, APPLIED BEHAVIOR SPECIALIST-BURIAL NEEDS SALESPERSON, It was a pleasure seeing your patient Liam Bal in clinic today. As you know, he is a 11 y.o. male who I am seeing postoperatively for laparoscopic cholecystectomy done by Dr. Castro on 10/26. He has done well postoperatively and has had no postoperative complaints. He is excited to return to basketball. History obtained from patient and mother. Active Ambulatory Problems Diagnosis Date Noted ??? ADHD (attention deficit hyperactivity disorder) 06/13/2013 ??? 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 Biliary colic 10/27/2016 Resolved Ambulatory Problems Diagnosis Date Noted ??? No Resolved Ambulatory Problems Past Medical History: Diagnosis Date ??? ADHD (attention deficit hyperactivity disorder) 11/22/2009 ??? Asthma 05/21/2012 ??? 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 Gallstones 10/02/2016 ??? Head injury 11/22/2009 ??? Left tibial torsion 06/13/2013 ??? Elizabeth-Schlatter's disease of right knee 01/01/2015 No family history on file. Current Outpatient Prescriptions on File Prior to Encounter Medication Sig Dispense Refill ??? acetaminophen (TYLENOL) 325 MG tablet Take 2 Tabs by mouth every 4 hours as needed Maximum allowable Acetaminophen amount = 4 Grams (4000 mg) / 24 hours. ??? oxyCODONE, immediate release, (ROXICODONE) 5 MG tablet Take 1 Tab by mouth every 4 hours as needed 12 Tab 0 ??? ondansetron (ZOFRAN) 4 MG tablet Take [...] Breath, Wheezing or Cough 1 Inhaler 0 No current facility-administered medications on file prior to encounter. Review of Symptoms POSTOP: No new symptoms since operation Physical Exam General: on exam today, he is in no distress and appears comfortable. HEENT: The head and neck exam revealed no evidence of trauma, normocephalic. Moist mucous membranesand the extraocular movements are intact. The exam of the neck revealed no evidence of cervical adenopathy. Chest: was symmetrical and the lung exam was clear to auscultation bilaterally. Cardiac: The heart is of regular rate and normal rhythm. Abdomen was soft , non tender, non distended, without evidence of hernia at the umbilicus. : palpable bilateral descended testicles Extremities: full range of motion, 2+ pulses all extremities, no palpable epitrochlear or axillary lymphadenopathy Skin: no rashes The surgical incisions on the RUQ and umbilicus appear well healed, clean dry and intact. There is no erythema, no drainage. There was no hernia found in the umbilicl region. Review of pathology showed chronic cholecystitis and cholelithiasis Summary Liam Bal has done well postoperatively from laparoscopic cholecystectomy. The surgical wounds are well healed, and the pain that was initially present has now resolved. I recommend return toregular activities without restriction in the next several days. Otherwise, from a surgical standpoint, he has recovered well and does not need to see me further for this problem unless a new concernarises. Thank you for allowing me to participate in the care of Liam Bal. If you have any questions or concerns, please feel free to contact me at your convenience. I spent 20 minutes with this patient. Arcenio Major MD Pediatric General and Thoracic Surgery Attending Attestation: I myself have seen and examined Liam in the Pediatric Surgery clinic and have generated and edited the above letter. Associated attestation - Arcenio Major MD - 11/29/2016 1:21 PM CDT I reviewed this patient chart, seen and examined this patient and agree with the provider note. documented in this encounter Plan of Treatment Not on file documented as of this encounter Visit Diagnoses Diagnosis Encounter for surgical aftercare following surgery of digestive system Aftercare following surgery of the teeth, oral cavity and digestive system, NEC documented in this encounter Care Teams Billet Inspector Relationship Specialty Start Date End Date Ruthann Le, APPLIED BEHAVIOR SPECIALIST-BURIAL NEEDS SALESPERSON [address] [place], [place] [id number] PCP - General Nurse Practitioner 08/14/14 documented as of this encounter
--- OUTSIDE RECORDS SUMMARY | 2024-03-10 03:41 | XMS_ITS | Encounter Summary ---
Author Organization [facility] Address [address] [facility] [place] [address] Care Team Providers Care [employer] Biology Teacher Name Role Phone Shariflalito Ruthann Fabiano SUSTAINABILITY EXECUTIVE DIRECTOR-SCIENTIFIC HELPER Primary Care Provider + Reason for Referral * Evaluate (Routine) - Closed Specialty Diagnoses / Procedures Referred By Contact Referred To Contact Pediatric Gastroenterology Diagnoses Abnormal weight loss Diarrhea, unspecified type Hans Stubbs MD [address] [place] [address] Referral ID Status Reason Start Date Expiration Date V isits Requested Visits Authorized [id number] Closed Specialty Services Required 06/17/2017 12/14/2017 1 1 Scheduling Instructions You should be contacted in the next 48 hours to schedule a follow up appointment. If you are not contacted, please call [phone] to schedule an appointment. Reason for Visit * Reason Comments Vomiting vomiting everything up since sunday, good uop, pt in nad. Encounter Details Date Type Department Care Team ([facility] st Contact Info) Description 06/17/2017 4:29 PM CDT - 06/17/2017 5:55 PM CDT Emergency ER at [address] [address] Hans Stubbs MD [address] [place] [id number] Abnormal weight loss; Diarrhea, unspecified type Discharge Disposition: Home or Self Care Social [...] Sign Reading Time Taken Comments Blood Pressure 118/56 06/17/2017 4:00 PM CDT Pulse 84 06/17/2017 4:00 PM CDT Temperature 36.2 ??C (97.2 ??F) 06/17/2017 4:00 PM CD T Respiratory Rate 16 06/17/2017 4:00 PM CDT Oxygen Saturation - - Inhaled Oxygen Concentration - - Weight 68 kg (149 lb 14.6 oz) 06/17/2017 4:00 PM CDT Height 175 cm (5' 8.9 ) 06/17/2017 5:09 PM CDT Body Mass Index 22.2 06/17/2017 4:00 PM CDT Body Mass Index Percentile 80.31% 06/17/2017 5:0 9 PM CDT Growth Chart: [facility] (Boys, 2-2 0 Years) documented in this [...] 10/27/2016 documented as of this encounter Discharge Instructions * Discharge Instructions* Hans Stubbs MD - 06/17/2017 5:49 PM CDT You will need follow up within 1-2 weeks for further evaluation of your weight loss with your primary doctor and or the GI doctors. You will need to schedule an appointment for sooner with your primary doctor should you continue to have large amounts of diarrhea. Return to the ED for worsening pain, vomiting, not drinking fluids, decreased urination, concern for dehydration or other concerning symptoms. Stool cultures and C. Dif toxin panel was sent in the ED. If results require treatment you will be contacted. Suspect antibiotic associated diarrhea. Acute Diarrhea in Children WHAT YOU NEED TO KNOW: What do I need to know about acute diarrhea? Acute diarrhea starts quickly and lasts a short time, usually 1 to 3 days. It can last up to 2 weeks. What causes acute diarrhea? ?? Bacteria such as E coli or salmonella ?? Viruses such as rotavirus or norovirus ?? A parasite, such as giardia ?? Medicines, such as laxatives, antacids, or antibiotics ?? Contaminated food, such as meat that is undercooked, or food grown in contaminated soil ?? Contaminated water, such as water from a stream or untreated drinking water ?? An allergy to lactose, soy, or gluten ?? Medical treatments, such as chemotherapy or radiation ?? Other infections such as an ear infection or urinary tract infection What other signs and symptoms may happen with acute diarrhea? Your child may have several loose bowel movements throughout the day. He or she may also have any of the following: ?? A rash ?? Abdominal pain ?? Fever ?? Nausea and vomiting ?? Loss of appetite ?? Symptoms of dehydration such as dry mouth and lips, crying without tears, dark yellow urine, andurinating little or not at all What does my healthcare provider need to know about my child's acute diarrhea? Your child's healthcare provider will ask about your child's symptoms. The provider will ask what your child has eaten recently and if he or she has traveled. Tell the provider what medicines your child uses or if he or she has been around anyone who is sick. The provider may check your child for signs of dehydration. How is acute diarrhea treated? Acute diarrhea usually gets better without treatment. Medicines may be given to treat an infection caused by bacteria or parasites. Do not give your child ekal-cux-cocvyrx diarrhea medicine unless directed by his or her healthcare provider. How can I manage my child's acute diarrhea? ?? Give your child plenty of liquids. This will help prevent dehydration. Ask how much liquid your child should drink each day and which liquids are best for him or her. Give your baby extra breast milk or formula to prevent dehydration. If you feed your baby formula, give him or her lactose free formula while he or she is sick. ?? Give your child oral rehydration solution as directed. Oral rehydration solution (ORS) has the right amounts of water, salts, and sugar that your child needs to replace lost body fluids. Ask what kind of ORS your child needs and how much he or she should drink. You can buy an ORS at most grocerystores and pharmacies. ?? Continue to feed your child regular foods. Your child can continue to eat the foods he or she normally eats. You may need to feed your child smaller amounts of food than normal. You may also need to give your child foods that he or she can tolerate. These may include rice, potatoes, and bread. It also includes fruits (bananas, melon), and well-cooked vegetables. Avoid giving your child foods that are high in fiber, fat, and sugar. Also avoid giving your child dairy and red meat until his or her diarrhea is gone. How can I help prevent acute diarrhea in my child? ?? Remind your child to wash his or her hands well and often. He or she should use soap and water. Your child should wash his or her hands after using the toilet and before he or she eats. You shouldwash your hands before you prepare your child's food and after you change a diaper. ?? Keep bathroom surfaces clean. This helps prevent the spread of germs that cause acute diarrhea. ?? Cook meat as directed before you feed it to your child. ?? Cook ground meat to 160??F. ?? Cook ground poultry, whole poultry, or cuts of poultry to at least 165??F. Remove the meat from heat. Let it stand for 3 minutes before you feed it to your child. ?? Cook whole cuts of meat other than poultry to at least 145??F. Remove the meat from heat. Let itstand for 3 minutes before you feed it to your child. ?? Place raw or cooked meat in the refrigerator as soon as possible. Bacteria can grow in meat thatis left at room temperature too long. ?? Peel and wash fruits and vegetables before you feed them to your child. This will help remove any germs that might be on the food. ?? Wash dishes that have touched raw meat in hot water with soap. This includes cutting boards, utensils, dishes, and serving containers. ?? Ask your child's healthcare provider about the rotavirus vaccine. This vaccine helps to prevent diarrhea caused by the rotavirus. ?? Give your child filtered or treated water when you travel. If you and your child travel to countries outside of the [place] and [place], make sure the drinking water is safe. If you do not know if the water is safe, you and your child should drink bottled water only. Do not put ice in your child's drinks. ?? Do not give your child raw or undercooked oysters, clams, or mussels. These foods may be contaminated and cause infection. Call 911 for any of the following: ?? You cannot wake your child. ?? Your child has a seizure . When should I seek immediate care? ?? Your child seems confused. ?? Your child has repeated vomiting and cannot drink any liquids. ?? Your child's bowel movements contain blood or mucus. ?? Your child cries without tears. ?? Your child's eyes look sunken in, or the soft spot on your 's head looks sunken in. ?? Your child has severe abdominal pain. ?? Your child urinates less than usual, or his urine is dark yellow. ?? Your child has no wet diapers for 6 to 8 hours. When should I contact my child's healthcare provider? ?? Your child has a fever of 102??F (38.8??C) or higher. ?? Your child has worsening abdominal pain. ?? Your child is more irritable, fussy, or tired than usual. ?? Your child has a dry mouth and lips. ?? Your child has dry, cool skin. ?? Your child is losing weight. ?? Your child's diarrhea lasts longer than 1 to 2 weeks. ?? You have questions or concerns about your child's condition or care. CARE AGREEMENT: You have the right to help plan your child's care. Learn about your child's health condition and how it may be treated. Discuss treatment options with your child's caregivers to decide what care you want for your child. The above information is an child care aide only. It is not intended as medicaladvice for individual conditions or treatments. Talk to your doctor, nurse or pharmacist before following any medical regimen to see if it is safe and effective for you. ?? 2017 [employer] Information is for End User's use only and may not be sold, redistributed or otherwise used for commercial purposes. All illustrations and images included in CareNotes?? are the copyrighted property of [employer]American Board of Addiction Medicine (ABAM)., [employer]. or [employer]. documented in this encounter Medications at Time of Discharge Medication Sig Dispensed Refills Start Date End Date acetaminophen (TYLENOL) 325 MG tablet Take 2 Tabs by mouth every 4 hours as needed Maximum allowable Acetaminophen amount = 4 Grams (4000 mg) / 24 hours. 10/27/2016 albuterol HFA (PROVENTIL;VENTOLIN; PROAIR) 108 (90 BASE) [...] 4 hours as needed 12 Tab 10/27/2016 lactobacillus extra strength (FLORAJEN) capsuleIndications:D iarrhea, unspecified type Take 1 capsule by mouth 3 times daily for 14 days 42 capsule 06/17/2017 07/01/2017 documented as of this encounter ED Notes * Hans Stubbs MD - 06/17/2017 4:35 PM CDT EMERGENCY DEPARTMENT 06/17/2017 Dear Doctor, We had the pleasure of caring for your patient, Liam Torres Chanbrii in our emergency department on 06/17/2017. A note from the provider(s) who cared for your patient is attached. Should you wish to access any laboratory results, please call . Should you wish to access any radiology results, please call , option 3. In addition, you can access patient information 24 hours a day, from any computer, through [employer], the online version of our electronic medical record. If you would like to use this service, please call Virgie Armendariz, Connectivity Coordinator, at . We appreciate the opportunity to care for your patients. If you would like additional information, please call the emergency department directly at . Sincerely, Hans Stubbs MD Division of Emergency Medicine [facility], [place] [facility] EM[facility] [place] DES[facility] EMERGENCY DEPARTMENT Provider contact with the patient: 06/17/2017 16:35 Liam Bal [id number] [facility] EMERGENCY DEPARTMENT History Chief Complaint Patient presents with ??? Vomiting vomiting everything up since sunday, good uop, pt in nad. HPI Liam Bal is a 12 y.o. male, history of ADHD, cholecystectomy, femoral anteversion, who presents with CC of diarrhea and abdominal pain. Symptoms x 3 days. Reports stools > 10 times daily.Described as water/mucouse. No blood. No vomiting reported. Complains of diffuse abdominal pain. Pain feels like squeezing and cramping. Pain improves after bowel movement. No fevers. Recently took amoxicillin for URI and prednisone, finished course of antibiotics just prior to diarrhea starting. Denies constipation/diarrhea prior to 3 days ago. Reports q1-2 day soft not ball-like stools no blood. No recent travel. No recent diet changes. No well water. Dog at home, no reptiles. Has not tried taking any medications. Previous referred to outpatient GI for weight loss, but missed appointment. Also taking Focalin forADHD, reported stable dose for year. Does endorse some appetite suppression. Past Medical History: Diagnosis Date ??? ADHD (attention deficit hyperactivity disorder) 11/22/2009 ??? Asthma 05/21/2012 ??? 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 Gallstones 10/02/2016 intermittent RUQ pain that has recently worsened in severity. His last two episodes have been preceded by fatty foods and CT from [facility] was positive for gallstones ??? Head injury 11/22/2009 ??? Left tibial torsion 06/13/2013 ??? 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 Cholecystectomy, Laparoscopic N/A 10/26/2016 N/A; LAPAROSCOPIC CHOLECYSTECTOMY ??? NEGATIVE SURGICAL HISTORY 01/01/2015 ??? Osteotomy Right 03/11/2015 Right; RIGHT FEMORAL DEROTATIONAL OSTEOTOMY AND INTRAMEDULLARY NAIL Social History Social History ??? Marital status: [...] Outpatient Prescriptions Medication Sig Dispense Refill ??? lactobacillus extra strength (FLORAJEN) capsule Take 1 capsule by mouth 3 times daily for 14 days 42 capsule 0 ??? ondansetron (ZOFRAN) 4 MG tablet Take 4 mg by mouth every 6 hours as needed for Nausea/Vomiting ??? albuterol HFA (PROVENTIL;VENTOLIN;PROAIR) 108 (90 BASE) MCG/ACT inhaler Inhale 2 Puffs by mouthevery 4 hours as needed for Shortness of Breath, Wheezing or Cough 1 Inhaler 0 ??? acetaminophen (TYLENOL) 325 MG tablet Take 2 Tabs by mouth every 4 hours as needed Maximum allowable Acetaminophen amount = 4 Grams (4000 mg) / 24 hours. (Patient not taking: Reported on 06/17/2017) ??? oxyCODONE, immediate release, (ROXICODONE) 5 MG tablet Take 1 Tab by mouth every 4 hours as needed (Patient not taking: Reported on 06/17/2017) 12 Tab 0 ??? dicyclomine (BENTYL) 10 MG capsule Take 10 mg by mouth as needed ??? dexmethylphenidate ER 24hr (FOCALIN XR) 15 MG capsule Review of Systems Review of Systems Constitutional: Positive for unexpected weight change. Negative for fever. HENT: Positive for rhinorrhea. Negative for congestion and sore throat. Eyes: Negative for pain and redness. Respiratory: Negative for cough, shortness of breath and wheezing. Cardiovascular: Negative for chest pain and palpitations. Gastrointestinal: Positive for abdominal pain and diarrhea. Negative for nausea and vomiting. Endocrine: Negative for polyphagia and polyuria. Genitourinary: Negative for decreased urine volume and difficulty urinating. Musculoskeletal: Negative for arthralgias, neck pain and neck stiffness. Skin: Negative for rash. Neurological: Negative for numbness and headaches. Hematological: Negative for adenopathy. BP 118/56 Pulse 84 Temp 97.2 ??F (36.2 ??C) Resp 16 Wt 68 kg (149 lb 14.6 oz) Physical Exam Physical Exam Constitutional: He is oriented to person, place, and time. He appears well- developed and well-nourished. No distress. HENT: Right Ear: External ear normal. Left Ear: External ear normal. Mouth/Throat: Oropharynx is clear and moist. No oropharyngeal exudate. Eyes: Conjunctivae and EOM are normal. Pupils are equal, round, and reactive to light. Neck: Normal range of motion. Neck supple. Cardiovascular: Normal rate, regular rhythm, normal heart sounds and intact distal pulses. Exam reveals no gallop and no friction rub. No murmur heard. Pulmonary/Chest: Effort normal and breath sounds normal. No respiratory distress. He has no wheezes. Abdominal: Soft. He exhibits no distension and no mass. There is no tenderness. There is no reboundand no guarding. Hyperactive bowel sounds Musculoskeletal: Normal range of motion. He exhibits no edema or tenderness. Lymphadenopathy: He has no cervical adenopathy. Neurological: He is alert and oriented to person, place, and time. No cranial nerve deficit. Skin: Skin is warm. No rash noted. Nursing note and vitals reviewed. Procedures Procedures ECG Interpretation ECG Interpretation Lab/SPO2 Interpretation No results found for this visit on 06/17/17. Progress Notes ED Course Liam Bal is a 12 y.o. male who presents with acute onset of diarrhea x 3 days after recentantibiotics. Nonbloody stools. Also with continued weight loss since cholecystectomy, has missed outpatient GI appointment. Previously Obese. DDx: Infections diarrhea, antibiotic associated diarrhea, c. Dif, malabsorption, Medication/ADHD related appetite suppression, IBD, IBS, other. Given recent onset of symptoms in the setting of continued weight loss most likely antibiotic associated - will send stool studies/culture and c. Dif toxin - Start lactobacillus/probiotics. Patient now with moralizing BMI, however weight change is significant. Discussed that he should be evaluated by GI and also consider ADHD medications change for appetite suppression. Patient is well hydrated, nontoxic appearing, no hypotension and denies food avoidance. Labs offered, deferred by patient/mother at this time. Will try lactobacillus for acute diarrhea. Instructed to follow up with PMD within 1 week and will send referral for outpatient GI. D/c home Stool studies pending at home. ED Course Medical Decision Making I have reviewed the: Previous Chart, Nursing Notes, Vitals. Clinical Impression Final diagnoses: Abnormal weight loss Diarrhea, unspecified type documented in this encounter Plan of Treatment Scheduled Referrals Name Type Priority Associated Diagnoses Order Schedule [facility] Outpatient Referral Routine Abnormal weight loss Diarrhea, unspecified type Ordered: 06/17/2017 documented as of this encounter Procedures Procedure Name Priority Date/Time Associated Diagnosis Comments CULTURE STOOL+ E COLI SHIGA-LIKE TOXIN STAT 06/17/2017 5:34 PM CDT C DIFFICILE GDH AG + TOXIN A+B STAT 06/17/2017 5:34 PM CDT documented in this encounter Results * CLOSTRIDIUM DIFFICILE GDH AG + TOXIN A+B (06/17/2017 5:34 PM CDT) GDH Antigen Negative Negative, Invalid 06/18/2017 6:23 AM CDT [facility] C difficile Toxin A + B Negative Negative, Invalid 06/18/2017 6:23 AM CDT [facility] Interpretation C difficile Negative for toxigenic C. difficile Negative for toxigenic C. difficile 06/18/2017 6:23 AM CDT [facility] Stool STOOL SPECIMEN / Unknown Collection / Unknown 06/17/2017 5:34 PM CDT 06/17/2017 5:42 PM CDT Hans Stubbs MD LAB - MICROBIOLOGY O FU[facility]ES [facility] [address] [place] [address], [facility] [phone] * CULTURE STOOL+ E COLI SHIGA-LIKE TOXIN (06/17/2017 5:34 PM CDT) Culture No growth Salmonella, Shigella, Campylobacter, Escherichia coli 0157:h7 or Yersinia CAMMIE 06/19/2017 5:57 AM CDT [facility] Culture Negative Escherichia coli Shiga-like toxin (NM) CAMMIE 06/19/2017 5:57 AM CDT [facility] Stool STOOL SPECIMEN / Unknown Collection / Unknown 06/17/2017 5:34 PM CDT 06/17/2017 5:42 PM CDT Hans Stubbs MD LAB - MICROBIOLOGY [facility] [address] [place] [address], [facility] [phone] documented in this encounter Visit Diagnoses Diagnosis Abnormal weight loss Loss of weight Diarrhea, unspecified type documented in this encounter Care Teams High [employer] Biology Teacher Relationship Specialty Start Date End Date Ruthann Le APRN-CHAMP [address] [place] [address] PCP - General Nurse Practitioner 08/14/14 documented as of this encounter
--- OUTSIDE RECORDS SUMMARY | 2024-03-10 03:41 | XMS_ITS | Encounter Summary ---
Author Organization [facility] Address [address] [place] [address] Care Team Providers Care Coil Shaper Name Role Phone Yonas Troy MD Primary Care Provider Unavailab le Encounter Details Date Type Department Care Team (Latest Contact Info) Description 06/13/2013 11:24 AM CDT - 06/13/2013 11:59 PM CDT Hospital Encounter [facility] Pediatrics - Radiology [address] [place] [address] Ruben Jorge MD [address] [place] [address] [address] [place] [address] Discharge Disposition: Home or Self [...] Refills Start Date End Date albuterol HFA (PROVENTIL;VENTOLIN;PA OAIR) 108 (90 BASE) MCG/ACT inhaler Inhale 2 Puffs by mouth every 4 hours as needed for Wheezing or Cough (use with MDI as instructed.). 1 Inhaler 3 03/13/2011 08/14/2014 albuterol HFA (PROVENTIL;VENTOLIN;PA OAIR) 108 (90 BASE) MCG/ACT inhaler Inhale 2 Puffs by mouth every 6 hours as needed for Shortness of Breath or Wheezing. 2 Inhaler 0 05/21/2012 08/14/2014 Dexmethylphenidate HCl (FOCALIN PO) Take by mouth. Takes once daily, unsure of dose 03/10/2015 documented as of this encounter Plan [...] documented in this encounter Visit Diagnoses Diagnosis Scoliosis (and kyphoscoliosis), idiopathic- Primary Back pain Backache, unspecified documented in this encounter Care Teams Coil Shaper Relationship Specialty Start Date End Date Yonas Troy MD PCP - General Pediatrics 05/21/12 08/13/14 documented as of this encounter
--- OUTSIDE RECORDS SUMMARY | 2024-03-10 03:41 | XMS_ITS | Encounter Summary ---
Author Organization [facility] Address [address] [place] [address] Care Team Providers Care Gym Teacher Name Role Phone Ruthann Le DEVELOPMENTAL TRAINING COUNSELOR-EDGE GRINDER Primary Care Provider + Encounter Details Date Type Department Care Team (Latest Contact Info) Description 03/08/2015 3:22 PM FIELD SUPERVISOR - 03/08/2015 11:59 PM [facility] Hospital Encounter [facility] Pediatrics - Radiology [address] [place] [address] Ruben Jorge MD [address] [place] [address] [address] [place] [address] Discharge Disposition: Home or Self [...] fluticasone propionate (FLONASE) 50 MCG/ACT nasal spray [place] 2 Sprays into each nostril once daily 1 Bottle 0 08/14/2014 03/10/2015 hydrocodone-acetaminop hen (NORCO) 5-325 MG tablet 1-2 Tabs q 4-6 Hours As Needed for pain 60 Tab 0 03/13/2015 10/02/2016 senna (SENOKOT) 8.6 MG tablet Take 1 Tab by mouth once daily 14 Tab 0 03/13/2015 04/09/2015 documented as of this encounter Plan of Treatment Not on file documented as of this encounter Procedures Procedure Name Priority Date/Time Associated Diagnosis Comments XR FEMUR RIGHT 2VW Routine 03/08/2015 3: 32 PM FIELD SUPERVISOR Femoral anteversion (HCC) documented in this encounter Results * XR FEMUR 2 VW RIGHT (03/08/2015 3:32 PM FIELD SUPERVISOR) Anatomical Region Laterality Modality Lower Extremity Radiographic Shirin ging 03/08/2015 3:34 PM FIELD SUPERVISOR Impressions 03/08/2015 3:35 PM FIELD SUPERVISOR Somewhat limited examination of the right femur. No gross abnormality is seen. Narrative 03/08/2015 3:35 PM FIELD SUPERVISOR 2 views of the right femur performed [...] (joint) documented in this encounter Care Teams Gym Teacher Relationship Specialty Start Date End Date Ruthann Le, MITCH-EDGE GRINDER [address] [place] [id number] PCP - General Nurse Practitioner 08/14/14 documented as of this encounter
--- OUTSIDE RECORDS SUMMARY | 2024-03-10 04:01 | XMS_ITS | Clinical Summary ---
Author Organization [facility] Address [address] [place] [address] Care Team Providers Care Nurses Medical Assistants Phlebotomists Name Role Phone Ruthann Le Fabiano BRUSHER-TEXTILE ENGINEER Primary Care Provider + Source Comments [facility],non-owned Affiliates and Associated Physician Practices is amultiple site organization consisting of ambulatory clinics and hospital sitesin [place], [place], [place] and [place]. This disclosure is being madepursuant to the Care Everywhere program and may not contain all information available regarding this patient. Last updated 17.[facility] Allergies No known active allergies Medications * [...] CDT Oxygen Saturation 98% 03/12/2017 10:58 AM WASTE ELIMINATION per pcp Inhaled Oxygen Concentration - - [...] this topic Medical Devices Implanted Type Area Underwriting Assistant Device Identifier Shelf Expiration Date Model / Serial / Lot Scrw Daniel 4.5mm X 48mm Implanted:Qty: 1 on 03/11/2015 by Ruben Jorge MD at [facility] Right: Femur [employer] Ped[employer]at[employer] 48 / / Scrw Daniel 4.5mm X 28mm Implanted:Qty: 1 on 03/11/2015 by Ruben Jorge MD at [facility] Right: Femur [employer] 28 / / Nail R 10mm X 36cm Implanted:Qty: 1 on 03/11/2015 by Ruben Jorge MD at [facility] Right: Femur [employer] 4 / / Explanted Type Area Underwriting Assistant Device Identifier Shelf Expiration Date Model / Serial / Lot Wire Gde Thrd Tip 3.2mm Explanted:Qty: 2 on 03/11/2015 by Ruben Jorge MD at [facility] Right: Femur Orth[employer] Ped[employer]at[employer] 1 / / Pin Tin Half Sh 5mm X 35mm Implanted:Qty: 1 Explanted:Qty: 1 on 03/11/2015 by Ruben Jorge MD at [facility] Right: Femur [employer]hew Trauma [id number] / / Pin Tin Half Sh 5mm X 30mm Implanted:Qty: 1 Explanted:Qty: 1 on 03/11/2015 by Ruben Jorge MD at [facility] Right: Femur [employer]hew Trauma [id number] / / Advance Directives * Full Code (Latest Code Status on File) Date Activated Date Inactivated Comments 10/26/2016 5:40 PM 10/27/2016 11:51 AM * Full Code Date Activated Date Inactivated Comments 03/11/2015 3:50 PM 03/13/2015 11:44 AM Care Teams Nurses Medical Assistants Phlebotomists Relationship Specialty Start Date End Date Ruthann Le APRN-CHAMP [address] [place] [id number] PCP - General Nurse Practitioner 08/14/14
--- OUTSIDE RECORDS SUMMARY | 2024-03-10 04:01 | XMS_ITS | Encounter Summary ---
Author Organization [facility] Address [address] [place] [address] Care Team Providers Care Squad Leader Name Role Phone Ruthann Le MAIL CARRIER AND CLERK-LINE ASSEMBLER Primary Care Provider + Reason for Visit * Reason Comments Surgical Follow-up Pt doing well-denied complaints. Encounter Details Date Type Department Care Team (Latest Contact Info) Description 11/22/2016 1:20 PM CDT - 11/22/2016 11:59 PM CDT Hospital Encounter [facility] - Surgery [address] [place] [id number] Arcenio Major MD [address] [place] [address] Discharge Disposition: Home or Self Care Social [...] included. Pediatric General [place] [address] phone fax Arcenio Major MD Shredding Specialist of Pediatric Surgery DATE: 11/22/2016 Dear Ruthann Le, MAIL CARRIER AND CLERK-LINE ASSEMBLER, It was a pleasure seeing your patient [...] NEC documented in this encounter Care Teams Squad Leader Relationship Specialty Start Date End Date Ruthann Le, MAIL CARRIER AND CLERK-LINE ASSEMBLER [address] [place], [place] [phone] PCP - General Nurse Practitioner 08/14/14 documented as of this encounter
--- OUTSIDE RECORDS SUMMARY | 2024-03-10 04:01 | XMS_ITS | Patient Health Summary ---
Author Organization [facility] Address [address] [address] Care Team Providers Care Sausage Mixer Name Role Phone Ruthann Le Fabiano ATHLETIC SHOE DESIGNER-FUEL SYSTEM MAINTENANCE WORKER Primary Care Provider + Note from [facility],non-owned Affiliates and Associated Physician Practices is amultiple site organization consisting of ambulatory clinics and hospital sitesin [place], [place], [place] and [place]. This disclosure is being madepursuant to the Care Everywhere program and may not contain all information available regarding this patient. Last updated 17.[facility] Allergies No known active allergies Medications [...] CDT Oxygen Saturation 98% 03/12/2017 10:58 AM COOK HELPER PASTRY per pcp Inhaled Oxygen Concentration - - Weight 69.5 kg (153 lb 4.8 oz) 08/30/2017 10:28 PM CDT per pcp Height 170.2 cm (5' 7 ) 08/30/2017 10:28 PM CDT per pcp Body Mass Index 24.01 08/30/2017 10:28 PM CDT Medical Devices Implanted Type Area Space And Missile Operations Spacelift Device Identifier Shelf Expiration Date Model / Serial / Lot Scrw Daniel 4.5mm X 48mm Implanted:Qty: 1 on 03/11/2015 by Ruben Jorge MD at [facility] Right: Femur Ortho Pedicatrics 48 / / Scrw Daniel 4.5mm X 28mm Implanted:Qty: 1 on 03/11/2015 by Ruben Jorge MD at [facility] Right: Femur [employer] 28 / / Nail R 10mm X 36cm Implanted:Qty: 1 on 03/11/2015 by Ruben Jorge MD at [facility] Right: Femur [employer] 4 / / Explanted Type Area [employer] Miss[employer] Spacelift Device Identifier Shelf Expiration Date Model / Serial / Lot Wire Gde Thrd Tip 3.2mm Explanted:Qty: 2 on 03/11/2015 by Ruben Jorge MD at [facility] Right: Femur Orth[employer] Ped[employer]at[employer] 1 / / Pin Tin Half Sh 5mm X 35mm Implanted:Qty: 1 Explanted:Qty: 1 on 03/11/2015 by Ruben Jorge MD at [facility] Right: Femur [employer]z [employer] Nephew Trauma [id number] / / Pin Tin Half Sh 5mm X 30mm Implanted:Qty: 1 Explanted:Qty: 1 on 03/11/2015 by Ruben Jorge MD at [facility] Right: Femur [employer] Nephew Trauma [id number] / / Procedures * C DIFFICILE GDH [...] XR LOWER EXTREMITY STANDING(Performed 01/01/2015) Performed for Monument-Schlatter's disease, right * XR SCOLIOSIS 1VW(Performed 06/13/2013) Performed for Back pain * CULTURE STREP GROUP A(Performed 03/13/2011) * STREP A SCREEN DIRECT(Performed 03/13/2011) * GROSS EXAM PATHOLOGY(Performed 04/23/2008) Results * CULTURE STOOL+ E COLI SHIGA-LIKE TOXIN (06/17/2017 5:34 PM CDT) Culture No growth Salmonella, Shigella, Campylobacter, Escherichia coli 0157:h7 or Yersinia CAMMIE 06/19/2017 5:57 AM CDT [facility] Culture Negative Escherichia coli Shiga-like toxin (NM) CAMMIE 06/19/2017 5:57 AM CDT [facility] Stool STOOL SPECIMEN / Unknown Collection / Unknown 06/17/2017 5:34 PM CDT 06/17/2017 5:42 PM CDT Hans Stubbs MD LAB - MICROBIOLOGY O RDERABLES [facility] [address] [place], [place] [address], [facility] [phone] * CLOSTRIDIUM DIFFICILE GDH AG + TOXIN A+B (06/17/2017 5:34 PM CDT) GDH Antigen Negative Negative, Invalid 06/18/2017 6:23 AM CDT [facility] C difficile Toxin A + B Negative Negative, Invalid 06/18/2017 6:23 AM CDT [facility] Interpretation C difficile Negative for toxigenic C. difficile Negative for toxigenic C. difficile 06/18/2017 6:23 AM CDT [facility] Stool STOOL SPECIMEN / Unknown Collection / Unknown 06/17/2017 5:34 PM CDT 06/17/2017 5:42 PM CDT Hans Stubbs MD LAB - MICROBIOLOGY O RDERABLES [facility] [address] [place] [address], [facility] [phone] * GROSS + MICRO EXAM (STL) (10/26/2016 3:06 PM CDT) Case Report Surgical Pathology Report ? Case: [id number] ? Authorizing Provider: ??Rosana Castro MD Collected: ? 10/26/2016 03:06 PM ? Ordering Location: ? [facility] ? Received: ?10/27/2016 07:05 AM ? Pathologist: ? Mary Ibarra MD ? Specimen: ?Gallbladder ? 10/30/2016 7:14 PM [facility] Final Diagnosis GALLBLADDER, LAPAROSCOPIC CHOLECYSTECTOMY: - CHRONIC CHOLECYSTITIS. - CHOLELITHIASIS 10/30/2016 7:14 PM [facility] Clinical History The patient is a 11-year-old boy with intermittent right upper quadrant pain and clinical diagnosis of symptomatic cholelithiasis. 10/30/2016 7:14 PM [facility] Gross Description Submitted fixed in [...] is velvety pink. The cystic duct and product representative sections of the gallbladder are submitted in cassette A1. (KONSTANTIN/ns) 10/30/2016 7:14 PM [facility] Microscopic Description 1 H&E. Sections of the gallbladder show gallbladder wall with mild chronic inflammatory infiltrate and with Rokitansky-Aschoff sinuses. The luminal surface has amorphous eosinophilic material. (CHAPINCITO/NK/eva) 10/30/2016 7:14 PM [facility] Disclaimer The performance characteristics of all immunohistochemical and indirect immunofluorescence stains (if any) cited in this report were determined by the Histopathology Laboratory of [facility]. Some of these tests were developed [...] the attending (teaching) pathologist. 10/30/2016 7:14 PM [facility] Embedded Images 10/30/2016 7:14 PM CDT [facility] Pathology/Cytolo gy ENTIRE GALLBLADDER / Unknown 10/26/2016 3:06 PM CDT 10/27/2016 7:05 AM CDT Rosana Castro MD LAB - PATHOLOGY/C YTOLOGY ORDERABLES [facility] [address] [place] [address] * XR FEMUR 2 VW RIGHT (04/09/2015 9:57 AM COOK HELPER PASTRY) Only the most recent of3 resultswithin the time period is included. Anatomical Region Laterality Modality Lower Extremity Radiographic Shirin ging 04/09/2015 10:0 3 AM COOK HELPER PASTRY Impressions 04/09/2015 10:04 AM COOK HELPER PASTRY Healing internally stabilized mid femoral diaphyseal osteotomy. Narrative 04/09/2015 10:04 AM COOK HELPER PASTRY Exam: Right femur, 2 views History: 10-year-old [...] RDERABLES * PERIPHERAL BLOCK (03/11/2015 2:46 PM COOK HELPER PASTRY) Narrative Elida Valverde MD - 03/11/2015 2:46 [...] MICROSCOPIC ONLY W/REFLEX CULTURE (03/11/2015 9:45 AM COOK HELPER PASTRY) RBC UA 0-2 0-2, 2-5 # /hpf 03/11/2015 10:34 AM [facility] WBC UA 0-2 0-2, 2-5 # /hpf 03/11/2015 10:34 AM [facility] Bacteria UA 1+(A) None Seen, Trace 03/11/2015 10:34 AM [facility] Epithelial Cell UA 0-2 0-2, 2-5 # /hpf 03/11/2015 10:34 AM [facility] Mucus UA 3+ 03/11/2015 10:34 AM [facility] Urine URINE SPECIMEN OBTAINED BY CLEAN CATCH PROCEDURE / Unknown 03/11/2015 9:45 AM [facility] 03/11/2015 10:03 AM [facility] Ruben Jorge MD LAB - URINALYSIS ORD ERABLES Performing Organization Address City/State/[facility] Co de Phone Number [facility] [address] [place] [address] * (ABNORMAL) URINALYSIS ROUTINE W/REFLEX TO CULTURE (03/11/2015 9:45 AM [facility]) Color UA Yellow Straw, Yellow, Dark Yellow 03/11/2015 10:23 AM [facility] Clarity UA Clear 03/11/2015 10:23 AM [facility] Specific [place] UA >=1.030 1.005 - 1.030 03/11/2015 10:23 AM [facility] pH UA 6.0 5.0 - 8.0 pH 03/11/2015 10:23 AM [facility] Protein UA Negative Negative 03/11/2015 10:23 AM [facility] Blood UA Trace(A) Negative 03/11/2015 10:23 AM [facility] Leukocyte UA Negative Negative 03/11/2015 10:23 AM [facility] Nitrite UA Negative Negative 03/11/2015 10:23 AM [facility] Glucose UA Negative Negative 03/11/2015 10:23 AM [facility] Ketone UA Negative Negative 03/11/2015 10:23 AM [facility] Bilirubin UA Negative Negative 03/11/2015 10:23 AM [facility] Urobilinogen UA 0.2 0.1 - 1.0 EU/dL 03/11/2015 10:23 AM [facility] Urine Microscopy Urine microscopy to follow 03/11/2015 10:23 AM [facility] Reflex Status Culture not indicated 03/11/2015 10:23 AM [facility] Urine URINE SPECIMEN OBTAINED BY CLEAN CATCH PROCEDURE / Unknown 03/11/2015 9:45 AM [facility] 03/11/2015 10:03 AM [facility] Ruben Jorge MD LAB - URINALYSIS ORD ERABLES Performing Organization Address [facility] Co de Phone Number [facility] [address] [place] [phone] * PT PTT PANEL (03/11/2015 9:44 AM [facility]) PT 11.2 9.5 - 11.6 sec 03/11/2015 10:34 AM [facility] INR 1.1 0.9 - 1.1 03/11/2015 10:34 AM [facility] PTT 27.9 21.0 - 32.0 sec 03/11/2015 10:34 AM [facility] Blood BLOOD SPECIMEN / Unknown 03/11/2015 9:44 AM [facility] 03/11/2015 10:03 AM [facility] Narrative [facility] - 03/11/2015 10:34 AM [facility] Conventional Warfarin Anticoagulant Therapy: INR Reference Range: ??2.0-3.0 Intensive Warfarin Anticoagulant Therapy: INR Reference Range: ? 2.5-3.5 Heparin Therapeutic Range for PTT: 44.4 - 78.3 seconds. Ruben Jorge MD LAB - COAGULATION OR DERABLES Performing Organization Address [facility] Co de Phone Number [facility] [address] [place] [phone] * CBC W AUTO DIFFERENTIAL (03/11/2015 9:44 AM [facility]) WBC 4.7 4.5 - 14.5 x10^9/L 03/11/2015 10:10 AM [facility] WBC Corrected x10^9/L 03/11/2015 10:10 AM [facility] RBC 4.53 4.00 - 5.20 x10^12/L 03/11/2015 10:10 AM [facility] Hemoglobin 12.5 11.5 - 15.5 gm/dL 03/11/2015 10:10 AM [facility] Hematocrit 35.9 35.0 - 45.0 % 03/11/2015 10:10 AM [facility] MCV 79.2 77.0 - 95.0 fl 03/11/2015 10:10 AM [facility] MCH 27.6 25.0 - 33.0 pg 03/11/2015 10:10 AM [facility] MCHC 34.8 31.0 - 37.0 gm/dL 03/11/2015 10:10 AM [facility] Platelet Count 269 100 - 400 x10^9/L 03/11/2015 10:10 AM [facility] RDW-CV 13.9 11.5 - 14.0 % 03/11/2015 10:10 AM [facility] MPV 8.9 6.0 - 9.5 fl 03/11/2015 10:10 AM [facility] Neutrophils % 43.2 24.0 - 66.0 % 03/11/2015 10:10 AM [facility] Lymphocytes % 43.6 22.0 - 61.0 % 03/11/2015 10:10 AM [facility] Monocytes % 12.4 3.0 - 15.0 % 03/11/2015 10:10 AM [facility] Eosinophils % 0.4 0.0 - 10.0 % 03/11/2015 10:10 AM [facility] Basophils % 0.4 % 03/11/2015 10:10 AM [facility] Immature Granulocytes 0.0 % 03/11/2015 10:10 AM [facility] Neutrophil Absolute 2.01 x10^9/L 03/11/2015 10:10 AM [facility] Lymphocytes Absolute 2.03 x10^9/L 03/11/2015 10:10 AM [facility] Monocytes Absolute 0.58 x10^9/L 03/11/2015 10:10 AM [facility] Eosinophils Absolute 0.02 x10^9/L 03/11/2015 10:10 AM [facility] Basophils Absolute 0.02 x10^9/L 03/11/2015 10:10 AM [facility] Immature Granulocytes Absolute 0.00 x10^9/L 03/11/2015 10:10 AM [facility] Blood BLOOD SPECIMEN / Unknown 03/11/2015 9:44 AM COOK HELPER PASTRY 03/11/2015 10:03 AM [facility] Narrative Authorizing Provider Result Yohannes Jorge MD LAB - HEMATOLOGY ORD ERABLES [facility] [address] [facility] [address] * TYPE + SCREEN PANEL (03/11/2015 9:43 AM COOK HELPER PASTRY) ABO O 03/11/2015 10:45 AM COOK HELPER PASTRY [facility] Rh Type Positive 03/11/2015 10:45 AM COOK HELPER PASTRY [facility] Antibody Screen Negative 03/11/2015 10:45 AM COOK HELPER PASTRY [facility] Miscellaneous samples (specimen) BLOOD SPECIMEN / Unknown 03/11/2015 9:43 AM COOK HELPER PASTRY 03/11/2015 10:03 AM COOK HELPER PASTRY Ruben Jorge MD LAB - BLOOD BANK ORD ERABLES Performing Organization Address City/[facility] Co de Phone Number [facility] [address] [facility] 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 Clinical correlation is needed for confirmation. [...] STREP A SCREEN DIRECT (03/13/2011 7:15 AM COOK HELPER PASTRY) Strep A Rapid Negative Neg Grp A Beta Strep [facility] Miscellaneous samples (specimen) ENTIRE THROAT (SURFACE REGION OF NECK) / Unknown 03/13/2011 7:15 AM COOK HELPER PASTRY 03/13/2011 7:20 AM COOK HELPER PASTRY Abhishek Juárez MD LAB - MICROBIOLOGY O RDERABLES Performing Organization Address City/State/[facility] Co de Phone Number [facility] [address] [facility] [place] [address] * CULTURE STREP GROUP A (03/13/2011 7:15 AM COOK HELPER PASTRY) Result [facility] Comment: Final Growth of BETA [...] OF NECK) / Unknown 03/13/2011 7:15 AM COOK HELPER PASTRY 03/13/2011 7:34 AM COOK HELPER PASTRY Narrative Resulting Agency Comment Performed By [facility];[address];[place] [address] Abhishek Juárez MD LAB - MICROBIOLOGY O RDERABLES Performing Organization Address [facility] Co de Phone Number [facility] [address] [place] [address] * GROSS EXAM PATHOLOGY (04/23/2008 10:48 AM COOK HELPER PASTRY) Result CASE NUMBER [id number] [facility] REPORT Comment: ORDERING PHYSICIAN [...] and interpreted by the attending (teaching) pathologist. Alodize Machine Helper ? MIGUEL MENDEZ RESIDENT IN PATHOLOG Erica Ulloa. PATHOLOGIST ?Ashlie Narayanan M.D. ELECTRONICALLY MIMI ASHLIE NARAYANAN MISCELLANEOUS SAMPLES / Unknown 04/23/2008 10:48 AM COOK HELPER PASTRY 04/23/2008 12:39 PM COOK HELPER PASTRY Historical Provider LAB - PATHOLOGY/C YTOLOGY ORDERABLES [facility] REPORT Care Teams Sausage Mixer Relationship Specialty Start Date End Date Ruthann Le, ATHLETIC SHOE DESIGNER-FUEL SYSTEM MAINTENANCE WORKER [facility] [place] [address] PCP - General Nurse Practitioner 08/14/14
--- OUTSIDE RECORDS SUMMARY | 2024-03-10 04:01 | XMS_ITS | Referral Summary ---
Author Organization [facility] Address [address] [facility] [place] [place] [address] Care Team Providers Care Road Maker Name Role Phone SharifvahidRuthann segura Fabiano USER EXPERIENCE ANALYST-MEAT CARVER Primary Care Provider + Source Comments [facility],non-owned Affiliates and Associated Physician Practices is amultiple site organization consisting of ambulatory clinics and hospital sitesin [place], [place], [place] and [place]. This disclosure is being madepursuant to the Care Everywhere program and may not contain all information available regarding this patient. Last updated 17.[facility] Allergies No known active allergies Medications [...] CDT Oxygen Saturation 98% 03/12/2017 10:58 AM MOTOR SCOOTER MECHANIC per pcp Inhaled Oxygen Concentration - - [...] on file Medical Devices Implanted Type Area Senior Systems Engineer Device Identifier Shelf Expiration Date Model / Serial / Lot Scrw Daniel 4.5mm X 48mm Implanted:Qty: 1 on 03/11/2015 by Ruben Jorge MD at [facility] Right: [employer] 48 / / Scrw Daniel 4.5mm X 28mm Implanted:Qty: 1 on 03/11/2015 by Ruben Jorge MD at [facility] Right: [employer] 28 / / Nail R 10mm X 36cm Implanted:Qty: 1 on 03/11/2015 by Ruben Jorge MD at [facility] Right: [employer] 4 / / Explanted Type Area Senior Systems Engineer Device Identifier Shelf Expiration Date Model / Serial / Lot Wire Gde Thrd Tip 3.2mm Explanted:Qty: 2 on 03/11/2015 by Ruben Jorge MD at [facility] Right: [employer] 1 / / Pin Tin Half Sh 5mm X 35mm Implanted:Qty: 1 Explanted:Qty: 1 on 03/11/2015 by Ruben Jorge MD at [facility] Right: Femur [employer] Trauma [id number] / / Pin Tin Half Sh 5mm X 30mm Implanted:Qty: 1 Explanted:Qty: 1 on 03/11/2015 by Ruben Jorge MD at [facility] Right: Femur [employer] Trauma [id number] / / Advance Directives * Full Code (Latest Code Status on File) Date Activated Date Inactivated Comments 10/26/2016 5:40 PM 10/27/2016 11:51 AM * Full Code Date Activated Date Inactivated Comments 03/11/2015 3:50 PM 03/13/2015 11:[address] Maker Relationship Specialty Start Date End Date Ruthann Le, USER EXPERIENCE ANALYST-MEAT CARVER [address] [place] [phone] PCP - General Nurse Practitioner 08/14/14
--- OUTSIDE RECORDS SUMMARY | 2024-03-10 04:01 | XMS_ITS | Encounter Summary ---
Author Organization [facility] Address [address] [facility] [place] [address] Care Team Providers Care House Superintendent Name Role Phone Shariflalito Ruthann Fabiano QA SOFTWARE TEST ENGINEER-NETWORK DEVELOPMENT COORDINATOR Primary Care Provider + Reason for Referral * Evaluate (Routine) - Closed Specialty Diagnoses / Procedures Referred By Contact Referred To Contact Pediatric Gastroenterology Diagnoses Abnormal weight loss Diarrhea, unspecified type Hans Stubbs MD [address] [place] [address] Referral ID Status Reason Start Date Expiration Date V isits Requested Visits Authorized [id number] Closed Specialty Services Required 06/17/2017 12/14/2017 1 1 Scheduling Instructions You should be contacted in the next 48 hours to schedule a follow up appointment. If you are not contacted, please call [phone] to schedule an appointment. Reason for Visit * Reason Comments Vomiting vomiting everything up since sunday, good uop, pt in nad. Encounter Details Date Type Department Care Team ([facility] st Contact Info) Description 06/17/2017 4:29 PM CDT - 06/17/2017 5:55 PM CDT Emergency ER at [address] [address] Hans Stubbs MD [address] [place] [id number] Abnormal weight loss; Diarrhea, unspecified type Discharge [...] 06/17/2017 5:0 9 PM CDT Growth Chart: [facility] (Boys, 2-2 0 Years) documented in [...] or parasites. Do not give your child xpez-wcx-jcoahxa diarrhea medicine unless directed by his or [...] your child. The above information is an restorative aide only. It is not intended as medicaladvice for individual conditions or treatments. Talk to your doctor, nurse or pharmacist before following any medical regimen to see if it is safe and effective for you. ?? 2017 [employer] Information is for End User's use only and may not be sold, redistributed or otherwise used for commercial purposes. All illustrations and images included in CareNotes?? are the copyrighted property of [employer]. or [employer]. documented in this encounter Medications at Time [...] hours a day, from any computer, through [employer], the online version of our electronic medical record. If you would like to use this service, please call Virgie Armendariz, Connectivity Coordinator, at . We appreciate the opportunity to care for your patients. If you would like additional information, please call the emergency department directly at . Sincerely, Hans Stubbs MD Division of Emergency Medicine [facility], [place] [facility] [place] FIRST TRAUMA I DESIGNATED EMERGENCY DEPARTMENT Provider contact with the patient: 06/17/2017 16:35 Liam Bal [id number] [facility] EM[facility]GENCY DEPARTMENT History Chief Complaint Patient [...] preceded by fatty foods and CT from [facility] was positive for gallstones ??? Head injury [...] Negative Negative, Invalid 06/18/2017 6:23 AM CDT [facility] C difficile Toxin A + B Negative Negative, Invalid 06/18/2017 6:23 AM CDT [facility] Interpretation C difficile Negative for toxigenic C. difficile Negative for toxigenic C. difficile 06/18/2017 6:23 AM CDT [facility] Stool STOOL SPECIMEN / Unknown Collection / Unknown 06/17/2017 5:34 PM CDT 06/17/2017 5:42 PM CDT Hans Stubbs MD LAB - MICROBIOLOGY [place] [facility] [address] [place] [address], [facility] [phone] * CULTURE STOOL+ E COLI SHIGA-LIKE TOXIN (06/17/2017 5:34 PM CDT) Culture No growth Salmonella, Shigella, Campylobacter, Escherichia coli 0157:h7 or Yersinia CAMMIE 06/19/2017 5:57 AM CDT [facility] Culture Negative Escherichia coli Shiga-like toxin (NM) CAMMIE 06/19/2017 5:57 AM CDT [facility] Stool STOOL SPECIMEN / Unknown Collection / Unknown 06/17/2017 5:34 PM CDT 06/17/2017 5:42 PM CDT Hans Stubbs MD LAB - MICROBIOLOGY [place] [facility] [address] [place] [address], [facility] [phone] documented in this encounter Visit Diagnoses Diagnosis Abnormal weight loss Loss of weight Diarrhea, unspecified type documented in this encounter Care Teams House Superintendent Relationship Specialty Start Date End Date Ruthann Le APRN-CHAMP [address] [place] [address] PCP - General Nurse Practitioner 08/14/14 documented as of this encounter
--- OUTSIDE RECORDS SUMMARY | 2024-03-10 04:02 | XMS_ITS | Encounter Summary ---
Author Organization [facility] Address [address] [place] [address] Care Team Providers Care Manufacturer Representative Name Role Phone Unavailable Primary Care Provider Unavailabl e Reason for Visit * Reason Onset Date Comments Hospital Follow-up 03/17/2011 + strep Encounter Details Date Type Department Care Team (Late st Contact Info) Description 03/17/2011 Telephone ER at [address] [address] Bela Forrest, RN Hospital Follow-up (+ strep) [...] David Maldonado. Mom voiced understanding of dischargeinstructions GE SPECIALIST documented in this encounter Plan of Treatment Not on file documented as of this encounter Visit Diagnoses Not on filedocumented in this encounter
--- OUTSIDE RECORDS SUMMARY | 2024-03-10 04:02 | XMS_ITS | Encounter Summary ---
Author Organization [facility] Address [address] [facility] [place] [address] Care Team Providers Care International Marketing Executive Name Role Phone Ruthann Le Fabiano EX ASSISTANT/PROGRAM DIRECTOR-PRODUCT FINISHER Primary Care Provider + Unknown, Provider Primary Care Provider UnavailCody Chun MD Primary Care Provider Pcp, Dejah Primary Care Provider UnavailYonas Michael MD Primary Care Provider Unavailab le Encounter Details Date Type Department Care Team (Late st Contact Info) Description 04/23/2008 Orders Only [facility] - Laboratory [address] [place] [address] Provider, MD Rom Social History Tobacco Use [...] GROSS EXAM PATHOLOGY GINA 04/23/2008 10:48 AM REFERENCE LIBRARIAN documented in this encounter Results * GROSS EXAM PATHOLOGY (04/23/2008 10:48 AM REFERENCE LIBRARIAN) Result CASE NUMBER [id number] [facility] PATH REPORT Comment: ORDERING PHYSICIAN [...] and interpreted by the attending (teaching) pathologist. Auto Servicer ? MIGUEL MENDEZ RESIDENT IN PATHOLOG Yehuda Ulloa PATHOLOGIST ?Ashlie Narayanan M.D. ELECTRONICALLY MIMI ASHLIE NARAYANAN MISCELLANEOUS SAMPLES / Unknown 04/23/2008 10:48 AM REFERENCE LIBRARIAN 04/23/2008 12:39 PM REFERENCE LIBRARIAN Historical Provider LAB - PATHOLOGY/C YTOLOGY ORDERABLES Performing Organization Address [facility]/State/ZIP Co de Phone Number [facility] PATH REPORT documented in this encounter Visit Diagnoses Not on filedocumented in this encounter Care Teams International Marketing Executive Relationship Specialty Start Date End Date Ruthnan Le, EX ASSISTANT/PROGRAM DIRECTOR-PRODUCT FINISHER [address] [place] [address] PCP - General 05/14/09 11/21/09 Unknown, Provider PCP - General 11/22/09 03/12/11 Cody Merlos MD NOT SEEING PATIENTS PCP - General 03/13/11 03/13/11 PcpDejah PCP - General 10/20/11 05/20/12 Yonas Troy MD PCP - General Pediatrics 05/21/12 08/13/14 documented as of this encounter
--- OUTSIDE RECORDS SUMMARY | 2024-03-10 04:02 | XMS_ITS | Encounter Summary ---
Author Organization [facility] Address [address] [place] [address] Care Team Providers Care Workday Consultant Name Role Phone Ruthann Le WAGON WASHER-TELEVISION OPERATOR Primary Care Provider + Reason for Visit * Auth/Cert Specialty Diagnoses / Procedures Referred By Zohra aguila Referred To Contact Diagnoses Acute calculous cholecystitis Acute calculous cholecystitis Procedures LAPAROSCOPIC CHOLECYSTECTOMY Referral ID Status Reason Start Date Expiration Date Visits Re quested Visits Authorized [id number] 1 1 Encounter Details Date Type Department Care Team (Late st Contact Info) Description 10/26/2016 1:50 PM CDT - 10/26/2016 3:40 PM CDT Surgery [facility] - Periop [address] [place] [address]. [place] [address] Rosana Castro MD [address] [place] [address] [place] [address] LAPAROSCOPIC CHOLECYSTECTOMY Surgery Details Date/Time Status Location [...] 91.83% 10/26 12:52 PM CDT Growth Chart: [facility] (Boys, 2-2 0 Years) documented in [...] preceded by fatty foods and CT from [facility] was positive for gallstones ??? [...] cholecystectomy Clinical Course: The patient presented to [facility] with the above H&P. The patient [...] or edema Liam Bal Home Medication Instructions KELVIN:[id number] Printed on:10/27/16 1220 Medication Information acetaminophen (TYLENOL) [...] Dr. Castro during the [facility] clinic. Call [phone] for appointment time. Return to ER or call [phone] and page pediatric surgery resident if develop severe pain, nausea, vomiting, or fever > 101.0 F. Kaci Mobley MD CC: Ruthann Le, MITCH-TELEVISION OPERATOR Associated attestation - Arcenio Major MD - [...] Automatic Therapeutic Substitution Policy approved by the [facility] and [employer] and Medical Executive [...] preceded by fatty foods and CT from [facility] was positive for gallstones ??? Head injury 11/22/2009 ??? Left tibial torsion 06/13/2013 ??? 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 Sara Weir DO [facility] General Surgery Senior Resident [facility] [phone] 10/26/20162:11 PM I reviewed the chart of [...] performed: Laparoscopic cholecystectomy Surgeon: Rosana Castro MD Senior Manufacturing Test Engineer: Magen Michaud MD and Sara Weir DO [...] were clipped with a 5 mm clip olericulturist and divided. The peritoneum was incised wi [...] 5 mL Specimens: gallbladder Sara Weir DO [facility] General Surgery Senior Resident [facility] [phone] 10/26/20164:35 PM I was present for the [...] MD 10/26/2016 3:20 PM Sara Weir DO [facility] General Surgery Senior Resident [facility] [phone] 10/26/20164:34 PM Rosana Castro MD 10/27/2016 5:27 [...] Case Report Surgical Pathology Report ? Case: [id number] ? Authorizing Provider: ??Rosana Castro MD Collected: ? 10/26/2016 03:06 PM ? Ordering Location: ? [facility] ? Received: ?10/27/2016 07:05 AM ? Pathologist: ? Mary Ibarra MD ? Specimen: ?Gallbladder ? 10/30/2016 7:14 PM T [facility] Final Diagnosis GALLBLADDER, LAPAROSCOPIC CHOLECYSTECTOMY: - CHRONIC CHOLECYSTITIS. - CHOLELITHIASIS 10/30/2016 7:14 PM [facility] Clinical History The patient is a 11-year-old boy with intermittent right upper quadrant pain and clinical diagnosis of symptomatic cholelithiasis. 10/30/2016 7:14 PM T [facility] Gross Description Submitted fixed in [...] is velvety pink. The cystic duct and sales representative raw fibers sections of the gallbladder are submitted in cassette A1. (KONSTANTIN/ns) 10/30/2016 7:14 PM [facility] Microscopic Description 1 H&E. Sections of the gallbladder show gallbladder wall with mild chronic inflammatory infiltrate and with Rokitansky-Aschoff sinuses. The luminal surface has amorphous eosinophilic material. (CV/NK/eva) 10/30/2016 7:14 PM T [facility] Disclaimer The performance characteristics of all immunohistochemical and indirect immunofluorescence stains (if any) cited in this report were determined by the Histopathology Laboratory of [facility]. Some of these tests were developed [...] pathologist. 10/30/2016 7:14 PM [facility] Embedded Images 10/30/2016 7:14 PM [facility] Pathology/Cytolo gy ENTIRE GALLBLADDER / Unknown 10/26/2016 3:06 PM CDT 10/27/2016 7:05 AM CDT Rosana Castro MD LAB - PATHOLOGY/C YTOLOGY ORDERABLES Performing Organization Address City/State/[facility] Co de Phone Number [facility] [address] [place] [address] documented in this encounter Visit Diagnoses Diagnosis [...] Post-op documented in this encounter Care Teams Workday Consultant Relationship Specialty Start Date End Date Ruthann Le, WAGON WASHER-TELEVISION OPERATOR [address] [place] [address] PCP - General Nurse Practitioner 08/14/14 documented as of this encounter
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
--- OUTSIDE RECORDS SUMMARY | 2024-03-10 04:02 | XMS_ITS | Encounter Summary ---
Author Organization [facility] Address [address] [place] [address] Care Team Providers Care Transport Corps Officer Name Role Phone Unknown, Provider Primary Care [...] 11/22/2009 2:09 PM CDT Emergency ER at [address] [address] Nely Carmona MD [address] [place] [id number] Head Injury, Unspecified Discharge Disposition: Home or [...] Document Re-Released: 04/02/2007 ExitCare?? Patient Information ??2008 [employer] * Discharge Instructions* Document, Scanned - 11/23/2009 2:41 PM CDT documented in this encounter Medications at Time of Discharge Medication Sig Dispensed Refills Start Date End Date Dexmethylphenidate HCl (FOCALIN PO) Take by mouth. Takes once daily, unsure of dose 03/10/2015 documented as of this encounter ED Notes * Sara Newman MD - 11/22/2009 1:45 PM CDT 11/22/2009 1:45 PM Liam Bal [id number] History Chief Complaint Patient presents with ??? [...] PM CDT 11/22/2009 1:21 PM Liam Bal [id number] History Chief Complaint Patient presents with ??? [...] unspecified documented in this encounter Care Teams Transport [employer] Officer Relationship Specialty Start Date End Date Unknown, Provider PCP - General 11/22/09 03/12/11 documented as of this encounter
--- OUTSIDE RECORDS SUMMARY | 2024-03-10 04:02 | XMS_ITS | Encounter Summary ---
Author Organization [facility] Address [address] [facility] [place] [address] Care Team Providers Care Extrusion Supervisor Name Role Phone Ruthann Le Fabiano ASSISTANT PRODUCT MANAGER-WEB DEVELOPER Primary Care Provider + Reason for Visit * Reason Onset Date Comments Surgery Scheduling 10/04/2016 Called and sp reinaldo w/ mom and surgery date set for 10/26/2016 w/ Dr. Castro for laparoscopic cholecsytectomy (CPT 89674). Insurance Issue/question 10/04/2016 Prior a uthorization request faxed to [facility] and request approved - valid 10/26/16 thru 01/24/17 - auth # [id number]. Encounter Details Date Type Department Care Team (Late st Contact Info) Description 10/04/2016 Telephone [facility] - Surgery [address] [place] [address] Rosana Castro MD [address] [facility] [place] [address] Surgery Scheduling (Called and spoke w/ mom and surgery date set for 10/26/2016 w/ Dr. Castro for laparoscopic cholecsytectomy (CPT 23755).); Insurance Issue/question (Prior authorization request faxed to [facility] and request approved - valid 10/26/16 thru 01/24/17 - auth # [id number].) Social History Tobacco Use Types Packs/Day Years [...] w/ Dr. Castro for laparoscopic cholecsytectomy (CPT 33541). Prior authorization request faxed to [facility] and request approved - valid 10/26/16 thru 01/24/17 - auth # [id number]. Surgery confirmation # [id number] Emilee Solitario documented in this encounter Plan of Treatment Not on file documented as of this encounter Visit Diagnoses Not on filedocumented in this encounter Care Teams Extrusion Supervisor Relationship Specialty Start Date End Date Ruthann Le APRN-WEB DEVELOPER [address] [place] [address] PCP - General Nurse Practitioner 08/14/14 documented as of this encounter
--- OUTSIDE RECORDS SUMMARY | 2024-03-10 04:02 | XMS_ITS | Encounter Summary ---
Author Organization [facility] Address [address] [facility] [place] [address] Care Team Providers Care Fiber Analyst Name Role Phone Ruthann Le BAG FILLER-MANAGER EQUIPMENT Primary Care Provider + Reason for Visit * Auth/Cert - Closed Specialty Diagnoses / Procedures Referred By Zohra t Referred To Contact Diagnoses Femoral anteversion (HCC) Femoral anteversion Procedures OSTEOTOMY FEMUR SHAFT WITH FIXATION Referral ID Status Reason Start Date Expiration Date Visits Re quested Visits Authorized [id number] Closed 1 1 Encounter Details Date Type Department Care Team (Latest Contact Info) Description 03/11/2015 8:56 AM OUTPATIENT PHLEBOTOMIST - 03/13/2015 9:[address] [facility] Hospital Encounter CG 4 N HEM/ONC [address] [place] [address] Ruben Jorge MD [address] [place] [address] DR SAXENA 1 [facility] [place] [phone] Surgery General Discharge Disposition: Home [...] Comments Blood Pressure 121/49 03/13/2015 8:55 AM OUTPATIENT PHLEBOTOMIST Pulse 86 03/13/2015 8:55 AM OUTPATIENT PHLEBOTOMIST Temperature 36.1 ??C (97 ??F) 03/13/2015 8:55 AM OUTPATIENT PHLEBOTOMIST Respiratory Rate 20 03/13/2015 8:55 AM OUTPATIENT PHLEBOTOMIST Oxygen Saturation 99% 03/12/2015 8:45 AM OUTPATIENT PHLEBOTOMIST Inhaled Oxygen Concentration - - Weight 64.7 kg (142 lb 10.2 oz) 03/11/2015 9:00 AM OUTPATIENT PHLEBOTOMIST Height 152.6 cm (5' 0.08 ) 03/11/2015 9:00 AM CS T Body Mass Index 27.78 03/11/2015 9:00 AM OUTPATIENT PHLEBOTOMIST Body Mass Index Percentile 97.39% 03/11/2015 9:0 0 AM OUTPATIENT PHLEBOTOMIST Growth Chart: [facility] (Boys, 2-2 0 Years) documented in this [...] (attention deficit hyperactivity disorder) ??? Asthma ??? Whitehall-Schlatter's disease of right knee 01/01/2015 ??? Femoral [...] Comments Your discharge diagnosis is Femoral anteversion [018604] Follow up with Primary Care Provider (PCP) [...] Call for appointment if not already scheduled. ATIENT PHLEBOTOMIST documented in this encounter Discharge Instructions * Discharge Instructions* Claudia Holland RN - 03/13/2015 8:32 AM OUTPATIENT PHLEBOTOMIST If your child has any worsening of his or her condition, please call your primary care doctor (or their exchange if after hours) or return to the ED if your primary care doctor cannot be reached. ATIENT PHLEBOTOMIST documented in this encounter Medications at Time [...] to car ,[place] in , no problems. ATIENT PHLEBOTOMIST * Cameron Maxwell DO - 03/13/2015 7:40 AM CST [facility] Progress Note Name: Liam Bal [...] up in office in 2 weeks 5. ATIENT PHLEBOTOMIST * Yasmani Natarajan, RN - 03/12/2015 4:14 PM CST Rental wheelchair and wheeled walker ordered from [facility] Patient [phone], for delivery to hospital on 03/13/15. Failed to rent DME from [employer], and [employer], as they are not contracted with [employer]. ATIENT PHLEBOTOMIST * Berenice Perez, PT - 03/12/2015 2:27 PM CST Checked back with nurse and mom this afternoon. Liam tolerated up to chair and did well with walker. After nerve block wore off, he started having some pain issues. Ok from physical therapy standpoint as far as training with transfers and walker. No further physical therapy needed. Berenice Perez P.T. [phone] ATIENT PHLEBOTOMIST * Radha Medina APRN-MANAGER EQUIPMENT - 03/12/2015 11:42 AM CST Liam Bal [...] Ropivacaine 0.2 % Dosing: Continuous: 7 ml/hr DIGESTER OPERATOR HELPER: Bolus: 1 ml Lockout: 30 min Hourly Limit: 9 ml DIGESTER OPERATOR HELPER Usage: 4 attempt; 4 deliveries; in past 4 hours [id number] Total used from bag since infusion initiation [...] this time. Thank you for the consult ATIENT PHLEBOTOMIST * Do Salinas MD - 03/12/2015 8:25 AM CST [facility] Progress Note Name: Liam Bal [...] planning for discharge with patient progression today. ATIENT PHLEBOTOMIST * Radha Medina APRN-CNP - 03/11/2015 4:16 [...] aware of pain services. Full consultto follow. ATIENT PHLEBOTOMIST * Lety Madrid Scarlett - 03/11/2015 4:04 PM CST Dear Physician, In accordance with the Automatic Therapeutic Substitution Policy approved by the [facility] and [employer] and Medical Executive Committees, Your Order for: Albuterol MDI 90 mcg/spray 2 puffs every 4 hours PRN has been changed to albuterol 2.5 mg nebs every 4 hours PRN. If you have any questions please call the pharmacy. Thank you Lety Madrid RPH ATIENT PHLEBOTOMIST * Lee Castellano MD - 03/11/2015 2:23 [...] floor Lee Castellano MD 03/11/2015 1:10 PM ATIENT PHLEBOTOMIST documented in this encounter H&P Notes * Lee Castellano MD - 03/11/2015 9:28 AM CST Orthopaedic Surgery H&P Liam Bal 2005 [id number] Ruthann Le NP Date of service: 03/11/2015 [...] (attention deficit hyperactivity disorder) ??? Asthma ??? Whitehall-Schlatter's disease of right knee 01/01/2015 ??? Femoral [...] 3. Site marked 4. NPO for OR ATIENT PHLEBOTOMIST documented in this encounter Consult Notes * [...] Berenice Perez, PT 03/12/2015 12:43 PM [id number] ATIENT PHLEBOTOMIST * Radha Medina, BAG FILLER-MANAGER EQUIPMENT - 03/12/2015 7:35 AM CSTAssociated Order(s): IP CONSULT TO PAIN MANAGEMENT Initial Consult Note Date of Consult: 03/12/2015 Reason for Consultation: Pain management with continuous peripheral nerve block Liam Bal 2005 [id number] Liam Bal is a 10 y.o. male [...] (attention deficit hyperactivity disorder) ??? Asthma ??? Whitehall-Schlatter's disease of right knee 01/01/2015 ??? Femoral [...] peripheral nerve block Perineural Continuous Radha Medina APRN-MANAGER EQUIPMENT 7 mL/hr at 03/11/15 1345 ??? acetaminophen (TYLENOL) tablet 650 mg 10 mg/kg Oral q6h Radha Medina APRN-MANAGER EQUIPMENT 650 mg at 03/12/15 0239 ??? oxyCODONE (immediate release) (ROXICODONE) tablet 5 mg 5 mg Oral q4h PRN Radha Medina BAG FILLER-MANAGER EQUIPMENT 5 mg at 03/11/15 2307 ??? morphine [...] CO2, BUN, CREATININE, GLUCOSE in the last 97477 hours. Invalid input(s): CLORIDE Recent Labs Component [...] hrs 137.3 ml ( cont 129.3 + DIGESTER OPERATOR HELPER 8 ml) Attempts in 19 [...] Pain service will follow. 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 After [place] X-rays were obtained on lateral fluoroscopy, the [...] Implant Name Type Inv. Item Serial No. Railroad Auditor Lot No. [id number] No. Used NAIL R 10MM X 38CM NAIL R 10MM X 38CM [employer] Right 1 SCRW [place] 4.5MM X 48MM [employer] [place] 4.5MM X 48MM [employer] Right 1 [employer] [place] 4.5MM X 28MM S[employer] [place] 4.5MM X 28MM [employer] Right 1 ATIENT PHLEBOTOMIST documented in this encounter Plan of Treatment Not on file documented as of this encounter Procedures Procedure Name Priority Date/Time Associated Diagnosis Comments XR FEMUR RIGHT 2VW Routine 03/11/2015 12 :53 PM OUTPATIENT PHLEBOTOMIST Femoral anteversion (HCC) OSTEOTOMY FEMORAL WITH FIXATION 03/11/2015 9:46 AM OUTPATIENT PHLEBOTOMIST Femoral anteversion (HCC) Special Needs C-ARM, ALY TABLE URINE MICROSCOPIC ONLY REFLEX TO CULTURE Pre-Op 03/11/2015 9:45 AM OUTPATIENT PHLEBOTOMIST Femoral anteversion (HCC) URINALYSIS REFLEX MICROSCOPIC REFLEX CULTURE Pre-Op 03/11/2015 9:45 AM OUTPATIENT PHLEBOTOMIST Femoral anteversion (HCC) PT PTT PANEL Pre-Op 03/11/2015 9:44 AM OUTPATIENT PHLEBOTOMIST Femoral anteversion (HCC) CBC W AUTO DIFFERENTIAL Pre-Op 03/11/2015 9:44 AM OUTPATIENT PHLEBOTOMIST Femoral anteversion (HCC) TYPE + SCREEN PANEL Pre-Op 03/11/2015 9 :43 AM OUTPATIENT PHLEBOTOMIST Femoral anteversion (HCC) documented in this encounter Results * XR FEMUR 2 VW RIGHT (03/11/2015 12:53 PM OUTPATIENT PHLEBOTOMIST) Anatomical Region Laterality Modality Lower Extremity Radio Fluoroscop y 03/11/2015 1:14 PM OUTPATIENT PHLEBOTOMIST Impressions 03/11/2015 1:27 PM OUTPATIENT PHLEBOTOMIST Fluoroscopic guidance for femoral diaphyseal osteotomy and internal fixation. The study was dictated by Deonte Kahn MD (vice president of operations). I, Maryanne Morales, have personally reviewed the images and I agree with this report. Narrative 03/11/2015 1:27 PM OUTPATIENT PHLEBOTOMIST EXAMINATION: Fluoroscopic guidance right femur 2 views [...] study was dictated by Deonte Kahn MD (vice president of operations). I, Maryanne Morales, have personally reviewed the images and I agree with this report. Ruben Jorge MD DIAGNOSTIC IMAGING O RDERABLES * (ABNORMAL) URINALYSIS MICROSCOPIC ONLY W/REFLEX CULTURE (03/11/2015 9:45 AM OUTPATIENT PHLEBOTOMIST) RBC UA 0-2 0-2, 2-5 # /hpf 03/11/2015 10:34 AM [facility] WBC UA 0-2 0-2, 2-5 # /hpf 03/11/2015 10:34 AM [facility] Bacteria UA 1+(A) None Seen, Trace 03/11/2015 10:34 AM [facility] Epithelial Cell UA 0-2 0-2, 2-5 # /hpf 03/11/2015 10:34 AM [facility] Mucus UA 3+ 03/11/2015 10:34 AM [facility] Urine URINE SPECIMEN OBTAINED BY CLEAN CATCH PROCEDURE / Unknown 03/11/2015 9:45 AM OUTPATIENT PHLEBOTOMIST 03/11/2015 10:[address] [facility] Ruben Jorge MD LAB - URINALYSIS ORD ERABLES [facility] [address] [place] [address] * (ABNORMAL) URINALYSIS ROUTINE W/REFLEX TO CULTURE (03/11/2015 9:[address] [facility]) Color UA Yellow Straw, Yellow, Dark Yellow 03/11/2015 10:23 AM [facility] Clarity UA Clear 03/11/2015 10:23 AM [facility] Specific [place] UA >=1.030 1.005 - 1.030 03/11/2015 10:23 AM [facility] pH UA 6.0 5.0 - 8.0 pH 03/11/2015 10:23 AM [facility] Protein UA Negative Negative 03/11/2015 10:23 AM [facility] Blood UA Trace(A) Negative 03/11/2015 10:23 AM [facility] Leukocyte UA Negative Negative 03/11/2015 10:23 AM [facility] Nitrite UA Negative Negative 03/11/2015 10:23 AM [facility] Glucose UA Negative Negative 03/11/2015 10:23 AM [facility] Ketone UA Negative Negative 03/11/2015 10:23 AM [facility] Bilirubin UA Negative Negative 03/11/2015 10:23 AM [facility] Urobilinogen UA 0.2 0.1 - 1.0 EU/dL 03/11/2015 10:23 AM [facility] Urine Microscopy Urine microscopy to follow 03/11/2015 10:23 AM [facility] Reflex Status Culture not indicated 03/11/2015 10:23 AM [facility] Urine URINE SPECIMEN OBTAINED BY CLEAN CATCH PROCEDURE / Unknown 03/11/2015 9:[address] [facility] 03/11/2015 10:[address] [facility] Ruben Jorge MD LAB - URINALYSIS ORD ERABLES [facility] [address] [place] [address] * PT PTT PANEL (03/11/2015 9:[address] [facility]) PT 11.2 9.5 - 11.6 sec 03/11/2015 10:34 AM [facility] INR 1.1 0.9 - 1.1 03/11/2015 10:34 AM [facility] PTT 27.9 21.0 - 32.0 sec 03/11/2015 10:34 AM [facility] Blood BLOOD SPECIMEN / Unknown 03/11/2015 9:[address] [facility] 03/11/2015 10:03 AM [facility] - 03/11/2015 10:[address] [facility] Conventional Warfarin Anticoagulant Therapy: INR Reference Range: ??2.0-3.0 Intensive Warfarin Anticoagulant Therapy: INR Reference Range: ? 2.5-3.5 Heparin Therapeutic Range for PTT: 44.4 - 78.3 seconds. Ruben Jorge MD LAB - COAGULATION OR DERABLES Performing Organization Address City/State/[facility] de Phone Number [facility] [address] [place] [id number] * CBC W AUTO DIFFERENTIAL (03/11/2015 9:[address] [facility]) Pathologist [facility] WBC 4.7 4.5 - 14.5 x10^9/L 03/11/2015 10:10 AM [facility] WBC Corrected x10^9/L 03/11/2015 10:10 AM [facility] RBC 4.53 4.00 - 5.20 x10^12/L 03/11/2015 10:10 AM [facility] Hemoglobin 12.5 11.5 - 15.5 gm/dL 03/11/2015 10:10 AM [facility] Hematocrit 35.9 35.0 - 45.0 % 03/11/2015 10:10 AM [facility] MCV 79.2 77.0 - 95.0 fl 03/11/2015 10:10 AM [facility] MCH 27.6 25.0 - 33.0 pg 03/11/2015 10:10 AM [facility] MCHC 34.8 31.0 - 37.0 gm/dL 03/11/2015 10:10 AM [facility] Platelet Count 269 100 - 400 x10^9/L 03/11/2015 10:10 AM [facility] RDW-CV 13.9 11.5 - 14.0 % 03/11/2015 10:10 AM [facility] MPV 8.9 6.0 - 9.5 fl 03/11/2015 10:10 AM [facility] Neutrophils % 43.2 24.0 - 66.0 % 03/11/2015 10:10 AM [facility] Lymphocytes % 43.6 22.0 - 61.0 % 03/11/2015 10:10 AM [facility] Monocytes % 12.4 3.0 - 15.0 % 03/11/2015 10:10 AM [facility] Eosinophils % 0.4 0.0 - 10.0 % 03/11/2015 10:10 AM [facility] Basophils % 0.4 % 03/11/2015 10:10 AM [facility] Immature Granulocytes 0.0 % 03/11/2015 10:10 AM [facility] Neutrophil Absolute 2.01 x10^9/L 03/11/2015 10:10 AM [facility] Lymphocytes Absolute 2.03 x10^9/L 03/11/2015 10:10 AM [facility] Monocytes Absolute 0.58 x10^9/L 03/11/2015 10:10 AM [facility] Eosinophils Absolute 0.02 x10^9/L 03/11/2015 10:10 AM [facility] Basophils Absolute 0.02 x10^9/L 03/11/2015 10:10 AM [facility] Immature Granulocytes Absolute 0.00 x10^9/L 03/11/2015 10:10 AM [facility] Blood BLOOD SPECIMEN / Unknown 03/11/2015 9:[address] [facility] 03/11/2015 10:[address] [facility] Ruben Jorge MD LAB - HEMATOLOGY ORD ERABLES [facility] [address] [place] [address] * TYPE + SCREEN PANEL (03/11/2015 9:[address] [facility]) ABO O 03/11/2015 10:45 AM [facility] Rh Type Positive 03/11/2015 10:45 AM [facility] Antibody Screen Negative 03/11/2015 10:45 AM OUTPATIENT PHLEBOTOMIST [facility] Miscellaneous samples (specimen) BLOOD SPECIMEN / Unknown 03/11/2015 9:43 AM OUTPATIENT PHLEBOTOMIST 03/11/2015 10:03 AM OUTPATIENT PHLEBOTOMIST Narrative Authorizing Provider Result Yohannes Jorge MD LAB - BLOOD BANK ORD ERABLES Performing Organization Address City/State/[facility] [[email or web address] Co de Phone Number [facility] [address] [place] [address] documented in this encounter Visit Diagnoses Diagnosis [...] mild pain $ Given 03/13/2015 8:52 AM OUTPATIENT PHLEBOTOMIST 650 mg $ Given 03/13/2015 2:07 AM OUTPATIENT PHLEBOTOMIST 650 mg $ Given 03/12/2015 8:16 PM OUTPATIENT PHLEBOTOMIST 650 mg ceFAZolin pediatric IV 1,000 mg 1,000 mg, Intravenous, EVERY 8 HOURS, 2 doses, First dose on Britany 03/11/15 at 1900, Last dose on Sun03/12/15 at 0400, Up to 1 gm maximum dose., Post-op $ Given 03/12/2015 4:39 AM OUTPATIENT PHLEBOTOMIST 1,000 mg $ Given 03/11/2015 8:14 PM OUTPATIENT PHLEBOTOMIST 1,000 mg dexmethylphenidate ER 24hr (FOCALIN XR) capsule 15 mg 15 mg, Oral, EVERY MORNING, First dose on Sun03/12/15 at 0830, Until Discontinued, Do not crush/chew, contents of capsule maybe gently sprinkled on one tablespoonful of cold applesauce and swallowed, Post-op $ Given 03/13/2015 8:54 AM OUTPATIENT PHLEBOTOMIST 15 mg $ Given 03/12/2015 8:42 AM OUTPATIENT PHLEBOTOMIST 15 mg diazepam (VALIUM) oral solution 5 mg 5 mg, Oral, 3 TIMES DAILY PRN, Anxiety, Starting on Britayn 03/11/15 at 1550, Until 03/13/15 at 1143, Post-op $ Given 03/12/2015 9:27 PM OUTPATIENT PHLEBOTOMIST 5 mg docusate sodium (COLACE) capsule 100 mg 100 mg, Oral, DAILY, First dose on Sun03/12/15 at 1130, Until Discontinued $ Given 03/13/2015 8:53 AM OUTPATIENT PHLEBOTOMIST 100 mg $ Given 03/12/2015 12:26 PM OUTPATIENT PHLEBOTOMIST 100 mg docusate sodium (COLACE) solution 50 mg 50 mg, Oral, 2 TIMES DAILY, First dose on Britany 03/11/15 at 2030, Until Discontinued, Post-op $ Given 03/11/2015 8:14 PM OUTPATIENT PHLEBOTOMIST 50 mg isolyte-S pH 7.4 infusion 105 mL/hr, Intravenous, POST-OP CONTINUOUS, Starting on Britany 03/11/15 at 1345, Until Britany 03/11/15 at 1454, Continue Fluids at current rates, until current bag is finished. Then Switch to fluids as ordered for floor., PACU Current Rate 03/11/2015 1:40 PM OUTPATIENT PHLEBOTOMIST 105 mL/hr 105 mL/hr morphine injection 2 mg 2 mg, Intravenous, POST-OP MULTIPLE, Starting on Britany 03/11/15 at 1343, Until Britany 03/11/15 at 1454, May repeat every 5 minutes for pain scales > 3 to a Max dose of 0.2 mg/Kg. High Risk, High Alert Medication: Must doucment double check on IV MAR Flowsheet., PACU $ Given 03/11/2015 2:07 PM OUTPATIENT PHLEBOTOMIST 2 mg morphine injection 2 mg 2 mg, Intravenous, EVERY 4 HOURS PRN, Severe Pain, Starting on Britany 03/11/15 at 1550, Until 03/13/15 at 1143, For severe pain not controlled with scheduled oral analgesics., Post-op $ Given 03/12/2015 7:01 PM OUTPATIENT PHLEBOTOMIST 2 mg oxyCODONE (immediate release) (ROXICODONE) tablet 5 mg 5 mg, Oral, EVERY 4 HOURS PRN, Moderate Pain, Starting on Britany 03/11/15 at 1255, Until Sun03/12/15 at 1023, For moderate pain. $ Given 03/12/2015 8:43 AM OUTPATIENT PHLEBOTOMIST 5 mg $ Given 03/11/2015 11:07 PM OUTPATIENT PHLEBOTOMIST 5 mg $ Given 03/11/2015 6:05 PM OUTPATIENT PHLEBOTOMIST 5 mg oxyCODONE (immediate release) (ROXICODONE) tablet 5 mg 5 mg, Oral, EVERY 4 HOURS, First dose (after last modification) on Sun03/12/15 at 1230, Until Discontinued, For moderate pain. $ Given 03/13/2015 8:53 AM OUTPATIENT PHLEBOTOMIST 5 mg $ Given 03/13/2015 4:02 AM OUTPATIENT PHLEBOTOMIST 5 mg $ Given 03/12/2015 11:59 PM OUTPATIENT PHLEBOTOMIST 5 mg ropivacaine (NAROPIN) 2 MG/ML peripheral nerve block Perineural, CONTINUOUS, Starting on Britany 03/11/15 at 1345, Until Sun03/12/15 at 1557, Continuous infusion setting rate: 7 ml/hr PCRA Bolus dose: 1 ml Bolus lockout: 30 minutes (suggested; every 60 minutes) On hour limit 9 ml/hr $ New Bag/Syringe 03/11/2015 1:45 PM OUTPATIENT PHLEBOTOMIST 7 mL/hr senna (SENOKOT) tablet 8.6 mg 8.6 mg, Oral, DAILY, First dose on Sun03/12/15 at 1100, Until Discontinued $ Given 03/13/2015 8:53 AM OUTPATIENT PHLEBOTOMIST 8.6 mg $ Given 03/12/2015 12:26 PM OUTPATIENT PHLEBOTOMIST 8.6 mg sennosides (SENOKOT) solution 8.8 mg 8.8 mg (5 mL), Oral, AT BEDTIME, First dose on Britany 03/11/15 at 2030, Until Discontinued, May be mixed with milk to mask taste., Post-op $ Given 03/11/2015 8:14 PM OUTPATIENT PHLEBOTOMIST 8.8 mg documented in this encounter Active and Recently Administered Medications Times are shown in OUTPATIENT PHLEBOTOMIST. Scheduled Medication Order 03/11/2015 03/12/2015 03/13/2015 acetaminophen [...] 1805 ($ Given - Provider: Alyssa Robbins, ISAAC)2307 ($ Given - Provider: Serena Foote, ISAAC) 0843 ($ Given - Provider: Rochelle Lyle, RN) documented in this encounter Care Teams Fiber Analyst Relationship Specialty Start Date End Date Ruthann eL, BAG FILLER-MANAGER EQUIPMENT [address] [place] [address] PCP - General Nurse Practitioner 08/14/14 documented as of this encounter
--- OUTSIDE RECORDS SUMMARY | 2024-03-10 04:02 | XMS_ITS | Encounter Summary ---
Author Organization [facility] Address [address] [facility] [place] [address] Care Team Providers Care Non Emergency Services Ambulance Driver Name Role Phone Ruthann Le TIRE TRUCKER-PROOFER APPRENTICE Primary Care Provider + Reason for Visit * Reason Comments Pain Abdominal gall stones Encounter Details Date Type Department Care Team (Late st Contact Info) Description 10/02/2016 9:10 AM CDT - 10/02/2016 11:59 PM CDT Hospital Encounter [facility] Pediatrics - Surgery [address] [place] [address] Rosana Castro MD [address] [place] [address] DEPT [place] [address] Discharge Disposition: Home or Self Care Social [...] 10/02/2016 9:2 1 AM CDT Growth Chart: [facility] (Boys, 2-2 0 Years) documented in this [...] PEDIATRIC SURGERY INSTRUCTIONS Department of Pediatric Surgery [address] [place] [address] office [phone] fax [phone] Rosana Mckenna MSN RN PCNS-BC Viola Nicole MSN RN PCNS-BC Stephen Silvestre MSN RN CPNP Ashlyn Desai -Boat Outfitter Abigail Navarro-[place]eskowin Emilee Solitario-[place]in ?? The pediatric surgery secretaries will call within 3 days of being seen to schedule your child'ssurgery date. If your child is being seen by Dr. Arcenio Major or Dr. Rosana Castro please contact Emilee at [phone] if you have questions or concerns. If your child is being seen by Dr. Jerzy Khan or Dr. Lloyd Brumfield please contact Abigail at [phone] if you have questionsor concerns. Pre-Operative Instructions [...] OUT OF! Remove EARRINGS and ALL JEWELRY/FINGERNAIL GERMAN/METAL HAIR CLIPS/BODY PIERCINGS/CONTACT LENSES before coming to [...] on Time ?? TIME: ?? A Parent/Legal Guardian/Human Resources Clerk must accompany patient and obtain VISITOR PASS [...] before surgery - please call Vilma at [phone] or Rivka at [phone]. Sunday - Sunday 8:30am-7pm. If you need toarrange for medical transportation to and/or from the hospital please call the number on the back of your medical card 1 week before surgery. For arrival time at [facility], contact Vilma/Rivka at the above numbers. Please check out our video [facility] on [email or web address] or scan QR code. Thank you! 03/18/13 [...] time the pt went the ED at [facility] for sharp pain rated 8/10 withnausea. [...] ??? Asthma ??? 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 Buford-Schlatter's disease of right knee 01/01/2015 Surgical History: [...] [facility] fatty [facility]. Pt reports that [...] obstruction documented in this encounter Care Teams Non Emergency Services Ambulance Driver Relationship Specialty Start Date End Date Ruthann Le, TIRE TRUCKER-PROOFER APPRENTICE [address] [place] [address] PCP - General Nurse Practitioner 08/14/14 documented as of this encounter
--- OUTSIDE RECORDS SUMMARY | 2024-03-10 04:02 | XMS_ITS | Encounter Summary ---
Author Organization [facility] Address [address] [place] [address] Care Team Providers Care Textile Screen Maker Name Role Phone SharifvahidRuthann segura Fabiano ENVELOPE FOLD OPERATOR-PERSONAL FINANCIAL ADVISOR Primary Care Provider + Reason for Visit * Auth/Cert - Closed Specialty Diagnoses / Procedures Referred By Zohra t Referred To Contact Diagnoses Femoral anteversion (HCC) Femoral anteversion Procedures OSTEOTOMY FEMUR SHAFT WITH FIXATION Referral ID Status Reason Start Date Expiration Date Visits Re quested Visits Authorized [id number] Closed 1 1 Encounter Details Date Type Department Care Team (Late st Contact Info) Description 03/11/2015 10:01 AM COSMETICIAN APPRENTICE Anesthesia Event [facility] - Periop [address] [place] [address] Elida Valverde MD [address] [place] [address] Pam Fu APRN-PARCEL POST TRUCK DRIVER [address] [facility] [place] [address] Anesthesia Record Procedure Summary Procedure Name Responsible [...] CO2 Monitor 03/11/15 1012 by Pam Fu APRN-PARCEL POST TRUCK DRIVER 03/11/15 1332 by Pam Fu APRN-PARCEL POST TRUCK DRIVER Urethral Catheter 03/11/15; 1020; Sarah Trinidad RN; [...] filed. ASA/AQI Tracking Events: No value filed. ETICIAN APPRENTICE documented in this encounter Procedure Notes * [...] to be adequate based on stimulation threshold. ETICIAN APPRENTICE documented in this encounter Consult Notes * [...] (attention deficit hyperactivity disorder) ??? Asthma ??? Haslett-Schlatter's disease of right knee 01/01/2015 ??? Femoral [...] Plan accepted yes Discussed anesthesia plan with: PARCEL POST TRUCK DRIVER. ETICIAN APPRENTICE documented in this encounter Plan of Treatment Not on file documented as of this encounter Procedures Procedure Name Priority Date/Time Associated Diagnosis Comments PERIPHERAL BLOCK Routine 03/11/2015 2:46 PM COSMETICIAN APPRENTICE documented in this encounter Results * PERIPHERAL BLOCK (03/11/2015 2:46 PM COSMETICIAN APPRENTICE) Narrative Elida Valverde MD - 03/11/2015 2:46 PM COSMETICIAN APPRENTICE Elida Valverde MD ? 03/11/2015 ??2:46 PM [...] Anesthesia Intra-op $ Given 03/11/2015 10:36 AM COSMETICIAN APPRENTICE 1,600 mg dexamethasone (DECADRON) injection PRN, Nausea/Vomiting, Starting on Britany 03/11/15 at 1024, Until Britany 03/11/15 at 1342, Anesthesia Intra-op $ Given 03/11/2015 10:24 AM COSMETICIAN APPRENTICE 4 mg fentaNYL (SUBLIMAZE) injection PRN, Starting on Britany 03/11/15 at 1006, Until Britany 03/11/15 at 1342, Anesthesia Intra-op $ Given 03/11/2015 11:32 AM COSMETICIAN APPRENTICE 50 mcg $ Given 03/11/2015 10:47 AM COSMETICIAN APPRENTICE 50 mcg $ Given 03/11/2015 10:06 AM COSMETICIAN APPRENTICE 100 mcg isolyte-S pH 7.4 infusion CONTINUOUS PRN, Starting on Britany 03/11/15 at 1005, Until Britany 03/11/15 at 1342, Anesthesia Intra-op $ New Bag/Syringe 03/11/2015 11:15 AM COSMETICIAN APPRENTICE $ New Bag/Syringe 03/11/2015 10:35 AM COSMETICIAN APPRENTICE $ New Bag/Syringe 03/11/2015 10:05 AM COSMETICIAN APPRENTICE lidocaine (XYLOCAINE MPF) 2 % injection PRN, Starting on Britany 03/11/15 at 1006, Until Britany 03/11/15 at 1342, Anesthesia Intra-op $ Given 03/11/2015 10:06 AM COSMETICIAN APPRENTICE 50 mg midazolam (VERSED) injection PRN, Starting on Britany 03/11/15 at 1001, Until Britany 03/11/15 at 1342, Anesthesia Intra-op $ Given 03/11/2015 10:01 AM COSMETICIAN APPRENTICE 2 m g morphine injection PRN, Starting on Britany 03/11/15 at 1210, Until Britany 03/11/15 at 1342, Anesthesia Intra-op $ Given 03/11/2015 12:10 PM COSMETICIAN APPRENTICE 2 m g ondansetron (ZOFRAN) injection PRN, Nausea/Vomiting, Starting on Britany 03/11/15 at 1227, Until Britany 03/11/15 at 1342, Anesthesia Intra-op $ Given 03/11/2015 12:27 PM COSMETICIAN APPRENTICE 4 mg propofol (DIPRIVAN) 10 mg/ml injection PRN, Sedation, Starting on Britany 03/11/15 at 1007, Until Britany 03/11/15 at 1342, Anesthesia Intra-op $ Given 03/11/2015 10:07 AM COSMETICIAN APPRENTICE 200 mg ropivacaine (NAROPIN) 2 MG/ML (0.2%) injection PRN, Starting on Britany 03/11/15 at 1317, Until Britany 03/11/15 at 1612, Anesthesia Intra-op $ Given 03/11/2015 1:23 PM COSMETICIAN APPRENTICE 10 m L $ Given 03/11/2015 1:17 PM COSMETICIAN APPRENTICE 2 mL vecuronium (NORCURON) injection PRN, Starting on Britany 03/11/15 at 1009, Until Britany 03/11/15 at 1342, Anesthesia Intra-op $ Given 03/11/2015 10:42 AM COSMETICIAN APPRENTICE 3 m g $ Given 03/11/2015 10:09 AM COSMETICIAN APPRENTICE 5 mg documented in this encounter Care Teams Textile Screen Maker Relationship Specialty Start Date End Date Ruthann Le, ENVELOPE FOLD OPERATOR-PERSONAL FINANCIAL ADVISOR [address] [place] [address] PCP - General Nurse Practitioner 08/14/14 documented as of this encounter
--- OUTSIDE RECORDS SUMMARY | 2024-03-10 04:02 | XMS_ITS | Encounter Summary ---
Author Organization [facility] Address [address] [address] Care Team Providers Care Neck Band Maker Name Role Phone Cody Merlos MD Primary Care Provider [phone] Reason for Visit * Reason Comments Drainage Eye pt has been sick sin ce [place]- cough and congestion. This morning at 0530 [...] st Contact Info) Description 03/13/2011 7:03 AM DENTAL OFFICER - 03/13/2011 8:39 AM DENTAL OFFICER Emergency ER at [address] [address] Damaso Cruz MD [address] [place] [phone] Cough; URI (upper respiratory infection) Discharge Disposition: [...] Comments Blood Pressure 117/82 03/13/2011 7:05 AM DENTAL OFFICER Pulse 98 03/13/2011 7:55 AM DENTAL OFFICER Temperature 36.9 ??C (98.5 ??F) 03/13/2011 7:05 AM CS T Respiratory Rate 20 03/13/2011 7:55 AM DENTAL OFFICER Oxygen Saturation 98% 03/13/2011 7:07 AM DENTAL OFFICER room air Inhaled Oxygen Concentration - - Weight 36.1 kg (79 lb 9.4 oz) 03/13/2011 7:05 AM DENTAL OFFICER Height - - Body Mass Index - - documented in this encounter Discharge Instructions * Discharge Instructions* Spencer Huynh MD - 03/13/2011 8:01 AM DENTAL OFFICER 1. Avoid tobacco exposure---as this is an [...] Document Re-Released: 02/01/2009 ExitCare?? Patient Information ??2010 [employer]. Upper Respiratory Infection (URI), Child Your child [...] closed mouth. ?? Only give your child [id number] or prescription medicines for pain, discomfort, or [...] Document Re-Released: 08/07/2008 ExitCare?? Patient Information ??2009 [employer]. AL OFFICER * Discharge Instructions* Document, Scanned - 03/14/2011 9:39 AM DENTAL OFFICER AL OFFICER documented in this encounter Medications at Time [...] hours a day, from any computer, through [employer] the online version of our electronic medical record. If you would like to use this service, please call Virgie Armendariz, Connectivity Coordinator, at . We appreciate the opportunity to care for your patients. If you would like additional information, please call the emergency department directly at . Sincerely, Damaso Cruz MD Division of Emergency Medicine [place], [place] [facility] [place]???S FIRST TRAUMA I DESIGNATED EMERGENCY DEPARTMENT 03/13/2011 7:26 AM Liam Bal [id number] [facility] EMERGENCY DEPT History Chief Complaint Patient presents with ??? Drainage Eye pt has been sick since [place]- cough and congestion. This morning at 0530 [...] and cough was seen last week at [facility] and told to start honey for cough [...] F/u PMD Clinical Impression Viral syndrone URI AL OFFICER * Spencer Huynh MD - 03/13/2011 7:21 AM CST Provider contact with the patient: 03/13/2011 7:21 AM Liam Bal [id number] [facility] EMERGENCY DEPT History [...] worsening cough. Non-productive, hacking cough begin around [place] and has worsen over last evening. Also has hadrhinorrhea, watery eyes. No fever or decrease oral intake. She gave him albuterol treatment yesterday evening without improvement in symptoms. However, motherdoes not feel child knows how to correctly use inhaler. Over last two weeks he has not used albuterol inhaler often. He was seen at [facility] about 6 days ago for the [...] emergency department for signs of respiratory distress. AL OFFICER documented in this encounter Miscellaneous Notes * Miscellaneous Scans - Document, Scanned - 03/30/2011 6:52 AM CST AL OFFICER * Miscellaneous Scans - Document, Scanned - 03/29/2011 8:20 AM CST AL OFFICER documented in this encounter Plan of Treatment Scheduled Orders Name Type Priority Associated Diagnoses Order Schedule PATIENT EDUCATION RESPIRATORY THERAPY Respiratory Care STAT ONCE for 1 Occurrences starting 03/13/2011 until 03/13/2011 documented as of this encounter Procedures Procedure Name Priority Date/Time Associated Diagnosis Comments STREP A SCREEN DIRECT STAT 03/13/2011 7:15 AM DENTAL OFFICER CULTURE STREP GROUP A STAT 03/13/2011 7:15 AM DENTAL OFFICER documented in this encounter Results * CULTURE STREP GROUP A (03/13/2011 7:15 AM DENTAL OFFICER) Result [facility] Comment: Final Growth of [...] OF NECK) / Unknown 03/13/2011 7:15 AM DENTAL OFFICER 03/13/2011 7:34 AM DENTAL OFFICER Narrative Resulting Agency Comment Performed By [facility];[address] [place] [address];[place] [address] Abhishek Juárez MD LAB - MICROBIOLOGY O FUENTES Performing Organization Address [facility] de Phone Number [facility] [address] [place] [address] * STREP A SCREEN DIRECT (03/13/2011 7:15 AM DENTAL OFFICER) Strep A Rapid Negative Neg Grp A Beta Strep [facility] Miscellaneous samples (specimen) ENTIRE THROAT (SURFACE REGION OF NECK) / Unknown 03/13/2011 7:15 AM DENTAL OFFICER 03/13/2011 7:20 AM DENTAL OFFICER Abhishek Juárez MD LAB - MICROBIOLOGY O BaxanoJONNIE Performing Organization Address [facility] Co de Phone Number [facility] [address] [place] [address] documented in this encounter Visit Diagnoses Diagnosis [...] for Disposal. $ Given 03/13/2011 7:55 AM DENTAL OFFICER 4 puffs ibuprofen (ADVIL; MOTRIN) suspension 360 mg 360 mg (9.97 mg/kg), Oral, ONCE, 1 dose, On Sun03/13/11 at 0800, Shake well before using $ Given 03/13/2011 7:15 AM DENTAL OFFICER 360 mg ibuprofen (ADVIL; MOTRIN) suspension ADS Med 1 dose, Starting on Sun03/13/11 at 0718, Until Sun03/13/11 at 0715, JACQUELYN WILKINSON: cabinet override documented in this encounter Active and Recently Administered Medications Times are shown in DENTAL OFFICER. Scheduled Medication Order 03/11/2011 03/12/2011 03/13/2011 albuterol [...] RN) documented in this encounter Care Teams Neck Band Maker Relationship Specialty Start Date End Date Cody Merlos MD NOT SEEING PATIENTS PCP - General 03/13/11 03/13/11 documented as of this encounter
--- OUTSIDE RECORDS SUMMARY | 2024-03-10 04:02 | XMS_ITS | Encounter Summary ---
Author Organization [facility] Address [address] [facility] [place] [address] Care Team Providers Care Telephone Operators Supervisor Name Role Phone Ruthann Le APRN-SPINNING LATHE OPERATOR AUTOMATIC Primary Care Provider + Encounter Details Date Type Department Care Team (Late st Contact Info) Description 05/14/2009 1:44 PM FLIGHT READINESS TECHNICIAN - 05/14/2009 11:06 PM [facility] Hospital Encounter ER at [address] [address] Md Bill [address] [place] [address] Zoe Littlejohn APRN-CNP [address] [place] [address] Discharge Disposition: Home or Self Care Social [...] on filedocumented in this encounter Care Teams Telephone Operators Supervisor Relationship Specialty Start Date End Date Ruthann Le, ORANGE PICKER-SPINNING LATHE OPERATOR AUTOMATIC [facility] [place] [address] PCP - General 05/14/09 11/21/09 documented as of this encounter
--- OUTSIDE RECORDS SUMMARY | 2024-03-10 04:02 | XMS_ITS | Encounter Summary ---
Author Organization [facility] Address [address] [place] [address] Care Team Providers Care Bleach Boiler Packer Name Role Phone Ruthann Le Primary Care Provider + Encounter Details Date Type Department Care Team (Late st Contact Info) Description 06/11/2009 9:27 PM CDT - 06/11/2009 11:30 PM CDT Emergency ER at [address] [address] Discharge Disposition: Psychiatric Hospital or Unit Social [...] on filedocumented in this encounter Care Teams Bleach Boiler Packer Relationship Specialty Start Date End Date Ruthann Le APRN-CNP [address] [place] [address] PCP - General 05/14/09 11/21/09 documented as of this encounter
--- OUTSIDE RECORDS SUMMARY | 2024-03-10 04:02 | XMS_ITS | Encounter Summary ---
Author Organization [facility] Address [address] [facility] [place] [address] Care Team Providers Care Fender Finisher Name Role Phone Yonas Troy MD Primary Care Provider Unavailab le Reason for Visit * Reason Comments Lower Extremity Problem C/O L foot turne d in since Encounter Details Date Type Department Care Team (Latest Contact Info) Description 06/13/2013 10:25 AM CDT - 06/13/2013 11:23 AM T Hospital Encounter [facility] Pediatrics - Orthopedics [facility] [place] [address] Ruben Jorge MD [address] [place] [address] [address] [facility] [...] usually does not cause pain, nor does food assembler commissary kitchen to arthritis. Treatment Intoeing will correct itself [...] always improves without treatment, and usually school psychology professor age. Splints, special shoes, and exercise programs [...] gait. *This information is provided by [employer] (www.aaos.org). documented in this encounter Medications at Time of Discharge Medication Sig Dispensed Refills Start Date End Date albuterol HFA (PROVENTIL;VENTOLIN;NE OAIR) 108 (90 BASE) MCG/ACT inhaler Inhale 2 Puffs by mouth every 4 hours as needed for Wheezing or Cough (use with MDI as instructed.). 1 Inhaler 3 03/13/2011 08/14/2014 albuterol HFA (PROVENTIL;VENTOLIN;NE OAIR) 108 (90 BASE) MCG/ACT inhaler Inhale [...] unspecified documented in this encounter Care Teams Fender Finisher Relationship Specialty Start Date End Date Yonas Troy MD PCP - General Pediatrics 05/21/12 08/13/14 documented as of this encounter
--- OUTSIDE RECORDS SUMMARY | 2024-03-10 04:02 | XMS_ITS | Encounter Summary ---
Author Organization [facility] Address [address] [facility] [place] [address] Care Team Providers Care Grid Molder Name Role Phone Ruthann Le OTR OWNER OPERATOR TRUCK DRIVER-POT TENDER Primary Care Provider + Encounter Details Date Type Department Care Team (Latest Contact Info) Description 04/09/2015 9:45 AM EVP AND CHIEF OPERATING OFFICER - 04/09/2015 10:04 AM [facility] Hospital Encounter [facility] Pediatrics - Radiology [address] [place] [address] Ruben Jorge MD [address] [place] [address] [address] [place] [address] Discharge Disposition: Home or Self [...] RIGHT 2VW Routine 04/09/2015 9: 57 AM EVP AND CHIEF OPERATING OFFICER Femoral anteversion (HCC) documented in this encounter Results * XR FEMUR 2 VW RIGHT (04/09/2015 9:57 AM EVP AND CHIEF OPERATING OFFICER) Anatomical Region Laterality Modality Lower Extremity Radiographic Shirin ging 04/09/2015 10:0 3 AM EVP AND CHIEF OPERATING OFFICER Impressions 04/09/2015 10:04 AM EVP AND CHIEF OPERATING OFFICER Healing internally stabilized mid femoral diaphyseal osteotomy. Narrative 04/09/2015 10:04 AM EVP AND CHIEF OPERATING OFFICER Exam: Right femur, 2 views History: 10-year-old [...] (joint) documented in this encounter Care Teams Grid Molder Relationship Specialty Start Date End Date Ruthann Le, OTR OWNER OPERATOR TRUCK DRIVER-POT TENDER [address] [place] [address] PCP - General Nurse Practitioner 08/14/14 documented as of this encounter
--- OUTSIDE RECORDS SUMMARY | 2024-03-10 04:02 | XMS_ITS | Encounter Summary ---
Author Organization [facility] Address [address] [facility] [address] Care Team Providers Care Document Analyst Name Role Phone Yonas Troy MD Primary Care Provider Unavailab le Encounter Details Date Type Department Care Team (Latest Contact Info) Description 06/13/2013 11:24 AM CDT - 06/13/2013 11:59 PM CDT Hospital Encounter [facility] Pediatrics - Radiology [address] [place] [address] Ruben Jorge MD [address] [place] [address] [address] [place] [address] Discharge Disposition: Home or Self [...] Refills Start Date End Date albuterol HFA (PROVENTIL;VENTOLIN;AK OAIR) 108 (90 BASE) MCG/ACT inhaler Inhale 2 Puffs by mouth every 4 hours as needed for Wheezing or Cough (use with MDI as instructed.). 1 Inhaler 3 03/13/2011 08/14/2014 albuterol HFA (PROVENTIL;VENTOLIN;AK OAIR) 108 (90 BASE) MCG/ACT inhaler Inhale [...] unspecified documented in this encounter Care Teams Document Analyst Relationship Specialty Start Date End Date Yonas Troy MD PCP - General Pediatrics 05/21/12 08/13/14 documented as of this encounter
--- OUTSIDE RECORDS SUMMARY | 2024-03-10 04:02 | XMS_ITS | Encounter Summary ---
Author Organization [facility] Address [address] [place] [address] Care Team Providers Care Chair Finisher Name Role Phone Ruthann Le GRILL CHEF-MANAGER BABY Primary Care Provider + Reason for Visit * Auth/Cert Specialty Diagnoses / Procedures Referred By Zohra aguila Referred To Contact Diagnoses Acute calculous cholecystitis Acute calculous cholecystitis Procedures LAPAROSCOPIC CHOLECYSTECTOMY Referral ID Status Reason Start Date Expiration Date Visits Re quested Visits Authorized [id number] 1 1 Encounter Details Date Type Department Care Team (Late st Contact Info) Description 10/26/2016 12:43 PM CDT - 10/27/2016 10:44 AM CDT Hospital Encounter [facility] [address] [place] [address] Rosana Castro MD [address] [place] [address] DE[place] [address] Surgery General Discharge Disposition: Home or Self [...] 91.83% 10/26 12:52 PM CDT Growth Chart: [facility] (Boys, 2-2 0 Years) documented in [...] fatty foods and CT from [facility] was positive for gallstones ??? Head injury 11/22/2009 ??? Left tibial torsion 06/13/2013 ??? [place]-Schlatter's disease of right knee 01/01/2015 Past Surgical History: Procedure Laterality Date ??? Cholecystectomy, Laparoscopic N/A 10/26/2016 N/A; LAPAROSCOPIC CHOLECYSTECTOMY ??? NEGATIVE SURGICAL HISTORY 01/01/2015 ??? Osteotomy Right 03/11/2015 Right; RIGHT FEMORAL DEROTATIONAL OSTEOTOMY AND INTRAMEDULLARY NAIL No family history on file. Clinical course: improved Procedures: Laparoscopic cholecystectomy Clinical Course: The patient presented to [facility] with the above H&P. The patient [...] or edema Liam Bal Home Medication Instructions KELVIN:[id number] Printed on:10/27/16 1220 Medication Information acetaminophen (TYLENOL) [...] Dr. Castro during the [facility] clinic. Call [phone] for appointment time. Return to ER or call [phone] and page pediatric surgery resident if develop [...] Automatic Therapeutic Substitution Policy approved by the [facility] and [employer] and Medical Executive Committees, Your Order for: Albuterol MDI 90 mcg/spray 2 puffs every 4 hours PRN has been changed to albuterol 2.5 mg nebs every 4 hours PRN. If you have any questions please call the pharmacy. Thank you Noris Restrepo PharmD documented in this encounter H&P Notes * oRsana Castro MD - 10/26/2016 2:11 PM CDT [...] fatty foods and CT from [facility] was positive for gallstones ??? [...] and audiovisual recordings obtained. Sara Weir DO [facility] General Surgery Senior Resident [facility] [phone] 10/26/20162:11 PM I reviewed the chart of [...] performed: Laparoscopic cholecystectomy Surgeon: Rosana Castro MD Speech Correction Assistant: Magen Michaud MD and Sara Weir DO [...] were clipped with a 5 mm clip chimney repairer and divided. The peritoneum was incised wi [...] 5 mL Specimens: gallbladder Sara Weir DO [facility] General Surgery Senior Resident [facility] [phone] 10/26/20164:35 PM I was present for the [...] MD 10/26/2016 3:20 PM Sara Weir DO [facility] General Surgery Senior Resident [facility] [phone] 10/26/20164:34 PM Rosana Castro MD 10/27/2016 5:27 [...] Case Report Surgical Pathology Report ? Case: [id number] ? Authorizing Provider: ??Rosana Castro MD Collected: ? 10/26/2016 03:06 PM ? Ordering Location: ? [facility] ? Received: ?10/27/2016 07:05 AM ? Pathologist: ? Mary Ibarra MD ? Specimen: ?Gallbladder ? 10/30/2016 7:14 PM [facility] Final Diagnosis GALLBLADDER, LAPAROSCOPIC CHOLECYSTECTOMY: - CHRONIC CHOLECYSTITIS. - CHOLELITHIASIS 10/30/2016 7:14 PM [facility] Clinical History The patient is a 11-year-old boy with intermittent right upper quadrant pain and clinical diagnosis of symptomatic cholelithiasis. 10/30/2016 7:14 PM [facility] Gross Description Submitted fixed in [...] is velvety pink. The cystic duct and inbound customer service representative sections of the gallbladder are submitted in cassette A1. (KONSTANTIN/julia) 10/30/2016 7:14 PM [facility] Microscopic Description 1 H&E. Sections of the gallbladder show gallbladder wall with mild chronic inflammatory infiltrate and with Rokitansky-Aschoff sinuses. The luminal surface has amorphous eosinophilic material. (CV/NK/eva) 10/30/2016 7:14 PM [facility] Disclaimer The performance characteristics of all immunohistochemical and indirect immunofluorescence stains (if any) cited in this report were determined by the Histopathology Laboratory of [facility]. Some of these tests were developed by [...] attending (teaching) pathologist. 10/30/2016 7:14 PM CDT [facility] Embedded Images 10/30/2016 7:14 PM CDT [facility] Pathology/Cytolo gy ENTIRE GALLBLADDER / Unknown 10/26/2016 3:06 PM CDT 10/27/2016 7:05 AM CDT Rosana Castro MD LAB - PATHOLOGY/C YTOLOGY ORDERABLES Performing Organization Address City/State/[facility] Co de Phone Number [facility] [address] [place] [address] documented in this encounter Visit Diagnoses Diagnosis [...] Post-op documented in this encounter Care Teams Chair Finisher Relationship Specialty Start Date End Date Ruthann Le, GRILL CHEF-MANAGER BABY [address] [place] [address] PCP - General Nurse Practitioner 08/14/14 documented as of this encounter
--- OUTSIDE RECORDS SUMMARY | 2024-03-10 04:02 | XMS_ITS | Encounter Summary ---
Author Organization [facility] Address [address] [place] [address] Care Team Providers Care Phone Specialist Name Role Phone Pcp, Dejah Primary Care [...] 10/21/2011 2:13 PM CDT Emergency ER at [address] [address] Maria Dolores Pacheco, EMBROIDERY WORKER-WOOD PATTERN MAKER [address] [address] Conjunctivitis unspecified; Attention deficit disorder [...] bacterial infection causes a yellowish, thick discharge. [place] [facility] is very contagious and spreads by [...] Document Re-Released: 05/18/2009 ExitCare?? Patient Information ??2009 [employer] * Discharge Instructions* Document, Scanned - [...] hours a day, from any computer, through [employer], the online version of our electronic medical record. If you would like to use this service, please call Virgie Kala, Connectivity Coordinator, at . We appreciate the opportunity to care for your patients. If you would like additional information, please call the emergency department directly at . Sincerely, Maria Dolores Perez NP Division of Emergency Medicine [facility], [place] [facility] [place] FIRST TRAUMA I DESIGNATED EMERGENCY DEPARTMENT Provider contact with the patient: 10/21/2011 13:41 Liam Bal [id number] [facility] EMERGENCY DEPT History Chief Complaint Patient [...] medications documented in this encounter Care Teams Phone Specialist Relationship Specialty Start Date End Date Dejah Epps PCP - General 10/20/11 05/20/12 documented as of this encounter
--- OUTSIDE RECORDS SUMMARY | 2024-03-10 04:02 | XMS_ITS | Encounter Summary ---
Author Organization [facility] Address [address] [facility] [place] [address] Care Team Providers Care Choker Setter Name Role Phone Ruthann Le FUEL EFFICIENT AUTOMOBILE DESIGNER-BAG MACHINE OPERATOR Primary Care Provider + Reason for Visit * Reason Comments Follow-up pre-op Encounter Details Date Type Department Care Team (Latest Contact Info) Description 03/08/2015 2:15 PM BODY PRESS OPERATOR - 03/08/2015 3:21 PM [facility] Hospital Encounter [facility] Pediatrics - Orthopedics [address] [place] [address] Ruben Jorge MD [address] [place] [address] [address] [place] [address] Discharge Disposition: Home or [...] (143 lb 11.8 oz) 03/08/2015 2:58 PM BODY PRESS OPERATOR Height 152 cm (4' 11.84 ) 03/08/2015 2:58 PM BODY PRESS OPERATOR Body Mass Index 28.22 03/08/2015 2:58 PM BODY PRESS OPERATOR Body Mass Index Percentile 97.66% 03/08/2015 2:5 8 PM BODY PRESS OPERATOR Growth Chart: [facility] (Boys, 2-2 0 Years) documented in this encounter Discharge Instructions * Patient Instructions* Do Salinas MD - 03/08/2015 3:55 PM BODY PRESS OPERATOR ORTHOPAEDIC CLINIC DISCHARGE INSTRUCTIONS SHEET DIAGNOSIS: 1. Femoral anteversion Follow Up: Will schedule surgery. If you have a question for the orthopaedic nurse, call [phone], ext. [phone]. X-Rays next visit: Yes - [...] a voicemail for him at or through [facility]. You can Like him on [employer] at [email or web address]. After visit summary completed by Do Salinas MD. PRESS OPERATOR documented in this encounter Medications at Time of Discharge Medication Sig Dispensed Refills Start Date End Date albuterol HFA (PROVENTIL;VENTOLIN;ND OAIR) 108 (90 BASE) MCG/ACT inhaler Inhale [...] fluticasone propionate (FLONASE) 50 MCG/ACT nasal spray [place] 2 Sprays into each nostril once daily [...] pain, reports pain with activity Pain: stable, uwfk-yo-evhnnrvp joint symptoms intermittently, reasonably well controlled by [...] fluticasone propionate (FLONASE) 50 MCG/ACT nasal spray, [place] 2 Sprays into each nostril once daily, [...] HPI. PHYSICAL EXAMINATION:Wt 143 lb 11.8 oz (73556 g) BMI 28.22 kg/m2 General appearance: He [...] discussed femoralosteotomy.. Liam will follow-up after surgery. PRESS OPERATOR documented in this encounter Plan of Treatment Not on file documented as of this encounter Results * XR FEMUR 2 VW RIGHT (03/08/2015 3:32 PM BODY PRESS OPERATOR) Anatomical Region Laterality Modality Lower Extremity Radiographic Shirin ging 03/08/2015 3:34 PM BODY PRESS OPERATOR Impressions 03/08/2015 3:35 PM BODY PRESS OPERATOR Somewhat limited examination of the right femur. No gross abnormality is seen. Narrative 03/08/2015 3:35 PM BODY PRESS OPERATOR 2 views of the right femur performed [...] (joint) documented in this encounter Care Teams Choker Setter Relationship Specialty Start Date End Date Ruthann Le, FUEL EFFICIENT AUTOMOBILE DESIGNER-BAG MACHINE OPERATOR [address] [place] [address] PCP - General Nurse Practitioner 08/14/14 documented as of this encounter
--- OUTSIDE RECORDS SUMMARY | 2024-03-10 04:02 | XMS_ITS | Encounter Summary ---
Author Organization [facility] Address [address] [facility] [place] [address] Care Team Providers Care Engine Dynamometer Tester Name Role Phone Ruthann Le CONTACT PRINTER DRY FILM-SAW OPERATOR Primary Care Provider + Reason for Visit * Reason Comments Gait problem left foot turns in/h aving pain during activity Encounter Details Date Type Department Care Team (Latest Contact Info) Description 01/01/2015 10:25 AM CDT - 01/01/2015 11:27 AM T Hospital Encounter [facility] Pediatrics - Orthopedics [address] [place] [address] Ruben Jorge MD [address] [facility] [address] [place] [address] Discharge Disposition: Home or [...] 01/01 11:05 AM CDT Growth Chart: [facility] (Boys, 2-2 0 Years) documented in this encounter Discharge Instructions * Patient Instructions* Lydia Gee PA - 01/01/2015 11:59 AM CDT ORTHOPAEDIC CLINIC DISCHARGE INSTRUCTIONS SHEET DIAGNOSIS: 1. [place]-Schlatter's disease, right 2. Femoral anteversion Follow Up: Please make a return appointment for 1 year(s) with . If you cannot keep an appointment, please call and notify . If you have a question for the orthopaedic nurse, call [phone], ext. [phone]. X-Rays next visit: No Medications [...] for the orthopaedic nurse, Yasmani Natarajan, call [phone], ext. [phone]. If you have a question for Dr. Jorge, you may leave a voicemail for him at or through [employer]. You can Like him on [employer] at [email or web address]. After visit summary completed by ROSALES Humphreys. [...] does not cause pain, nor does facilities maintenance assistant to arthritis. Treatment Intoeing will correct itself [...] improves without treatment, and usually middle school math teacher age. Splints, special shoes, and exercise [...] gait. *This information is provided by The [place] [employer] (www.aaos.org). documented in this encounter Medications at Time of Discharge Medication Sig Dispensed Refills Start Date End Date albuterol HFA (PROVENTIL;VENTOLIN;[place] OAIR) 108 (90 BASE) MCG/ACT inhaler Inhale [...] fluticasone propionate (FLONASE) 50 MCG/ACT nasal spray [place] 2 Sprays into each nostril once daily [...] above. PHYSICAL EXAMINATION:Wt 140 lb 14 oz (45596 g) BMI 27.51 kg/m2 General appearance: He [...] EXTREMITY STANDING Routine 01/01/2015 11:39 AM CDT Raywick-Schlatter's disease, right XR KNEE RIGHT 2VW OR LESS Routine 01/01/2015 11:39 AM CDT Raywick-Schlatter's disease, right documented in this encounter Results [...] tissue swelling. This suggests the presence of Raywick-Schlatter disease. 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
--- OUTSIDE RECORDS SUMMARY | 2024-03-10 04:02 | XMS_ITS | Encounter Summary ---
Author Organization [facility] Address [address] [place] [address] Care Team Providers Care Eyeglass Assembler Name Role Phone Ruthann Le SORTING LIVESTOCK WORKER-RETAIL TRAINING MANAGER Primary Care Provider + Reason for Visit [...] 08/14/2014 11:24 AM CDT Emergency ER at [address] [address] Allergic rhinitis, unspecified allergic rhinitis type; History [...] Discharge Instructions * Discharge Instructions* Treasure French APRN-RETAIL TRAINING MANAGER - 08/14/2014 11:14 AM CDT Images from [...] your child. The above information is an paid intern only. It is not intended as medicaladvice for individual conditions or treatments. Talk to your doctor, nurse or pharmacist before following any medical regimen to see if it is safe and effective for you. ?? 2015 [employer]. Information is for End User's use only and may not be sold, redistributed or otherwise used for commercial purposes. All illustrations and images included in CareNotes?? are the copyrighted property of [employer]. or [employer]. Allergies GENERAL INFORMATION: What are allergies? Allergies [...] refuse treatment. The above information is an paid intern only. It is not intended as medical advice for individual conditions or treatments. Talk to your doctor, nurse or pharmacist before following any medical regimen to see if it is safe and effective for you. ?? 2015 [employer]. Information is for End User's use only and may not be sold, redistributed or otherwise used for commercial purposes. All illustrations and images included in CareNotes?? are the copyrighted property of [employer] or [employer]. Allergic Rhinitis GENERAL INFORMATION: What is allergic [...] mattresses with allergen-free covers. Use a vacuum silver cleaner with an air filter. If possible, get rid of carpet and curtains. These collect dust and dust mites. Call an ux architect if you think you have cockroaches in [...] refuse treatment. The above information is an paid intern only. It is not intended as medical advice for individual conditions or treatments. Talk to your doctor, nurse or pharmacist before following any medical regimen to see if it is safe and effective for you. ?? 2015 [employer]. Information is for End User's use only and may not be sold, redistributed or otherwise used for commercial purposes. All illustrations and images included in CareNotes?? are the copyrighted property of [employer]. or [employer]. documented in this encounter Medications at Time [...] fluticasone propionate (FLONASE) 50 MCG/ACT nasal spray [place] 2 Sprays into each nostril once daily [...] hours a day, from any computer, through [employer], the online version of our electronic medical record. If you would like to use this service, please call Virgie Armendariz, Connectivity Coordinator, at . We appreciate the opportunity to care for your patients. If you would like additional information, please call the emergency department directly at . Sincerely, Treasure French APRN-RETAIL TRAINING MANAGER Division of Emergency Medicine [facility], [place] [facility] EMERGENCY [facility] C[facility] [place]???S LONGEST STANDING LEVEL I PEDIATRIC TRAUMA CENTER Provider contact with the patient: 08/14/2014 10:52 Liam Melissa Bal [id number] [facility] EMERGENCY DEPARTMENT History Chief [...] fluticasone propionate (FLONASE) 50 MCG/ACT nasal spray [place] 2 Sprays into each nostril once daily [...] propionate (FLONASE) 50 MCG/ACT nasal spray Sig: [place] 2 Sprays into each nostril once daily [...] nasal spray Zyrtec daily Follow up with periodontal assistant in 2-3 weeks to discuss symptoms and [...] system documented in this encounter Care Teams Eyeglass Assembler Relationship Specialty Start Date End Date Ruthann Le APRN-CNP [address] [place] [address] PCP - General Nurse Practitioner 08/14/14 documented as of this encounter
--- OUTSIDE RECORDS SUMMARY | 2024-03-10 04:02 | XMS_ITS | Encounter Summary ---
Author Organization [facility] Address [address] [facility] [place] [address] Care Team Providers Care Glass Checker Name Role Phone Ruthann Le SQUEAK RATTLE AND LEAK REPAIRER-CAR AUDIO INSTALLER Primary Care Provider + Reason for Visit * Reason Comments Surgical Follow-up right femoral derota tional osteotomy with intramedullary device Encounter Details Date Type Department Care Team (Latest Contact Info) Description 04/09/2015 10:05 AM RELAY DISPATCHER - 04/09/2015 11:[address] [facility] Hospital Encounter [facility] Pediatrics - Orthopedics [address] [place] [address] Ruben Jorge MD [address] [place] [address] [address] [place] [address] Discharge Disposition: Home or [...] (145 lb 1 oz) 04/09/2015 10:55 AM RELAY DISPATCHER Height 156 cm (5' 1.42 ) 04/09/2015 10:55 AM RELAY DISPATCHER Body Mass Index 27.04 04/09/2015 10:55 AM RELAY DISPATCHER Body Mass Index Percentile 96.86% 04/09/2015 10: 55 AM RELAY DISPATCHER Growth Chart: [facility] (Boys, 2-2 0 Years) documented [...] Ruben Jorge MD - 04/09/2015 11:13 AM RELAY DISPATCHER ORTHOPAEDIC CLINIC DISCHARGE INSTRUCTIONS SHEET DIAGNOSIS: 1. Right femoral anteversion 2. status post right femoral derotational osteotomy Follow Up: Please make a return appointment for 1 month(s) with or ROSALES. If you cannot keep an appointment, please call and notify . If you have a question for the orthopaedic nurse, call [phone], ext. [phone]. X-Rays next visit: Yes - [...] for the orthopaedic nurse, Yasmani Natarajan, call [phone], ext. [phone]. If you have a question for Dr. Jorge, you may leave a voicemail for him at or through [facility]. You can Like him on [employer] at [email or web address]. After visit summary completed by Ruben Jorge MD. Y DISPATCHER documented in this encounter Medications at Time [...] NOTE NAME: Liam Bal DATE OF SERVICE: 04/09/2015 DATE: 2005 PCP: Ruthann Le NP Chief Complaint Patient presents with ??? Surgical Follow-up right femoral derotational osteotomy with intramedullary device DOS: 03/11/2015 PROCEDURE: Right Femoral derotational osteotomy over a nail DATE OF OPERATION:?? PCP: Ruthann Le NP SUBJECTIVE: iLam Bal is a 10 y.o. 3 m.o. [...] - Yes Right Femur. With the Physician's Mind Reader - Yes Y DISPATCHER documented in this encounter Plan of Treatment Not on file documented as of this encounter Results * XR FEMUR 2 VW RIGHT (04/09/2015 9:57 AM RELAY DISPATCHER) Anatomical Region Laterality Modality Lower Extremity Radiographic Shirin ging 04/09/2015 10:0 3 AM RELAY DISPATCHER Impressions 04/09/2015 10:04 AM RELAY DISPATCHER Healing internally stabilized mid femoral diaphyseal osteotomy. Narrative 04/09/2015 10:04 AM RELAY DISPATCHER Exam: Right femur, 2 views History: 10-year-old [...] (joint) documented in this encounter Care Teams Glass Checker Relationship Specialty Start Date End Date Ruthann Le, SQUEAK RATTLE AND LEAK REPAIRER-CAR AUDIO INSTALLER [address] [place] [address] PCP - General Nurse Practitioner 08/14/14 documented as of this encounter
--- OUTSIDE RECORDS SUMMARY | 2024-03-10 04:02 | XMS_ITS | Encounter Summary ---
Author Organization [facility] Address [address] [facility] [place] [address] Care Team Providers Care Can Operator Name Role Phone Ruthann Le DISTRIBUTOR PUBLICATIONS-ELECTRICIAN RECTIFIER MAINTENANCE Primary Care Provider + Encounter Details Date Type Department Care Team (Latest Contact Info) Description 03/08/2015 3:22 PM COMMUNITY COORDINATOR FOR HIGH SCHOOL - 03/08/2015 11:59 PM [facility] Hospital Encounter [facility] Pediatrics - Radiology [address] [place] [address] Ruben Jorge MD [address] [place] [address] [address] [place] [address] Discharge Disposition: Home or Self [...] Refills Start Date End Date albuterol HFA (PROVENTIL;VENTOLIN;[place] OAIR) 108 (90 BASE) MCG/ACT inhaler Inhale [...] fluticasone propionate (FLONASE) 50 MCG/ACT nasal spray [place] 2 Sprays into each nostril once daily [...] RIGHT 2VW Routine 03/08/2015 3: 32 PM COMMUNITY COORDINATOR FOR HIGH SCHOOL Femoral anteversion (HCC) documented in this encounter Results * XR FEMUR 2 VW RIGHT (03/08/2015 3:32 PM COMMUNITY COORDINATOR FOR HIGH SCHO[employer]) Anatomical Region Laterality Modality Lower Extremity Radiographic Shirin ging 03/08/2015 3:34 PM COMMUNITY COORDINATOR FOR HIGH SCHOOL Impressions 03/08/2015 3:35 PM COMMUNITY COORDINATOR FOR HIGH S[employer]OL Somewhat limited examination of the right femur. No gross abnormality is seen. Narrative 03/08/2015 3:35 PM COMMUNITY COORDINATOR FOR HIGH SCHOOL 2 views of the right femur performed [...] (joint) documented in this encounter Care Teams Can Operator Relationship Specialty Start Date End Date Ruthann Le, MITCH-ELECTRICIAN RECTIFIER MAINTENANCE [address] [place] [address] PCP - General Nurse Practitioner 08/14/14 documented as of this encounter
--- OUTSIDE RECORDS SUMMARY | 2024-03-10 04:02 | XMS_ITS | Encounter Summary ---
Author Organization [facility] Address [address] [place] [address] Care Team Providers Care Quality Engineer Medical Device Name Role Phone Ruthann Le HI TEACHER-DATA TYPIST Primary Care Provider + Reason for Visit * Auth/Cert Specialty Diagnoses / Procedures Referred By Zohra aguila Referred To Contact Diagnoses Acute calculous cholecystitis Acute calculous cholecystitis Procedures LAPAROSCOPIC CHOLECYSTECTOMY Referral ID Status Reason Start Date Expiration Date Visits Re quested Visits Authorized [id number] 1 1 Encounter Details Date Type Department Care Team (Late st Contact Info) Description 10/26/2016 2:29 PM CDT Anesthesia Event [facility] - Periop [address] [place] [address]. [place] [address] Erasmo Bhakta MD [address] [place] [address] Tong Tripp MD [address] [place] [address] Anesthesia Record Procedure Summary Procedure Name Responsible [...] Active Problem List Diagnosis Date Noted ??? [place]-Schlatter's disease 01/01/2015 Priority: Not Prioritized ??? Femoral [...] preceded by fatty foods and CT from [facility] was positive for gallstones ??? Head [...] Given? Yes Checklist or Protocol - The wilson handoff elements that must be included in [...] mg documented in this encounter Care Teams Quality Engineer Medical Device Relationship Specialty Start Date End Date Ruthann Le, HI TEACHER-DATA TYPIST [address] [place] [id number] PCP - General Nurse Practitioner 08/14/14 documented as of this encounter
--- OUTSIDE RECORDS SUMMARY | 2024-03-10 04:02 | XMS_ITS | Encounter Summary ---
Author Organization [facility] Address [address] [facility] [place] [address] Care Team Providers Care Pizza Driver Name Role Phone Ruthann Le OUTSIDE SALES INSPECTOR-INCOME TAX EXPERT Primary Care Provider + Reason for Visit * Reason Onset Date Comments Question 03/01/2015 Encounter Details Date Type Department Care Team (Late st Contact Info) Description 03/01/2015 Telephone [facility] Pediatrics - Orthopedics [facility] [place] [address] Ruben Jorge MD [address] [place] [address] [address] [place] [address] Question Social History Tobacco Use [...] a good date for a preoperative appointment. E SUBSTANCE ABUSE documented in this encounter Plan of Treatment Not on file documented as of this encounter Visit Diagnoses Not on filedocumented in this encounter Care Teams Pizza Driver Relationship Specialty Start Date End Date Ruthann Le, OUTSIDE SALES INSPECTOR-INCOME TAX EXPERT [address] [place] [address] PCP - General Nurse Practitioner 08/14/14 documented as of this encounter
--- OUTSIDE RECORDS SUMMARY | 2024-03-10 04:02 | XMS_ITS | Encounter Summary ---
Author Organization [facility] Address [address] [facility] [place] [address] Care Team Providers Care Lightning Rod Erector Name Role Phone Yonas Troy MD Primary [...] 05/21/2012 4:05 PM CDT Emergency ER at [address] [address] Veto Petersen MD [facility] Care Pediatrics [address] [place] [address] [place] [address] Cough; Asthma exacerbation (HCC) Discharge [...] them. ?? Clean moldy surfaces with a quill cleaner that has bleach in it. Pollen [...] vacuum, use a dust mask from a [employer] store, a double-layered or microfilter vacuum quill cleaner bag, or a vacuum quill cleaner with a HEPA filter. ?? Sulfites [...] with aspirin sensitivity read labels of all [id number] drugs used to treat pain, colds, coughs, [...] Document Reviewed: 02/07/2010 ExitCare?? Patient Information ??2011 [employer]. * Discharge Instructions* Document, Scanned - 06/10/2012 2:03 PM CDT documented in this encounter Medications at Time of Discharge Medication Sig Dispensed Refills Start Date End Date albuterol HFA (PROVENTIL;VENTOLIN;DE OAIR) 108 (90 BASE) MCG/ACT inhaler Inhale 2 Puffs by mouth every 4 hours as needed for Wheezing or Cough (use with MDI as instructed.). 1 Inhaler 3 03/13/2011 08/14/2014 albuterol HFA (PROVENTIL;VENTOLIN;DE OAIR) 108 (90 BASE) MCG/ACT inhaler Inhale [...] with the patient: 05/21/2012 15:25 Liam Bal [id number] [facility] EMERGENCY DEPT History Chief Complaint Patient presents [...] hours a day, from any computer, through DocuT[employer], the online version of our electronic medical record. If you would like to use this service, please call Virgie Armendariz, Connectivity Coordinator, at . We appreciate the opportunity to care for your patients. If you would like additional information, please call the emergency department directly at . Sincerely, Delvin Aggarwal MD Division of Emergency Medicine [facility], [place] [facility] [place] DESIGN[facility] EMERGENCY DEPARTMENT Provider contact with the patient: 05/21/2012 15:12 Liam Bal [id number] [facility] EMERGENCY DEPT History Chief Complaint Patient presents [...] RN) documented in this encounter Care Teams Lightning Rod Erector Relationship Specialty Start Date End Date Yonas Troy MD PCP - General Pediatrics 05/21/12 08/13/14 documented as of this encounter
--- OUTSIDE RECORDS SUMMARY | 2024-03-10 04:02 | XMS_ITS | Encounter Summary ---
Author Organization [facility] Address [address] [facility] [place] [address] Care Team Providers Care Hand Embroiderer Name Role Phone Ruthann Le BILLING CHECKER-REGIONAL SAFETY MANAGER Primary Care Provider + Encounter Details Date Type Department Care Team (Latest Contact Info) Description 01/01/2015 11:28 AM CDT - 01/01/2015 11:59 PM CDT Hospital Encounter [facility] Pediatrics - Radiology [address] [place] [address] Ruben Jorge MD [address] [facility] [address] [place] [address] Discharge Disposition: Home or Self [...] Refills Start Date End Date albuterol HFA (PROVENTIL;VENTOLIN;[place] OAIR) 108 (90 BASE) MCG/ACT inhaler Inhale [...] fluticasone propionate (FLONASE) 50 MCG/ACT nasal spray [place] 2 Sprays into each nostril once daily [...] CDT Impressions 01/01/2015 11:59 AM CDT Probable [place]-Schlatter disease. Clinical correlation is needed for confirmation. [...] tissue swelling. This suggests the presence of [place]-Schlatter disease. No other osseous, articular, or soft [...] tissue swelling. This suggests the presence of [place]-Schlatter disease. No other osseous, articular, or soft tissue abnormality is seen. IMPRESSION Probable [place]-Schlatter disease. Clinical correlation is needed for confirmation. [...] leg documented in this encounter Care Teams Hand Embroiderer Relationship Specialty Start Date End Date Ruthann Le, BILLING CHECKER-REGIONAL SAFETY MANAGER [address] [place] [address] PCP - General Nurse Practitioner 08/14/14 documented as of this encounter
== END 2024-03-03 03:16 | disposition home or self-care (01) ==
LOC: ANHED 03:07
PROVIDERS: Emergency Provider Emergency Medicine
DX: M23.92 Unspecified internal derangement of left knee (principal); S89.92XA Unspecified injury of left lower leg, initial encounter; W01.0XXA Fall on same level from slipping, tripping and stumbling without subsequent striking against object, initial encounter
CPT/HCPCS: 73564; 99283